=== PATIENT | female | born 1945 | race Caucasian/White ===

== ENCOUNTER 2017-09-28 03:12 | Outpatient (RCR) | payer MEDICARE, OTHER, SELFPAY ==
[2017-09-28 09:55] VITALS: BP 122/76; PULSE 80; RESP 19; TEMP 36.4; O2SAT 96
[2017-09-28] MEDS: IMMUNE GLOBULIN 40 GM/400 ML BTL IV (10:09)
[2017-09-28] MEDS: Normal Saline Flush 10 ML SYR IVP (10:10)
[2017-09-28 10:20] VITALS: BP 113/69; PULSE 71; RESP 18; TEMP 36.4; O2SAT 95
[2017-09-28 10:35] VITALS: BP 113/69; PULSE 66; RESP 19; TEMP 36.3; O2SAT 95
[2017-09-28 11:05] VITALS: BP 115/70; PULSE 65; RESP 18; TEMP 36.4; O2SAT 92
[2017-09-28 11:35] VITALS: BP 116/73; PULSE 66; RESP 18; TEMP 36.3; O2SAT 96
[2017-09-28 12:05] VITALS: BP 129/73; PULSE 67; RESP 19; TEMP 36.6; O2SAT 98
[2017-10-05 10:20] VITALS: BP 123/79; PULSE 70; RESP 18; TEMP 36.5
[2017-10-05 10:22] VITALS: BP 123/79; PULSE 70; RESP 18; TEMP 36.5
[2017-10-05] MEDS: Normal Saline Flush 10 ML SYR IVP (10:24)
[2017-10-05] MEDS: IMMUNE GLOBULIN 40 GM/400 ML BTL IV (10:24)
[2017-10-05 10:45] VITALS: BP 120/78; PULSE 77; RESP 18; TEMP 36.5
[2017-10-05 11:10] VITALS: BP 139/78; PULSE 72; RESP 18; TEMP 36
[2017-10-05 11:40] VITALS: BP 125/75; PULSE 75; RESP 18; TEMP 36
[2017-10-12 10:10] VITALS: BP 132/68; PULSE 73; RESP 18; TEMP 36
[2017-10-12] MEDS: IMMUNE GLOBULIN 40 GM/400 ML BTL IV (10:13)
[2017-10-12] MEDS: Normal Saline Flush 10 ML SYR IVP (10:14)
[2017-10-12 10:20] VITALS: BP 115/64; PULSE 72; RESP 18; TEMP 36.1
[2017-10-12 10:45] VITALS: BP 114/70; PULSE 69; RESP 18; TEMP 36.2
[2017-10-20] MEDS: Normal Saline Flush 10 ML SYR IVP (10:20)
[2017-10-20] MEDS: IMMUNE GLOBULIN 40 GM/400 ML BTL IV (10:20)
[2017-10-20 10:38] VITALS: BP 117/73; PULSE 70; TEMP 36.7
[2017-10-20 10:45] VITALS: BP 132/82; PULSE 69; TEMP 36.6
[2017-10-20 11:00] LABS: T4 10.4 ug/dL (4.5-12.5); TSH 2.02 uIU/mL (0.358-3.74)
[2017-10-20 11:22] VITALS: BP 129/78; PULSE 72; TEMP 36.3
[2017-10-20 11:31] LABS: ESR 24 MM/HR (0-30)
[2017-10-20 12:32] VITALS: BP 115/64; PULSE 73; RESP 18; TEMP 36.3
[2017-10-21 09:36] LABS: LH 31.8 mIU/ml; Prolactin 14.5 ng/ml
[2017-10-27] MEDS: IMMUNE GLOBULIN 40 GM/400 ML BTL IV (10:15)
[2017-10-27] MEDS: Normal Saline Flush 10 ML SYR IVP (10:20)
[2017-10-27 10:30] VITALS: BP 121/79; PULSE 65; RESP 18; TEMP 36.3
[2017-10-27 11:10] VITALS: BP 132/76; PULSE 87; TEMP 36.3
== END 2017-10-28 ==
LOC: INF 10-05 01:35
PROVIDERS: PCP Family Medicine; Visit Provider Family Medicine
DX: G70.00 Myasthenia gravis without (acute) exacerbation (principal); D35.2 Benign neoplasm of pituitary gland; R51 Headache; M60.9 Myositis, unspecified; M35.00 Sjogren syndrome, unspecified; Z79.899 Other long term (current) drug therapy
CPT/HCPCS: 96365 ×5; 96366 ×5; J1459 ×5; 36415; 82533; 83519; 85652; 83002; 84146; 84436; 84443

== ENCOUNTER 2017-11-23 01:27 | Outpatient (RCR) | payer MEDICARE, OTHER, SELFPAY ==
[2017-11-02 10:18] VITALS: BP 118/77; PULSE 75; TEMP 36.1
[2017-11-02] MEDS: IMMUNE GLOBULIN 40 GM/400 ML BTL IV (10:21)
[2017-11-02 10:30] VITALS: BP 115/72; PULSE 72; RESP 18; TEMP 36.5
[2017-11-02] MEDS: Normal Saline Flush 10 ML SYR IVP (10:35)
[2017-11-02 10:38] LABS: Abs Immature Grans 0.01 k/cumm (0.0-0.09); Absolute Basophil Count 0.05 k/cumm (0.0-0.2); Absolute Eosinophil Count 0.37 k/cumm (0.0-0.7); Absolute Lymphocyte Count 0.89 k/cumm (1.2-3.4); Absolute Monocyte Count 0.52 k/cumm (0.11-0.7); Absolute Neutrophil Count 2.75 k/cumm (1.2-6.7); Basophils % 1.1; Eosinophils % 8.1; HCT 41.6 % (36.0-46.0); HGB 13.4 g/dL (12.0-15.5); Immature Grans % 0.2; Lymphocytes % 19.4; Mean Corp. HGB Concentration 32.2 g/dL (32.0-36.0); Mean Corpuscular Hemoglobin 28.4 pg (27.0-33.0); Mean Corpuscular Volume 88.1 fL (80-95); Mean Platelet Volume 10.1 fL (8.0-11.0); Monocytes % 11.3; Neutrophils % 59.9; Platelet Count 411 x1000/uL (130-400); RBC 4.72 m/cumm (4.00-5.20); RBC Distribution Width 14.1 % (11.7-14.6); White Blood Cell Count 4.59 k/cumm (4.4-10.8)
[2017-11-02 10:53] LABS: ALT 20 U/L (12-78); AST 17 U/L (15-37); Albumin 3.6 g/dL (3.4-5.0); Alkaline Phosphatase 102 U/L (46-116); Anion Gap 5.8 mmol/L (3-11); BUN 15 mg/dL (7-18); Bilirubin, Total 0.3 mg/dL (0.2-1.0); CO2 26.2 mmol/L (21.0-32.0); CREATININE 0.89 mg/dL (0.55-1.02); Chloride 104 mmol/L (98-107); Glucose 99 mg/dL (70-100); Sodium 136 mmol/L (136-145); Total Protein 8.8 g/dL (6.4-8.2)
[2017-11-02 11:00] VITALS: BP 109/74; PULSE 73; RESP 18; TEMP 36.2
[2017-11-02 11:30] VITALS: BP 124/74; PULSE 67; TEMP 36.8
[2017-11-02 11:38] VITALS: BP 124/69; PULSE 68; RESP 18; TEMP 36.7
[2017-11-02 12:27] VITALS: BP 120/74; PULSE 73; TEMP 36.9
[2017-11-09 09:59] VITALS: BP 115/66; PULSE 77; RESP 18; TEMP 36
[2017-11-09] MEDS: IMMUNE GLOBULIN 40 GM/400 ML BTL IV (10:09)
[2017-11-09] MEDS: Normal Saline Flush 10 ML SYR IVP (10:10)
[2017-11-09 10:15] VITALS: BP 119/79; PULSE 71; RESP 18; TEMP 36.5
[2017-11-09 10:30] VITALS: BP 119/77; PULSE 73; RESP 18; TEMP 36.5
[2017-11-16] MEDS: IMMUNE GLOBULIN 40 GM/400 ML BTL IV (10:14)
[2017-11-16 10:15] VITALS: BP 120/72; PULSE 68; RESP 18; TEMP 36.4
[2017-11-16] MEDS: Normal Saline Flush 10 ML SYR IVP (10:15)
[2017-11-16 10:20] VITALS: BP 118/70; PULSE 69; RESP 18; TEMP 36.1; O2SAT 95
[2017-11-16 10:35] VITALS: BP 118/77; PULSE 66; RESP 95; TEMP 36.7
[2017-11-23] MEDS: IMMUNE GLOBULIN 40 GM/400 ML BTL IV (10:24)
[2017-11-23] MEDS: Normal Saline Flush 10 ML SYR IVP (10:25)
[2017-11-23 10:48] VITALS: BP 121/77; PULSE 79; RESP 18; TEMP 36.6
[2017-11-23 11:10] VITALS: BP 121/66; PULSE 76; RESP 17; TEMP 37.2
[2017-11-23 12:44] VITALS: BP 112/72; PULSE 83; RESP 18; TEMP 36.8
== END 2017-11-27 23:59 | disposition home or self-care (01) ==
LOC: INF 01:27
PROVIDERS: Internal Medicine; PCP Family Medicine; Visit Provider Family Medicine
DX: G70.00 Myasthenia gravis without (acute) exacerbation; M60.9 Myositis, unspecified; M35.00 Sjogren syndrome, unspecified; Z79.899 Other long term (current) drug therapy
CPT/HCPCS: 36415; 80053; 96365; 96366; 85025; J1459

== ENCOUNTER 2017-12-28 01:35 | Outpatient (RCR) | payer MEDICARE, OTHER, SELFPAY ==
[2017-11-30] MEDS: IMMUNE GLOBULIN 40 GM/400 ML BTL IV (09:57)
[2017-11-30] MEDS: Normal Saline Flush 10 ML SYR IVP (09:58)
[2017-11-30 10:05] VITALS: BP 166/88; PULSE 83; RESP 20; TEMP 36.3
[2017-11-30 10:24] VITALS: BP 117/69; PULSE 72; RESP 18; TEMP 36.7; O2SAT 93
[2017-11-30 10:46] VITALS: BP 139/76; PULSE 77; RESP 18; TEMP 36.2; O2SAT 93
[2017-11-30 11:21] VITALS: BP 96/61; PULSE 73; RESP 18; TEMP 36.1; O2SAT 92
[2017-11-30 12:13] VITALS: BP 121/66; PULSE 80; RESP 17; TEMP 36.6; O2SAT 97
[2017-12-07] MEDS: IMMUNE GLOBULIN 40 GM/400 ML BTL IV (10:05)
[2017-12-07] MEDS: Normal Saline Flush 10 ML SYR IVP (10:05)
[2017-12-07 10:14] VITALS: BP 121/71; PULSE 81; RESP 17; TEMP 37.2; O2SAT 94
[2017-12-07 10:30] VITALS: BP 118/73; PULSE 83; RESP 18; TEMP 37.1; O2SAT 92
[2017-12-07 11:00] VITALS: BP 117/67; PULSE 79; RESP 18; TEMP 37; O2SAT 91
[2017-12-14] MEDS: Normal Saline Flush 10 ML SYR IVP (10:30)
[2017-12-14] MEDS: IMMUNE GLOBULIN 40 GM/400 ML BTL IV (10:45)
[2017-12-14 10:46] VITALS: BP 128/66; PULSE 75; RESP 18; TEMP 36.4; O2SAT 94
[2017-12-14 11:15] VITALS: BP 121/69; PULSE 77; RESP 18; TEMP 36.3; O2SAT 94
[2017-12-14 11:40] VITALS: BP 116/67; PULSE 78; RESP 18; TEMP 36.6; O2SAT 93
[2017-12-21 07:58] VITALS: BP 114/64; PULSE 86; RESP 18; TEMP 37.1; O2SAT 95
[2017-12-21] MEDS: Normal Saline Flush 10 ML SYR IVP (07:58)
[2017-12-21] MEDS: IMMUNE GLOBULIN 40 GM/400 ML BTL IV (08:03)
[2017-12-21 08:25] VITALS: BP 107/65; PULSE 75; RESP 18; TEMP 36.7; O2SAT 95
[2017-12-21 08:40] VITALS: BP 121/70; PULSE 85; RESP 18; TEMP 36.8; O2SAT 93
[2017-12-21 08:57] VITALS: BP 119/61; PULSE 80; RESP 18
[2017-12-21 09:25] VITALS: BP 123/71; PULSE 81; RESP 18; TEMP 36.5; O2SAT 93
[2017-12-28] MEDS: Normal Saline Flush 10 ML SYR IVP (10:14)
[2017-12-28 10:15] VITALS: BP 128/79; PULSE 79; RESP 18; TEMP 37.1; O2SAT 93
[2017-12-28] MEDS: IMMUNE GLOBULIN 40 GM/400 ML BTL IV (10:21)
[2017-12-28 10:28] LABS: Abs Immature Grans 0.02 k/cumm (0.0-0.09); Absolute Basophil Count 0.04 k/cumm (0.0-0.2); Absolute Eosinophil Count 0.17 k/cumm (0.0-0.7); Absolute Lymphocyte Count 1.05 k/cumm (1.2-3.4); Absolute Monocyte Count 0.61 k/cumm (0.11-0.7); Absolute Neutrophil Count 4.18 k/cumm (1.2-6.7); Basophils % 0.7; Eosinophils % 2.8; HCT 41.8 % (36.0-46.0); HGB 13.3 g/dL (12.0-15.5); Immature Grans % 0.3; Lymphocytes % 17.3; Mean Corp. HGB Concentration 31.8 g/dL (32.0-36.0); Mean Corpuscular Hemoglobin 28.4 pg (27.0-33.0); Mean Corpuscular Volume 89.3 fL (80-95); Mean Platelet Volume 9.6 fL (8.0-11.0); Neutrophils % 68.9; Platelet Count 379 x1000/uL (130-400); RBC 4.68 m/cumm (4.00-5.20); RBC Distribution Width 14.2 % (11.7-14.6); White Blood Cell Count 6.07 k/cumm (4.4-10.8)
[2017-12-28 10:40] VITALS: BP 127/77; PULSE 81; RESP 18; TEMP 37.2; O2SAT 94
[2017-12-28 10:47] LABS: ALT 24 U/L (12-78); AST 19 U/L (15-37); Albumin 3.3 g/dL (3.4-5.0); Alkaline Phosphatase 85 U/L (46-116); Anion Gap 7.7 mmol/L (3-11); BUN 13 mg/dL (7-18); Bilirubin, Total 0.3 mg/dL (0.2-1.0); CO2 27.3 mmol/L (21.0-32.0); CREATININE 0.82 mg/dL (0.55-1.02); Chloride 101 mmol/L (98-107); Glucose 109 mg/dL (70-100); Potassium 3.5 mmol/L (3.5-5.1); Sodium 136 mmol/L (136-145)
[2017-12-28 10:55] VITALS: BP 124/74; PULSE 78; RESP 18; TEMP 36.8; O2SAT 95
[2017-12-28 11:24] VITALS: BP 122/65; PULSE 73; RESP 20; TEMP 37; O2SAT 98
[2017-12-28 12:02] VITALS: BP 148/77; PULSE 80; RESP 18; TEMP 36.2; O2SAT 96
== END 2017-12-28 23:59 | disposition home or self-care (01) ==
LOC: INF 01:35
PROVIDERS: Psychiatry & Neurology Neurology; PCP Family Medicine; Visit Provider Family Medicine
DX: G70.00 Myasthenia gravis without (acute) exacerbation (principal); M60.9 Myositis, unspecified; M35.00 Sjogren syndrome, unspecified; Z79.899 Other long term (current) drug therapy
CPT/HCPCS: 80053; 96365; 96366; 85025; J1459

== ENCOUNTER 2018-01-20 00:34 | Outpatient (CLI) | payer MEDICARE, OTHER, SELFPAY ==
--- NOTE | 2018-01-20 16:00 | DI.CT_ITS ---
SYMPTOMS/DIAGNOSIS: MYASTHENIA GRAVIS, G70.00, EVALUATE FOR THYMOMA IN SETTING FOR MYASTHENIA, SJOGREN'S CHEST CT: Comparison is made with May, from [facility]. Images were performed from the clavicles through the level of the adrenals after IV contrast. There is no evidence of a thymoma or other mediastinal mass. No adenopathy is seen. The heart size is normal. Coronary artery calcifications are present. No pleural or pericardial effusions are noted. No bronchial thickening or dilatation is seen. No infiltrates or pulmonary nodules are seen. Mild emphysematous changes versus numerous tiny cysts are seen in both upper and lower lobes. Scoliosis and degenerative disc changes are seen. The visualized portions of the upper abdomen are unremarkable. IMPRESSION: No evidence of thymoma or other acute abnormality.
[2018-01-20] MEDS: Omnipaque 350 MG/ML 100 ML BTL IJ (16:07)
== END 2018-01-20 00:54 ==
PROVIDERS: PCP Family Medicine; Visit Provider Psychiatry & Neurology Neurology
DX: G70.00 Myasthenia gravis without (acute) exacerbation (principal); M35.00 Sjogren syndrome, unspecified
CPT/HCPCS: 71260; J3490

== ENCOUNTER 2018-01-25 01:10 | Outpatient (RCR) | payer MEDICARE, OTHER, SELFPAY ==
[2018-01-04] VITALS (7 sets, daily range): BP systolic 106–137; BP diastolic 64–97; PULSE 70–80; RESP 18–20; TEMP 36.2–36.6; O2SAT 92–96
[2018-01-04] MEDS: Normal Saline Flush 10 ML SYR IVP (10:25)
[2018-01-04] MEDS: IMMUNE GLOBULIN 40 GM/400 ML BTL IV (10:30)
[2018-01-11] MEDS: Normal Saline Flush 10 ML SYR IVP (08:40)
[2018-01-11] MEDS: IMMUNE GLOBULIN 40 GM/400 ML BTL IV (08:44)
[2018-01-11 08:49] VITALS: BP 151/96; PULSE 86; RESP 18; TEMP 36.1; O2SAT 94
[2018-01-11 09:08] VITALS: BP 123/67; PULSE 79; RESP 18; TEMP 36; O2SAT 95
[2018-01-11 09:30] VITALS: BP 150/83; PULSE 77; RESP 18; TEMP 36; O2SAT 98
[2018-01-11 10:16] VITALS: BP 155/65; PULSE 55; RESP 18; TEMP 36.5; O2SAT 98
[2018-01-18 10:10] VITALS: BP 134/79; PULSE 73; RESP 18; TEMP 36.2; O2SAT 96
[2018-01-18] MEDS: Normal Saline Flush 10 ML SYR IVP (10:24)
[2018-01-18] MEDS: IMMUNE GLOBULIN 40 GM/400 ML BTL IV (10:24)
[2018-01-18 10:33] LABS: CREATININE 0.78 mg/dL (0.55-1.02)
[2018-01-18 10:35] VITALS: BP 130/79; PULSE 67; RESP 18; TEMP 36.2; O2SAT 90
[2018-01-18 10:52] VITALS: BP 119/66; PULSE 68; RESP 18; TEMP 36.3; O2SAT 95
[2018-01-18 11:15] VITALS: BP 122/71; PULSE 69; RESP 18; TEMP 36.3; O2SAT 93
[2018-01-25 09:45] VITALS: BP 126/71; PULSE 70; RESP 18; TEMP 36; O2SAT 94
[2018-01-25] MEDS: IMMUNE GLOBULIN 40 GM/400 ML BTL IV (10:08)
[2018-01-25 10:12] VITALS: BP 130/81; PULSE 75; RESP 18; TEMP 36.2; O2SAT 98
[2018-01-25] MEDS: Normal Saline Flush 10 ML SYR IVP (10:17)
== END 2018-01-27 23:59 | disposition home or self-care (01) ==
LOC: INF 01:10
PROVIDERS: Psychiatry & Neurology Neurology; PCP Family Medicine; Visit Provider Family Medicine
DX: G70.00 Myasthenia gravis without (acute) exacerbation (principal); M35.00 Sjogren syndrome, unspecified
CPT/HCPCS: 36415; 96365; 96366; 82565; J1459

== ENCOUNTER 2018-02-22 00:31 | Outpatient (RCR) | payer MEDICARE, OTHER, SELFPAY ==
[2018-02-01 09:41] VITALS: BP 162/87; PULSE 84; RESP 18; TEMP 36.1; O2SAT 98
[2018-02-01] MEDS: IMMUNE GLOBULIN 40 GM/400 ML BTL IV (10:19)
[2018-02-01] MEDS: Normal Saline Flush 10 ML SYR IVP (10:21)
[2018-02-01 10:29] VITALS: BP 138/85; PULSE 72; RESP 16; TEMP 36.2; O2SAT 95
[2018-02-01 10:45] VITALS: BP 122/68; PULSE 70; RESP 18; TEMP 36; O2SAT 94
[2018-02-01 11:15] VITALS: BP 136/74; PULSE 68; RESP 18; TEMP 36.3; O2SAT 92
[2018-02-01 11:55] VITALS: BP 135/70; PULSE 75; RESP 18; TEMP 36.6; O2SAT 98
[2018-02-07 09:46] VITALS: BP 109/69; PULSE 64; RESP 14; TEMP 36; O2SAT 96
[2018-02-07] MEDS: IMMUNE GLOBULIN 40 GM/400 ML BTL IV (10:08)
[2018-02-07 10:30] VITALS: BP 125/77; PULSE 64; TEMP 36.4; O2SAT 94
[2018-02-07 11:08] VITALS: BP 128/77; PULSE 68; RESP 16; TEMP 36.4; O2SAT 97
[2018-02-07] MEDS: Normal Saline Flush 10 ML SYR IVP (12:18)
[2018-02-07 12:19] VITALS: BP 125/75; PULSE 67; RESP 18; TEMP 36.4; O2SAT 97
[2018-02-15 10:12] VITALS: BP 110/93; PULSE 79; RESP 18; TEMP 36; O2SAT 94
[2018-02-15] MEDS: IMMUNE GLOBULIN 40 GM/400 ML BTL IV (10:17)
[2018-02-15] MEDS: Normal Saline Flush 10 ML SYR IVP (10:20)
[2018-02-15 10:32] VITALS: BP 116/72; PULSE 74; RESP 18; TEMP 36.2; O2SAT 92
[2018-02-15 10:50] VITALS: BP 124/70; PULSE 72; RESP 18; TEMP 36.5; O2SAT 94
[2018-02-15 11:13] VITALS: BP 122/69; PULSE 71; TEMP 36.3; O2SAT 94
[2018-02-15 11:42] VITALS: BP 123/72; PULSE 73; RESP 18; TEMP 36.3; O2SAT 95
[2018-02-22 09:52] VITALS: BP 127/84; PULSE 78; RESP 18; TEMP 36.4; O2SAT 95
[2018-02-22 10:04] VITALS: BP 130/84; PULSE 78; RESP 18; TEMP 36.4; O2SAT 94
[2018-02-22] MEDS: IMMUNE GLOBULIN 40 GM/400 ML BTL IV (10:04)
[2018-02-22] MEDS: Normal Saline Flush 10 ML SYR IVP (10:05)
[2018-02-22 10:20] VITALS: BP 138/86; PULSE 78; RESP 18; TEMP 36; O2SAT 96
[2018-02-22 10:54] VITALS: BP 124/81; PULSE 72; RESP 18; TEMP 36.4; O2SAT 92
== END 2018-02-27 23:59 | disposition home or self-care (01) ==
LOC: INF 00:31
PROVIDERS: PCP Family Medicine; Visit Provider Family Medicine
DX: G70.00 Myasthenia gravis without (acute) exacerbation (principal); M35.00 Sjogren syndrome, unspecified
CPT/HCPCS: 96365; 96366; J1459

== ENCOUNTER 2018-03-29 05:24 | Outpatient (RCR) | payer MEDICARE, OTHER, SELFPAY ==
[2018-03-01] MEDS: Normal Saline Flush 10 ML SYR IVP (10:04)
[2018-03-01] MEDS: IMMUNE GLOBULIN 40 GM/400 ML BTL IV (10:15)
[2018-03-01 10:16] VITALS: BP 109/71; PULSE 74; RESP 14; TEMP 36.3; O2SAT 96
[2018-03-01 10:38] VITALS: BP 113/72; PULSE 86; RESP 18; TEMP 36.6; O2SAT 93
[2018-03-01 11:20] VITALS: BP 120/64; PULSE 76; RESP 18; TEMP 36.3; O2SAT 92
[2018-03-07 16:29] LABS: AGNA-1 Negative titer (<1:240); ANNA-1 Negative titer (<1:240); ANNA-2 Negative titer (<1:240); ANNA-3 Negative titer (<1:240); PCA-1 Negative titer (<1:240); PCA-2 Negative titer (<1:240); PCA-Tr Negative titer (<1:240); Striational (Striated Muscle) Negative titer (<1:120)
[2018-03-08 09:29] VITALS: BP 120/64; PULSE 76; RESP 18; TEMP 36.3; O2SAT 92
[2018-03-08 09:42] VITALS: BP 129/71; PULSE 75; RESP 18; TEMP 36.4; O2SAT 94
[2018-03-08] MEDS: Normal Saline Flush 10 ML SYR IVP (09:50)
[2018-03-08] MEDS: IMMUNE GLOBULIN 40 GM/400 ML BTL IV (09:50)
[2018-03-08 09:53] VITALS: BP 134/72; PULSE 74; RESP 18; TEMP 36.4; O2SAT 91
[2018-03-08 10:36] VITALS: BP 128/66; PULSE 81; RESP 18; TEMP 36.3; O2SAT 92
[2018-03-16 10:25] VITALS: BP 117/74; PULSE 81; RESP 18; TEMP 36.5; O2SAT 98
[2018-03-16] MEDS: IMMUNE GLOBULIN 40 GM/400 ML BTL IV (10:25)
[2018-03-16] MEDS: Normal Saline Flush 10 ML SYR IVP (10:29)
[2018-03-16 10:40] VITALS: BP 117/73; PULSE 80; RESP 18; TEMP 36.8; O2SAT 97
[2018-03-16 10:54] VITALS: BP 132/80; PULSE 83; RESP 94; TEMP 36.4; O2SAT 95
[2018-03-22 10:02] VITALS: BP 130/87; PULSE 79; RESP 18; TEMP 36.6; O2SAT 94
[2018-03-22] MEDS: IMMUNE GLOBULIN 40 GM/400 ML BTL IV (10:16)
[2018-03-22] MEDS: Normal Saline Flush 10 ML SYR IVP (10:17)
[2018-03-22 10:40] VITALS: BP 119/75; PULSE 74; RESP 18; TEMP 36.8; O2SAT 89
[2018-03-22 11:12] VITALS: BP 119/71; PULSE 72; RESP 18; TEMP 36.8; O2SAT 94
[2018-03-22 11:52] VITALS: BP 116/74; PULSE 76; RESP 18; TEMP 36.4; O2SAT 91
[2018-03-29] MEDS: IMMUNE GLOBULIN 40 GM/400 ML BTL IV (09:58)
[2018-03-29] MEDS: Normal Saline Flush 10 ML SYR IVP (09:59)
[2018-03-29 10:09] VITALS: BP 144/88; PULSE 74; RESP 18; TEMP 36.5; O2SAT 92
[2018-03-29 10:25] VITALS: BP 122/73; PULSE 74; RESP 18; TEMP 36.2; O2SAT 94
[2018-03-29 10:48] VITALS: BP 119/72; PULSE 71; RESP 18; TEMP 36.1; O2SAT 94
[2018-03-29 11:15] VITALS: BP 116/69; PULSE 72; RESP 18; TEMP 36.5; O2SAT 95
== END 2018-03-30 23:59 | disposition home or self-care (01) ==
LOC: INF 05:24
PROVIDERS: Psychiatry & Neurology Neurology; PCP Family Medicine; Visit Provider Family Medicine
DX: G70.00 Myasthenia gravis without (acute) exacerbation (principal); M35.00 Sjogren syndrome, unspecified; R53.2 Functional quadriplegia; R53.1 Weakness
CPT/HCPCS: 36415; 96365; 96366; 83519; 83520; 86256; J1459

== ENCOUNTER 2018-04-06 00:52 | Outpatient (CLI) | payer MEDICARE, OTHER, SELFPAY ==
[2018-04-06] MEDS: Gadoterate meglumine 20 ML VIAL 17 ML IVP (10:59)
--- NOTE | 2018-04-06 11:24 | DI.MRI_ITS ---
SYMPTOMS/DIAGNOSIS: PITUITARY ADENOMA, F/U SELLAR TUMOR, EVAL FOR CHANGE BRAIN MRI PITUITARY: MRI examination of the brain was performed according to the usual protocol with additional high resolution multi-planar pre and post contrast imaging of the region of the pituitary. The previously described pituitary mass seen on examination of 04/25/17 is again noted. On today's examination there is partial opacification of the sphenoid sinus which makes it difficult to give an exact comparison of pituitary size in comparison with the previous study. However maximal measurements are grossly unchanged, at about 28 x 25 x 20 mm. No new intracranial mass is seen. Note is again made of white matter signal changes consistent with microvascular ischemic change and small bilateral lacunar infarcts. The orbital and temporal bone structures appear intact as visualized. There is normal flow void in the [place] vasculature. Little interval change or minimal increase in size of pituitary mass, this was measured at 25 x 23 x 20 mm in diameter on the previous examination although remeasurement of the prior examination today shows 28 x 23 x 20 mm measurements as compared to 28 x 25 x 20 mm on today's examination. No additional significant findings or change. CONCLUSION: Fairly stable pituitary macroadenoma. Question slight interval increase in size in comparison with the previous examination, by 1-2 mm.
== END 2018-04-06 01:12 ==
PROVIDERS: PCP Family Medicine; Visit Provider Neurological Surgery
DX: D35.2 Benign neoplasm of pituitary gland (principal)
CPT/HCPCS: 70553

== ENCOUNTER 2018-04-26 00:27 | Outpatient (RCR) | payer MEDICARE, OTHER, SELFPAY ==
[2018-04-05] MEDS: IMMUNE GLOBULIN 40 GM/400 ML BTL IV (10:11)
[2018-04-05] MEDS: Normal Saline Flush 10 ML SYR IVP (10:12)
[2018-04-05 10:16] VITALS: BP 150/75; PULSE 69; RESP 18; TEMP 36.6; O2SAT 94
[2018-04-05 10:56] VITALS: BP 126/75; PULSE 76; RESP 18; TEMP 36.1; O2SAT 94
[2018-04-05 11:45] VITALS: BP 126/72; PULSE 72; RESP 18; TEMP 36.5; O2SAT 95
[2018-04-12 10:10] VITALS: BP 113/74; PULSE 74; RESP 18; TEMP 36.5; O2SAT 91
[2018-04-12] MEDS: Normal Saline Flush 10 ML SYR IVP (10:13)
[2018-04-12] MEDS: IMMUNE GLOBULIN 40 GM/400 ML BTL IV (10:14)
[2018-04-12 10:25] VITALS: BP 136/79; PULSE 82; RESP 18; TEMP 36.5; O2SAT 92
[2018-04-12 10:40] VITALS: BP 130/60; PULSE 75; RESP 18; TEMP 36.6; O2SAT 98
[2018-04-12 11:08] VITALS: BP 130/69; PULSE 77; RESP 18; TEMP 36.6; O2SAT 92
[2018-04-20 09:44] VITALS: BP 114/69; PULSE 87; RESP 18; TEMP 36; O2SAT 94
[2018-04-20] MEDS: IMMUNE GLOBULIN 40 GM/400 ML BTL IV (10:03)
[2018-04-20 10:13] VITALS: BP 116/71; PULSE 80; RESP 18; TEMP 36.2; O2SAT 95
[2018-04-20 10:30] VITALS: BP 140/61; PULSE 85; RESP 18; TEMP 36.5; O2SAT 94
[2018-04-20 10:45] VITALS: BP 116/70; PULSE 78; RESP 18; TEMP 36.6; O2SAT 96
[2018-04-20 11:12] VITALS: BP 129/73; PULSE 78; RESP 17; TEMP 36.2; O2SAT 92
[2018-04-20] MEDS: Normal Saline Flush 10 ML SYR IVP (11:17)
[2018-04-26] VITALS (7 sets, daily range): BP systolic 99–119; BP diastolic 62–67; PULSE 72–80; RESP 18; TEMP 36–36.5; O2SAT 92–98
[2018-04-26] MEDS: IMMUNE GLOBULIN 40 GM/400 ML BTL IV (10:32)
[2018-04-26] MEDS: Normal Saline Flush 10 ML SYR IVP (10:37)
== END 2018-04-27 23:59 | disposition home or self-care (01) ==
LOC: INF 00:27
PROVIDERS: PCP Family Medicine; Visit Provider Family Medicine
DX: G70.00 Myasthenia gravis without (acute) exacerbation (principal); M35.00 Sjogren syndrome, unspecified; R53.2 Functional quadriplegia; R53.1 Weakness
CPT/HCPCS: 96365; 96366; J1459

== ENCOUNTER 2018-05-24 02:02 | Outpatient (RCR) | payer MEDICARE, OTHER, SELFPAY ==
[2018-05-03 10:01] VITALS: BP 138/78; PULSE 96; RESP 18; TEMP 36; O2SAT 95
[2018-05-03] MEDS: IMMUNE GLOBULIN 40 GM/400 ML BTL IV (10:31)
[2018-05-03] MEDS: Normal Saline Flush 10 ML SYR IVP (10:31)
[2018-05-03 10:39] VITALS: BP 115/69; PULSE 81; RESP 18; TEMP 36.5; O2SAT 94
[2018-05-03 11:21] VITALS: BP 127/74; PULSE 96; RESP 18; TEMP 36.3; O2SAT 93
[2018-05-10 10:17] VITALS: BP 126/77; PULSE 86; RESP 18; TEMP 36.5; O2SAT 92
[2018-05-10] MEDS: IMMUNE GLOBULIN 40 GM/400 ML BTL IV (10:17)
[2018-05-10] MEDS: Normal Saline Flush 10 ML SYR IVP (10:18)
[2018-05-10 10:32] VITALS: BP 139/82; PULSE 87; RESP 18; TEMP 36.1; O2SAT 90
[2018-05-10 10:33] LABS: Abs Immature Grans 0.06 k/cumm (0.0-0.09); Absolute Basophil Count 0.06 k/cumm (0.0-0.2); Absolute Eosinophil Count 0.19 k/cumm (0.0-0.7); Absolute Monocyte Count 0.62 k/cumm (0.11-0.7); Basophils % 0.4; Eosinophils % 1.3; HCT 39.7 % (36.0-46.0); HGB 12.6 g/dL (12.0-15.5); Immature Grans % 0.4; Lymphocytes % 6.1; Mean Corp. HGB Concentration 31.7 g/dL (32.0-36.0); Mean Corpuscular Hemoglobin 28.1 pg (27.0-33.0); Mean Corpuscular Volume 88.6 fL (80-95); Mean Platelet Volume 9.9 fL (8.0-11.0); Monocytes % 4.3; Neutrophils % 87.5; Platelet Count 448 x1000/uL (130-400); RBC 4.48 m/cumm (4.00-5.20); RBC Distribution Width 14.3 % (11.7-14.6); White Blood Cell Count 14.33 k/cumm (4.4-10.8)
[2018-05-10 10:34] LABS: Absolute Lymphocyte Count 0.87 k/cumm (1.2-3.4); Absolute Neutrophil Count 12.54 k/cumm (1.2-6.7)
[2018-05-10 12:33] VITALS: BP 142/74; PULSE 83; RESP 18; TEMP 37; O2SAT 91
[2018-05-10 13:15] LABS: ALT 16 U/L (12-78); AST 18 U/L (15-37); Alkaline Phosphatase 90 U/L (46-116); Anion Gap 8.1 mmol/L (3-11); BUN 11 mg/dL (7-18); Bilirubin, Total 0.3 mg/dL (0.2-1.0); CO2 25.9 mmol/L (21.0-32.0); CREATININE 0.92 mg/dL (0.55-1.02); Calcium 8.9 mg/dL (8.5-10.1); Chloride 100 mmol/L (98-107); Glucose 126 mg/dL (70-100); Potassium 3.7 mmol/L (3.5-5.1); Sodium 134 mmol/L (136-145)
[2018-05-17 10:07] VITALS: BP 125/77; PULSE 83; RESP 18; TEMP 36.3; O2SAT 95
[2018-05-17] MEDS: IMMUNE GLOBULIN 40 GM/400 ML BTL IV (10:11)
[2018-05-17] MEDS: Normal Saline Flush 10 ML SYR IVP (10:12)
[2018-05-17 10:31] VITALS: BP 123/72; PULSE 77; RESP 18; TEMP 36.4; O2SAT 94
[2018-05-17 10:45] VITALS: BP 126/67; PULSE 64; RESP 18; TEMP 36.2; O2SAT 98
[2018-05-17 11:29] VITALS: BP 119/75; PULSE 72; RESP 18; TEMP 36.4; O2SAT 98
[2018-05-17 12:28] VITALS: BP 134/70; PULSE 84; RESP 18; TEMP 36.4; O2SAT 93
[2018-05-24 10:07] VITALS: BP 119/80; PULSE 75; RESP 18; TEMP 36.3; O2SAT 94
[2018-05-24] MEDS: Normal Saline Flush 10 ML SYR IVP (10:15)
[2018-05-24] MEDS: IMMUNE GLOBULIN 40 GM/400 ML BTL IV (10:20)
[2018-05-24 10:33] VITALS: BP 137/75; PULSE 79; RESP 18; TEMP 36.4; O2SAT 94
[2018-05-24 10:55] VITALS: BP 114/67; PULSE 74; RESP 18; TEMP 36; O2SAT 93
[2018-05-24 11:19] VITALS: BP 124/83; PULSE 83; RESP 18; TEMP 36.7; O2SAT 95
[2018-05-24 12:30] VITALS: BP 137/75; PULSE 82; RESP 18; TEMP 36.4; O2SAT 95
== END 2018-05-28 23:59 | disposition home or self-care (01) ==
LOC: INF 02:02
PROVIDERS: PCP Family Medicine; Visit Provider Family Medicine
DX: G70.00 Myasthenia gravis without (acute) exacerbation (principal); M35.00 Sjogren syndrome, unspecified; R53.2 Functional quadriplegia; R53.1 Weakness
CPT/HCPCS: 36415; 80053; 96365; 96366; 85025; J1459

== ENCOUNTER 2018-06-21 01:29 | Outpatient (RCR) | payer MEDICARE, OTHER, SELFPAY ==
[2018-05-31] MEDS: Normal Saline Flush 10 ML SYR IVP (09:55)
[2018-05-31] MEDS: IMMUNE GLOBULIN 40 GM/400 ML BTL IV (09:55)
[2018-05-31 09:56] VITALS: BP 131/67; PULSE 77; RESP 18; TEMP 36.1; O2SAT 98
[2018-05-31 10:19] VITALS: BP 123/66; PULSE 81; RESP 18; TEMP 36.5; O2SAT 93
[2018-05-31 10:37] VITALS: BP 112/58; PULSE 78; RESP 18; TEMP 36.1; O2SAT 95
[2018-06-07 10:04] VITALS: BP 136/78; PULSE 86; RESP 18; TEMP 36.5; O2SAT 94
[2018-06-07] MEDS: IMMUNE GLOBULIN 40 GM/400 ML BTL IV (10:24)
[2018-06-07 10:35] VITALS: BP 136/67; PULSE 76; RESP 18; TEMP 36.3; O2SAT 95
[2018-06-07] MEDS: Normal Saline Flush 10 ML SYR IVP (10:41)
[2018-06-07 10:56] VITALS: BP 135/65; PULSE 74; RESP 18; TEMP 36.5; O2SAT 98
[2018-06-07 11:32] VITALS: BP 131/68; PULSE 78; RESP 18; TEMP 36; O2SAT 93
[2018-06-14 10:30] VITALS: BP 125/68; PULSE 71; RESP 18; TEMP 36.1; O2SAT 94
[2018-06-14] MEDS: Normal Saline Flush 10 ML SYR IVP (10:30)
[2018-06-14] MEDS: IMMUNE GLOBULIN 40 GM/400 ML BTL IV (10:30)
[2018-06-14 10:50] VITALS: BP 126/79; PULSE 72; RESP 18; TEMP 36; O2SAT 94
[2018-06-14 11:30] VITALS: BP 116/72; PULSE 73; RESP 18; TEMP 36.4; O2SAT 94
[2018-06-14 12:35] VITALS: BP 129/72; PULSE 85; RESP 18; TEMP 36.1; O2SAT 94
[2018-06-21 10:15] VITALS: BP 129/76; RESP 18; TEMP 36.2; O2SAT 92
[2018-06-21] MEDS: IMMUNE GLOBULIN 40 GM/400 ML BTL IV (10:34)
[2018-06-21] MEDS: Normal Saline Flush 10 ML SYR IVP (10:35)
[2018-06-21 10:57] VITALS: BP 99/62; PULSE 81; RESP 18; TEMP 36.2; O2SAT 91
[2018-06-21 11:11] VITALS: BP 117/65; PULSE 84; RESP 18; TEMP 36; O2SAT 95
[2018-06-21 11:30] VITALS: BP 151/78; PULSE 95; RESP 18; TEMP 36.5; O2SAT 91
[2018-06-21 12:00] VITALS: BP 117/60; PULSE 75; RESP 18; TEMP 36.5; O2SAT 94
== END 2018-06-27 23:59 | disposition home or self-care (01) ==
LOC: INF 01:29
PROVIDERS: PCP Family Medicine; Visit Provider Family Medicine
DX: G70.00 Myasthenia gravis without (acute) exacerbation (principal); M35.00 Sjogren syndrome, unspecified; R53.2 Functional quadriplegia; R53.1 Weakness
CPT/HCPCS: 96365; 96366; J1459

== ENCOUNTER 2018-07-27 01:57 | Outpatient (RCR) | payer MEDICARE, OTHER, SELFPAY ==
[2018-06-28 09:56] VITALS: BP 120/80; PULSE 89; RESP 18; TEMP 36.5; O2SAT 94
[2018-06-28] MEDS: IMMUNE GLOBULIN 40 GM/400 ML BTL IV (10:11)
[2018-06-28] MEDS: Normal Saline Flush 10 ML SYR IVP (10:11)
[2018-06-28 10:26] VITALS: BP 112/65; PULSE 78; RESP 14; TEMP 36.6; O2SAT 93
[2018-06-28 10:42] VITALS: BP 113/69; PULSE 82; RESP 16; TEMP 36.4; O2SAT 97
[2018-06-28 11:05] VITALS: BP 112/69; PULSE 76; RESP 13; TEMP 36.5; O2SAT 94
[2018-06-28 11:44] VITALS: BP 123/76; PULSE 78; RESP 16; TEMP 36.5; O2SAT 96
[2018-07-05 10:05] VITALS: BP 118/77; PULSE 77; RESP 18; TEMP 36.5; O2SAT 94
[2018-07-05] MEDS: Normal Saline Flush 10 ML SYR IVP (10:10)
[2018-07-05] MEDS: IMMUNE GLOBULIN 40 GM/400 ML BTL IV (10:10)
[2018-07-05 10:38] VITALS: BP 102/69; PULSE 72; RESP 14; O2SAT 91
[2018-07-05 10:54] VITALS: BP 128/82; PULSE 74; RESP 18; TEMP 36.5; O2SAT 94
[2018-07-05 11:08] VITALS: BP 112/68; PULSE 74; RESP 18; TEMP 36.3; O2SAT 92
[2018-07-12 09:55] VITALS: BP 118/78; PULSE 89; RESP 18; TEMP 36.1; O2SAT 94
[2018-07-12] MEDS: Normal Saline Flush 10 ML SYR IVP (10:03)
[2018-07-12] MEDS: IMMUNE GLOBULIN 40 GM/400 ML BTL IV (10:03)
[2018-07-12 10:15] VITALS: BP 123/80; PULSE 78; RESP 18; TEMP 36.5; O2SAT 93
[2018-07-12 10:55] VITALS: BP 125/79; PULSE 74; RESP 18; TEMP 36; O2SAT 95
[2018-07-12 11:26] VITALS: BP 125/74; PULSE 78; RESP 18; TEMP 36.3; O2SAT 93
[2018-07-12 12:34] VITALS: BP 139/76; PULSE 90; RESP 18; TEMP 36; O2SAT 96
[2018-07-19 09:58] VITALS: BP 132/78; PULSE 88; RESP 18; TEMP 36.1; O2SAT 94
[2018-07-19] MEDS: Normal Saline Flush 10 ML SYR IVP (10:47)
[2018-07-19] MEDS: IMMUNE GLOBULIN 40 GM/400 ML BTL IV (10:47)
[2018-07-19 10:52] VITALS: BP 133/76; PULSE 73; RESP 18; TEMP 36.4; O2SAT 92
[2018-07-19 11:26] VITALS: BP 126/79; PULSE 78; RESP 18; TEMP 36.3; O2SAT 92
[2018-07-19 12:00] VITALS: BP 125/62; PULSE 68; RESP 18; TEMP 36.5; O2SAT 94
[2018-07-27 08:08] VITALS: BP 109/73; PULSE 80; RESP 18; TEMP 36; O2SAT 92
[2018-07-27 08:15] VITALS: BP 116/76; PULSE 76; RESP 18; TEMP 36; O2SAT 98
[2018-07-27] MEDS: IMMUNE GLOBULIN 40 GM/400 ML BTL IV (08:20)
[2018-07-27] MEDS: Normal Saline Flush 10 ML SYR IVP (08:20)
[2018-07-27 08:47] VITALS: BP 119/70; PULSE 78; RESP 18; TEMP 36; O2SAT 98
[2018-07-27 09:30] VITALS: BP 116/75; PULSE 73; RESP 18; TEMP 36.5; O2SAT 94
[2018-07-27 10:43] VITALS: BP 123/85; PULSE 75; RESP 18; TEMP 36.2; O2SAT 95
== END 2018-07-28 23:59 | disposition home or self-care (01) ==
LOC: INF 01:57
PROVIDERS: PCP Family Medicine; Visit Provider Family Medicine
DX: G70.00 Myasthenia gravis without (acute) exacerbation (principal); M35.00 Sjogren syndrome, unspecified; R53.2 Functional quadriplegia; R53.1 Weakness
CPT/HCPCS: 96365; 96366; J1459

== ENCOUNTER 2018-08-09 14:16 | Outpatient (CLI) | payer MEDICARE, OTHER, SELFPAY ==
--- NOTE | 2018-08-09 06:00 | DI.RAD_ITS ---
SYMPTOMS/DIAGNOSIS: LUMBAR RADICULOPATHY PAIN CLINIC LUMBAR SPINE: Fluoroscopy Time: 96.8 sec Fluoroscopy was utilized by Dr. Xie during the performance of a lumbar transforaminal epidural steroid injection. Please refer to the procedure report for complete details.
[2018-08-09 14:24] VITALS: BP 112/85; PULSE 87; RESP 20; TEMP 36.8; O2SAT 95
[2018-08-09 15:05] VITALS: BP 142/96; PULSE 93; RESP 18; O2SAT 96
--- NOTE | 2018-08-09 15:05 | PDOC.PAIN_ITS ---
Pain Clinic Procedure Note Current Active Problems Problem Status Onset Right lumbar radiculitis Chronic LUMBAR / SACRAL TRANSFORAMINAL INJECTION VIKTORIA FLOREZ has been referred [facility] the [facility] for a transforaminal nerve root block and steroid injection. COMMENTS: Patient had previous 2 level transforaminal injection with good relief Patient was interviewed and the medical record reviewed. There were no medical, pharmacologic, radiographic or other structural contraindications to attempting fluoroscopically guided transforaminal nerve root block and epidural steroid injection. Risks and expected side effects as well as potential benefit of the procedure were reviewed and voiced concerns addressed. The printed consent form was signed and witnessed. Standard time-out procedure was performed. Patient was placed in the prone position on the fluoroscopy table and automated blood pressure cuff and pulse oximeter applied. Fluoroscopy was utilized to identify the {right } neural foramen between L3- 4 and L4-5 . A skin jan was made for the needle insertion site. A Chlorhexadine prep was carried out, and sterile drapes were applied. Local anesthesia was achieved in the skin and subcutaneous tissues. A 22 gauge curved tip spinal needle was then inserted, advanced with fluoroscopic guidance into the neural foramen, confirmed on the lateral view. After negative aspiration, 2 ml of Omnipaque 240 was injected confirming position in A/P and lateral views. This showed a good spread of dye transforaminally into the epidural space. There was no vascular update with contrast injection under continuous fluoroscopy and digital substraction. 40 mg of Depo-Medrol was injected, followed by 0.5 ml of 1% Xylocaine flush for the nerve root block, as well. There was no unusual discomfort expressed.The needle was withdrawn. The patient tolerated the procedure well. A Band-Aid was applied. Vital signs were stable throughout the procedure and were as recorded in nursing records. If given, dosages of intravenous drugs for anxiolysis and analgesia were documented in nursing records. Follow up plans and appointments were discussed. Post procedure instruction was given as documented in nursing records and patient was discharged in the care of an identified shuttle bus driver. COMMENTS: f/u prn CC: Saurabh Anderson MD
[2018-08-09] MEDS: Omnipaque 240 MG/ML 50 ML BTL IJ (15:11)
[2018-08-09] MEDS: Bupivacaine 0.5% Pres-Free 10 ML VIAL IJ (15:16)
[2018-08-09] MEDS: methylPREDNISolone ACETATE 40 MG/ML VIAL IJ (15:16)
== END 2018-08-09 14:36 ==
PROVIDERS: PCP Family Medicine; Visit Provider Anesthesiology Pain Medicine
DX: M54.16 Radiculopathy, lumbar region (principal)
CPT/HCPCS: 64484; 64483; 72100; J1030; Q9967

== ENCOUNTER 2018-08-11 01:58 | Outpatient (CLI) | payer MEDICARE, OTHER, SELFPAY ==
--- NOTE | 2018-08-11 08:39 | DI.RAD_ITS ---
SYMPTOM/DIAGNOSIS: CHRONIC COUGH ON IMMUNE SUPPRESSION FOR MYASTHENIA CHEST X-RAY: PA and lateral. Comparison CT scan chest 01/20/18 The heart is normal in size. The lungs are clear. The mediastinal structures and pleura appear intact. CONCLUSION: Normal chest.
== END 2018-08-11 02:18 ==
PROVIDERS: PCP Family Medicine; Visit Provider Psychiatry & Neurology Neurology
DX: R05 Cough (principal); Z79.899 Other long term (current) drug therapy; M35.00 Sjogren syndrome, unspecified
CPT/HCPCS: 71046

== ENCOUNTER 2018-08-23 01:12 | Outpatient (RCR) | payer MEDICARE, OTHER, SELFPAY ==
[2018-08-02 10:15] VITALS: BP 118/69; PULSE 78; RESP 18; TEMP 36.2; O2SAT 93
[2018-08-02 10:16] LABS: Abs Immature Grans 0.03 k/cumm (0.0-0.09); Absolute Basophil Count 0.04 k/cumm (0.0-0.2); Absolute Eosinophil Count 0.34 k/cumm (0.0-0.7); Absolute Monocyte Count 0.66 k/cumm (0.11-0.7); Absolute Neutrophil Count 7.12 k/cumm (1.2-6.7); Basophils % 0.4; Eosinophils % 3.7; HCT 40.9 % (36.0-46.0); HGB 13.1 g/dL (12.0-15.5); Immature Grans % 0.3; Lymphocytes % 9.9; Mean Corpuscular Hemoglobin 28.9 pg (27.0-33.0); Mean Corpuscular Volume 90.3 fL (80-95); Mean Platelet Volume 9.7 fL (8.0-11.0); Monocytes % 7.3; Neutrophils % 78.4; Platelet Count 360 x1000/uL (130-400); RBC 4.53 m/cumm (4.00-5.20); RBC Distribution Width 14.5 % (11.7-14.6); White Blood Cell Count 9.09 k/cumm (4.4-10.8)
[2018-08-02] MEDS: IMMUNE GLOBULIN 40 GM/400 ML BTL IV (10:35)
[2018-08-02 10:37] LABS: ALT 19 U/L (12-78); AST 23 U/L (15-37); Albumin 3.4 g/dL (3.4-5.0); Alkaline Phosphatase 81 U/L (46-116); Anion Gap 8.1 mmol/L (3-11); BUN 16 mg/dL (7-18); Bilirubin, Total 0.3 mg/dL (0.2-1.0); CO2 25.9 mmol/L (21.0-32.0); CREATININE 1.07 mg/dL (0.55-1.02); Calcium 9.2 mg/dL (8.5-10.1); Chloride 103 mmol/L (98-107); Estimated GFR 50.55 (mL/min/1.73m2); Glucose 139 mg/dL (70-100); Potassium 3.9 mmol/L (3.5-5.1); Sodium 137 mmol/L (136-145); Total Protein 7.9 g/dL (6.4-8.2)
[2018-08-02] MEDS: Normal Saline Flush 10 ML SYR IVP (10:42)
[2018-08-02 10:58] VITALS: BP 114/75; PULSE 80; RESP 18; TEMP 36; O2SAT 91
[2018-08-02 11:15] VITALS: BP 106/67; PULSE 74; RESP 18; TEMP 36.2; O2SAT 95
[2018-08-02 12:03] VITALS: BP 135/65; PULSE 76; RESP 18; TEMP 36.2; O2SAT 93
[2018-08-10 09:40] VITALS: BP 143/85; PULSE 89; RESP 18; TEMP 36.2; O2SAT 98
[2018-08-10] MEDS: IMMUNE GLOBULIN 40 GM/400 ML BTL IV (10:17)
[2018-08-10] MEDS: Normal Saline Flush 10 ML SYR IVP (10:18)
[2018-08-10 10:25] VITALS: BP 120/70; PULSE 71; RESP 18; TEMP 36.5; O2SAT 95
[2018-08-10 10:40] VITALS: BP 122/78; PULSE 70; RESP 18; TEMP 36.3; O2SAT 93
[2018-08-10 11:10] VITALS: BP 122/75; PULSE 73; RESP 18; TEMP 36; O2SAT 94
[2018-08-10 11:30] VITALS: BP 147/91; PULSE 82; RESP 18; TEMP 36; O2SAT 92
[2018-08-11 12:13] LABS: Lyme Ab w Rflx to Lyme Confirm Negative
[2018-08-11 15:43] LABS: Albumin 52.2 % (55.8-66.1); Total Protein 7.6 g/dl (6.3-8.2)
[2018-08-16 10:11] VITALS: BP 122/73; PULSE 72; RESP 18; TEMP 36; O2SAT 92
[2018-08-16] MEDS: IMMUNE GLOBULIN 40 GM/400 ML BTL IV (10:15)
[2018-08-16] MEDS: Normal Saline Flush 10 ML SYR IVP (10:15)
[2018-08-16 10:37] VITALS: BP 142/81; PULSE 74; RESP 18; TEMP 36; O2SAT 92
[2018-08-16 11:02] VITALS: BP 127/69; PULSE 78; RESP 18; TEMP 36.5; O2SAT 95
[2018-08-16 11:36] VITALS: BP 126/69; PULSE 77; RESP 18; TEMP 36.1; O2SAT 93
[2018-08-23 10:07] VITALS: BP 119/83; PULSE 71; RESP 18; TEMP 36.7; O2SAT 99
[2018-08-23] MEDS: Normal Saline Flush 10 ML SYR IVP (10:14)
[2018-08-23] MEDS: IMMUNE GLOBULIN 40 GM/400 ML BTL IV (10:14)
[2018-08-23 10:24] VITALS: BP 125/82; PULSE 79; RESP 18; TEMP 36; O2SAT 94
[2018-08-23 10:45] VITALS: BP 114/73; PULSE 75; RESP 18; TEMP 36.5; O2SAT 99
[2018-08-23 11:04] VITALS: BP 116/73; PULSE 75; RESP 18; TEMP 36.6; O2SAT 98
[2018-08-23 11:29] VITALS: BP 122/86; PULSE 71; RESP 18; TEMP 36.2; O2SAT 93
== END 2018-08-27 23:59 | disposition home or self-care (01) ==
LOC: INF 01:12
PROVIDERS: Internal Medicine; PCP Family Medicine; Visit Provider Psychiatry & Neurology Neurology
DX: G70.00 Myasthenia gravis without (acute) exacerbation (principal); M35.00 Sjogren syndrome, unspecified; R53.2 Functional quadriplegia; R53.1 Weakness
CPT/HCPCS: 36415; 80053; 96365; 96366; 84155; 84165; 84439; 84443; 85025; 86320; 86618; J1459

== ENCOUNTER 2018-09-27 01:44 | Outpatient (RCR) | payer MEDICARE, OTHER, SELFPAY ==
[2018-08-30 10:06] VITALS: BP 112/73; PULSE 82; RESP 18; TEMP 36; O2SAT 95
[2018-08-30 10:38] VITALS: BP 113/73; PULSE 78; RESP 18; TEMP 36.3; O2SAT 94
[2018-08-30] MEDS: Normal Saline Flush 10 ML SYR IVP (10:38)
[2018-08-30] MEDS: IMMUNE GLOBULIN 40 GM/400 ML BTL IV (10:38)
[2018-08-30 10:50] VITALS: BP 109/66; PULSE 78; RESP 18; TEMP 36; O2SAT 98
[2018-08-30 11:25] VITALS: BP 109/71; PULSE 77; RESP 18; TEMP 36.4; O2SAT 98
[2018-08-30 11:47] VITALS: BP 108/70; PULSE 75; RESP 18; TEMP 36.5; O2SAT 94
[2018-09-06 10:00] VITALS: BP 117/73; PULSE 87; RESP 18; TEMP 36.6; O2SAT 98
[2018-09-06] MEDS: IMMUNE GLOBULIN 40 GM/400 ML BTL IV (10:11)
[2018-09-06] MEDS: Normal Saline Flush 10 ML SYR IVP (10:12)
[2018-09-06 10:29] VITALS: BP 106/67; PULSE 79; RESP 18; TEMP 36.5; O2SAT 92
[2018-09-06 10:45] VITALS: BP 124/79; PULSE 71; RESP 18; TEMP 36.7; O2SAT 97
[2018-09-06 11:20] VITALS: BP 121/77; PULSE 70; RESP 18; TEMP 36.4; O2SAT 98
[2018-09-06 11:42] VITALS: BP 118/72; PULSE 69; RESP 18; TEMP 36.5; O2SAT 98
[2018-09-13] MEDS: Normal Saline Flush 10 ML SYR IVP (09:45)
[2018-09-13] MEDS: IMMUNE GLOBULIN 40 GM/400 ML BTL IV (09:55)
[2018-09-13 10:00] VITALS: BP 113/76; PULSE 78; RESP 16; TEMP 36; O2SAT 92
[2018-09-13 10:35] LABS: C-Reactive Protein 0.58 mg/dL (0.0-0.3)
[2018-09-13 10:55] VITALS: BP 119/69; PULSE 79; RESP 18; TEMP 36.6; O2SAT 98
[2018-09-13 11:06] LABS: ESR 31 MM/HR (0-30)
[2018-09-13 11:30] VITALS: BP 127/80; PULSE 77; TEMP 36.1; O2SAT 92
[2018-09-13 12:01] VITALS: BP 104/82; PULSE 88; RESP 18; TEMP 36.5; O2SAT 95
[2018-09-20 10:26] VITALS: BP 119/80; PULSE 79; RESP 18; TEMP 36.5; O2SAT 93
[2018-09-20] MEDS: Normal Saline Flush 10 ML SYR IVP (10:31)
[2018-09-20] MEDS: IMMUNE GLOBULIN 40 GM/400 ML BTL IV (10:31)
[2018-09-20 10:48] VITALS: BP 124/81; PULSE 74; RESP 18; TEMP 36.5; O2SAT 92
[2018-09-20 11:02] VITALS: BP 130/82; PULSE 77; RESP 18; TEMP 36.4; O2SAT 95
[2018-09-20 11:29] VITALS: BP 127/83; PULSE 77; RESP 18; TEMP 36.3; O2SAT 92
[2018-09-20 12:19] VITALS: BP 134/87; PULSE 82; RESP 18; TEMP 36.4; O2SAT 93
[2018-09-27 09:55] VITALS: BP 128/79; PULSE 78; RESP 18; TEMP 36.4; O2SAT 99
[2018-09-27] MEDS: IMMUNE GLOBULIN 40 GM/400 ML BTL IV (10:00)
[2018-09-27] MEDS: Normal Saline Flush 10 ML SYR IVP (10:00)
[2018-09-27 10:13] VITALS: BP 121/79; PULSE 74; RESP 18; TEMP 36.4; O2SAT 94
[2018-09-27 10:30] VITALS: BP 120/69; PULSE 75; RESP 18; TEMP 36.4; O2SAT 95
[2018-09-27 10:48] VITALS: BP 118/73; PULSE 75; RESP 18; TEMP 36.4; O2SAT 97
[2018-09-27 11:25] VITALS: BP 123/76; PULSE 71; RESP 18; TEMP 36.6; O2SAT 92
[2018-09-27 12:06] VITALS: BP 132/76; PULSE 79; RESP 18; TEMP 36; O2SAT 93
== END 2018-09-27 23:59 | disposition home or self-care (01) ==
LOC: INF 01:44
PROVIDERS: PCP Family Medicine; Visit Provider Internal Medicine
DX: G70.00 Myasthenia gravis without (acute) exacerbation (principal); M35.00 Sjogren syndrome, unspecified; R53.2 Functional quadriplegia; R53.1 Weakness; R53.83 Other fatigue
CPT/HCPCS: 36591; 85652; 96365; 96366; 86140; J1459

== ENCOUNTER 2018-09-28 00:31 | Outpatient (CLI) | payer MEDICARE, OTHER, SELFPAY ==
--- NOTE | 2018-09-28 09:15 | DI.CT_ITS ---
SYMPTOM/DIAGNOSIS: SEVERE FATIGUE AND JOINT PAIN. MYALGIA. R58.83, M79.10 CT CHEST, ABDOMEN AND PELVIS: The study was carried out with intravenous administration of 100 cc Omnipaque. There is no infiltrate or mass. There is no evidence of a pleural effusion. The heart is not enlarged. Coronary artery calcification is demonstrated. There is no pericardial effusion. There are minimal atherosclerotic changes involving the aorta without evidence of an aneurysm. There is no evidence of hilar or mediastinal lymphadenopathy. There are apparent degenerative changes involving both shoulders and mild degenerative changes are noted involving the dorsal spine. SUMMARY: Negative chest CT. CT ABDOMEN AND PELVIS: The liver and gallbladder are unremarkable. Small calcifications in the liver would be consistent with old healed granulomatous disease. The gallbladder is unremarkable. There are no stones or evidence of ductal dilatation. The pancreas is normal. A single calcification is noted in the spleen and is consistent with old healed granulomatous disease. There is evidence of bilateral renal scarring and bilateral nonobstructing nephrolithiasis. A left renal cyst is apparent. A left extra renal pelvis is noted. There is no evidence of hydronephrosis. The adrenals are normal. There is no evidence of bowel obstruction. There is nothing to suggest an acute appendix. There is a considerable quantity of fecal material scattered throughout the colon. No localized bowel wall abnormality is appreciated. The bladder is intact. The reproductive organs as visualized appear intact. There is no evidence of an aortic aneurysm. There are degenerative changes involving the lumbar spine including narrowed vacuum discs at L3-4 and L5-S1. There is a Grade 2 L5 on S1 spondylolisthesis. There are severe degenerative changes involving the facet joints in the lower lumbar spine. The sacrum is intact. There is mild DJD involving the S-I joints. There is no evidence of intra-abdominal or pelvic adenopathy or a mass. SUMMARY: Bilateral renal scarring and nonobstructing nephrolithiasis are demonstrated and a left renal cyst is noted. There are degenerative changes involving a dextrorotoscoliosis lumbar spine and S-I joints. There is no evidence of adenopathy or a mass.
[2018-09-28] MEDS: Breeza Beverage 473 ML BTL PO ×2 (09:50→09:51)
[2018-09-28] MEDS: Omnipaque 350 MG/ML 50 ML BTL PO (09:50)
[2018-09-28 09:59] LABS: CREATININE 0.82 mg/dL (0.55-1.02)
[2018-09-28] MEDS: Omnipaque 350 MG/ML 100 ML BTL IJ (11:31)
== END 2018-09-28 00:51 ==
PROVIDERS: PCP Family Medicine; Visit Provider Family Medicine
DX: R53.83 Other fatigue (principal); M79.10 Myalgia, unspecified site; K76.89 Other specified diseases of liver; N28.1 Cyst of kidney, acquired; M53.3 Sacrococcygeal disorders, not elsewhere classified; N20.0 Calculus of kidney
CPT/HCPCS: 74177; 71260; 82565; J3490; Q9967

== ENCOUNTER 2018-10-25 02:18 | Outpatient (RCR) | payer MEDICARE, OTHER, SELFPAY ==
[2018-10-04 09:55] VITALS: BP 118/78; PULSE 89; RESP 18; TEMP 36.4; O2SAT 94
[2018-10-04] MEDS: Normal Saline Flush 10 ML SYR IVP (10:10)
[2018-10-04] MEDS: IMMUNE GLOBULIN 40 GM/400 ML BTL IV (10:15)
[2018-10-04 10:33] VITALS: BP 128/76; PULSE 77; RESP 18; TEMP 36.4; O2SAT 98
[2018-10-04 10:47] VITALS: BP 122/73; PULSE 78; RESP 18; TEMP 36.2; O2SAT 95
[2018-10-04 11:04] VITALS: BP 127/79; PULSE 94; RESP 18; TEMP 36.5; O2SAT 91
[2018-10-04 11:21] VITALS: BP 127/75; PULSE 70; RESP 18; TEMP 36.3; O2SAT 94
[2018-10-11 10:04] VITALS: BP 129/86; PULSE 74; RESP 18; TEMP 36; O2SAT 98
[2018-10-11] MEDS: IMMUNE GLOBULIN 40 GM/400 ML BTL IV (10:08)
[2018-10-11] MEDS: Normal Saline Flush 10 ML SYR IVP (10:09)
[2018-10-11 10:14] VITALS: BP 137/84; PULSE 97; RESP 18; TEMP 36.2; O2SAT 92
[2018-10-11 10:30] VITALS: BP 127/80; PULSE 76; RESP 18; TEMP 36.1; O2SAT 91
[2018-10-11 10:45] VITALS: BP 126/78; PULSE 73; RESP 18; TEMP 36.2; O2SAT 93
[2018-10-11 11:24] VITALS: BP 127/78; PULSE 71; RESP 18; TEMP 36.1; O2SAT 94
[2018-10-11 12:35] VITALS: BP 137/83; PULSE 76; RESP 18; TEMP 36.2; O2SAT 92
[2018-10-18] MEDS: Normal Saline Flush 10 ML SYR IVP (10:12)
[2018-10-18] MEDS: IMMUNE GLOBULIN 40 GM/400 ML BTL IV (10:12)
[2018-10-18 10:23] VITALS: BP 119/76; PULSE 67; RESP 18; TEMP 36; O2SAT 98
[2018-10-18 10:40] VITALS: BP 116/70; BP 122/75; PULSE 77; PULSE 80; RESP 18; TEMP 36.3; TEMP 36.5; O2SAT 94; O2SAT 95
[2018-10-18 10:41] LABS: Abs Immature Grans 0.04 k/cumm (0.0-0.09); Absolute Basophil Count 0.05 k/cumm (0.0-0.2); Absolute Eosinophil Count 0.23 k/cumm (0.0-0.7); Absolute Lymphocyte Count 1.11 k/cumm (1.2-3.4); Absolute Monocyte Count 0.83 k/cumm (0.11-0.7); Absolute Neutrophil Count 6.22 k/cumm (1.2-6.7); Basophils % 0.6; Eosinophils % 2.7; HGB 12.7 g/dL (12.0-15.5); Immature Grans % 0.5; Lymphocytes % 13.1; Mean Corp. HGB Concentration 31.8 g/dL (32.0-36.0); Mean Corpuscular Hemoglobin 28.7 pg (27.0-33.0); Mean Corpuscular Volume 90.5 fL (80-95); Mean Platelet Volume 9.9 fL (8.0-11.0); Monocytes % 9.8; Neutrophils % 73.3; Platelet Count 419 x1000/uL (130-400); RBC 4.42 m/cumm (4.00-5.20); RBC Distribution Width 14.2 % (11.7-14.6); White Blood Cell Count 8.48 k/cumm (4.4-10.8)
[2018-10-18 10:47] LABS: ALT 20 U/L (12-78); AST 14 U/L (15-37); Albumin 3.4 g/dL (3.4-5.0); Alkaline Phosphatase 77 U/L (46-116); Anion Gap 11.1 mmol/L (3-11); BUN 16 mg/dL (7-18); Bilirubin, Total 0.2 mg/dL (0.2-1.0); CO2 24.9 mmol/L (21.0-32.0); CREATININE 0.98 mg/dL (0.55-1.02); Calcium 9.1 mg/dL (8.5-10.1); Chloride 104 mmol/L (98-107); Estimated GFR 55.79 (mL/min/1.73m2); Glucose 113 mg/dL (70-100); Potassium 4.3 mmol/L (3.5-5.1); Sodium 140 mmol/L (136-145); Total Protein 8.1 g/dL (6.4-8.2)
[2018-10-18 10:50] VITALS: BP 120/72; PULSE 65; RESP 18; TEMP 36.6; O2SAT 98
[2018-10-25 10:03] VITALS: BP 149/91; PULSE 89; RESP 18; TEMP 36.6; O2SAT 99
[2018-10-25] MEDS: Normal Saline Flush 10 ML SYR IVP (10:35)
[2018-10-25] MEDS: IMMUNE GLOBULIN 40 GM/400 ML BTL IV (10:35)
[2018-10-25 10:54] VITALS: BP 118/80; PULSE 77; RESP 18; TEMP 36.6; O2SAT 99
[2018-10-25 11:10] VITALS: BP 126/78; PULSE 79; RESP 18; TEMP 36.2; O2SAT 98
[2018-10-25 11:23] VITALS: BP 125/75; PULSE 80; RESP 17; TEMP 36.4; O2SAT 97
[2018-10-25 12:17] VITALS: BP 153/84; PULSE 87; RESP 18; TEMP 36.7; O2SAT 96
== END 2018-10-28 23:59 | disposition home or self-care (01) ==
LOC: INF 02:18
PROVIDERS: PCP Family Medicine; Visit Provider Internal Medicine
DX: M35.00 Sjogren syndrome, unspecified (principal); Z79.899 Other long term (current) drug therapy; G70.00 Myasthenia gravis without (acute) exacerbation
CPT/HCPCS: 36415; 80053; 96365; 96366; 85025; J1459

== ENCOUNTER 2018-11-22 01:14 | Outpatient (RCR) | payer MEDICARE, OTHER, SELFPAY ==
[2018-11-01 09:57] VITALS: BP 124/81; PULSE 90; RESP 18; TEMP 36; O2SAT 99
[2018-11-01] MEDS: IMMUNE GLOBULIN 40 GM/400 ML BTL IV (10:20)
[2018-11-01] MEDS: Normal Saline Flush 10 ML SYR IVP (10:21)
[2018-11-01 10:26] VITALS: BP 132/82; PULSE 81; RESP 18; TEMP 36.2; O2SAT 92
[2018-11-01 10:44] VITALS: BP 130/80; PULSE 79; RESP 18; TEMP 36.5; O2SAT 94
[2018-11-01 11:00] VITALS: BP 125/87; PULSE 84; RESP 18; TEMP 36.4; O2SAT 93
[2018-11-01 11:48] VITALS: BP 127/72; PULSE 75; RESP 18; TEMP 36.2; O2SAT 96
[2018-11-08 10:02] VITALS: BP 118/74; PULSE 73; RESP 18; TEMP 36.5; O2SAT 94
[2018-11-08] MEDS: IMMUNE GLOBULIN 40 GM/400 ML BTL IV (10:05)
[2018-11-08] MEDS: Normal Saline Flush 10 ML SYR IVP (10:05)
[2018-11-08 10:20] VITALS: BP 125/79; PULSE 77; RESP 18; TEMP 36.1; O2SAT 98
[2018-11-08 10:40] VITALS: BP 135/82; PULSE 73; RESP 18; TEMP 36.4; O2SAT 98
[2018-11-08 11:08] VITALS: BP 136/84; PULSE 75; RESP 18; TEMP 36.4; O2SAT 99
[2018-11-15] VITALS (7 sets, daily range): BP systolic 114–145; BP diastolic 72–85; PULSE 71–86; RESP 18–20; TEMP 36.1–36.6; O2SAT 94–97
[2018-11-15] MEDS: IMMUNE GLOBULIN 40 GM/400 ML BTL IV (11:07)
[2018-11-15] MEDS: Normal Saline Flush 10 ML SYR IVP (11:07)
[2018-11-22] VITALS (7 sets, daily range): BP systolic 107–132; BP diastolic 71–81; PULSE 76–85; RESP 18–19; TEMP 36.3–36.7; O2SAT 92–96
[2018-11-22] MEDS: Normal Saline Flush 10 ML SYR IVP (10:50)
[2018-11-22] MEDS: IMMUNE GLOBULIN 40 GM/400 ML BTL IV (10:50)
== END 2018-11-27 23:59 | disposition home or self-care (01) ==
LOC: INF 01:14
PROVIDERS: PCP Family Medicine; Visit Provider Internal Medicine
DX: G70.00 Myasthenia gravis without (acute) exacerbation (principal); M35.00 Sjogren syndrome, unspecified; R53.2 Functional quadriplegia; R53.1 Weakness
CPT/HCPCS: 96365; 96366; J1459

== ENCOUNTER 2018-11-27 02:41 | Outpatient (CLI) | payer MEDICARE, OTHER, SELFPAY ==
--- NOTE | 2018-11-27 | PFT_ITS ---
PULMONARY FUNCTION TEST REPORT Patient - Shelby Hampton DATE OF SERVICE November 27, 2018 REQUESTING PROVIDER Saurabh Anderson M.D. INTERPRETATION OF STUDY Spirometry shows no evidence of obstructive airways disease. No bronchodilator response. LUNG VOLUMES - Lung volumes show no evidence of restriction. DIFFUSION CAPACITY- Mildly reduced which is normal when corrected to alveolar volume. AIRWAY RESISTANCE - Normal. IMPRESSION Isolated mild diffusion defect. Clinical correlation recommended. Interstitial lung disease should be further evaluated with this constellation of finding and with referral diagnosis of Sjogren's syndrome. This finding can also be seen in respiratory neuromuscular weakness, therefore if that is suspected with underlying referring diagnosis of myasthenia gravis, proceeding with MIP, MEP and MVV maneuvers is recommended. When this study was compared to previous one from 03/06/2013, the patient has a 350 cc improvement in FVC, FEV1 has improved by 140 cc. Liana Montana M.D. Lashon T- 12/01/2018
[2018-11-27] MEDS: Inhaler, Assist Device 1 EACH MC (16:18)
[2018-11-27] MEDS: Albuterol HFA 18 GM 200 PUFF INH IH (16:18)
== END 2018-11-27 03:01 ==
PROVIDERS: PCP Family Medicine; Visit Provider Family Medicine
DX: R06.09 Other forms of dyspnea (principal); M35.00 Sjogren syndrome, unspecified; G70.00 Myasthenia gravis without (acute) exacerbation; Z87.891 Personal history of nicotine dependence
CPT/HCPCS: 94060; 94150; 94726; 94729

== ENCOUNTER 2018-12-07 01:03 | Outpatient (CLI) | payer MEDICARE, OTHER, SELFPAY ==
--- NOTE | 2018-12-07 10:10 | DI.MAMMO_ITS ---
EXAM: MAMMO SCREENING CLINICAL HISTORY: screening, Z12.39. TECHNIQUE: Mammograms were interpreted according to the usual protocol including computer analysi s with CAD system, tomosynthesis and C-view imaging. COMPARISON: April 2016 FINDINGS: The breasts are of moderate density with fairly symmetrical distribution of fibroglandular tissue. No dominant mass or clumped microcalcification is identified in either breast. Focal asymmetry in the c entral superior portion of the left breast is unchanged in appearance in comparison with the previous examination April 2016. IMPRESSION: No specific evidence of malignancy at this time. Routine screening examinations are suggested at year ly intervals in this age group according to the ACS ACR guidelines, category 1, breast density catego ry B. BI-RADS Cat 1 - Negative Breast Density - Category B - Scattered areas of fibroglandular density
== END 2018-12-07 01:23 ==
PROVIDERS: PCP Family Medicine; Visit Provider Family Medicine
DX: Z12.31 Encounter for screening mammogram for malignant neoplasm of breast (principal)
CPT/HCPCS: 77063; 77067

== ENCOUNTER 2018-12-27 01:44 | Outpatient (RCR) | payer MEDICARE, OTHER, SELFPAY ==
[2018-11-29] VITALS (7 sets, daily range): BP systolic 108–145; BP diastolic 64–84; PULSE 70–80; RESP 18–20; TEMP 36.1–36.8; O2SAT 93–100
[2018-11-29] MEDS: Normal Saline Flush 10 ML SYR IVP (10:11)
[2018-11-29] MEDS: IMMUNE GLOBULIN 40 GM/400 ML BTL IV (10:11)
[2018-12-06] VITALS (7 sets, daily range): BP systolic 117–153; BP diastolic 69–86; PULSE 74–83; RESP 18–19; TEMP 36.3–36.9; O2SAT 92–97
[2018-12-06] MEDS: IMMUNE GLOBULIN 40 GM/400 ML BTL IV (10:17)
[2018-12-06] MEDS: Normal Saline Flush 10 ML SYR IVP (10:17)
[2018-12-13 10:04] VITALS: BP 119/77; PULSE 79; RESP 19; TEMP 36.5; O2SAT 94
[2018-12-13] MEDS: IMMUNE GLOBULIN 40 GM/400 ML BTL IV (10:21)
[2018-12-13] MEDS: Normal Saline Flush 10 ML SYR IVP (10:21)
[2018-12-13 10:27] VITALS: BP 134/84; PULSE 78; RESP 19; TEMP 36.6; O2SAT 93
[2018-12-13 10:42] VITALS: BP 131/84; PULSE 82; RESP 18; TEMP 36.5; O2SAT 93
[2018-12-13 10:48] VITALS: BP 134/81; PULSE 81; RESP 19; TEMP 36.8; O2SAT 94
[2018-12-13 11:18] VITALS: BP 145/88; PULSE 75; RESP 19; TEMP 36.6; O2SAT 93
[2018-12-13 12:33] VITALS: BP 111/74; PULSE 82; RESP 19; TEMP 36.6; O2SAT 93
[2018-12-20] MEDS: IMMUNE GLOBULIN 40 GM/400 ML BTL IV (10:25)
[2018-12-20] MEDS: Normal Saline Flush 10 ML SYR IVP (10:26)
[2018-12-20 10:30] VITALS: BP 121/83; PULSE 84; RESP 19; TEMP 36.4; O2SAT 92
[2018-12-20 10:45] VITALS: BP 125/78; PULSE 82; RESP 18; TEMP 36.4; O2SAT 93
[2018-12-20 11:00] VITALS: BP 147/84; PULSE 79; RESP 19; TEMP 36.7; O2SAT 92
[2018-12-20 11:30] VITALS: BP 143/83; PULSE 79; RESP 18; TEMP 36.7; O2SAT 92
[2018-12-20 12:00] VITALS: BP 137/85; PULSE 84; RESP 19; TEMP 36.4; O2SAT 92
[2018-12-20 12:30] VITALS: BP 113/76; PULSE 80; RESP 18; TEMP 36.2; O2SAT 92
[2018-12-27] VITALS (7 sets, daily range): BP systolic 122–147; BP diastolic 71–90; PULSE 74–84; RESP 17–19; TEMP 36.4–36.7; O2SAT 92–99
[2018-12-27] MEDS: Normal Saline Flush 10 ML SYR IVP (10:24)
[2018-12-27] MEDS: IMMUNE GLOBULIN 40 GM/400 ML BTL IV (10:24)
== END 2018-12-28 23:59 | disposition home or self-care (01) ==
LOC: INF 01:44
PROVIDERS: PCP Family Medicine; Visit Provider Family Medicine
DX: G70.00 Myasthenia gravis without (acute) exacerbation (principal); M35.00 Sjogren syndrome, unspecified; R53.2 Functional quadriplegia; R53.1 Weakness
CPT/HCPCS: 96365; 96366; J1459

== ENCOUNTER 2019-01-03 02:24 | Outpatient (RCR) | payer MEDICARE, OTHER, SELFPAY ==
[2019-01-03] VITALS (7 sets, daily range): BP systolic 122–136; BP diastolic 79–89; PULSE 77–88; RESP 18–19; TEMP 36.3–36.6; O2SAT 92–96
[2019-01-03] MEDS: IMMUNE GLOBULIN 40 GM/400 ML BTL IV (10:12)
== END 2019-01-27 23:59 | disposition home or self-care (01) ==
LOC: INF 02:24
PROVIDERS: PCP Family Medicine; Visit Provider Family Medicine
DX: G70.00 Myasthenia gravis without (acute) exacerbation (principal); M35.00 Sjogren syndrome, unspecified
CPT/HCPCS: 96365; 96366; J1459

== ENCOUNTER 2019-01-24 00:59 | Outpatient (RCR) | payer MEDICARE, OTHER, SELFPAY ==
[2019-01-11] VITALS (7 sets, daily range): BP systolic 115–132; BP diastolic 72–83; PULSE 72–82; RESP 18–19; TEMP 36.5–36.8; O2SAT 92–96
[2019-01-11] MEDS: IMMUNE GLOBULIN 40 GM/400 ML BTL IV (10:21)
[2019-01-17] VITALS (7 sets, daily range): BP systolic 115–148; BP diastolic 67–98; PULSE 76–85; RESP 17–19; TEMP 36.2–36.6; O2SAT 92–96
[2019-01-17] MEDS: IMMUNE GLOBULIN 40 GM/400 ML BTL IV (10:13)
[2019-01-17] MEDS: Normal Saline Flush 10 ML SYR IVP (10:16)
[2019-01-24] VITALS (7 sets, daily range): BP systolic 98–157; BP diastolic 59–92; PULSE 70–89; RESP 18–19; TEMP 36.1–36.8; O2SAT 93–96
[2019-01-24] MEDS: IMMUNE GLOBULIN 40 GM/400 ML BTL IV (10:11)
[2019-01-24] MEDS: Normal Saline Flush 10 ML SYR IVP (10:11)
== END 2019-01-27 23:59 | disposition home or self-care (01) ==
LOC: INF 00:59
PROVIDERS: PCP Family Medicine; Visit Provider Family Medicine
DX: G70.00 Myasthenia gravis without (acute) exacerbation (principal); M35.00 Sjogren syndrome, unspecified; R53.2 Functional quadriplegia; R53.1 Weakness
CPT/HCPCS: 96365; 96366; J1459

== ENCOUNTER 2019-02-01 01:51 | Outpatient (CLI) | payer MEDICARE, OTHER, SELFPAY ==
--- NOTE | 2019-02-01 08:00 | PFT_ITS ---
DATE: FEBRUARY 01, 2019 REQUESTING PROVIDER: Dr. Saurabh Anderson INTERPRETATION: SPIROMETRY: Spirometry shows slightly low expiratory respiratory muscle function at 49% predicted while inspiratory muscle function and MVV are normal. IMPRESSION: Slightly low expiratory respiratory muscle function with an MEP of 49%, MIP an MVV are normal. Clinical correlation recommended.
== END 2019-02-01 02:11 ==
PROVIDERS: PCP Family Medicine; Visit Provider Family Medicine
DX: R06.09 Other forms of dyspnea (principal); G70.00 Myasthenia gravis without (acute) exacerbation; Z87.891 Personal history of nicotine dependence
CPT/HCPCS: 94200

== ENCOUNTER 2019-02-20 03:43 | Outpatient (RCR) | payer MEDICARE, OTHER, SELFPAY ==
[2019-01-31 09:52] VITALS: BP 136/85; PULSE 85; RESP 19; TEMP 36; O2SAT 94
[2019-01-31 10:04] VITALS: BP 123/74; PULSE 80; RESP 18; TEMP 36.4; O2SAT 94
[2019-01-31] MEDS: IMMUNE GLOBULIN 40 GM/400 ML BTL IV (10:04)
[2019-01-31] MEDS: Normal Saline Flush 10 ML SYR IVP (10:05)
[2019-01-31 10:24] VITALS: BP 134/83; PULSE 76; RESP 18; TEMP 36.6; O2SAT 94
[2019-01-31 10:54] VITALS: BP 161/86; PULSE 76; RESP 19; TEMP 36.7; O2SAT 98
[2019-01-31 11:24] VITALS: BP 128/66; PULSE 74; RESP 18; TEMP 35.9; O2SAT 94
[2019-01-31 11:44] VITALS: BP 141/86; PULSE 81; RESP 19; TEMP 36.3; O2SAT 94
[2019-02-07] MEDS: IMMUNE GLOBULIN 40 GM/400 ML BTL IV (10:05)
[2019-02-07 10:10] VITALS: BP 137/83; PULSE 84; RESP 18; TEMP 36.4; O2SAT 95
[2019-02-07] MEDS: Normal Saline Flush 10 ML SYR IVP (10:22)
[2019-02-07 10:25] VITALS: BP 128/85; PULSE 76; RESP 19; TEMP 36.6; O2SAT 94
[2019-02-07 10:40] VITALS: BP 151/89; PULSE 87; RESP 19; TEMP 36.7; O2SAT 92
[2019-02-07 11:55] VITALS: BP 125/77; PULSE 74; RESP 18; TEMP 36.4; O2SAT 93
[2019-02-14 10:00] VITALS: BP 130/75; PULSE 80; RESP 18; TEMP 36.9; O2SAT 94
[2019-02-14 10:08] VITALS: BP 145/83; PULSE 75; RESP 18; TEMP 36.9; O2SAT 94
[2019-02-14] MEDS: IMMUNE GLOBULIN 40 GM/400 ML BTL IV (10:08)
[2019-02-14] MEDS: Normal Saline Flush 10 ML SYR IVP (10:14)
[2019-02-14 10:23] VITALS: BP 143/83; PULSE 94; RESP 18; TEMP 36.7; O2SAT 97
[2019-02-14 10:38] VITALS: BP 129/83; PULSE 85; RESP 19; TEMP 36.6; O2SAT 93
[2019-02-14 11:08] VITALS: BP 130/74; PULSE 78; RESP 18; TEMP 36.7; O2SAT 93
[2019-02-14 11:38] VITALS: BP 119/72; PULSE 88; RESP 19; TEMP 36.6; O2SAT 93
[2019-02-20 08:45] VITALS: BP 136/79; PULSE 87; RESP 18; TEMP 36.6; O2SAT 96
[2019-02-20 08:55] VITALS: BP 131/87; PULSE 85; RESP 18; TEMP 36.6; O2SAT 96
[2019-02-20] MEDS: IMMUNE GLOBULIN 40 GM/400 ML BTL IV (08:56)
[2019-02-20] MEDS: Normal Saline Flush 10 ML SYR IVP (08:56)
[2019-02-20 09:10] VITALS: BP 135/84; PULSE 75; RESP 19; TEMP 36.4; O2SAT 96
[2019-02-20 09:40] VITALS: BP 129/79; PULSE 77; RESP 18; TEMP 36.6; O2SAT 94
[2019-02-20 10:10] VITALS: BP 125/86; PULSE 76; RESP 19; TEMP 36.4; O2SAT 94
== END 2019-02-27 23:59 | disposition home or self-care (01) ==
LOC: INF 03:43
PROVIDERS: PCP Family Medicine; Visit Provider Family Medicine
DX: G70.00 Myasthenia gravis without (acute) exacerbation (principal); M35.00 Sjogren syndrome, unspecified; R53.2 Functional quadriplegia; R53.1 Weakness
CPT/HCPCS: 96365; 96366; J1459

== ENCOUNTER 2019-03-01 09:22 | Outpatient (CLI) | payer MEDICARE, OTHER, SELFPAY ==
[2019-03-01 09:50] LABS: Bilirubin Negative (Negative); Blood Small (Negative); Clarity Clear (Clear); Glucose Negative (Negative); Ketones Negative (Negative); Leukocyte Esterase Negative (Negative); Nitrite Negative (Negative); Specific Gravity >= 1.030 (1.005-1.025); Urobilinogen 0.2 EU/dL (Up TO 0.2)
[2019-03-01 09:55] LABS: Bacteria Rare HPF (Negative); Crystals Negative HPF (Negative); Epithelial Cells Few HPF (Negative); Mucus Moderate (Negative); WBC 0-2 HPF (0-5)
[2019-03-01 09:56] LABS: C & S Indicated? No; Casts Negative LPF (Negative)
== END 2019-03-01 09:42 ==
PROVIDERS: PCP Family Medicine; Visit Provider Family Medicine
DX: R30.0 Dysuria (principal)
CPT/HCPCS: 81003; 81015

== ENCOUNTER 2019-03-28 02:04 | Outpatient (RCR) | payer MEDICARE, OTHER, SELFPAY ==
[2019-03-01 10:20] VITALS: BP 139/80; PULSE 58; RESP 19; TEMP 37; O2SAT 96
[2019-03-01 10:26] VITALS: BP 138/89; PULSE 60; RESP 19; TEMP 37; O2SAT 94
[2019-03-01] MEDS: Normal Saline Flush 10 ML SYR IVP (10:29)
[2019-03-01] MEDS: IMMUNE GLOBULIN 40 GM/400 ML BTL IV (10:29)
[2019-03-01 10:41] VITALS: BP 132/85; PULSE 83; RESP 18; TEMP 37; O2SAT 95
[2019-03-01 11:12] VITALS: BP 132/78; PULSE 81; RESP 18; TEMP 37; O2SAT 92
[2019-03-01 11:42] VITALS: BP 127/79; PULSE 83; RESP 19; TEMP 36.8; O2SAT 98
[2019-03-01 12:12] VITALS: BP 162/94; PULSE 82; RESP 18; TEMP 37; O2SAT 97
[2019-03-07 10:23] VITALS: BP 134/85; PULSE 93; RESP 16; TEMP 36.4; O2SAT 97
[2019-03-07] MEDS: IMMUNE GLOBULIN 40 GM/400 ML BTL IV (10:28)
[2019-03-07 10:29] VITALS: BP 154/90; PULSE 80; RESP 18; TEMP 36.4; O2SAT 18
[2019-03-07] MEDS: Normal Saline Flush 10 ML SYR IVP (10:29)
[2019-03-07 10:44] VITALS: BP 143/87; PULSE 76; RESP 16; TEMP 36.5; O2SAT 95
[2019-03-07 11:14] VITALS: BP 144/90; PULSE 79; RESP 16; TEMP 37.1; O2SAT 95
[2019-03-07 11:44] VITALS: BP 143/89; PULSE 80; RESP 17; TEMP 37; O2SAT 96
[2019-03-07 12:14] VITALS: BP 157/95; PULSE 89; RESP 18; TEMP 36.6; O2SAT 95
[2019-03-14 09:53] VITALS: BP 132/88; PULSE 96; RESP 18; TEMP 35.7; O2SAT 94
[2019-03-14] MEDS: IMMUNE GLOBULIN 40 GM/400 ML BTL IV (10:11)
[2019-03-14] MEDS: Normal Saline Flush 10 ML SYR IVP (10:12)
[2019-03-14 10:17] VITALS: BP 116/79; PULSE 87; RESP 18; TEMP 36; O2SAT 94
[2019-03-14 10:32] VITALS: BP 144/84; PULSE 81; RESP 19; TEMP 36; O2SAT 95
[2019-03-14 11:02] VITALS: BP 144/84; PULSE 81; RESP 19; TEMP 36; O2SAT 95
[2019-03-14 11:32] VITALS: BP 155/87; PULSE 83; RESP 19; TEMP 36.4; O2SAT 94
[2019-03-14 12:00] VITALS: BP 168/98; PULSE 90; RESP 18; TEMP 36.7; O2SAT 95
[2019-03-21 10:10] VITALS: BP 127/78; PULSE 88; RESP 19; TEMP 36.2; O2SAT 97
[2019-03-21 10:19] VITALS: BP 123/79; PULSE 86; RESP 18; TEMP 36; O2SAT 96
[2019-03-21] MEDS: Normal Saline Flush 10 ML SYR IVP (10:20)
[2019-03-21] MEDS: IMMUNE GLOBULIN 40 GM/400 ML BTL IV (10:20)
[2019-03-21 10:34] VITALS: BP 138/85; PULSE 78; RESP 19; TEMP 36.7; O2SAT 93
[2019-03-21 10:49] VITALS: BP 154/93; PULSE 81; RESP 18; TEMP 36.7; O2SAT 95
[2019-03-21 11:20] VITALS: BP 140/94; PULSE 89; RESP 19; TEMP 36.8; O2SAT 96
[2019-03-21 11:50] VITALS: BP 152/84; PULSE 87; RESP 18; TEMP 36.7; O2SAT 94
[2019-03-28] VITALS (7 sets, daily range): BP systolic 119–145; BP diastolic 67–84; PULSE 76–92; RESP 18–19; TEMP 36.4–37.1; O2SAT 93–100
[2019-03-28] MEDS: IMMUNE GLOBULIN 40 GM/400 ML BTL IV (10:12)
[2019-03-28] MEDS: Normal Saline Flush 10 ML SYR IVP (10:12)
[2019-03-28 12:52] LABS: Abs Immature Grans 0.02 k/cumm (0.0-0.09); Absolute Basophil Count 0.01 k/cumm (0.0-0.2); Absolute Eosinophil Count 0.02 k/cumm (0.0-0.7); Absolute Lymphocyte Count 0.88 k/cumm (1.2-3.4); Absolute Monocyte Count 0.47 k/cumm (0.11-0.7); Absolute Neutrophil Count 7.96 k/cumm (1.2-6.7); Basophils % 0.1; Eosinophils % 0.2; HCT 40.9 % (36.0-46.0); HGB 12.8 g/dL (12.0-15.5); Immature Grans % 0.2 %; Lymphocytes % 9.4; Mean Corp. HGB Concentration 31.3 g/dL (32.0-36.0); Mean Corpuscular Hemoglobin 27.9 pg (27.0-33.0); Mean Corpuscular Volume 89.3 fL (80-95); Mean Platelet Volume 9.6 fL (8.0-11.0); Neutrophils % 85.1; Platelet Count 413 x1000/uL (130-400); RBC 4.58 m/cumm (4.00-5.20); RBC Distribution Width 15.1 % (11.7-14.6); White Blood Cell Count 9.36 k/cumm (4.4-10.8)
== END 2019-03-30 23:59 | disposition home or self-care (01) ==
LOC: INF 02:04
PROVIDERS: PCP Family Medicine; Visit Provider Family Medicine
DX: G70.00 Myasthenia gravis without (acute) exacerbation (principal); M35.00 Sjogren syndrome, unspecified; R53.2 Functional quadriplegia; R53.1 Weakness
CPT/HCPCS: 36415; 80053; 96365; 96366; 81003; 81015; 85025; J1459

== ENCOUNTER 2019-04-03 02:00 | Outpatient (CLI) | payer MEDICARE, OTHER, SELFPAY ==
--- NOTE | 2019-04-03 08:05 | DI.US_ITS ---
EXAM: US RENAL CLINICAL HISTORY: NEPHROLITHIASIS, N20.0. TECHNIQUE: Astudillo scale, color and spectral Doppler were used. COMPARISON: FINDINGS: Renal size in cm: Right: 13.1 left: 12.3 Echogenicity: Normal Hydronephrosis: Prominence of the renal pelves bilaterally. This appears stable compared to the CT s can from 09/28/2018. Cyst or mass: 4.8 x 3.7 x 5.4 centimeter left renal cyst, which appears stable. Nephrolithiasis: No Other findings: Note is made of increased echogenicity of the liver consistent with hepatic steatosis . Bladder:Normal. The left ureteral jet was identified. No intraluminal masses are seen. Prevoid vol:169 cc Postvoid vol:0 cc IMPRESSION: No sonographically identified calculi.
--- NOTE | 2019-04-03 08:31 | DI.RAD_ITS ---
EXAM: XR ABDOMEN FLAT PLATE INDICATION: NEPHROLITHIASIS, N20.0. COMPARISON: ABDOMEN FLAT PLATE from 07/18/2013 TECHNIQUE: 2D digital imaging was performed. FINDINGS: Calcifications are seen overlying the lower and upper poles of the left kidney consistent with nephro lithiasis. The right kidney is largely obscured by overlying bowel. No other urinary tract calculi are appreciated. There is a rounded density projected over the lateral aspect of the left kidney con sistent with the patient's known renal cyst. There is again seen a right convex scoliosis of the lum bar spine. Degenerative changes are seen in the spine. There is no evidence of bowel obstruction. IMPRESSION: Left nephrolithiasis.
== END 2019-04-03 02:20 ==
PROVIDERS: PCP Family Medicine; Visit Provider Urology
DX: N20.0 Calculus of kidney (principal); N28.1 Cyst of kidney, acquired; K76.0 Fatty (change of) liver, not elsewhere classified
CPT/HCPCS: 76770; 74018

== ENCOUNTER 2019-04-25 01:45 | Outpatient (RCR) | payer MEDICARE, OTHER, SELFPAY ==
[2019-04-04 10:16] VITALS: BP 125/85; PULSE 76; RESP 19; TEMP 36.7; O2SAT 94
[2019-04-04] MEDS: IMMUNE GLOBULIN 40 GM/400 ML BTL IV (10:23)
[2019-04-04] MEDS: Normal Saline Flush 10 ML SYR IVP (10:25)
[2019-04-04 10:30] VITALS: BP 128/81; PULSE 78; RESP 18; TEMP 36.6; O2SAT 92
[2019-04-04 10:32] LABS: Abs Immature Grans 0.04 k/cumm (0.0-0.09); Absolute Basophil Count 0.04 k/cumm (0.0-0.2); Absolute Eosinophil Count 0.03 k/cumm (0.0-0.7); Absolute Lymphocyte Count 1.11 k/cumm (1.2-3.4); Absolute Monocyte Count 0.72 k/cumm (0.11-0.7); Absolute Neutrophil Count 5.86 k/cumm (1.2-6.7); Basophils % 0.5; Eosinophils % 0.4; HCT 39.9 % (36.0-46.0); HGB 12.8 g/dL (12.0-15.5); Immature Grans % 0.5 %; Lymphocytes % 14.2; Mean Corp. HGB Concentration 32.1 g/dL (32.0-36.0); Mean Corpuscular Hemoglobin 28.5 pg (27.0-33.0); Mean Corpuscular Volume 88.9 fL (80-95); Mean Platelet Volume 9.3 fL (8.0-11.0); Monocytes % 9.2; Neutrophils % 75.2; Platelet Count 435 x1000/uL (130-400); RBC 4.49 m/cumm (4.00-5.20); RBC Distribution Width 14.9 % (11.7-14.6)
[2019-04-04 10:45] VITALS: BP 133/80; PULSE 83; RESP 19; TEMP 36.6; O2SAT 92
[2019-04-04 10:50] LABS: ALT 21 U/L (14-59); AST 18 U/L (15-37); Albumin 3.4 g/dL (3.4-5.0); Alkaline Phosphatase 80 U/L (46-116); Anion Gap 7.5 mmol/L (3-11); BUN 10 mg/dL (7-18); Bilirubin, Total 0.2 mg/dL (0.2-1.0); CO2 27.5 mmol/L (21.0-32.0); CREATININE 0.95 mg/dL (0.55-1.02); Calcium 8.8 mg/dL (8.5-10.1); Chloride 104 mmol/L (98-107); Estimated GFR 57.82 (mL/min/1.73m2); Glucose 117 mg/dL (74-106); Potassium 3.6 mmol/L (3.5-5.1); Sodium 139 mmol/L (136-145)
[2019-04-04 11:15] VITALS: BP 121/76; PULSE 79; RESP 18; TEMP 36.5; O2SAT 94
[2019-04-04 11:45] VITALS: BP 122/76; PULSE 80; RESP 19; TEMP 36.6; O2SAT 94
[2019-04-04 12:15] VITALS: BP 119/89; PULSE 86; RESP 18; TEMP 36.2; O2SAT 93
[2019-04-11 09:55] VITALS: BP 119/80; PULSE 77; RESP 18; TEMP 36.5; O2SAT 93
[2019-04-11] MEDS: IMMUNE GLOBULIN 40 GM/400 ML BTL IV (09:59)
[2019-04-11 10:00] VITALS: BP 138/87; PULSE 81; RESP 18; TEMP 36.6; O2SAT 92
[2019-04-11] MEDS: Normal Saline Flush 10 ML SYR IVP (10:11)
[2019-04-11 10:18] VITALS: BP 130/84; PULSE 74; RESP 19; TEMP 36.5; O2SAT 93
[2019-04-11 10:48] VITALS: BP 135/84; PULSE 79; RESP 18; TEMP 36.3; O2SAT 92
[2019-04-11 11:18] VITALS: BP 130/77; PULSE 81; RESP 19; TEMP 36.4; O2SAT 93
[2019-04-11 11:48] VITALS: BP 135/52; PULSE 81; RESP 18; TEMP 36.5; O2SAT 92
[2019-04-18 10:00] VITALS: BP 157/89; PULSE 72; RESP 18; TEMP 36.3; O2SAT 99
[2019-04-18 10:33] VITALS: BP 159/88; PULSE 75; RESP 18; TEMP 36.3; O2SAT 94
[2019-04-18] MEDS: Normal Saline Flush 10 ML SYR IVP (10:33)
[2019-04-18] MEDS: IMMUNE GLOBULIN 40 GM/400 ML BTL IV (10:33)
[2019-04-18 10:48] VITALS: BP 137/86; PULSE 75; RESP 18; TEMP 36.3; O2SAT 98
[2019-04-18 11:03] VITALS: BP 157/97; PULSE 80; RESP 18; TEMP 36.3; O2SAT 92
[2019-04-18 11:33] VITALS: BP 157/82; PULSE 82; RESP 18; TEMP 36.2; O2SAT 94
[2019-04-18 12:03] VITALS: BP 155/91; PULSE 81; RESP 19; TEMP 36; O2SAT 96
[2019-04-25] VITALS (8 sets, daily range): BP systolic 128–155; BP diastolic 81–92; PULSE 74–85; RESP 18–19; TEMP 36–37; O2SAT 94–96
[2019-04-25] MEDS: IMMUNE GLOBULIN 40 GM/400 ML BTL IV (10:02)
[2019-04-25] MEDS: Normal Saline Flush 10 ML SYR IVP (10:02)
== END 2019-04-28 23:59 | disposition home or self-care (01) ==
LOC: INF 01:45
PROVIDERS: PCP Family Medicine; Visit Provider Family Medicine
DX: G70.00 Myasthenia gravis without (acute) exacerbation (principal); M35.00 Sjogren syndrome, unspecified; R53.2 Functional quadriplegia; R53.1 Weakness
CPT/HCPCS: 36415; 80053; 96365; 96366; 85025; J1459

== ENCOUNTER 2019-05-24 01:20 | Outpatient (RCR) | payer MEDICARE, OTHER, SELFPAY ==
[2019-05-03] VITALS (7 sets, daily range): BP systolic 112–127; BP diastolic 70–81; PULSE 74–83; RESP 18–19; TEMP 36–36.8; O2SAT 92–98
[2019-05-03] MEDS: IMMUNE GLOBULIN 40 GM/400 ML BTL IV (10:08)
[2019-05-03] MEDS: Normal Saline Flush 10 ML SYR IVP (10:28)
[2019-05-09 10:04] VITALS: BP 128/71; PULSE 81; RESP 19; TEMP 36.2; O2SAT 97
[2019-05-09] MEDS: IMMUNE GLOBULIN 40 GM/400 ML BTL IV (10:12)
[2019-05-09 10:17] VITALS: BP 127/82; PULSE 76; RESP 18; TEMP 36; O2SAT 95
[2019-05-09 10:32] VITALS: BP 144/87; PULSE 76; RESP 19; TEMP 36.3; O2SAT 94
[2019-05-09 10:47] VITALS: BP 130/84; PULSE 74; RESP 18; TEMP 36.6; O2SAT 94
[2019-05-09 11:18] VITALS: BP 132/74; PULSE 77; RESP 19; TEMP 36; O2SAT 95
[2019-05-09 11:48] VITALS: BP 128/76; PULSE 76; RESP 18; TEMP 36; O2SAT 93
[2019-05-09] MEDS: Normal Saline Flush 10 ML SYR IVP (12:31)
[2019-05-16 09:11] VITALS: BP 126/84; PULSE 92; RESP 19; TEMP 36.6; O2SAT 94
[2019-05-16] MEDS: Normal Saline Flush 10 ML SYR IVP (09:19)
[2019-05-16] MEDS: IMMUNE GLOBULIN 40 GM/400 ML BTL IV (09:19)
[2019-05-16 09:32] VITALS: BP 125/77; PULSE 79; RESP 18; TEMP 36.5; O2SAT 95
[2019-05-16 10:02] VITALS: BP 134/85; PULSE 79; RESP 19; TEMP 36.5; O2SAT 93
[2019-05-16 10:32] VITALS: BP 134/77; PULSE 74; RESP 18; TEMP 36.5; O2SAT 92
[2019-05-16 11:02] VITALS: BP 172/80; PULSE 75; RESP 18; TEMP 36.5; O2SAT 92
[2019-05-17] MEDS: Normal Saline Flush 10 ML SYR IVP (13:22)
[2019-05-24 10:00] VITALS: BP 133/88; PULSE 82; RESP 18; TEMP 36.5; O2SAT 95
[2019-05-24 10:12] VITALS: BP 118/80; PULSE 73; RESP 18; TEMP 36.5; O2SAT 95
[2019-05-24] MEDS: IMMUNE GLOBULIN 40 GM/400 ML BTL IV (10:13)
[2019-05-24] MEDS: Normal Saline Flush 10 ML SYR IVP (10:14)
[2019-05-24 10:27] VITALS: BP 116/76; PULSE 75; RESP 19; TEMP 36.6; O2SAT 95
[2019-05-24 10:57] VITALS: BP 135/87; PULSE 75; RESP 18; TEMP 36.6; O2SAT 93
[2019-05-24 11:28] VITALS: BP 134/83; PULSE 75; RESP 19; TEMP 36.2; O2SAT 94
[2019-05-24 11:58] VITALS: BP 134/82; PULSE 71; RESP 18; TEMP 36.6; O2SAT 95
== END 2019-05-29 23:59 | disposition home or self-care (01) ==
LOC: INF 01:20
PROVIDERS: PCP Family Medicine; Visit Provider Family Medicine
DX: G70.00 Myasthenia gravis without (acute) exacerbation (principal); M35.00 Sjogren syndrome, unspecified
CPT/HCPCS: 96365; 96366; J1300; J1459

== ENCOUNTER 2019-06-27 04:03 | Outpatient (RCR) | payer MEDICARE, OTHER, SELFPAY ==
[2019-05-30] MEDS: IMMUNE GLOBULIN 40 GM/400 ML BTL IV (09:57)
[2019-05-30] MEDS: Normal Saline Flush 10 ML SYR IVP (09:57)
[2019-05-30 10:09] VITALS: BP 148/91; PULSE 82; RESP 18; TEMP 37.1
[2019-05-30 10:24] VITALS: BP 122/73; PULSE 71; RESP 18; TEMP 36.5; O2SAT 95
[2019-05-30 10:39] VITALS: BP 129/78; PULSE 71; RESP 18; TEMP 36.5; O2SAT 95
[2019-05-30 11:04] VITALS: BP 128/72; PULSE 69; RESP 18; TEMP 36.5; O2SAT 95
[2019-05-30 11:34] VITALS: BP 117/74; PULSE 75; RESP 19; TEMP 36.4; O2SAT 93
[2019-05-30 12:04] VITALS: BP 168/78; PULSE 82; RESP 18; TEMP 36.5; O2SAT 95
[2019-06-06 10:10] VITALS: BP 144/87; PULSE 67; RESP 19; TEMP 36.6; O2SAT 96
[2019-06-06 10:15] VITALS: BP 142/80; PULSE 66; RESP 19; TEMP 36.5; O2SAT 95
[2019-06-06] MEDS: IMMUNE GLOBULIN 40 GM/400 ML BTL IV (10:18)
[2019-06-06 10:30] VITALS: BP 145/85; PULSE 70; RESP 18; TEMP 36.5; O2SAT 94
[2019-06-06 11:00] VITALS: BP 146/77; PULSE 75; RESP 19; TEMP 36.6; O2SAT 95
[2019-06-06 11:30] VITALS: BP 132/85; PULSE 82; RESP 18; TEMP 36.5; O2SAT 95
[2019-06-06 12:00] VITALS: BP 144/90; PULSE 82; RESP 19; TEMP 36.7; O2SAT 93
[2019-06-06] MEDS: Normal Saline Flush 10 ML SYR IVP (13:07)
[2019-06-13 09:00] VITALS: BP 120/83; PULSE 89; RESP 19; TEMP 36.3; O2SAT 97
[2019-06-13] MEDS: Normal Saline Flush 10 ML SYR IVP (09:06)
[2019-06-13] MEDS: IMMUNE GLOBULIN 40 GM/400 ML BTL IV (09:06)
[2019-06-13 09:09] VITALS: BP 143/89; PULSE 84; RESP 18; TEMP 36.3; O2SAT 95
[2019-06-13 09:24] VITALS: BP 134/86; PULSE 80; RESP 19; TEMP 36.2; O2SAT 93
[2019-06-13 09:49] VITALS: BP 149/88; PULSE 75; RESP 18; TEMP 36.2; O2SAT 94
[2019-06-13 10:19] VITALS: BP 144/86; PULSE 50; RESP 19; TEMP 36; O2SAT 93
[2019-06-13 10:39] VITALS: BP 148/91; PULSE 80; RESP 18; TEMP 36; O2SAT 94
[2019-06-20 10:05] VITALS: BP 134/80; PULSE 88; RESP 14; TEMP 37.1; O2SAT 96
[2019-06-20] MEDS: IMMUNE GLOBULIN 40 GM/400 ML BTL IV (10:09)
[2019-06-20] MEDS: Normal Saline Flush 10 ML SYR IVP (10:11)
[2019-06-20 10:20] VITALS: BP 131/84; PULSE 87; RESP 18; TEMP 36.3; O2SAT 92
[2019-06-20 10:50] VITALS: BP 155/93; PULSE 87; RESP 18; TEMP 36.3; O2SAT 92
[2019-06-20 11:20] VITALS: BP 143/76; PULSE 81; RESP 19; TEMP 36.2; O2SAT 93
[2019-06-20 11:50] VITALS: BP 151/111; PULSE 85; RESP 18; TEMP 36.4; O2SAT 94
[2019-06-27 09:05] VITALS: BP 140/85; BP 151/98; PULSE 88; PULSE 89; RESP 18; TEMP 36; TEMP 36.5; O2SAT 95; O2SAT 96
[2019-06-27] MEDS: IMMUNE GLOBULIN 40 GM/400 ML BTL IV (09:06)
[2019-06-27] MEDS: Normal Saline Flush 10 ML SYR IVP (09:06)
[2019-06-27 09:20] VITALS: BP 140/85; PULSE 88; RESP 18; TEMP 36.5; O2SAT 95
[2019-06-27 10:05] VITALS: BP 142/89; PULSE 72; RESP 18; TEMP 36.6; O2SAT 92
== END 2019-06-28 23:59 | disposition home or self-care (01) ==
LOC: INF 04:03
PROVIDERS: PCP Family Medicine; Visit Provider Family Medicine
DX: G70.00 Myasthenia gravis without (acute) exacerbation (principal); M35.00 Sjogren syndrome, unspecified
CPT/HCPCS: 90471; 96365; 96366; 96367; 96372; J1300; J1459

== ENCOUNTER 2019-07-10 09:51 | Outpatient (CLI) | payer MEDICARE, OTHER, SELFPAY ==
[2019-07-11 14:52] LABS: COVID-19 RT-PCR Result NEGATIVE (Negative)
== END 2019-07-10 10:11 ==
PROVIDERS: PCP Family Medicine; Visit Provider Family Medicine
DX: R53.82 Chronic fatigue, unspecified (principal); M79.10 Myalgia, unspecified site
CPT/HCPCS: U0003

== ENCOUNTER 2019-07-11 07:30 | Emergency (ER) | payer MEDICARE, OTHER, SELFPAY ==
[2019-07-11] VITALS (115 sets, daily range): BP systolic 102–152; BP diastolic 54–103; PULSE 77–112; RESP 15–29; TEMP 36.2–38.2; O2SAT 86–99
[2019-07-11 08:12] LABS: Lactate 1.4 mmol/L (0.6-1.4)
[2019-07-11] MEDS: Normal Saline 1,000 ML 1000 ML IV ×2 (08:13→08:40)
--- NOTE | 2019-07-11 08:21 | ED.GENADUL_ITS ---
Discharge Plan Disposition Patient Disposition: [facility] Condition: Stable Discharge Details Chief Complaint: Fever Clinical Impression: Sepsis, Acute UTI Primary Care Provider: Saurabh Anderson ED Provider: Analy Camacho Home Meds and New Rx's Prescriptions: No Action fluticasone furoate 27.5 mcg/actuation spray,suspension 2 spray DORON DAILY Qty: 9.1 RF: 3 benzonatate 100 mg capsule 100 mg PO TID PRN (Reason: cough) Qty: 30 RF: 2 promethazine-codeine 6.25-10 mg/5 mL syrup 5 ml PO HS PRN (Reason: cough) Qty: 118 RF: 0 prednisone 5 mg tablet 5 mg PO DAILY Qty: 90 RF: 4 meclizine 12.5 mg tablet 12.5 mg PO Q6H PRN Qty: 50 RF: 1 fluconazole [Diflucan] 150 mg tablet 150 mg PO ONCE Qty: 1 RF: 0 methylphenidate HCl 10 mg tablet 10 mg PO BID MDD 20 mg Qty: 60 RF: 0 quinine sulfate 324 MG capsule 324 mg PO HS Qty: 30 RF: 11 aarti/bacl/alyce/lido 1 applic Topical 3-4times prn RF: 0 menin C,Y,W-135 vac,2 of 2(PF) 5 mcg x 3/ 0.5 mL (final) recon soln 0.5 ml IM ONCE Qty: 0.5 RF: 0 N.meningitidis B,lipid fHBP rc 120 mcg/0.5 mL syringe 0.5 ml IM ONCE Qty: 0.5 RF: 0 triamcinolone acetonide 0.1 % cream 1 applic Topical BID Qty: 30 RF: 3 Ivig 2 bottle .Route . WEEKLY RF: 0 naproxen sodium [Aleve] 220 MG capsule 220 mg PO BID PRN PRNRF: 0 Medical Decision Making 73-year-old female with a history of myasthenia gravis presents with a chief complaint of fever, associated with myalgias, generalized weakness, headache, nausea vomiting and diarrhea. Patient describes this is moderate to severe. Patient states that she started feeling bad 2 days ago with fever. She was tested as an outpatient for COVID-19 yesterday results are pending at this time. Diarrhea started last night. Patient was recently on antibiotics in May for sinusitis infection. She denies any pain, no cough, no shortness of breath. Patient was given Zofran and normal saline prior to arrival via EMS. Patient is currently on chronic steroids for her myasthenia gravis and is autoimmune IVIG infusions weekly. EKG was reviewed by Dr. Miguelina BARRY ER attending, sinus tachycardia, unchanged repolarization changes in [address] elevation or depression. No ectopy. Septic work-up ordered including blood cultures x2, CBC, CMP, lactate, portable chest x-ray and UA. 0928: At this time patient is meeting sirs criteria, tachycardia fever WBC count is elevated at 16.80, left shift absolute neutrophils 13.76, absolute lymphocytes 0.96 absolute monocytes 2.0, sodium is low at 131, anion gap is 12.8, creatinine is elevated at 1.36 BUN is 14. Magnesium is low at 1.4 at this time urinalysis is pending. Patient has received 2 L normal saline bolus and an infusion of 150 cc an hour is ordered. INDINGS: LUNGS: Clear. No pleural abnormality seen. HEART: Normal. MEDIASTINUM: Normal. OTHER FINDINGS: None. IMPRESSION: No acute pulmonary findings. Considered ordering 1 g of magnesium IV piggyback however this is contraindicated in myasthenia gravis due to the potential to exacerbate symptoms and up-to-date states that inhibits the effect on the ACH release and its relatively contraindicated with myasthenia gravis. Will not order at this time. 0949: Informed by bell staff patient desatted to 85% on room air upon getting up to the bedside commode placed on 2 L oxygen nasal cannula is now satting 91 to 93%. Hospitalist paged for possible urosepsis UTI noted in urinalysis positive leukocytes positive nitrites. Ciprofloxacin 400 mg ordered IV piggyback. 1001: Spoke with Dr. Jackson who is on for hospitalist regarding admission of the patient she recommends hydrocortisone 100 mg IV piggyback she [facility] 1006: Dr. Parada called back and requests CT or ultrasound to rule out kidney stones prior to acccepting admission. CT abdomen pelvis without contrast ordered. CT shows multiple renal stones, largest noted in the left renal pelvis, 4 mm obstructing stone in the distal ureter. Urology paged. CT result: Adrenals appear normal bilaterally. There are multiple bilateral nonobstructing renal calculi. Additionally there is a left ureteral calculus measuring about 4 millimeters in diameter lying in the proximal left ureter and causing severe hydronephrosis. There is perinephric fat stranding. No gross free fluid collection seen. There is an incidental 5 cm in diameter is stable left renal cortical cyst unchanged from September 2018. Urinary bladder grossly unremarkable. IMPRESSION: There is an obstructing 4 millimeter in diameter proximal left ureteral stone with resultant marked left hydronephrosis. Additionally multiple nonobstructing renal calculi are seen bilaterally. 1049: Spoke with Ashley Wesley NP with urology who reports that patient will need an urgent stent placed she is going to page Dr. Chance and get back to me within the next 30 minutes to see if we can keep this patient in-house otherwise we will transfer her for urology specialty. 1112: Spoke with Ashley Wesley NP with urology again reports that Dr. Chance w ill be able to come in in place and at in the morning. 1119: Dr. Parada still requesting possible transfer to [facility] for emergent stent placement, due to septicemia, Karma feels that this patient may not be appropriate to wait until am. 1209: Spoke with urology at [facility] who agrees to accept patient for admission will transfer for stent placement and septicemia. 1416: Patient complaining of nausea, it has been 5 hours since last Zofran administration. Will order 4 mg Zofran IV push. 1533: EMS here for transport. HPI General Mode of arrival: EMS . Date/Time Provider Initiated Documentation: 07/11/19 07:49 . Limitations to Documentation: no limitations . Information obtained by: patient . HPI Narrative: 73-year-old female with a history of myasthenia gravis presents with a chief complaint of fever, associated with myalgias, generalized weakness, headache, nausea vomiting and diarrhea. Patient describes this is moderate to severe. Patient states that she started feeling bad 2 days ago with fever. She was tested as an outpatient for COVID-19 yesterday results are pending at this time. Diarrhea started last night. Patient was recently on antibiotics in May for sinusitis infection. She denies any pain, no cough, no shortness of breath. Patient was given Zofran and normal saline prior to arrival via EMS. Patient is currently on chronic steroids for her myasthenia gravis and is autoimmune IVIG infusions weekly. Related Data Home Medications Medication Instructions Recorded Confirmed Ivig 2 bottle .ROUTE . WEEKLY 07/01/15 07/11/19 naproxen sodium [Aleve] 220 mg PO BID PRN PRN 10/27/16 07/11/19 quinine sulfate 324 mg PO HS #30 cap 02/22/17 07/11/19 Aarti/Bacl/Alyce/Lido 1 applic TOPICAL 3-4times prn 04/26/17 07/11/19 fluticasone furoate 27.5 2 spray DORON DAILY #9.1 ml 01/27/18 07/11/19 mcg/actuation nasal spray,suspension prednisone 5 mg tablet 5 mg PO DAILY #90 tab 09/21/18 07/11/19 benzonatate 100 mg capsule 100 mg PO TID PRN #30 cap 04/24/19 04/24/19 promethazine 6.25 mg-codeine 10 5 ml PO HS PRN #118 ml 04/24/19 04/24/19 mg/5 mL syrup fluconazole 150 mg tablet 150 mg PO ONCE #1 tab 05/31/19 05/31/19 meclizine 12.5 mg tablet 12.5 mg PO Q6H PRN #50 tab 05/31/19 07/11/19 methylphenidate HCl 10 mg tablet 10 mg PO BID #60 tab MDD 20 mg 05/31/19 07/11/19 N.meningitidis B,lipid fHBP rc 120 0.5 ml IM ONCE #0.5 ml 06/12/19 mcg/0.5 mL intramuscular syringe Justyn Davila,W-135 vac,2 of 2(PF) 0.5 ml IM ONCE #0.5 ml 06/12/19 triamcinolone acetonide 0.1 % 1 applic TOPICAL BID #30 g 06/20/19 07/11/19 topical cream Previous Rx's Medication Instructions Recorded quinine sulfate 324 mg PO HS #30 cap 02/22/17 fluticasone furoate 27.5 2 spray DORON DAILY #9.1 ml 01/27/18 mcg/actuation nasal spray,suspension prednisone 5 mg tablet 5 mg PO DAILY #90 tab 09/21/18 benzonatate 100 mg capsule 100 mg PO TID PRN #30 cap 04/24/19 promethazine 6.25 mg-codeine 10 5 ml PO HS PRN #118 ml 04/24/19 mg/5 mL syrup fluconazole 150 mg tablet 150 mg PO ONCE #1 tab 05/31/19 meclizine 12.5 mg tablet 12.5 mg PO Q6H PRN #50 tab 05/31/19 methylphenidate HCl 10 mg tablet 10 mg PO BID #60 tab MDD 20 mg 05/31/19 N.meningitidis B,lipid fHBP rc 120 0.5 ml IM ONCE #0.5 ml 06/12/19 mcg/0.5 mL intramuscular syringe olman C,Y,W-135 vac,2 of 2(PF) 0.5 ml IM ONCE #0.5 ml 06/12/19 triamcinolone acetonide 0.1 % 1 applic TOPICAL BID #30 g 06/20/19 topical cream Allergies Allergy/AdvReac Type Severity Reaction Status Date / Time Penicillins Allergy ? Verified 07/11/19 07:44 breathing problems pneumococcal vaccine Allergy I had Verified 07/11/19 07:44 every reaction that you could get pregabalin Allergy Verified 07/11/19 07:44 Sulfa (Sulfonamide Allergy Verified 07/11/19 07:44 Antibiotics) topiramate AdvReac Severe dizziness, Verified 07/11/19 07:44 dysphoria amitriptyline AdvReac Intermediate sleepy Verified 07/11/19 07:44 celecoxib AdvReac Intermediate Other (See Verified 07/11/19 07:44 Comment) fluconazole [From Diflucan] AdvReac Intermediate mouth sores Verified 07/11/19 07:44 gabapentin AdvReac Intermediate eye pain Verified 07/11/19 07:44 hydroxychloroquine AdvReac Intermediate eye pain Verified 07/11/19 07:44 imipramine AdvReac Intermediate URINARY Verified 07/11/19 07:44 RETENTION celeco AdvReac Uncoded 07/11/19 07:44 General Stated Complaint: Fever BETH: 3 Review of Systems Narrative: Constitutional: Negative for weight loss, alert and oriented, well groomed, normal body habitus, appears uncomfortable. Positive fever, generalized weakness. HEENT: Denies trauma, , blurry vision, nasal discharge, sore throat, trouble swallowing. Positive headache Chest: Denies chest pain, palpitations, irregular rhythm, hypertension. Respiratory: Denies Shortness of breath, cough, hemoptysis. GI: Denies abdominal pain constipation. Positive nausea vomiting diarrhea. : Denies dysuria, hematuria, flank pain, rectal bleeding. Reports increased frequency in urination. Neuro: Denies dizziness, blurry vision, positive generalized weakness syncope, headache or facial numbness. Hematologic: Denies easy bruising, intolerance to heat or cold, hair loss. [facility] Medical History Atherosclerosis (Chronic) a. seen on chest CT in the thoracic aorta and in calcified coronary arteries b. 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 secondary to Sjogren's syndrome b. mild parenchymal fibrosis c. mild restrictive disease on PFTs Concussion (Inactive 05/02/12) DJD (degenerative joint disease), lumbar (Chronic) a. disc extrusion L2, L3 b. Spondylolysis in L4 and spondylolisthesis in L4, L5 GERD (gastroesophageal reflux disease) (Chronic) h/o urosepsis secondary to stones (Resolved 12/21/13) a. 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 secondary to Sjogren's syndrome Pain Pituitary macroadenoma (Chronic) a. stable with last MRI done 06/2013 Premature menopause (Resolved 12/07/10) Recurrent kidney stones (Chronic 12/21/13) Restless leg syndrome (Chronic) a. nightly cramping, treated with quinine Sjoegren syndrome Sjogren's syndrome (Chronic 05/29/13) Sjogrens syndrome (Chronic) a. pulmonary and neurologic findings Spondylolisthesis (Chronic 05/02/12) Surgical History Arthroplasty of knee H/O surgical procedure (Chronic) a. right knee arthroscopy with meniscectomy Recurrent major depression in partial remission Social History Smoking/Tobacco Use Status: Former Tobacco Use Alcohol Intake: never Drug use: Never Substance use type: does not use Current gender identity: female Do you feel safe at home: Yes Do you feel safe in your relationship?: Yes Exam Narrative Exam Narrative: Constitutional: Alert and oriented x3. Appears stated age. Normal body habitus. Warm to the touch Head: Normocephalic, no trauma. Eyes: Pupils PERRLA, Red reflex noted, EOM's intact. Eyelids symmetrical without lesions, discharge, or swelling. ENT: Bilateral TM's WNL, External ear normal to inspection, no mastoid TTP, swelling, or erythema, Nasal turbinates WNL, no nasal discharge. Normal dentition, Posterior pharynx WNL, no exudate. Chest: Tachycardia normal S1, S2, distal pulses intact. Resp: Lungs clear to auscultation bilaterally, diminished at the bases no wheezes, rales, or rhonchi. Musculoskeletal: Normal gait, 5/5 strength to all four extremities. Skin: No suspicious rashes or lesions. Capillary refill less than 2 sec. Neurologic: Cranial nerves II-XII intact. Alert and oriented x 3. DTR's intact. Hematologic/Lymphatic: No ecchymosis, no lymphadenopathy. Course Vital Signs Vital signs: Vital Signs Temperature 38.2 C H 07/11/19 07:32 Pulse 112 H 07/11/19 07:32 Blood Pressure 133/77 07/11/19 07:32 Pulse Oximetry 95 07/11/19 07:32 Temperature 38.2 C H 07/11/19 07:32 Temperature Source Oral 07/11/19 07:32 Pulse 112 H 07/11/19 07:32 Respiratory Effort Non-Labored 07/11/19 07:39 Blood Pressure 133/77 07/11/19 07:32 Pulse Oximetry 95 07/11/19 07:32 Oxygen Delivery Method Nasal Cannula 07/11/19 07:32 Oxygen Flow Rate 2 07/11/19 07:32 Pain Level 0 07/11/19 07:32 Lab/Test Results Lab/Test Results: 07/11/19 08:00 Blood Blood Culture - Pending 07/11/19 07:50 Blood Blood Culture - Pending Laboratory Tests Range/Units 07/11/19 08:00 Lactate (0.6-1.4) mmol/L 1.4
[2019-07-11 08:22] LABS: Abs Immature Grans 0.06 k/cumm (0.0-0.09); Absolute Basophil Count 0.02 k/cumm (0.0-0.2); Absolute Lymphocyte Count 0.96 k/cumm (1.2-3.4); Absolute Neutrophil Count 13.76 k/cumm (1.2-6.7); Basophils % 0.1; HCT 40.8 % (36.0-46.0); HGB 12.7 g/dL (12.0-15.5); Immature Grans % 0.4 %; Lymphocytes % 5.7; Mean Corp. HGB Concentration 31.1 g/dL (32.0-36.0); Mean Corpuscular Hemoglobin 28.3 pg (27.0-33.0); Mean Corpuscular Volume 91.1 fL (80-95); Mean Platelet Volume 10.1 fL (8.0-11.0); Monocytes % 11.9; Neutrophils % 81.9; RBC 4.48 m/cumm (4.00-5.20); RBC Distribution Width 14.7 % (11.7-14.6)
[2019-07-11 08:36] LABS: ALT 27 U/L (14-59); AST 23 U/L (15-37); Albumin 3.3 g/dL (3.4-5.0); Alkaline Phosphatase 92 U/L (46-116); Anion Gap 12.8 mmol/L (3-11); BUN 14 mg/dL (7-18); Bilirubin, Total 0.5 mg/dL (0.2-1.0); CO2 21.2 mmol/L (21.0-32.0); CREATININE 1.36 mg/dL (0.55-1.02); Calcium 9.2 mg/dL (8.5-10.1); Chloride 97 mmol/L (98-107); Estimated GFR 38.22 (mL/min/1.73m2); Glucose 194 mg/dL (74-106); Magnesium 1.4 mg/dL (1.8-2.4); Potassium 3.6 mmol/L (3.5-5.1); Sodium 131 mmol/L (136-145); Total Protein 8.8 g/dL (6.4-8.2)
[2019-07-11 08:38] LABS: Troponin I < 0.05 ng/Ml (<0.06)
[2019-07-11 08:40] LABS: Diff Comment Agrees w/ Instrument; Platelet Count 440 x1000/uL (130-400); Polychromasia Present
[2019-07-11] MEDS: Ondansetron 4 MG/2 ML VIAL IVP ×2 (08:41→13:54)
--- NOTE | 2019-07-11 09:00 | DI.RAD_ITS ---
EXAM: XR PORTABLE CHEST AP CLINICAL HISTORY: fever. TECHNIQUE: 2D digital imaging was performed. COMPARISON: CR XR CHEST 2V PA LATERAL from 08/11/2018 FINDINGS: LUNGS: Clear. No pleural abnormality seen. HEART: Normal. MEDIASTINUM: Normal. OTHER FINDINGS: None. IMPRESSION: No acute pulmonary findings. DATA REPOSITORY: RADIATION DOSE DELIVERED:
[2019-07-11] MEDS: Normal Saline 1,000 ML 150 ML IV (09:37)
[2019-07-11 09:40] LABS: Bilirubin Negative (Negative); Blood Moderate (Negative); Clarity Cloudy (Clear); Glucose Negative (Negative); Ketones Negative (Negative); Leukocyte Esterase Moderate (Negative); Nitrite Positive (Negative); Specific Gravity >= 1.030 (1.005-1.025); Urobilinogen 0.2 EU/dL (Up TO 0.2)
[2019-07-11 09:48] LABS: Bacteria Many HPF (Negative); C & S Indicated? Yes; Casts Negative LPF (Negative); Crystals Negative HPF (Negative); Epithelial Cells Few HPF (Negative); Mucus Negative (Negative)
[2019-07-11] MEDS: Acetaminophen 325 MG TAB 650 MG PO (09:49)
[2019-07-11] MEDS: CIPROFLOXACIN 400 MG/200 ML BAG 200 MG IVPB (09:49)
[2019-07-11] MEDS: Hydrocortisone SOD SUC. 100 MG VIAL IVP (10:24)
[2019-07-11] MEDS: Normal Saline Flush 10 ML SYR IVP (10:25)
--- NOTE | 2019-07-11 10:31 | DI.CT_ITS ---
EXAM: CT ABDOMEN PELVIS WO CLINICAL HISTORY: hx of kidney stone TECHNIQUE: FINDINGS: CT examination of the abdomen and pelvis was performed without contrast administration. Images obtai mynor through the lung bases are unremarkable. There are multiple small hepatic and splenic calcificat ions. No other focal hepatic or splenic lesion noted. Pancreas appears intact. Gallbladder and di e ducts are CT normal. Abdominal aorta is of normal diameter. No evidence of abdominal or pelvic adenopathy. Appendix is normal. No evidence of diverticulitis or bowel obstruction. No significant abdominal wall hernia seen. Prize Fighter structures unremarkable for age. Adrenals appear normal bilaterally. There are multiple bilateral nonobstructing renal calculi. Armando tionally there is a left ureteral calculus measuring about 4 millimeters in diameter lying in the pro ximal left ureter and causing severe hydronephrosis. There is perinephric fat stranding. No gross f ree fluid collection seen. There is an incidental 5 cm in diameter is stable left renal cortical cys t unchanged from September 2018. Urinary bladder grossly unremarkable. IMPRESSION: There is an obstructing 4 millimeter in diameter proximal left ureteral stone with resultant marked l eft hydronephrosis. Additionally multiple nonobstructing renal calculi are seen bilaterally.
[2019-07-11] MEDS: Tamsulosin 0.4 MG CAPCR PO (13:12)
--- NOTE | 2019-07-12 06:09 | NUR.NOTE ---
Nursing Note: Received positive blood culture results <24 hours. [place] [facility] [place] Kina LEONE who will inform care team of results.
== END 2019-07-11 15:37 | disposition short-term general hospital (02) ==
PROVIDERS: Emergency Medicine; Emergency Provider Registered Nurse Emergency; PCP Family Medicine
DX: A41.51 Sepsis due to Escherichia coli [E. coli] (principal); N39.0 Urinary tract infection, site not specified; B96.20 Unspecified Escherichia coli [E. coli] as the cause of diseases classified elsewhere; N13.2 Hydronephrosis with renal and ureteral calculous obstruction; E87.1 Hypo-osmolality and hyponatremia; Z79.52 Long term (current) use of systemic steroids; G70.00 Myasthenia gravis without (acute) exacerbation; Z87.442 Personal history of urinary calculi
CPT/HCPCS: 36415; 80053; 87040; 87077; 93005; 96361; 96365; 96375; 96376; 99285; 71045; 74176; 81003; 81015; 83605; 83735; 84484; 85025; 87086; 87186; 93010; J0744; J1720; J2405

== ENCOUNTER 2019-07-25 01:40 | Outpatient (RCR) | payer MEDICARE, OTHER, SELFPAY ==
[2019-07-04 10:05] VITALS: BP 145/87; PULSE 87; RESP 18; TEMP 36.5; O2SAT 95
[2019-07-04 10:09] VITALS: BP 138/83; PULSE 81; RESP 19; TEMP 36.5; O2SAT 94
[2019-07-04] MEDS: Normal Saline Flush 10 ML SYR IVP (10:11)
[2019-07-04] MEDS: IMMUNE GLOBULIN 40 GM/400 ML BTL IV (10:11)
[2019-07-04 10:24] VITALS: BP 136/85; PULSE 88; RESP 19; TEMP 36.5; O2SAT 92
[2019-07-04 10:39] VITALS: BP 135/81; PULSE 85; RESP 19; TEMP 36.4; O2SAT 96
[2019-07-04 11:09] VITALS: BP 153/94; PULSE 91; RESP 19; TEMP 36; O2SAT 96
[2019-07-04 11:58] VITALS: BP 144/83; PULSE 80; TEMP 35.7; O2SAT 94
[2019-07-18 10:05] VITALS: BP 115/78; PULSE 99; RESP 18; TEMP 36.7; O2SAT 95
[2019-07-18] MEDS: IMMUNE GLOBULIN 40 GM/400 ML BTL IV (10:07)
[2019-07-18] MEDS: Normal Saline Flush 10 ML SYR IVP (10:07)
[2019-07-18 10:11] VITALS: BP 113/75; PULSE 89; RESP 19; TEMP 36.1; O2SAT 96
[2019-07-18 10:26] VITALS: BP 115/77; PULSE 89; RESP 18; TEMP 36.3; O2SAT 96
[2019-07-18 10:56] VITALS: BP 118/72; PULSE 89; RESP 18; TEMP 36.4; O2SAT 95
[2019-07-18 11:36] VITALS: BP 121/81; PULSE 78; RESP 19; TEMP 36.6; O2SAT 97
[2019-07-18 12:06] VITALS: BP 130/70; PULSE 81; RESP 18; TEMP 36.6; O2SAT 94
[2019-07-25 09:50] VITALS: BP 121/85; PULSE 90; RESP 18; TEMP 36; O2SAT 96
[2019-07-25 10:00] VITALS: BP 106/76; PULSE 89; RESP 18; TEMP 36.3; O2SAT 96
[2019-07-25] MEDS: IMMUNE GLOBULIN 40 GM/400 ML BTL IV (10:02)
[2019-07-25] MEDS: Normal Saline Flush 10 ML SYR IVP (10:03)
[2019-07-25 10:15] VITALS: BP 118/80; PULSE 88; RESP 18; TEMP 36.2; O2SAT 95
[2019-07-25 10:30] VITALS: BP 127/86; PULSE 83; RESP 19; TEMP 36.4; O2SAT 96
[2019-07-25 11:00] VITALS: BP 116/74; PULSE 70; RESP 18; TEMP 36.4; O2SAT 94
[2019-07-25 11:30] VITALS: BP 123/82; PULSE 86; RESP 18; TEMP 36.2; O2SAT 97
== END 2019-07-29 23:59 | disposition home or self-care (01) ==
LOC: INF 01:40
PROVIDERS: PCP Family Medicine; Visit Provider Family Medicine
DX: G70.00 Myasthenia gravis without (acute) exacerbation (principal); M35.00 Sjogren syndrome, unspecified
CPT/HCPCS: 96365; 96366; J1459

== ENCOUNTER 2019-08-22 01:54 | Outpatient (RCR) | payer MEDICARE, OTHER, SELFPAY ==
[2019-08-01 09:55] VITALS: BP 133/75; PULSE 64; RESP 18; TEMP 36.2; O2SAT 94
[2019-08-01] MEDS: Normal Saline Flush 10 ML SYR IVP (09:56)
[2019-08-01] MEDS: IMMUNE GLOBULIN 40 GM/400 ML BTL IV (09:56)
[2019-08-01 10:16] VITALS: BP 125/78; PULSE 70; RESP 19; TEMP 36.3; O2SAT 95
[2019-08-01 10:31] VITALS: BP 124/72; PULSE 70; RESP 18; TEMP 36.3; O2SAT 92
[2019-08-01 11:01] VITALS: BP 119/63; PULSE 68; RESP 18; TEMP 36.2; O2SAT 93
[2019-08-01 11:31] VITALS: BP 118/73; PULSE 67; RESP 18; TEMP 36.3; O2SAT 94
[2019-08-01 12:01] VITALS: BP 136/75; PULSE 66; RESP 19; TEMP 36.1; O2SAT 95
[2019-08-08 10:03] VITALS: BP 149/88; PULSE 88; RESP 18; TEMP 36; O2SAT 96
[2019-08-08 10:52] VITALS: BP 122/80; PULSE 74; RESP 18; TEMP 36; O2SAT 95
[2019-08-08] MEDS: IMMUNE GLOBULIN 40 GM/400 ML BTL IV (10:52)
[2019-08-08] MEDS: Normal Saline Flush 10 ML SYR IVP (10:52)
[2019-08-08 11:07] VITALS: BP 123/77; PULSE 73; RESP 19; TEMP 36.6; O2SAT 94
[2019-08-08 11:20] VITALS: BP 123/77; PULSE 76; RESP 18; TEMP 36.3; O2SAT 93
[2019-08-08 12:28] VITALS: BP 123/70; PULSE 77; TEMP 35.8; O2SAT 94
[2019-08-15 10:13] VITALS: BP 117/75; PULSE 73; RESP 19; TEMP 36.4; O2SAT 95
[2019-08-15] MEDS: Normal Saline Flush 10 ML SYR IVP (10:13)
[2019-08-15] MEDS: IMMUNE GLOBULIN 40 GM/400 ML BTL IV (10:13)
[2019-08-15 10:17] VITALS: BP 109/69; PULSE 71; RESP 18; TEMP 36.4; O2SAT 95
[2019-08-15 10:32] VITALS: BP 119/82; PULSE 67; RESP 18; TEMP 36.5; O2SAT 95
[2019-08-15 11:02] VITALS: BP 112/69; PULSE 73; RESP 19; TEMP 36.5; O2SAT 92
[2019-08-15 11:32] VITALS: BP 117/74; PULSE 79; RESP 18; TEMP 36.6; O2SAT 92
[2019-08-15 12:02] VITALS: BP 121/71; PULSE 83; RESP 19; TEMP 36.6; O2SAT 92
[2019-08-22 09:59] VITALS: BP 112/78; PULSE 80; RESP 18; TEMP 35.9; O2SAT 95
[2019-08-22 10:12] VITALS: BP 132/83; PULSE 88; RESP 18; TEMP 36.1; O2SAT 96
[2019-08-22] MEDS: Normal Saline Flush 10 ML SYR IVP (10:14)
[2019-08-22] MEDS: IMMUNE GLOBULIN 40 GM/400 ML BTL IV (10:14)
[2019-08-22 10:27] VITALS: BP 136/79; PULSE 75; RESP 19; TEMP 36.1; O2SAT 95
[2019-08-22 10:42] VITALS: BP 143/76; PULSE 75; RESP 18; TEMP 36; O2SAT 94
[2019-08-22 11:12] VITALS: BP 123/74; PULSE 73; RESP 18; TEMP 36; O2SAT 96
[2019-08-22 11:42] VITALS: BP 128/77; PULSE 72; RESP 18; TEMP 36; O2SAT 92
== END 2019-08-28 23:59 | disposition home or self-care (01) ==
LOC: INF 01:54
PROVIDERS: PCP Family Medicine; Visit Provider Family Medicine
DX: G70.00 Myasthenia gravis without (acute) exacerbation (principal)
CPT/HCPCS: 96365; 96366; J1459

== ENCOUNTER 2019-09-26 02:15 | Outpatient (RCR) | payer MEDICARE, OTHER, SELFPAY ==
[2019-08-29] MEDS: Normal Saline Flush 10 ML SYR IVP (10:10)
[2019-08-29] MEDS: IMMUNE GLOBULIN 40 GM/400 ML BTL IV (10:20)
[2019-08-29 10:30] VITALS: BP 120/85; PULSE 91; RESP 18; TEMP 36.5; O2SAT 98
[2019-08-29 10:44] VITALS: BP 110/57; PULSE 82; RESP 18; TEMP 36; O2SAT 96
[2019-08-29 11:09] VITALS: BP 120/84; PULSE 74; RESP 20; TEMP 36; O2SAT 96
[2019-08-29 11:49] VITALS: BP 143/87; PULSE 80; RESP 18; TEMP 36; O2SAT 95
[2019-08-29 12:13] VITALS: BP 145/86; PULSE 80; RESP 20; TEMP 36; O2SAT 96
[2019-08-29 12:33] VITALS: BP 158/92; PULSE 76; RESP 20; TEMP 36.1; O2SAT 98
[2019-09-05 10:00] VITALS: BP 120/70; PULSE 83; RESP 18; TEMP 36.3; O2SAT 95
[2019-09-05 10:20] VITALS: BP 136/68; PULSE 84; RESP 18; TEMP 36.1; O2SAT 95
[2019-09-05] MEDS: Normal Saline Flush 10 ML SYR IVP (10:21)
[2019-09-05] MEDS: IMMUNE GLOBULIN 40 GM/400 ML BTL IV (10:21)
[2019-09-05 10:35] VITALS: BP 115/74; PULSE 86; RESP 18; TEMP 36; O2SAT 93
[2019-09-05 10:50] VITALS: BP 133/67; PULSE 70; RESP 18; TEMP 36; O2SAT 99
[2019-09-05 11:20] VITALS: BP 119/77; PULSE 82; RESP 19; TEMP 35.9; O2SAT 96
[2019-09-05 11:50] VITALS: BP 126/78; PULSE 77; RESP 18; TEMP 36; O2SAT 95
[2019-09-12 10:04] VITALS: BP 128/86; PULSE 91; RESP 19; TEMP 35.8; O2SAT 95
[2019-09-12 10:26] VITALS: BP 128/84; PULSE 90; RESP 19; TEMP 35.8; O2SAT 95
[2019-09-12] MEDS: IMMUNE GLOBULIN 40 GM/400 ML BTL IV (10:27)
[2019-09-12] MEDS: Normal Saline Flush 10 ML SYR IVP (10:27)
[2019-09-12 10:41] VITALS: BP 114/72; PULSE 80; RESP 18; TEMP 36.3; O2SAT 94
[2019-09-12 10:56] VITALS: BP 114/72; PULSE 82; RESP 19; TEMP 36.1; O2SAT 94
[2019-09-12 11:26] VITALS: BP 129/77; PULSE 80; RESP 19; TEMP 36.1; O2SAT 94
[2019-09-12 11:56] VITALS: BP 130/84; PULSE 81; RESP 18; TEMP 36.1; O2SAT 95
[2019-09-19 09:12] VITALS: BP 137/88; PULSE 76; RESP 19; TEMP 36.3; O2SAT 96
[2019-09-19 09:36] VITALS: BP 123/80; PULSE 72; RESP 18; TEMP 36.2; O2SAT 97
[2019-09-19] MEDS: IMMUNE GLOBULIN 40 GM/400 ML BTL IV (09:37)
[2019-09-19] MEDS: Normal Saline Flush 10 ML SYR IVP (09:38)
[2019-09-19 09:51] VITALS: BP 131/82; PULSE 72; RESP 19; TEMP 36.1; O2SAT 93
[2019-09-19 10:21] VITALS: BP 125/77; PULSE 78; RESP 18; TEMP 36.2; O2SAT 95
[2019-09-19 10:51] VITALS: BP 131/85; PULSE 72; RESP 19; TEMP 36.2; O2SAT 94
[2019-09-19 11:21] VITALS: BP 142/83; PULSE 71; RESP 18; TEMP 36.2; O2SAT 94
[2019-09-26 10:00] VITALS: BP 129/85; PULSE 80; RESP 18; TEMP 36.3; O2SAT 96
[2019-09-26] MEDS: IMMUNE GLOBULIN 40 GM/400 ML BTL IV (10:02)
[2019-09-26 10:07] VITALS: BP 117/77; PULSE 79; RESP 18; TEMP 36.3; O2SAT 96
[2019-09-26 10:22] VITALS: BP 114/52; PULSE 83; RESP 19; TEMP 36.3; O2SAT 98
[2019-09-26 10:52] VITALS: BP 111/75; PULSE 79; RESP 18; TEMP 36; O2SAT 92
[2019-09-26] MEDS: Normal Saline Flush 10 ML SYR IVP (11:00)
[2019-09-26 11:22] VITALS: BP 132/82; PULSE 77; RESP 19; TEMP 35.8; O2SAT 96
[2019-09-26 11:52] VITALS: BP 125/76; PULSE 76; RESP 18; TEMP 35.8; O2SAT 96
== END 2019-09-28 23:59 | disposition home or self-care (01) ==
LOC: INF 02:15
PROVIDERS: PCP Family Medicine; Visit Provider Family Medicine
DX: G70.00 Myasthenia gravis without (acute) exacerbation (principal)
CPT/HCPCS: 96365; 96366; J1459

== ENCOUNTER 2019-10-24 01:27 | Outpatient (RCR) | payer MEDICARE, OTHER, SELFPAY ==
[2019-10-03 09:56] VITALS: BP 166/82; PULSE 97; RESP 18; TEMP 36.2; O2SAT 96
[2019-10-03] MEDS: IMMUNE GLOBULIN 40 GM/400 ML BTL IV (09:56)
[2019-10-03] MEDS: Normal Saline Flush 10 ML SYR IVP (09:56)
[2019-10-03 10:00] VITALS: BP 136/85; PULSE 90; RESP 19; TEMP 36; O2SAT 95
[2019-10-03 10:15] VITALS: BP 146/84; PULSE 75; RESP 18; TEMP 36; O2SAT 96
[2019-10-03 10:45] VITALS: BP 147/83; PULSE 74; RESP 19; TEMP 36; O2SAT 97
[2019-10-03 11:15] VITALS: BP 128/78; PULSE 72; RESP 18; TEMP 36.3; O2SAT 94
[2019-10-03 11:45] VITALS: BP 143/86; PULSE 68; RESP 18; TEMP 36.4; O2SAT 97
[2019-10-10 09:51] VITALS: BP 131/84; PULSE 101; RESP 19; TEMP 35.9; O2SAT 97
[2019-10-10] MEDS: IMMUNE GLOBULIN 40 GM/400 ML BTL IV (10:01)
[2019-10-10 10:07] VITALS: BP 131/84; PULSE 86; RESP 18; TEMP 36.2; O2SAT 93
[2019-10-10] MEDS: Normal Saline Flush 10 ML SYR IVP (10:11)
[2019-10-10 10:22] VITALS: BP 145/89; PULSE 88; RESP 19; TEMP 36.4; O2SAT 96
[2019-10-10 10:52] VITALS: BP 141/103; PULSE 77; RESP 18; TEMP 36.4; O2SAT 96
[2019-10-10 11:22] VITALS: BP 149/81; PULSE 77; RESP 19; TEMP 36.6; O2SAT 97
[2019-10-10 11:52] VITALS: BP 150/89; PULSE 80; RESP 18; TEMP 36; O2SAT 93
[2019-10-17 09:45] VITALS: BP 151/84; PULSE 76; RESP 18; TEMP 36.1; O2SAT 96
[2019-10-17] MEDS: IMMUNE GLOBULIN 40 GM/400 ML BTL IV (09:52)
[2019-10-17] MEDS: Normal Saline Flush 10 ML SYR IVP (09:53)
[2019-10-17 09:57] VITALS: BP 156/102; PULSE 84; RESP 19; TEMP 36.1; O2SAT 94
[2019-10-17 10:12] VITALS: BP 156/102; PULSE 71; RESP 19; TEMP 36.2; O2SAT 94
[2019-10-17 10:42] VITALS: BP 138/80; PULSE 69; RESP 18; TEMP 36.2; O2SAT 98
[2019-10-17 11:12] VITALS: BP 149/86; PULSE 71; RESP 19; TEMP 36.2; O2SAT 98
[2019-10-17 11:32] VITALS: BP 151/94; PULSE 76; RESP 18; TEMP 36.6; O2SAT 95
[2019-10-24 09:58] VITALS: BP 142/86; PULSE 97; RESP 19; TEMP 36.6; O2SAT 97
[2019-10-24 10:00] VITALS: BP 142/94; PULSE 94; RESP 18; TEMP 36.6; O2SAT 97
[2019-10-24] MEDS: IMMUNE GLOBULIN 40 GM/400 ML BTL IV (10:03)
[2019-10-24] MEDS: Normal Saline Flush 10 ML SYR IVP (10:04)
[2019-10-24 10:15] VITALS: BP 141/79; PULSE 82; RESP 19; TEMP 36.5; O2SAT 97
[2019-10-24 10:45] VITALS: BP 139/84; PULSE 85; RESP 18; TEMP 36.5; O2SAT 96
[2019-10-24 11:15] VITALS: BP 143/84; PULSE 80; RESP 18; TEMP 36.6; O2SAT 93
[2019-10-24 11:45] VITALS: BP 138/80; PULSE 76; RESP 19; TEMP 35.8; O2SAT 95
== END 2019-10-29 23:59 | disposition home or self-care (01) ==
LOC: INF 01:27
PROVIDERS: PCP Family Medicine; Visit Provider Family Medicine
DX: G70.00 Myasthenia gravis without (acute) exacerbation (principal)
CPT/HCPCS: 96365; 96366; J1459

== ENCOUNTER 2019-11-12 01:20 | Outpatient (CLI) | payer MEDICARE, OTHER, SELFPAY ==
--- NOTE | 2019-11-12 | DI.US_ITS ---
EXAM: US RENAL CLINICAL HISTORY: NEPHROLITHIASIS N20.0 TECHNIQUE: Ultrasound performed using standard protocol. COMPARISON: US US RENAL from 04/03/[address] ABDOMEN PELVIS WO from 07/11/2019 FINDINGS: Renal ultrasound was performed according to the usual protocol. Right kidney is of normal size and shape, no mass, hydronephrosis, or nephrolithiasis of the right ki dney. There is mid pole renal calculus of the left kidney measuring about 8 millimeters in diameter. There is no evident hydronephrosis by ultrasound criteria. There is 6.2 cm in greatest diameter simple cyst of the left kidney. No other mass identified. Urinary bladder is unremarkable in appearance with pre and postvoid urinary bladder volume measuremen ts 100 cc and 70 cc respectively. IMPRESSION: Nonobstructing 8 millimeter stone left kidney. 6 cm left renal simple cyst. DATA REPOSITORY:
== END 2019-11-12 01:40 ==
PROVIDERS: PCP Family Medicine; Visit Provider Urology
DX: N20.0 Calculus of kidney (principal); N28.1 Cyst of kidney, acquired
CPT/HCPCS: 76770

== ENCOUNTER 2019-11-19 01:13 | Outpatient (CLI) | payer MEDICARE, OTHER, SELFPAY ==
--- NOTE | 2019-11-19 14:53 | DI.CT_ITS ---
EXAM: CT RENAL COLIC WO CLINICAL HISTORY: F/U ABNL US, NEPHROLITHIASIS,N20.0,? LT RENAL STONE ON US. TECHNIQUE: Imaging Protocol: Axial computed tomography images with coronal and sagittal reformatted images were created and reviewed. COMPARISON: CT CT ABDOMEN PELVIS WO from 07/11/2019 FINDINGS: ABDOMEN: Lung Bases: Normal where visualized. Liver: Normal density. No measurable mass. Calcified granuloma are seen in the liver. Gallbladder and biliary tract: No radiodense calculus or biliary ductal dilation. Pancreas: Normal density, no abnormal calcifications or inflammatory process. Spleen: Normal. Splenic calcified granuloma. Kidneys: Normal size, contour and axis.Bilateral nonobstructing stones. The largest measures 0.2 mm. No hydronephrosis. 5.2 cm simple cyst on the left kidney. Adrenal glands: No mass is seen. Lymph nodes: Within normal limits. Abdominal Aorta: Abdominal portion non-dilated. Atherosclerosis. PELVIS: Bladder:Incompletely distended but grossly unremarkable. Bowel: No obstruction or bowel wall thickening. No evidence of appendicitis. Colonic diverticulosis but no evidence of acute diverticulitis. Peritoneal cavity: No ascites, collection or mesenteric inflammatory response Reproductive organs: Within normal limits. Bones: There is L5 spondylolysis and grade 2 spondylolisthesis of L5 on S1. Multilevel degenerative changes are seen in the spine. There is a right convex scoliosis of the lumbar spine. Soft Tissues: Small fat containing umbilical hernia. IMPRESSION: 1. Bilateral nephrolithiasis. No hydronephrosis. 2. 5.2 cm simple left renal cyst. RADIATION DOSE DELIVERED: 874.75mGy.cm Total DLP DATA REPOSITORY: All CT scans at this facility are submitted to the National Radiology Data Registry (NRDR) Dose Index Registry (DIR) with the [employer] (ACR). RADIATION OPTIMIZATION: All CT scans at this facility use at least one of these dose optimization te chniques: automated exposure control; mA and/or kV adjustment per patient size (includes targeted exa ms where dose is matched to clinical indication); or iterative reconstruction.
== END 2019-11-19 01:33 ==
PROVIDERS: PCP Family Medicine; Visit Provider Urology
DX: N20.0 Calculus of kidney (principal); N28.1 Cyst of kidney, acquired
CPT/HCPCS: 74176

== ENCOUNTER 2019-11-28 03:42 | Outpatient (RCR) | payer MEDICARE, OTHER, SELFPAY ==
[2019-10-31 09:11] VITALS: BP 125/86; PULSE 81; RESP 18; TEMP 36.1; O2SAT 98
[2019-10-31 09:16] VITALS: BP 124/60; PULSE 80; RESP 18; TEMP 36.1; O2SAT 96
[2019-10-31] MEDS: Normal Saline Flush 10 ML SYR IVP (09:18)
[2019-10-31] MEDS: IMMUNE GLOBULIN 40 GM/400 ML BTL IV (09:18)
[2019-10-31 09:31] VITALS: BP 125/79; PULSE 74; RESP 19; TEMP 36.4; O2SAT 95
[2019-10-31 10:07] VITALS: BP 128/82; PULSE 73; RESP 18; TEMP 36.4; O2SAT 97
[2019-10-31 10:31] VITALS: BP 136/77; PULSE 72; RESP 19; TEMP 36.4; O2SAT 96
[2019-10-31 11:01] VITALS: BP 146/82; PULSE 70; RESP 18; TEMP 36.4; O2SAT 95
[2019-11-07 08:54] VITALS: BP 139/79; PULSE 75; RESP 19; TEMP 36.1; O2SAT 95
[2019-11-07] MEDS: IMMUNE GLOBULIN 40 GM/400 ML BTL IV (09:13)
[2019-11-07] MEDS: Normal Saline Flush 10 ML SYR IVP (09:13)
[2019-11-07 09:19] VITALS: BP 144/82; PULSE 74; RESP 18; TEMP 36.1; O2SAT 97
[2019-11-07 09:33] VITALS: BP 131/79; PULSE 75; RESP 18; TEMP 36; O2SAT 96
[2019-11-07 10:00] VITALS: BP 133/81; PULSE 73; RESP 20; TEMP 36.4; O2SAT 96
[2019-11-07 10:33] VITALS: BP 146/85; PULSE 74; RESP 19; TEMP 36.4; O2SAT 96
[2019-11-07 11:03] VITALS: BP 125/79; PULSE 71; RESP 18; TEMP 36.1; O2SAT 95
[2019-11-14 09:05] VITALS: BP 136/95; PULSE 76; RESP 18; TEMP 36.3; O2SAT 97
[2019-11-14] MEDS: Normal Saline Flush 10 ML SYR IVP (09:07)
[2019-11-14] MEDS: IMMUNE GLOBULIN 40 GM/400 ML BTL IV (09:07)
[2019-11-14 09:12] VITALS: BP 136/87; PULSE 79; RESP 19; TEMP 36.3; O2SAT 95
[2019-11-14 09:27] VITALS: BP 120/84; PULSE 70; RESP 18; TEMP 36; O2SAT 100
[2019-11-14 09:57] VITALS: BP 133/80; PULSE 69; RESP 18; TEMP 36; O2SAT 93
[2019-11-14 10:27] VITALS: BP 121/80; PULSE 71; RESP 19; TEMP 36; O2SAT 93
[2019-11-14 10:57] VITALS: BP 132/84; PULSE 68; RESP 18; TEMP 35.9; O2SAT 97
[2019-11-21 09:20] VITALS: BP 121/80; PULSE 86; RESP 20; TEMP 36.3; O2SAT 97
[2019-11-21] MEDS: IMMUNE GLOBULIN 40 GM/400 ML BTL IV (09:22)
[2019-11-21 09:35] VITALS: BP 113/77; PULSE 83; RESP 20; TEMP 36.1; O2SAT 94
[2019-11-21 10:05] VITALS: BP 125/82; PULSE 74; RESP 18; TEMP 36; O2SAT 93
[2019-11-21 10:35] VITALS: BP 116/78; PULSE 78; RESP 19; TEMP 36; O2SAT 95
[2019-11-21] MEDS: Normal Saline Flush 10 ML SYR IVP (11:32)
[2019-11-28 09:16] VITALS: BP 150/93; PULSE 89; RESP 19; TEMP 36.8; O2SAT 96
[2019-11-28] MEDS: IMMUNE GLOBULIN 40 GM/400 ML BTL IV (09:26)
[2019-11-28] MEDS: Normal Saline Flush 10 ML SYR IVP (09:26)
[2019-11-28 09:30] VITALS: BP 138/87; PULSE 73; RESP 18; TEMP 36.6; O2SAT 96
[2019-11-28 09:45] VITALS: BP 152/95; PULSE 81; RESP 19; TEMP 36.6; O2SAT 95
[2019-11-28 10:15] VITALS: BP 152/91; PULSE 89; RESP 18; TEMP 36.6; O2SAT 97
[2019-11-28 10:45] VITALS: BP 136/84; PULSE 86; RESP 16; TEMP 37.1; O2SAT 96
[2019-11-28 11:15] VITALS: BP 126/87; PULSE 81; RESP 18; TEMP 36; O2SAT 97
== END 2019-11-28 23:59 | disposition home or self-care (01) ==
LOC: INF 03:42
PROVIDERS: PCP Family Medicine; Visit Provider Family Medicine
DX: G70.00 Myasthenia gravis without (acute) exacerbation (principal)
CPT/HCPCS: 96365; 96366; J1300; J1459

== ENCOUNTER 2019-12-25 01:22 | Outpatient (RCR) | payer MEDICARE, OTHER, SELFPAY ==
[2019-12-04 09:00] VITALS: BP 120/82; PULSE 87; RESP 18; TEMP 35.9; O2SAT 96
[2019-12-04] MEDS: Normal Saline Flush 10 ML SYR IVP (09:22)
[2019-12-04] MEDS: IMMUNE GLOBULIN 40 GM/400 ML BTL IV (09:22)
[2019-12-04 09:24] VITALS: BP 117/77; PULSE 87; RESP 18; TEMP 36.7; O2SAT 96
[2019-12-04 09:38] VITALS: BP 119/65; PULSE 67; RESP 19; TEMP 36.7; O2SAT 95
[2019-12-04 10:12] VITALS: BP 108/71; PULSE 72; RESP 18; TEMP 36.7; O2SAT 92
[2019-12-04 10:42] VITALS: BP 178/77; PULSE 68; RESP 18; TEMP 36.6; O2SAT 92
[2019-12-04 11:12] VITALS: BP 128/79; PULSE 71; RESP 19; TEMP 36.6; O2SAT 94
[2019-12-11 09:43] VITALS: BP 143/87; PULSE 88; RESP 18; TEMP 36.3; O2SAT 96
[2019-12-11 09:52] VITALS: BP 99/80; PULSE 88; RESP 18; TEMP 36.3; O2SAT 95
[2019-12-11] MEDS: IMMUNE GLOBULIN 40 GM/400 ML BTL IV (09:55)
[2019-12-11] MEDS: Normal Saline Flush 10 ML SYR IVP (09:56)
[2019-12-11 10:07] VITALS: BP 123/76; PULSE 85; RESP 19; TEMP 36.2; O2SAT 93
[2019-12-11 10:37] VITALS: BP 121/81; PULSE 78; RESP 18; TEMP 36; O2SAT 96
[2019-12-11 11:07] VITALS: BP 133/87; PULSE 81; RESP 19; TEMP 36; O2SAT 95
[2019-12-11 11:37] VITALS: BP 125/78; PULSE 74; RESP 18; TEMP 36; O2SAT 96
[2019-12-18 09:00] VITALS: BP 149/67; PULSE 80; RESP 17; TEMP 36.6; O2SAT 99
[2019-12-18 09:15] VITALS: BP 128/86; PULSE 79; RESP 18; TEMP 36.2; O2SAT 97
[2019-12-18] MEDS: IMMUNE GLOBULIN 40 GM/400 ML BTL IV (09:15)
[2019-12-18] MEDS: Normal Saline Flush 10 ML SYR IVP (09:15)
[2019-12-18 09:32] VITALS: BP 122/82; PULSE 80; RESP 16; TEMP 36.6; O2SAT 95
[2019-12-18 09:44] LABS: HCT 41.2 % (36.0-46.0); HGB 13.2 g/dL (11.2-15.7); MCH 29.1 pg (27.0-33.0); MCV 90.7 fL (80-95); MPV 9.8 fL (8.0-11.0); Platelet Count 439 10^3/uL (130-400); RBC 4.54 10^6/uL (3.93-5.22); RDW-SD 46.5 fL; WBC 4.78 10^3/uL (4.4-10.8)
[2019-12-18 10:00] VITALS: BP 126/78; PULSE 81; RESP 18; TEMP 36.6; O2SAT 95
[2019-12-18 10:00] LABS: ALT 16 U/L (14-59); AST 16 U/L (15-37); Albumin 3.6 g/dL (3.4-5.0); Alkaline Phosphatase 82 U/L (46-116); Anion Gap 7.5 mmol/L (3-11); BUN 11 mg/dL (7-18); Bilirubin, Total 0.2 mg/dL (0.2-1.0); CO2 28.5 mmol/L (21.0-32.0); CREATININE 1.06 mg/dL (0.55-1.02); Calcium 9.4 mg/dL (8.5-10.1); Chloride 103 mmol/L (98-107); Estimated GFR 50.81 (mL/min/1.73m2); Glucose 173 mg/dL (74-106); Potassium 3.1 mmol/L (3.5-5.1); Sodium 139 mmol/L (136-145); Total Protein 8.5 g/dL (6.4-8.2)
[2019-12-18 10:30] VITALS: BP 121/78; PULSE 77; RESP 17; TEMP 36.6; O2SAT 96
[2019-12-18 11:00] VITALS: BP 115/76; PULSE 72; RESP 18; TEMP 36.2; O2SAT 98
[2019-12-25 09:59] VITALS: BP 144/89; PULSE 84; RESP 19; TEMP 36.3; O2SAT 98
[2019-12-25] MEDS: Normal Saline Flush 10 ML SYR IVP (10:04)
[2019-12-25] MEDS: IMMUNE GLOBULIN 40 GM/400 ML BTL IV (10:04)
[2019-12-25 10:14] VITALS: BP 145/85; PULSE 83; RESP 18; TEMP 36.2; O2SAT 94
[2019-12-25 10:29] VITALS: BP 137/89; PULSE 80; RESP 18; TEMP 36.6; O2SAT 96
[2019-12-25 11:02] VITALS: BP 119/74; PULSE 78; RESP 18; TEMP 36.2; O2SAT 96
[2019-12-25 11:29] VITALS: BP 145/89; PULSE 74; RESP 18; TEMP 36.6; O2SAT 96
[2019-12-25 11:55] VITALS: BP 145/87; PULSE 77; RESP 19; TEMP 36.6; O2SAT 98
== END 2019-12-29 23:59 | disposition home or self-care (01) ==
LOC: INF 01:22
PROVIDERS: PCP Family Medicine; Visit Provider Internal Medicine
DX: M35.00 Sjogren syndrome, unspecified (principal); Z79.899 Other long term (current) drug therapy; G70.00 Myasthenia gravis without (acute) exacerbation
CPT/HCPCS: 36415; 80053; 85027; 96365; 96366; J1300; J1459

== ENCOUNTER 2020-01-17 01:19 | Outpatient (CLI) | payer MEDICARE, OTHER, SELFPAY ==
--- NOTE | 2020-01-17 14:30 | DI.CT_ITS ---
EXAM: CT CHEST W CLINICAL HISTORY: MYASTHENIA GRAVIS,EALUATE FOR THYOMA,SOB,EVALUATE FOR INTERSTITIAL LUNG DIS TECHNIQUE: Imaging Protocol: Axial computed tomography images with coronal and sagittal reformatted images were created and reviewed CONTRAST MATERIAL: Intravenous: Omnipaque 350 Contrast volume:70 mL. FINDINGS: Tracheobronchial tree: Patent where visualized. Mediastinum and Rivka: No dominant adenopathy or fluid collection. There is no mediastinal mass. Pulmonary parenchyma: There is dependent atelectasis in the lung bases. Mild emphysematous changes a re again noted. No consolidating infiltrates are seen. No suspicious pulmonary nodules are present. Pleura: No effusion or pneumothorax. Heart: The heart is not dilated. Moderate coronary artery calcification. No significant pericardial effusion. Aorta: Thoracic aorta non-dilated. Mild atherosclerosis. Upper abdomen: Diffuse fatty infiltration of the liver. Simple left renal cyst. Lymph nodes: Within normal limits. Bones: Degenerative changes are seen in the spine. Marked degenerative changes are seen in the shoul ders. Soft tissues: Unremarkable. IMPRESSION: No evidence of a mediastinal mass. Emphysematous changes in the lungs. RADIATION DOSE DELIVERED: 685.36mGy.cm Total DLP DATA REPOSITORY: All CT scans at this facility are submitted to the National Radiology Data Registry (NRDR) Dose Index Registry (DIR) with the [employer] (ACR). RADIATION OPTIMIZATION: All CT scans at this facility use at least one of these dose optimization te chniques: automated exposure control; mA and/or kV adjustment per patient size (includes targeted exa ms where dose is matched to clinical indication); or iterative reconstruction.
[2020-01-17] MEDS: Omnipaque 350 MG/ML 100 ML BTL IJ (15:04)
[2020-01-17] MEDS: Normal Saline - Diluent 50 ML VIAL IV (15:05)
== END 2020-01-17 01:39 ==
PROVIDERS: PCP Family Medicine; Visit Provider Psychiatry & Neurology Neurology
DX: R06.02 Shortness of breath (principal); G70.00 Myasthenia gravis without (acute) exacerbation
CPT/HCPCS: 71260; J3490

== ENCOUNTER 2020-01-22 02:00 | Outpatient (RCR) | payer MEDICARE, OTHER, SELFPAY ==
[2020-01-01 09:02] VITALS: BP 149/88; PULSE 101; RESP 19; TEMP 36; O2SAT 95
[2020-01-01 09:09] VITALS: BP 135/88; PULSE 97; RESP 18; TEMP 36.6; O2SAT 97
[2020-01-01] MEDS: IMMUNE GLOBULIN 40 GM/400 ML BTL IV (09:10)
[2020-01-01] MEDS: Normal Saline Flush 10 ML SYR IVP (09:11)
[2020-01-01 09:24] VITALS: BP 131/87; PULSE 87; RESP 18; TEMP 36.6; O2SAT 95
[2020-01-01 09:55] VITALS: BP 129/75; PULSE 75; RESP 16; TEMP 36.8; O2SAT 94
[2020-01-01 10:24] VITALS: BP 137/80; PULSE 79; RESP 18; TEMP 36.6; O2SAT 96
[2020-01-08 10:05] VITALS: BP 127/84; PULSE 71; RESP 19; TEMP 36.5; O2SAT 98
[2020-01-08 10:15] VITALS: BP 138/85; PULSE 70; RESP 18; TEMP 36.5; O2SAT 98
[2020-01-08] MEDS: IMMUNE GLOBULIN 40 GM/400 ML BTL IV (10:18)
[2020-01-08] MEDS: Normal Saline Flush 10 ML SYR IVP (10:19)
[2020-01-08 10:30] VITALS: BP 126/69; PULSE 67; RESP 19; TEMP 37; O2SAT 98
[2020-01-08 10:50] LABS: ALT 18 U/L (14-59); AST 37 U/L (15-37); Albumin 3.7 g/dL (3.4-5.0); Alkaline Phosphatase 93 U/L (46-116); Anion Gap 6.2 mmol/L (3-11); BUN 13 mg/dL (7-18); Bilirubin, Total 0.4 mg/dL (0.2-1.0); CO2 29.8 mmol/L (21.0-32.0); CREATININE 0.92 mg/dL (0.55-1.02); Calcium 9.8 mg/dL (8.5-10.1); Chloride 103 mmol/L (98-107); Creatine Kinase 106 U/L (26-192); Estimated GFR 59.84 (mL/min/1.73m2); FREE T4 1.11 ng/dL (0.76-1.46); Glucose 130 mg/dL (74-106); Potassium 3.9 mmol/L (3.5-5.1); Sodium 139 mmol/L (136-145); TSH 1.41 uIU/mL (0.36-3.74)
[2020-01-08 11:00] VITALS: BP 152/86; PULSE 76; RESP 17; TEMP 37; O2SAT 96
[2020-01-08 11:30] VITALS: BP 144/91; PULSE 72; RESP 18; TEMP 37.2; O2SAT 98
[2020-01-08 12:00] VITALS: BP 156/93; PULSE 75; RESP 18; TEMP 37; O2SAT 98
[2020-01-08 13:23] LABS: Bilirubin Negative (Negative); Blood Negative (Negative); Clarity Clear (Clear); Glucose Negative (Negative); Ketones Negative (Negative); Leukocyte Esterase Negative (Negative); Nitrite Negative (Negative); Specific Gravity 1.025 (1.005-1.025); Urobilinogen 0.2 EU/dL (Up TO 0.2)
[2020-01-08 13:29] LABS: Creatinine,Urine 153.55 mg/dL; Sodium, Urine 45 mmol/L
[2020-01-15 09:23] VITALS: BP 145/93; PULSE 91; RESP 19; TEMP 36.6; O2SAT 97
[2020-01-15 09:30] VITALS: BP 142/87; PULSE 75; RESP 18; TEMP 36.6; O2SAT 97
[2020-01-15] MEDS: IMMUNE GLOBULIN 40 GM/400 ML BTL IV (09:34)
[2020-01-15] MEDS: Normal Saline Flush 10 ML SYR IVP (09:35)
[2020-01-15 09:49] VITALS: BP 143/90; PULSE 78; RESP 18; TEMP 36.6; O2SAT 95
[2020-01-15 10:19] VITALS: BP 135/81; PULSE 70; RESP 18; TEMP 36.6; O2SAT 97
[2020-01-15 10:49] VITALS: BP 141/77; PULSE 73; RESP 19; TEMP 36.6; O2SAT 97
[2020-01-15 11:19] VITALS: BP 138/78; PULSE 75; RESP 18; TEMP 36.6; O2SAT 98
[2020-01-22 10:14] VITALS: BP 135/70; PULSE 71; RESP 18; TEMP 36.2; O2SAT 97
[2020-01-22] MEDS: IMMUNE GLOBULIN 40 GM/400 ML BTL IV (10:18)
[2020-01-22] MEDS: Normal Saline Flush 10 ML SYR IVP (10:19)
[2020-01-22 10:24] VITALS: BP 134/84; PULSE 71; RESP 18; TEMP 36.2; O2SAT 98
[2020-01-22 10:44] VITALS: BP 135/84; PULSE 70; RESP 18; TEMP 36; O2SAT 100
[2020-01-22 11:09] VITALS: BP 119/75; PULSE 68; RESP 18; TEMP 36; O2SAT 97
[2020-01-22 11:39] VITALS: BP 135/86; PULSE 72; RESP 18; TEMP 36; O2SAT 97
[2020-01-22 12:07] VITALS: BP 157/95; PULSE 81; RESP 18; TEMP 36; O2SAT 96
== END 2020-01-28 23:59 | disposition home or self-care (01) ==
LOC: INF 02:00
PROVIDERS: Psychiatry & Neurology Neurology; PCP Family Medicine; Visit Provider Internal Medicine
DX: G70.00 Myasthenia gravis without (acute) exacerbation (principal); M35.00 Sjogren syndrome, unspecified; M35.3 Polymyalgia rheumatica
CPT/HCPCS: 36415; 80053; 82550; 96365; 96366; 81003; 82565; 84300; 84439; 84443; J1300; J1459

== ENCOUNTER 2020-02-26 02:44 | Outpatient (RCR) | payer MEDICARE, OTHER, SELFPAY ==
[2020-01-29 09:10] VITALS: BP 140/92; PULSE 89; RESP 20; TEMP 36.3; O2SAT 96
[2020-01-29 09:17] VITALS: BP 129/85; PULSE 92; RESP 18; TEMP 36.4; O2SAT 97
[2020-01-29] MEDS: IMMUNE GLOBULIN 40 GM/400 ML BTL IV (09:18)
[2020-01-29] MEDS: Normal Saline Flush 10 ML SYR IVP ×2 (09:18→12:57)
[2020-01-29 09:34] VITALS: BP 123/82; PULSE 85; RESP 18; TEMP 36.5; O2SAT 96
[2020-01-29 09:53] VITALS: BP 123/82; PULSE 85; RESP 16; TEMP 36.5; O2SAT 96
[2020-01-29 10:27] VITALS: BP 143/84; PULSE 80; RESP 16; TEMP 37; O2SAT 95
[2020-01-29 10:56] VITALS: BP 130/80; PULSE 75; RESP 16; TEMP 36.9; O2SAT 95
[2020-02-05 10:08] VITALS: BP 138/79; PULSE 77; RESP 18; TEMP 36.4; O2SAT 97
[2020-02-05] MEDS: IMMUNE GLOBULIN 40 GM/400 ML BTL IV (10:13)
[2020-02-05 10:19] VITALS: BP 143/87; PULSE 78; RESP 18; TEMP 36.4; O2SAT 98
[2020-02-05 10:24] LABS: HCT 39.1 % (36.0-46.0); HGB 12.6 g/dL (11.2-15.7); MCHC 32.2 % (32.0-36.0); MCV 90.1 fL (80-95); MPV 9.4 fL (8.0-11.0); Platelet Count 391 10^3/uL (130-400); RBC 4.34 10^6/uL (3.93-5.22); RDW 13.2 % (11.7-14.6); RDW-SD 43.6 fL; WBC 5.45 10^3/uL (4.4-10.8)
[2020-02-05 10:34] VITALS: BP 136/89; PULSE 77; RESP 18; TEMP 36.4; O2SAT 96
[2020-02-05 10:37] LABS: ALT 19 U/L (14-59); AST 20 U/L (15-37); Albumin 3.5 g/dL (3.4-5.0); Alkaline Phosphatase 85 U/L (46-116); Anion Gap 5.3 mmol/L (3-11); BUN 14 mg/dL (7-18); Bilirubin, Total 0.3 mg/dL (0.2-1.0); CO2 27.7 mmol/L (21.0-32.0); CREATININE 0.89 mg/dL (0.55-1.02); Chloride 105 mmol/L (98-107); Glucose 103 mg/dL (74-106); Potassium 3.4 mmol/L (3.5-5.1); Sodium 138 mmol/L (136-145); Total Protein 8.3 g/dL (6.4-8.2)
[2020-02-05 11:04] VITALS: BP 148/84; PULSE 86; RESP 18; TEMP 36.4; O2SAT 94
[2020-02-05 11:34] VITALS: BP 136/65; PULSE 86; RESP 19; TEMP 36.4; O2SAT 94
[2020-02-05 12:04] VITALS: BP 123/81; PULSE 87; RESP 18; TEMP 36.1; O2SAT 96
[2020-02-12 10:06] VITALS: BP 156/95; PULSE 79; RESP 20; TEMP 36.6; O2SAT 97
[2020-02-12] MEDS: IMMUNE GLOBULIN 40 GM/400 ML BTL IV (10:09)
[2020-02-12] MEDS: Normal Saline Flush 10 ML SYR IVP (10:10)
[2020-02-12 10:17] VITALS: BP 132/85; PULSE 82; RESP 18; TEMP 36.9; O2SAT 96
[2020-02-12 10:33] VITALS: BP 145/85; PULSE 75; RESP 18; TEMP 36.6; O2SAT 97
[2020-02-12 11:04] VITALS: BP 146/85; PULSE 91; RESP 18; TEMP 37; O2SAT 96
[2020-02-19 10:00] VITALS: BP 137/78; PULSE 77; RESP 18; TEMP 36.4; O2SAT 99
[2020-02-19 10:12] VITALS: BP 143/91; PULSE 77; RESP 18; TEMP 36.4; O2SAT 99
[2020-02-19] MEDS: Normal Saline Flush 10 ML SYR IVP (10:13)
[2020-02-19] MEDS: IMMUNE GLOBULIN 40 GM/400 ML BTL IV (10:13)
[2020-02-19 10:27] VITALS: BP 147/86; PULSE 80; RESP 19; TEMP 36.2; O2SAT 97
[2020-02-19 11:00] VITALS: BP 146/90; PULSE 70; RESP 16; TEMP 37; O2SAT 95
[2020-02-19 11:28] VITALS: BP 158/88; PULSE 81; RESP 17; TEMP 37; O2SAT 95
[2020-02-19 11:58] VITALS: BP 130/82; PULSE 81; RESP 18; TEMP 37; O2SAT 95
[2020-02-26 09:00] VITALS: BP 135/84; PULSE 98; RESP 20; TEMP 36; O2SAT 98
[2020-02-26 09:28] VITALS: BP 144/92; PULSE 80; RESP 18; TEMP 36.4; O2SAT 100
[2020-02-26] MEDS: IMMUNE GLOBULIN 40 GM/400 ML BTL IV (09:30)
[2020-02-26 09:43] VITALS: BP 154/76; PULSE 73; RESP 18; TEMP 36.4; O2SAT 95
[2020-02-26 10:13] VITALS: BP 152/68; PULSE 74; RESP 18; TEMP 37; O2SAT 97
[2020-02-26 10:43] VITALS: BP 158/86; PULSE 79; RESP 18; TEMP 37; O2SAT 97
[2020-02-26 11:13] VITALS: BP 147/89; PULSE 79; RESP 18; TEMP 37; O2SAT 97
[2020-02-26] MEDS: Normal Saline Flush 10 ML SYR IVP (12:40)
== END 2020-02-28 23:59 | disposition home or self-care (01) ==
LOC: INF 02:44
PROVIDERS: Internal Medicine; PCP Family Medicine; Visit Provider Internal Medicine
DX: M35.00 Sjogren syndrome, unspecified (principal); Z79.899 Other long term (current) drug therapy; G70.00 Myasthenia gravis without (acute) exacerbation
CPT/HCPCS: 36415; 80053; 85027; 96365; 96366; J1300; J1459

== ENCOUNTER 2020-03-24 02:59 | Outpatient (RCR) | payer MEDICARE, OTHER, SELFPAY ==
[2020-02-29 00:02] VITALS: BP 147/89; PULSE 79; RESP 18; TEMP 37
[2020-03-04 10:07] VITALS: BP 144/87; PULSE 100; RESP 18; TEMP 36.2; O2SAT 96
[2020-03-04 10:50] VITALS: BP 119/88; PULSE 100; RESP 19; TEMP 36; O2SAT 98
[2020-03-04] MEDS: IMMUNE GLOBULIN 40 GM/400 ML BTL IV (10:50)
[2020-03-04] MEDS: Normal Saline Flush 10 ML SYR IVP (10:53)
[2020-03-04 11:05] VITALS: BP 123/87; PULSE 89; RESP 18; TEMP 36; O2SAT 96
[2020-03-04 11:35] VITALS: BP 124/76; PULSE 84; RESP 18; TEMP 36.2; O2SAT 95
[2020-03-04 12:05] VITALS: BP 137/88; PULSE 81; RESP 18; TEMP 36; O2SAT 93
[2020-03-04 12:35] VITALS: BP 125/75; PULSE 85; RESP 19; TEMP 36; O2SAT 96
[2020-03-10] MEDS: IMMUNE GLOBULIN 40 GM/400 ML BTL IVPB (09:12)
[2020-03-10] MEDS: Normal Saline Flush 10 ML SYR IVP (09:12)
[2020-03-10 09:19] VITALS: BP 147/80; PULSE 75; RESP 18; TEMP 37.1; O2SAT 98
[2020-03-10 09:35] VITALS: BP 144/78; PULSE 71; RESP 18; TEMP 36.9; O2SAT 98
[2020-03-10 09:48] VITALS: BP 143/84; PULSE 70; RESP 18; TEMP 36.7; O2SAT 98
[2020-03-10 09:50] VITALS: BP 144/79; PULSE 69; RESP 18; TEMP 36.8; O2SAT 97
[2020-03-10 10:20] VITALS: BP 143/78; PULSE 72; RESP 18; TEMP 36.9; O2SAT 97
[2020-03-10 10:50] VITALS: BP 147/88; PULSE 73; RESP 20; TEMP 36.8; O2SAT 97
[2020-03-17 10:13] VITALS: BP 130/85; PULSE 70; RESP 18; TEMP 36.8; O2SAT 96
[2020-03-17 10:15] VITALS: BP 130/85; PULSE 70; RESP 18; TEMP 36.8; O2SAT 96
[2020-03-17] MEDS: IMMUNE GLOBULIN 40 GM/400 ML BTL IV (10:15)
[2020-03-17] MEDS: Normal Saline Flush 10 ML SYR IVP (10:17)
[2020-03-17 10:30] VITALS: BP 130/78; PULSE 66; RESP 18; TEMP 36.6; O2SAT 96
[2020-03-17 11:09] VITALS: BP 143/83; PULSE 70; RESP 18; TEMP 36.6; O2SAT 97
[2020-03-17 11:30] VITALS: BP 150/76; PULSE 71; RESP 18; TEMP 36.7; O2SAT 97
[2020-03-24 09:40] VITALS: BP 128/81; PULSE 66; RESP 18; TEMP 36.7; O2SAT 97
[2020-03-24 10:15] VITALS: BP 143/86; PULSE 66; RESP 18; TEMP 36.6; O2SAT 96
[2020-03-24] MEDS: IMMUNE GLOBULIN 40 GM/400 ML BTL IV (10:16)
[2020-03-24] MEDS: Normal Saline Flush 10 ML SYR IVP (10:16)
[2020-03-24 10:30] VITALS: BP 150/83; PULSE 65; RESP 18; TEMP 36.6; O2SAT 96
[2020-03-24 11:00] VITALS: BP 157/85; PULSE 68; RESP 18; TEMP 36.6; O2SAT 98
[2020-03-24 11:30] VITALS: BP 130/75; PULSE 72; RESP 18; TEMP 36.6; O2SAT 99
[2020-03-24 12:00] VITALS: BP 162/84; PULSE 80; RESP 18; TEMP 36.6; O2SAT 98
== END 2020-03-30 23:59 | disposition home or self-care (01) ==
LOC: INF 02:59
PROVIDERS: PCP Family Medicine; Visit Provider Internal Medicine
DX: M35.00 Sjogren syndrome, unspecified (principal); Z79.899 Other long term (current) drug therapy; G70.00 Myasthenia gravis without (acute) exacerbation
CPT/HCPCS: 96365; 96366; 96367; J1300; J1459

== ENCOUNTER 2020-04-21 02:34 | Outpatient (RCR) | payer MEDICARE, OTHER, SELFPAY ==
[2020-03-31 00:10] VITALS: BP 162/84; PULSE 80; RESP 18; TEMP 36.6
[2020-03-31] MEDS: Normal Saline Flush 10 ML SYR IVP (10:25)
[2020-03-31] MEDS: IMMUNE GLOBULIN 40 GM/400 ML BTL IV (10:25)
[2020-03-31 10:39] VITALS: BP 139/85; PULSE 74; RESP 12; TEMP 37.2; O2SAT 97
[2020-03-31 11:00] VITALS: BP 154/92; PULSE 72; RESP 18; TEMP 36.8; O2SAT 98
[2020-03-31 11:30] VITALS: BP 148/85; PULSE 75; RESP 18; TEMP 36.6; O2SAT 97
[2020-03-31 12:00] VITALS: BP 144/84; PULSE 75; RESP 18; TEMP 36.8; O2SAT 97
[2020-04-07 09:09] VITALS: BP 128/85; PULSE 81; RESP 19; TEMP 36.4; O2SAT 95
[2020-04-07] MEDS: IMMUNE GLOBULIN 40 GM/400 ML BTL IV (09:12)
[2020-04-07 09:24] VITALS: BP 142/89; PULSE 85; RESP 18; TEMP 36.4; O2SAT 96
[2020-04-07 09:54] VITALS: BP 150/91; PULSE 74; RESP 18; TEMP 36.4; O2SAT 96
[2020-04-07] MEDS: Normal Saline Flush 10 ML SYR IVP (09:57)
[2020-04-07 10:24] VITALS: BP 126/82; PULSE 77; RESP 18; TEMP 36.4; O2SAT 94
[2020-04-07 10:54] VITALS: BP 139/83; PULSE 80; RESP 18; TEMP 36.4; O2SAT 95
[2020-04-14 09:54] VITALS: BP 166/89; PULSE 85; RESP 18; TEMP 36.3; O2SAT 95
[2020-04-14 10:24] VITALS: BP 147/83; PULSE 71; RESP 18; TEMP 36.6; O2SAT 96
[2020-04-14] MEDS: Normal Saline Flush 10 ML SYR IVP (10:26)
[2020-04-14] MEDS: IMMUNE GLOBULIN 40 GM/400 ML BTL IV (10:26)
[2020-04-14 10:39] VITALS: BP 132/80; PULSE 71; RESP 18; TEMP 36.6; O2SAT 95
[2020-04-14 11:09] VITALS: BP 129/84; PULSE 71; RESP 12; TEMP 36.8; O2SAT 96
[2020-04-14 11:39] VITALS: BP 130/80; PULSE 69; RESP 15; TEMP 36.8; O2SAT 95
[2020-04-14 12:09] VITALS: BP 153/83; PULSE 81; RESP 16; TEMP 36.5; O2SAT 96
[2020-04-21] MEDS: IMMUNE GLOBULIN 40 GM/400 ML BTL IV (09:11)
[2020-04-21] MEDS: Normal Saline Flush 10 ML SYR IVP (09:11)
[2020-04-21 09:14] VITALS: BP 129/87; PULSE 85; RESP 16; TEMP 36.5; O2SAT 98
[2020-04-21 09:30] VITALS: BP 127/81; RESP 17; TEMP 36.6; O2SAT 96
[2020-04-21 09:51] VITALS: BP 127/80; PULSE 75; RESP 16; TEMP 36.6; O2SAT 96
[2020-04-21 10:18] VITALS: BP 124/77; PULSE 74; RESP 17; TEMP 36.6; O2SAT 98
[2020-04-21 10:46] VITALS: BP 118/75; PULSE 71; RESP 16; TEMP 36.3; O2SAT 96
== END 2020-04-27 23:59 | disposition home or self-care (01) ==
LOC: INF 02:34
PROVIDERS: PCP Family Medicine; Visit Provider Internal Medicine
DX: G70.00 Myasthenia gravis without (acute) exacerbation (principal)
CPT/HCPCS: 96365; 96366; 96367; J1300; J1459

== ENCOUNTER 2020-05-02 11:26 | Outpatient (CLI) | payer MEDICARE, OTHER, SELFPAY ==
--- NOTE | 2020-05-02 11:15 | RT.EKG_ITS ---
APPROVED REPORT Exam: Resting ECG Patient Location: O HR:85 bpm ECG Measurements Heart Rate 85 AXIS [place] 148 P 15 QRSd 119 QRS -48 QT 393 T 103 QTc 467 Conclusion Sinus rhythm...normal P axis, V-rate 60- 99 Probable left atrial enlargement...P >50mS, <-0.10mV V1 LVH with IVCD, LAD and secondary repol abnrm...multi-criteria, wQRSd, abnr ST-T ST elevation secondary to LVH...Multiple VCG criteria
== END 2020-05-02 11:27 | disposition home or self-care (01) ==
LOC: DI.CM 11:26
PROVIDERS: PCP Family Medicine; Visit Provider Nurse Practitioner Family
DX: R00.2 Palpitations (principal); R01.1 Cardiac murmur, unspecified
CPT/HCPCS: 93010

== ENCOUNTER 2020-05-09 06:59 | Day surgery (SDC) | payer MEDICARE, OTHER, SELFPAY ==
[2020-05-09 07:16] VITALS: BP 152/91; PULSE 88; RESP 18; TEMP 36.3; O2SAT 95
[2020-05-09] MEDS: Tropicam./Phenyleph. (1/2.5%) 5 ML BTL OS ×3 (07:16→07:33)
[2020-05-09] MEDS: Balanced Salt Soln.-PLUS 500 ML BAG (08:20)
[2020-05-09] MEDS: Tetracaine 0.5% 4 ML BTL OS (08:20)
[2020-05-09] MEDS: Duovisc Viscoelastic System EACH 1 EACH (08:21)
[2020-05-09] MEDS: Lidocaine 1% Pres-Free 5 ML VIAL (08:21)
[2020-05-09] MEDS: Lidocaine 2% Jelly 6 ML SYR (08:22)
[2020-05-09] MEDS: Povidone-Iodine Ophth 30 ML BTL (08:24)
[2020-05-09 08:40] VITALS: BP 139/88; PULSE 84; RESP 16; TEMP 36.2; O2SAT 95
--- NOTE | 2020-05-09 08:44 | W.PM.DSUDISC ---
Discharge Plan Disposition Patient Disposition: HOME Condition: Good Discharge Details Attending Provider: Edmond Smart Primary Care Provider: Ulysses Bowser Home Meds and New Rx's Prescriptions: No Action fluticasone furoate 27.5 mcg/actuation spray,suspension 2 spray DORON DAILY Qty: 9.1 RF: 3 meclizine 12.5 mg tablet 12.5 mg PO Q6H PRN Qty: 50 RF: 1 benzonatate 100 mg capsule 100 mg PO TID PRN (Reason: cough) Qty: 30 RF: 2 Soliris 300 mg/30 mL solution 600 mg IV Q7D RF: 0 quinine sulfate 324 MG capsule 324 mg PO HS Qty: 30 RF: 11 aarti/bacl/alyce/lido 1 applic Topical 3-4times prn RF: 0 triamcinolone acetonide 0.1 % cream 1 applic Topical BID PRN (Reason: atopy) Qty: 80 RF: 3 Ivig 2 bottle .Route . WEEKLY RF: 0 acetaminophen [Tylenol Extra Strength] 500 mg Tablet 500 mg PO Q6H PRNRF: 0 Discharge Instructions Stand Alone Forms: Post-op Topical Cataract, Leta Comer (DSU) Discharge Orders Discharge Orders: Discharge Order (Routine); Ordered 05/09/20 Ordered By: Edmond Smart DS: Diagnosis Discharge Diagnosis (1) Cortical cataract of left eye: Status: Resolved (2) Nuclear sclerotic cataract of left eye: Status: Resolved
--- NOTE | 2020-05-09 08:45 | ROE_ITS ---
Date of service: 05/09/20 Time of Service: 08:45 Operative Note Operative Note DATE OF PROCEDURE: 05/09/20 PRE-OP DIAGNOSIS: Nuclear/cortical cataract, left eye POST-OP DIAGNOSIS: same PROCEDURE: Cataract extraction using phacoemulsification with intraocular lens implant, left eye SURGEON: Edmond Smart Refer to Anesthesia Record PATHOLOGY: none sent COMPLICATIONS: None Patient was transported to: same day Patient's condition: stable Implants: Edgar and Edgar Vision / [employer] Tecnis ZCB00 Indications: Progressive decreased vision due to cataract, left eye Procedure Description: CATARACT SURGERY OPERATIVE REPORT PREOPERATIVE DIAGNOSIS: Nuclear/cortical cataract, left eye POSTOPERATIVE DIAGNOSIS: Same OPERATION: Cataract extraction using phacoemulsification with posterior chamber intraocular lens implant, left eye. IOL: IOL Remote Sensing Technician/Model: J&J Vision / BLANCA Tecnis ZCB00 IOL Power: + 22.0 diopters IOL Serial Number: [id number] Optic Diameter: 6.0mm Haptic/Overall Diameter: 13.0mm PHACO INFO: [employer] Vision System with OZil and Active Fluidics Cumulative Dispersed Energy (CDE): 6.76 seconds SURGEON: Edmond Smart MD, LUIS ANESTHESIA: Monitored Anesthesia Care (MAC), with local sub-tenon's anesthetic infiltration COMPLICATIONS: None SPECIMENS: None INDICATIONS FOR PROCEDURE: The patient is a 74-year-old lady with history of diminished visual acuity in her left eye secondary to the development of nuclear and cortical cataract. The option of cataract surgery was offered to the patient and she wished to proceed. PROCEDURE: The correct surgical eye was identified and marked as the left eye and the pupil was dilated in the preoperative area using mydriatics and cycloplegics. The dilated pupil size was 6.0 mm. She elected to proceed without sedation. The patient was brought to the operating room where cardiopulmonary monitoring was instituted and surgical time-out was performed, confirming the correct operative eye and IOL power. Topical anesthesia was administered and ophthalmic povidone-iodine 5% was instilled into the conjunctival fornices. Lidocaine gel was applied to the cornea and the jesse-ocular area was prepped with Betadine 10% solution and draped in the usual sterile fashion for intraocular surgery, including an aperture drape. A Tegaderm transparent film dressing was cut in half and used to cover the lashes and lid margins. Care was taken to sequester the lashes and lid margins under the Tegaderm dressing. A lid speculum was placed between the lids of the operative eye and the Lenora-Stephania operating microscope was maneuvered into position. Mary scissors were then used to make a conjunctival buttonhole approximately 6mm posterior to the limbus in the inferonasal quadrant. Blunt dissection was carried out to expose bare sclera, and a blunt-tipped sub-tenon?s anesthesia cannula was introduced and passed posteriorly along the globe where non- preserved plain lidocaine was injected into posterior sub-Tenon?s space. A sideport knife was used to make a paracentesis port superior/superiortemporally. Intraocular phenylephrine/lidocaine was injected into the anterior chamber. The anterior chamber was then filled with viscoelastic. A 2.4mm keratome knife was used to create a half-thickness groove at the limbus and then to construct a three-plane near-clear corneal tunnel extending 2.0mm into clear cornea in the temporal position. . A flap was raised on the anterior capsule and capsulorhexis forceps were used to complete a continuous curvilinear capsulorhexis of 5.5 mm. Balanced salt solution was then used to perform cortical cleaving hydrodissection and nuclear hydrodelineation until the lens could be freely rotated within the capsular bag. The lens nucleus was then disassembled and removed within the capsular bag and iris plane using phacoemulsification. Residual cortical material was removed using the 45-degree angled silicone I/A tip with 0.3mm port. The posterior capsule was carefully polished to remove as much residual lens epithelial cells as safely possible. The capsular bag was then inflated and the anterior chamber deepened with viscoelastic. The lens implant described above was inserted into the capsular bag using the BLANCA [place] Injector. A Kuglen hook was used to dial the IOL into position. Residual viscoelastic was then removed first from posterior to the IOL, then from the anterior chamber using the I/A handpiece. The lens implant was noted to center nicely within the capsular bag. The incisions were stromally hydrated, and the anterior chamber was reformed using BSS. Then 0.5cc of moxifloxacin 1.0mg/ml were injected into the capsular bag and anterior chamber. The incisions were checked with a Weck spear and found to be secure. Several drops of ophthalmic povidone-iodine 5% were then applied to the eye followed by two drops of Imprimis combination prednisolone/moxifloxacin/nepafenac solution. The drapes were removed and a clear plastic protective eye shield was placed over the eye. The patient was then returned to Same Day Surgery in stable condition.
== END 2020-05-09 09:08 | disposition home or self-care (01) ==
PROVIDERS: PCP Family Medicine; Visit Provider Ophthalmology
PROC: (CPT 66984; principal; 2020-05-09 08:30)
DX: H25.12 Age-related nuclear cataract, left eye (principal); M35.00 Sjogren syndrome, unspecified; G70.00 Myasthenia gravis without (acute) exacerbation
CPT/HCPCS: 66984; V2632

== ENCOUNTER 2020-05-23 06:29 | Day surgery (SDC) | payer MEDICARE, OTHER, SELFPAY ==
[2020-05-23 06:49] VITALS: BP 133/81; PULSE 83; RESP 20; TEMP 36.3; O2SAT 98
[2020-05-23] MEDS: Tropicam./Phenyleph. (1/2.5%) 5 ML BTL OD ×3 (06:52→07:05)
[2020-05-23] MEDS: Povidone-Iodine Ophth 30 ML BTL (07:39)
[2020-05-23] MEDS: Lidocaine 2% Jelly 6 ML SYR (07:40)
[2020-05-23] MEDS: Balanced Salt Soln.-PLUS 500 ML BAG (07:41)
[2020-05-23] MEDS: Duovisc Viscoelastic System EACH 1 EACH (07:41)
[2020-05-23] MEDS: Lidocaine 1% Pres-Free 5 ML VIAL (07:42)
[2020-05-23] MEDS: Tetracaine 0.5% 4 ML BTL OD (07:42)
--- NOTE | 2020-05-23 08:02 | W.PM.DSUDISC ---
Discharge Plan Disposition Patient Disposition: HOME Condition: Good Discharge Details Attending Provider: Edmond Smart Primary Care Provider: Ulysses Bowser Home Meds and New Rx's Prescriptions: No Action fluticasone furoate 27.5 mcg/actuation spray,suspension 2 spray DORON DAILY Qty: 9.1 RF: 3 meclizine 12.5 mg tablet 12.5 mg PO Q6H PRN Qty: 50 RF: 1 benzonatate 100 mg capsule 100 mg PO TID PRN (Reason: cough) Qty: 30 RF: 2 Soliris 300 mg/30 mL solution 600 mg IV Q7D RF: 0 quinine sulfate 324 MG capsule 324 mg PO HS Qty: 30 RF: 11 aarti/bacl/alyce/lido 1 applic Topical 3-4times prn RF: 0 triamcinolone acetonide 0.1 % cream 1 applic Topical BID PRN (Reason: atopy) Qty: 80 RF: 3 Ivig 2 bottle .Route . WEEKLY RF: 0 acetaminophen [Tylenol Extra Strength] 500 mg Tablet 500 mg PO Q6H PRNRF: 0 Discharge Instructions Stand Alone Forms: Post-op Topical Cataract, Leta Comer (DSU) Discharge Orders Discharge Orders: Discharge Order (Routine); Ordered 05/23/20 Ordered By: Edmond Smart DS: Diagnosis Discharge Diagnosis (1) Nuclear sclerotic cataract of right eye: Status: Resolved (2) Cortical cataract of right eye: Status: Resolved
--- NOTE | 2020-05-23 08:03 | ROE_ITS ---
Date of service: 05/23/20 Time of Service: 08:03 Operative Note Operative Note DATE OF PROCEDURE: 05/23/20 PRE-OP DIAGNOSIS: Nuclear/cortical cataract, right eye POST-OP DIAGNOSIS: same PROCEDURE: Cataract extraction using phacoemulsification with intraocular lens implant, right eye SURGEON: Edmond Smart ANESTHESIA TYPE: Local By Surgeon and MAC Refer to Anesthesia Record ESTIMATED BLOOD LOSS: 0 PATHOLOGY: none sent COMPLICATIONS: None Patient was transported to: same day Patient's condition: stable Implants: Edgar and Edgar Vision / [employer] Tecnis ZCB00 intraocular lens Indications: Progressive decreased vision due to cataract, right eye Procedure Description: CATARACT SURGERY OPERATIVE REPORT PREOPERATIVE DIAGNOSIS: Nuclear/cortical cataract, right eye POSTOPERATIVE DIAGNOSIS: Same OPERATION: Cataract extraction using phacoemulsification with posterior chamber intraocular lens implant, right eye. IOL: IOL Modeling Teacher/Model: J&J Vision / BLANCA Tecnis ZCB00 IOL Power: + 22.0 diopters IOL Serial Number: [id number] Optic Diameter: 6.0mm Haptic/Overall Diameter: 13.0mm PHACO INFO: Terry [employer] Vision System with OZil and Active Fluidics Cumulative Dispersed Energy (CDE): 4.82 seconds SURGEON: Edmond Smart MD, LUIS ANESTHESIA: Monitored Anesthesia Care (MAC), with local sub-tenon's anesthetic infiltration COMPLICATIONS: None SPECIMENS: None INDICATIONS FOR PROCEDURE: Patient is a 74-year-old lady with history of diminished visual acuity in both eyes secondary to the development of bilateral nuclear and cortical cataract. She is significantly symptomatic that she desires cataract surgery and attempt to improve and maximize her vision. PROCEDURE: The correct surgical eye was identified and marked as the right eye and the pupil was dilated in the preoperative area using mydriatics and cycloplegics. The dilated pupil size was 6.0 mm. She elected to proceed without oral sedation. The patient was brought to the operating room where cardiopulmonary monitoring was instituted and surgical time-out was performed, confirming the correct operative eye and IOL power. Topical anesthesia was administered and ophthalmic povidone-iodine 5% was i nstilled into the conjunctival fornices. Lidocaine gel was applied to the cornea and the jesse-ocular area was prepped with Betadine 10% solution and draped in the usual sterile fashion for intraocular surgery, including an aperture drape. A Tegaderm transparent film dressing was cut in half and used to cover the lashes and lid margins. Care was taken to sequester the lashes and lid margins under the Tegaderm dressing. A lid speculum was placed between the lids of the operative eye and the Lenora-Stephania operating microscope was maneuvered into position. Mary scissors were then used to make a conjunctival buttonhole approximately 6mm posterior to the limbus in the inferonasal quadrant. Blunt dissection was carried out to expose bare sclera, and a blunt-tipped sub-tenon?s anesthesia c annula was introduced and passed posteriorly along the globe where non-preserved plain lidocaine was injected into posterior sub-Tenon?s space. A sideport knife was used to make a paracentesis port inferiortemporally. Intraocular phenylephrine/lidocaine was injected into the anterior chamber. The anterior chamber was then filled with viscoelastic. A 2.4mm keratome knife was used to create a half-thickness groove at the limbus and then to construct a three-plane near-clear corneal tunnel extending 2.0mm into clear cornea in the superiortemporal position. . A flap was raised on the anterior capsule and capsulorhexis forceps were used to complete a continuous curvilinear capsulorhexis of 5.0 mm. Balanced salt solution was then used to perform cortical cleaving hydrodissection and nuclear hydrodelineation until the lens could be freely rotated within the capsular bag. The lens nucleus was then disassembled and removed within the capsular bag and iris plane using phacoemulsification. Residual cortical material was removed using the I/A handpiece. The posterior capsule was carefully polished to remove as much residual lens epithelial cells as safely possible. The capsular bag was then inflated and the anterior chamber deepened with viscoelastic. The lens implant described above was inserted into the capsular bag using the BLANCA [place] Injector. A Kuglen hook was used to dial the IOL into position. Residual viscoelastic was then removed first from posterior to the IOL, then from the anterior chamber using the I/A handpiece. The lens implant was noted to center nicely within the capsular bag. The incisions were stromally hydrated, and the anterior chamber was reformed using BSS. Then 0.5cc of moxifloxacin 1.0mg/ml were injected into the capsular bag and anterior chamber. The incisions were checked with a Weck spear and found to be secure. Several drops of ophthalmic povidone-iodine 5% were then applied to the eye followed by two drops of Imprimis combination prednisolone/moxifloxacin/nepafenac solution. The drapes were removed and a clear plastic protective eye shield was placed over the eye. The patient was then returned to Same Day Surgery in stable condition.
== END 2020-05-23 08:35 | disposition home or self-care (01) ==
PROVIDERS: PCP Family Medicine; Visit Provider Ophthalmology
PROC: (CPT 66984; principal; 2020-05-23 07:30)
DX: H25.11 Age-related nuclear cataract, right eye (principal); H25.011 Cortical age-related cataract, right eye; Z96.1 Presence of intraocular lens; Z98.42 Cataract extraction status, left eye
CPT/HCPCS: 66984; V2632

== ENCOUNTER 2020-05-26 02:54 | Outpatient (RCR) | payer MEDICARE, OTHER, SELFPAY ==
[2020-04-28] VITALS (7 sets, daily range): BP systolic 118–140; BP diastolic 75–86; PULSE 71–83; RESP 16–19; TEMP 36.3–37.1; O2SAT 95–97
[2020-04-28] MEDS: Normal Saline Flush 10 ML SYR IVP (10:02)
[2020-04-28] MEDS: IMMUNE GLOBULIN 40 GM/400 ML BTL IV (10:02)
[2020-05-05 09:16] VITALS: BP 129/79; PULSE 72; RESP 19; TEMP 36.1; O2SAT 97
[2020-05-05 09:24] VITALS: BP 136/80; PULSE 74; RESP 18; TEMP 36.7; O2SAT 96
[2020-05-05] MEDS: IMMUNE GLOBULIN 40 GM/400 ML BTL IVPB (09:27)
[2020-05-05] MEDS: Normal Saline Flush 10 ML SYR IVP (09:29)
[2020-05-05 09:31] LABS: Abs Immature Grans 0.01 10^3/uL (0.0-0.06); Absolute Basophil Count 0.06 10^3/uL (0.0-0.2); Absolute Eosinophil Count 0.26 10^3/uL (0.0-0.7); Absolute Lymphocyte Count 1.19 10^3/uL (1.2-3.4); Absolute Monocyte Count 0.56 10^3/uL (0.1-0.8); Absolute Neutrophil Count 3.62 10^3/uL (1.2-6.7); Basophils % 1.1; Eosinophils % 4.6; HCT 37.8 % (36.0-46.0); HGB 12.5 g/dL (11.2-15.7); Immature Grans % 0.2; Lymphocytes % 20.9; MCHC 33.1 % (32.0-36.0); MCV 90.6 fL (80-95); MPV 9.6 fL (8.0-11.0); Monocytes % 9.8; Neutrophils % 63.4; Nucleated RBC 0 %; Platelet Count 384 10^3/uL (130-400); RBC 4.17 10^6/uL (3.93-5.22); RDW 13.6 % (11.7-14.6); RDW-SD 45.4 fL
[2020-05-05 09:39] VITALS: BP 142/80; PULSE 75; RESP 19; TEMP 36.7; O2SAT 100
[2020-05-05 09:45] LABS: ALT 19 U/L (14-59); AST 19 U/L (15-37); Albumin 3.5 g/dL (3.4-5.0); Alkaline Phosphatase 88 U/L (46-116); BUN 10 mg/dL (7-18); Bilirubin, Total 0.4 mg/dL (0.2-1.0); CREATININE 0.9 mg/dL (0.55-1.02); Calcium 9.4 mg/dL (8.5-10.1); Chloride 106 mmol/L (98-107); Glucose 149 mg/dL (74-106); Potassium 3.3 mmol/L (3.5-5.1); Sodium 142 mmol/L (136-145); Total Protein 8.4 g/dL (6.4-8.2)
[2020-05-05 10:09] VITALS: BP 145/81; PULSE 72; RESP 18; TEMP 36.6; O2SAT 94
[2020-05-05 10:39] VITALS: BP 153/84; PULSE 67; RESP 18; TEMP 36.6; O2SAT 95
[2020-05-12 10:05] VITALS: BP 126/82; PULSE 62; RESP 16; TEMP 35.7; O2SAT 97
[2020-05-12] MEDS: IMMUNE GLOBULIN 40 GM/400 ML BTL IVPB (10:06)
[2020-05-12] MEDS: Normal Saline Flush 10 ML SYR IVP (10:06)
[2020-05-12 10:20] VITALS: BP 130/84; PULSE 76; RESP 16; TEMP 36; O2SAT 95
[2020-05-12 10:35] VITALS: BP 152/89; PULSE 67; RESP 16; TEMP 36.2; O2SAT 96
[2020-05-12 11:28] VITALS: BP 130/79; PULSE 73; RESP 16; TEMP 36.8; O2SAT 98
[2020-05-20] MEDS: IMMUNE GLOBULIN 40 GM/400 ML BTL IVPB (10:16)
[2020-05-20] MEDS: Normal Saline Flush 10 ML SYR IVP (10:16)
[2020-05-20 10:20] VITALS: BP 117/76; PULSE 75; RESP 16; TEMP 36.6; O2SAT 94
[2020-05-20 10:35] VITALS: BP 113/73; PULSE 73; RESP 18; TEMP 36.7; O2SAT 96
[2020-05-20 11:05] VITALS: BP 111/75; PULSE 76; RESP 16; TEMP 36.3; O2SAT 96
[2020-05-20 11:36] VITALS: BP 146/98; PULSE 76; RESP 17; TEMP 36.2; O2SAT 96
[2020-05-26] MEDS: IMMUNE GLOBULIN 40 GM/400 ML BTL IVPB (10:07)
[2020-05-26] MEDS: Normal Saline Flush 10 ML SYR IVP (10:08)
[2020-05-26 10:11] VITALS: BP 128/83; PULSE 69; RESP 18; TEMP 37.2; O2SAT 92
[2020-05-26 10:25] VITALS: BP 141/90; PULSE 69; RESP 18; TEMP 36.1; O2SAT 96
[2020-05-26 10:40] VITALS: BP 125/78; PULSE 71; RESP 18; TEMP 36.8; O2SAT 95
[2020-05-26 11:12] VITALS: BP 146/84; PULSE 79; RESP 18; TEMP 36.9
== END 2020-05-28 23:59 | disposition home or self-care (01) ==
LOC: INF 02:54
PROVIDERS: Internal Medicine; PCP Family Medicine; Visit Provider Internal Medicine
DX: G70.00 Myasthenia gravis without (acute) exacerbation (principal); Z79.899 Other long term (current) drug therapy
CPT/HCPCS: 36415; 80053; 96365; 96366; 96367; 85025; J1300; J1459

== ENCOUNTER 2020-06-23 02:53 | Outpatient (RCR) | payer MEDICARE, OTHER, SELFPAY ==
[2020-05-29 00:05] VITALS: BP 146/84; PULSE 79; RESP 18; TEMP 36.9
[2020-06-02 09:10] VITALS: BP 125/86; PULSE 84; RESP 20; TEMP 35.1; O2SAT 97
[2020-06-02] MEDS: Normal Saline Flush 10 ML SYR IVP (09:10)
[2020-06-02] MEDS: IMMUNE GLOBULIN 40 GM/400 ML BTL IVPB (09:10)
[2020-06-02 09:23] LABS: Magnesium 1.7 mg/dL (1.8-2.4); Potassium 3.6 mmol/L (3.5-5.1)
[2020-06-02 09:25] VITALS: BP 133/74; PULSE 74; RESP 18; TEMP 35.1; O2SAT 96
[2020-06-02 09:40] VITALS: BP 125/74; PULSE 76; RESP 18; TEMP 35.8; O2SAT 96
[2020-06-02 10:00] VITALS: BP 133/80; PULSE 73; RESP 16; TEMP 35.8; O2SAT 95
[2020-06-02 10:40] VITALS: BP 118/72; PULSE 66; RESP 20; TEMP 35.7; O2SAT 95
[2020-06-02 11:19] VITALS: BP 138/84; PULSE 72; RESP 16; TEMP 36; O2SAT 96
[2020-06-09] MEDS: IMMUNE GLOBULIN 40 GM/400 ML BTL IVPB (10:04)
[2020-06-09 10:05] VITALS: BP 143/82; PULSE 72; RESP 16; TEMP 36.3; O2SAT 96
[2020-06-09] MEDS: Normal Saline Flush 10 ML SYR IVP (10:05)
[2020-06-09 10:20] VITALS: BP 153/82; PULSE 73; RESP 16; TEMP 36; O2SAT 95
[2020-06-09 10:35] VITALS: BP 129/80; PULSE 68; RESP 16; TEMP 36.5; O2SAT 95
[2020-06-09 11:05] VITALS: BP 146/78; PULSE 78; RESP 16; TEMP 36; O2SAT 98
[2020-06-09 11:35] VITALS: BP 123/77; PULSE 70; RESP 16; TEMP 35.6; O2SAT 96
[2020-06-09 12:05] VITALS: BP 135/79; PULSE 71; RESP 16; TEMP 36.5; O2SAT 95
[2020-06-16 09:53] VITALS: BP 144/90; PULSE 84; RESP 16; TEMP 37.1; O2SAT 97
[2020-06-16] MEDS: Normal Saline Flush 10 ML SYR IVP (09:55)
[2020-06-16] MEDS: IMMUNE GLOBULIN 40 GM/400 ML BTL IVPB (09:55)
[2020-06-16 10:05] VITALS: BP 142/87; PULSE 76; RESP 16; TEMP 37; O2SAT 94
[2020-06-16 10:35] VITALS: BP 131/80; PULSE 71; RESP 16; TEMP 36.9; O2SAT 95
[2020-06-16 11:05] VITALS: BP 126/80; PULSE 71; RESP 16; TEMP 36.7; O2SAT 95
[2020-06-23] MEDS: Normal Saline Flush 10 ML SYR IVP (10:02)
[2020-06-23] MEDS: IMMUNE GLOBULIN 40 GM/400 ML BTL IVPB (10:09)
[2020-06-23 10:14] VITALS: BP 130/83; PULSE 70; RESP 20; TEMP 36.3; O2SAT 94
[2020-06-23 10:30] VITALS: BP 142/85; PULSE 67; RESP 16; TEMP 36.1; O2SAT 95
[2020-06-23 11:00] VITALS: BP 122/77; PULSE 66; RESP 16; TEMP 35.8; O2SAT 94
[2020-06-23 11:28] VITALS: BP 163/85; PULSE 72; RESP 16; TEMP 36; O2SAT 96
== END 2020-06-27 23:59 | disposition home or self-care (01) ==
LOC: INF 02:53
PROVIDERS: PCP Family Medicine; Visit Provider Internal Medicine
DX: G70.00 Myasthenia gravis without (acute) exacerbation (principal); Z79.899 Other long term (current) drug therapy
CPT/HCPCS: 36415; 96365; 96366; 83735; 84132; J1300; J1459

== ENCOUNTER 2020-07-01 01:23 | Outpatient (CLI) | payer MEDICARE, OTHER, SELFPAY ==
--- NOTE | 2020-07-01 14:50 | DI.US_ITS ---
APPROVED REPORT EXAM: Comprehensive 2D, Doppler, and color-flow Echocardiogram Patient Location: Out-Patient Sewer Hand: Nevin Sinclair RDCS (AE) Indications: Sjogrens syndrome, Myasthenia Gravis, Murmur Other Information Study Quality: Adequate Conclusion Normal left ventricular chamber size. Wall thickness is normal. EF is 60%. Wall motion is normal Normal right ventricular size and systolic function The atria are normal in size The aortic valve is trileaflet, sclerotic, without stenosis or regurgitation Moderate mitral annular calcification. Trace mitral regurgitation Normal tricuspid valve with mild regurgitation. Estimated right ventricular systolic pressure is nor mal, 23 mmHg Normal pulmonic valve Mildly dilated aortic root and ascending aorta Wall motion Left Ventricle The left ventricle is normal size. The left ventricular systolic function is normal. The left ventric ular ejection fraction is within the normal range. Sigmoid septum is present. There is normal LV segm ental wall motion. There is no ventricular septal defect visualized. LVEF is 57%. Right Ventricle The right ventricle is normal size. The right ventricular systolic function is normal. The RVSP is 23 .0 mmHg. Atria The left atrium size is normal. The right atrium size is normal. The interatrial septum is intact wit h no evidence for an atrial septal defect. Aortic Valve The Aortic valve is sclerotic. Aortic valve is trileaflet. There is no aortic valvular stenosis. No a ortic regurgitation is present. Mitral Valve Moderate mitral annular calcification. No evidence of mitral valve stenosis. Trace mitral regurgitati on. Tricuspid Valve The tricuspid valve is normal in structure. There is no tricuspid valve stenosis. Mild tricuspid regu rgitation. Pulmonic Valve The pulmonary valve is normal in structure. There is no pulmonic valvular stenosis. There is no pulmo chago valvular regurgitation. Great Vessels Aortic root is mildly dilated.3.42 The ascending aorta is moderately dilated.3.89 Aortic arch is norm al in caliber. IVC is normal in size and collapses >50% with inspiration. Pericardium There is no pericardial effusion. 2D Dimensions IVSD d PLAX 1.51 cm F: 0.6-1.0 LV Vol A2C d MOD 87.2 mL LVPW d PLAX 1.02 cm F: 0.6 - 1.0 LV Vol A4C d MOD 84.7 mL LVID d PLAX 4.23 cm F: 3.8 - 5.2 LA vol/ BSA A2C s A-L 29.4 mL/m2 LVDs 2.95 cm F: 2.2 - 3.5 LA vol/ BSA A4C s A-L 15.0 mL/m2 Ao Root d 3.42 cm F: 2.7 - 3.3 LA Vol/ BSA Biplane s A-L 21.6 mL/m2 RA Area A4C 16.23 cm2 LA Area A4C s MOD 13.29 cm2 RA Vol/ BSA A4C s A-L 22.3 mL/m2 LA Area A2C s MOD 19.12 cm2 Ao Asc Diam d 3.89 cm F: 2.3 - 3.1 LV EF A4C MOD 56.9 % LV EF Teichholz 58.0 % LV EF A2C MOD 56.1 % LVEF (Bravo's) 57.18 % F: 54 - 74 LV EF Biplane MOD 57.2 % LV Volume 64.79 mL F: 46 - 106 SV 49.51 mL LV Volume Index 32.23 mL/m2 F: 29 - 61 SV Index 24.58 mL/m2 LV Vol Biplane MOD 86.6 mL FS 30.30 % M-Mode TAPSE 1.97 cm (M/F) >1.7 LV Diastology MV E' medial 0.053 (>0.07 m/s) E/A Ratio 0.6 LV E/e MED 11.40 (<14) MV E Vmax 0.60 (0.4-1.3 m/s) MV E' lateral 0.091 (>0.1 m/s) MV A Vmax 1.00 (0.4-1.3 m/s) LV E/e LAT 6.55 (<14) MV E/A Ratio 0.58 MV E/E' medial 11.43 MV E/E' lateral 6.58 Aortic Valve LVOT Area 3.55 cm2 AoV Area Vmax 3.26 cm2 LVOT Vmax 1.26 m/s AoV Area/ BSA (Vmax) 1.62 cm2/m2 LVOT Mean Maciel. 0.84 m/s CHULA Mean Maciel. 2.84 cm2 LVOT Peak Grad 6.3 mmHg CHULA Mean Maciel. Index 1.41 cm2/m2 LVOT Mean Grad 3.4 mmHg LVOT VTI 0.231 m LVOT Diam s 2.10 cm AoV Vmax 1.37 m/s Velocity Ratio 0.91 AoV Mean Maciel. 1.05 m/s AoV Peak Grad 7.5 mmHg LVOT SV 81.93 mL AoV Mean Grad 4.8 mmHg AoV VTI 0.262 m AoV Area VTI 3.13 cm2 AoV Area/ BSA (VTI) 1.55 cm/m2 Mitral Valve MV DT 297 (160-240 msec) MR Vmax 4.35 m/s MV PHT 86 msec MR VTI 1.218 m MV Area PHT 2.55 cm2 MR Peak Grad 75.7 mmHg MV VTI 0.288 m MR Mean Grad 57.0 mmHg MV VTI Annulus 0.298 m MV Area VTI 2.95 (4.0-6.0 cm2) Pulmonary Valve PV Vmax 0.92 (0.5-1.5 m/s) RVOT Peak Gr. 1.72 mmHg PV Peak Grad 3.4 mmHg RVOT Mean Gr. 0.85 mmHg PV Mean Grad 1.9 mmHg RVOT VTI 0.132 m PV VTI 0.149 m RVOT Vmax 0.66 m/s Tricuspid Valve TR Peak Grad 19.9 mmHg TR Vmax 2.23 m/s RA Pressure 3.00 mmHg RVSP (TR) 23.0 mmHg
== END 2020-07-01 01:43 ==
PROVIDERS: PCP Family Medicine; Visit Provider Internal Medicine
DX: R01.1 Cardiac murmur, unspecified (principal); M35.00 Sjogren syndrome, unspecified; G70.01 Myasthenia gravis with (acute) exacerbation; I77.810 Thoracic aortic ectasia; I36.1 Nonrheumatic tricuspid (valve) insufficiency
CPT/HCPCS: 93306

== ENCOUNTER 2020-07-22 02:45 | Outpatient (RCR) | payer MEDICARE, OTHER, SELFPAY ==
[2020-06-28 00:18] VITALS: BP 163/85; PULSE 72; RESP 16; TEMP 36
[2020-07-02] MEDS: IMMUNE GLOBULIN 40 GM/400 ML BTL IVPB (10:58)
[2020-07-02] MEDS: Normal Saline Flush 10 ML SYR IVP (11:00)
[2020-07-02 11:10] VITALS: BP 136/69; PULSE 74; RESP 17; TEMP 36.5; O2SAT 96
[2020-07-02 11:25] VITALS: BP 128/79; PULSE 69; RESP 17; TEMP 36.2; O2SAT 96
[2020-07-02 11:45] VITALS: BP 123/77; PULSE 66; RESP 16; TEMP 36.3; O2SAT 96
[2020-07-02 12:15] VITALS: BP 156/92; PULSE 67; RESP 16; TEMP 36.5; O2SAT 96
[2020-07-02 12:45] VITALS: BP 130/73; PULSE 70; RESP 16; TEMP 36.4; O2SAT 98
[2020-07-02 13:16] VITALS: BP 126/77; PULSE 64; RESP 16; TEMP 36.3; O2SAT 96
[2020-07-08 10:10] VITALS: BP 130/67; PULSE 64; RESP 16; TEMP 36.2; O2SAT 96
[2020-07-08] MEDS: IMMUNE GLOBULIN 40 GM/400 ML BTL IVPB (10:12)
[2020-07-08] MEDS: Normal Saline Flush 10 ML SYR IVP (10:12)
[2020-07-08 10:30] VITALS: BP 144/84; PULSE 64; RESP 16; TEMP 36.3; O2SAT 95
[2020-07-08 10:47] VITALS: BP 148/83; PULSE 66; RESP 17; TEMP 36.3; O2SAT 95
[2020-07-08 11:17] VITALS: BP 140/82; PULSE 66; RESP 17; TEMP 36.5; O2SAT 98
[2020-07-08 11:51] VITALS: BP 151/86; PULSE 74; RESP 16; TEMP 36.5; O2SAT 95
[2020-07-15] MEDS: IMMUNE GLOBULIN 40 GM/400 ML BTL IVPB (10:25)
[2020-07-15] MEDS: Normal Saline Flush 10 ML SYR IVP (10:26)
[2020-07-15 10:31] VITALS: BP 118/74; PULSE 83; RESP 18; TEMP 36.7; O2SAT 95
[2020-07-15 10:45] VITALS: BP 122/79; PULSE 79; RESP 95; TEMP 36.7
[2020-07-15 11:04] VITALS: BP 125/72; PULSE 79; RESP 95; TEMP 36.7
[2020-07-15 11:31] VITALS: BP 117/73; PULSE 78; RESP 18; TEMP 36.6; O2SAT 97
[2020-07-15 12:00] VITALS: BP 148/89; PULSE 85; RESP 94; TEMP 36.5; O2SAT 94
[2020-07-22] MEDS: IMMUNE GLOBULIN 40 GM/400 ML BTL IVPB (10:39)
[2020-07-22 10:40] VITALS: BP 127/78; PULSE 81; RESP 16; TEMP 36.4; O2SAT 95
[2020-07-22] MEDS: Normal Saline Flush 10 ML SYR IVP (10:40)
[2020-07-22 10:59] VITALS: BP 121/77; PULSE 76; RESP 16; TEMP 36.4; O2SAT 95
[2020-07-22 11:15] VITALS: BP 127/76; PULSE 80; RESP 16; TEMP 36.3; O2SAT 97
[2020-07-22 11:45] VITALS: BP 120/73; PULSE 73; RESP 16; TEMP 36.3; O2SAT 93
[2020-07-22 12:20] VITALS: BP 139/78; PULSE 80; RESP 16; TEMP 36.2; O2SAT 95
[2020-07-22 12:52] VITALS: BP 132/79; PULSE 83; RESP 16; TEMP 36.3; O2SAT 95
== END 2020-07-28 23:59 | disposition home or self-care (01) ==
LOC: INF 02:45
PROVIDERS: PCP Family Medicine; Visit Provider Internal Medicine
DX: G70.00 Myasthenia gravis without (acute) exacerbation (principal)
CPT/HCPCS: 96365; 96366; J1459

== ENCOUNTER 2020-08-26 02:36 | Outpatient (RCR) | payer MEDICARE, OTHER, SELFPAY ==
[2020-07-29 00:18] VITALS: BP 132/79; PULSE 83; RESP 16; TEMP 36.3
[2020-07-29 10:08] VITALS: BP 129/84; PULSE 78; RESP 16; TEMP 36.5; O2SAT 97
[2020-07-29] MEDS: Normal Saline Flush 10 ML SYR IVP (10:08)
[2020-07-29] MEDS: IMMUNE GLOBULIN 40 GM/400 ML BTL IVPB (10:08)
[2020-07-29 10:25] VITALS: BP 131/80; PULSE 74; RESP 16; TEMP 36.6; O2SAT 95
[2020-07-29 10:50] VITALS: BP 121/74; PULSE 70; RESP 16; TEMP 36.4; O2SAT 95
[2020-07-29 11:30] VITALS: BP 130/78; PULSE 73; RESP 16; TEMP 36.3; O2SAT 96
[2020-07-29 12:05] VITALS: BP 133/83; PULSE 83; RESP 16; TEMP 36.3; O2SAT 95
[2020-08-05 10:00] VITALS: BP 138/94; PULSE 80; RESP 16; TEMP 36.3; O2SAT 96
[2020-08-05] MEDS: IMMUNE GLOBULIN 40 GM/400 ML BTL IVPB (10:00)
[2020-08-05] MEDS: Normal Saline Flush 10 ML SYR IVP (10:02)
[2020-08-05 10:15] VITALS: BP 130/83; PULSE 80; RESP 17; TEMP 36.3; O2SAT 96
[2020-08-05 10:30] VITALS: BP 126/71; PULSE 66; RESP 17; TEMP 36.4; O2SAT 98
[2020-08-05 11:00] VITALS: BP 119/78; PULSE 68; RESP 16; TEMP 36.9; O2SAT 96
[2020-08-05 11:41] VITALS: BP 130/83; PULSE 70; RESP 16; TEMP 36.9; O2SAT 97
[2020-08-12] MEDS: Normal Saline Flush 10 ML SYR IVP (10:22)
[2020-08-12] MEDS: IMMUNE GLOBULIN 40 GM/400 ML BTL IVPB (10:22)
[2020-08-12 10:25] VITALS: BP 122/77; PULSE 83; RESP 16; TEMP 37; O2SAT 96
[2020-08-12 10:40] VITALS: BP 114/77; PULSE 74; RESP 16; TEMP 36.6; O2SAT 93
[2020-08-12 11:11] VITALS: BP 110/70; PULSE 72; RESP 16; TEMP 36.3; O2SAT 94
[2020-08-12 11:40] VITALS: BP 117/77; PULSE 82; RESP 16; TEMP 36.9; O2SAT 93
[2020-08-12 12:10] VITALS: BP 159/83; PULSE 77; RESP 16; TEMP 36.6; O2SAT 94
[2020-08-19] MEDS: IMMUNE GLOBULIN 40 GM/400 ML BTL IVPB (10:09)
[2020-08-19] MEDS: Normal Saline Flush 10 ML SYR IVP (10:09)
[2020-08-19 10:15] VITALS: BP 119/76; PULSE 88; RESP 16; TEMP 36.7; O2SAT 99
[2020-08-19 10:34] VITALS: BP 123/79; PULSE 71; RESP 18; TEMP 36.6; O2SAT 95
[2020-08-19 10:49] VITALS: BP 120/76; PULSE 71; RESP 16; TEMP 35.9; O2SAT 94
[2020-08-19 11:23] VITALS: BP 122/77; PULSE 70; RESP 17; TEMP 36.1; O2SAT 94
[2020-08-19 11:50] VITALS: BP 126/82; PULSE 67; RESP 16; TEMP 36.5; O2SAT 96
[2020-08-26] MEDS: Normal Saline Flush 10 ML SYR IVP (09:57)
[2020-08-26] MEDS: IMMUNE GLOBULIN 40 GM/400 ML BTL IVPB (09:57)
[2020-08-26 10:00] VITALS: BP 127/84; PULSE 85; RESP 16; TEMP 36.4; O2SAT 96
[2020-08-26 10:15] VITALS: BP 142/88; PULSE 80; RESP 16; TEMP 36.5; O2SAT 96
[2020-08-26 10:45] VITALS: BP 128/79; PULSE 76; RESP 16; TEMP 36.5; O2SAT 97
[2020-08-26 11:14] VITALS: BP 126/85; PULSE 79; RESP 16; TEMP 36.7; O2SAT 96
== END 2020-08-27 23:59 | disposition home or self-care (01) ==
LOC: INF 02:36
PROVIDERS: Visit Provider Internal Medicine
DX: G70.00 Myasthenia gravis without (acute) exacerbation (principal)
CPT/HCPCS: 96365; 96366; J1459

== ENCOUNTER 2020-08-28 11:00 | Outpatient (CLI) | payer MEDICARE, OTHER, SELFPAY ==
--- NOTE | 2020-08-28 10:00 | DI.RAD_ITS ---
Exam(s) XR SHOULDER RT COMPLETE 2+V EXAM: XR SHOULDER RT COMPLETE 2+V CLINICAL HISTORY: right shoulder pain, restricted abduction of RUE [id number]. TECHNIQUE: 2D digital imaging was performed. COMPARISON: No exams were available for comparison FINDINGS: Four views of the right shoulder reveal no evidence of fracture or dislocation no abnormal soft tissu e calcifications. 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 Subarticular lucencies are noted in the adjacent osseous glenoid. There are no calcificati ons in the subacromial space. Mild degenerative changes are noted ipsilateral AC joint. No ominous osseous lesions. IMPRESSION: DATA REPOSITORY: RADIATION DOSE DELIVERED:
== END 2020-08-28 11:20 ==
PROVIDERS: Visit Provider Nurse Practitioner Family
DX: M25.511 Pain in right shoulder (principal)
CPT/HCPCS: 73030

== ENCOUNTER 2020-09-18 01:36 | Outpatient (CLI) | payer MEDICARE, OTHER, SELFPAY ==
--- NOTE | 2020-09-18 14:40 | DI.MRI_ITS ---
Exam(s) MR LUMBAR SPINE WO EXAM: MR LUMBAR SPINE WO CLINICAL HISTORY: RT LUMBAR RADICULOPATHY. TECHNIQUE: Multiplanar multisequence MRI of the Lumbar spine was performed. COMPARISON: MR MRI - LUMBAR SPINE WO CONTRAST from 10/29/[address] RENAL COLIC WO from 11/19/[address] RENAL COLIC WO from 11/19/2019 FINDINGS: No plain films available time this MRI interpretation. There appears to be transitional anatomy in t his patient also has scoliosis convex right. There is a transitional lumbosacral vertebra which is s acralized bilaterally. The vertebral above this will be called L5, this to coincide with abdominal C T scan report of June 2019.. Conus medullaris is at normal level. There is no evidence of conus mass nor subjacent clumping of in trathecal nerve roots to suggest arachnoiditis. The distal thecal sac appears unremarkable.There is no evidence of Tarlov intrasacral cysts nor other significant findings within the sacral canal Bones:There are no fractures nor ominous osseous lesions in the lumbar vertebral bodies and visualize d sacrum. With respect to the individual levels... T12-L1: Unremarkable L1-2: Moderate decreased disc height. Anterior osseous lipping. Posteriorly there is mild annular b ulging without a dominant disc herniation. Central canal dimensions are lower normal. Mild facet de generative changes. No significant foraminal stenosis L2-3: Moderate disc space narrowing is also evident at this level, slightly more so on the left side, given the scoliosis. There is mild annular bulging but no dominant disc herniation at this level. Right-sided neural foramen exhibits some bulging of the annulus in its floor but without significant stenosis. On the left side there is moderate foraminal stenosis related to the more advanced disc he ight loss on the left side in this patient with scoliosis. Mild facet arthropathy. L3-4: This level exhibits advanced disc space narrowing on the left side and relatively preserved dis c height on the right side. This results in significant left-sided foraminal stenosis. There is no right-sided foraminal stenosis evident at this level. There is mild annular bulging but no dominant disc herniation. Central canal dimensions are within normal limits. Scratch L4-5: This level exhibits normal disc height and signal throughout the disc space. There is no disc herniation. No central canal stenosis. No foraminal stenosis on the left side. Mild foraminal sten osis on the right side L5-S1: At this level there is again noted advanced disc space narrowing and significant anterolisthes is of L5 upon S1, as previously documented. There is 1.1 cm anterior slippage of L5 upon S1. This i s related to bilateral pars defects at the L5 level. This results in increased AP diameter of the ce ntral canal. However, the lateral recesses are carried forward. There is significant impingement of the exiting nerve roots bilaterally at this level which are compressed by between the overlying L5 p edicles and subjacent remaining annulus. This is moderate-severe on the left side and very severe on the right side. Some degenerative facet joint changes are noted. S1-S2: The disc space between the transitional lumbosacral vertebra and sacral body exhibits normal h eight and signal due to the stabilization from the osseous sacralization. There is no disc herniatio n at this level nor central canal stenosis nor foraminal stenosis. Soft tissues: There is an exophytic cyst off the lateral aspect of the left kidney noted which measu res approximately 4.7 cm diameter. IMPRESSION: 1. Multilevel findings as described individually above, these findings compounded by the scoliosis co nvex right. 2. There is multilevel asymmetric foraminal stenosis as described above which is related to the scoli osis. 3. Significant 11 millimeter anterior listhesis L5 upon S1 transitional vertebra due to bilateral L5 pars defects. This results in very severe impingement of the exiting nerve root on right side and mo derate-severe impingement of the exiting nerve root on the opposite-left side. DATA REPOSITORY:
== END 2020-09-18 01:56 ==
PROVIDERS: Visit Provider Nurse Practitioner Family
DX: M54.16 Radiculopathy, lumbar region (principal); M48.07 Spinal stenosis, lumbosacral region; M41.9 Scoliosis, unspecified; M43.17 Spondylolisthesis, lumbosacral region
CPT/HCPCS: 72148

== ENCOUNTER 2020-09-22 01:36 | Outpatient (RCR) | payer MEDICARE, OTHER, SELFPAY ==
[2020-08-28 00:09] VITALS: BP 126/85; PULSE 79; RESP 16; TEMP 36.7
[2020-09-02] MEDS: IMMUNE GLOBULIN 40 GM/400 ML BTL IVPB (10:15)
[2020-09-02] MEDS: Normal Saline Flush 10 ML SYR IVP (10:15)
[2020-09-02 10:20] VITALS: BP 113/72; PULSE 75; RESP 20; TEMP 36.5; O2SAT 94
[2020-09-02 10:35] VITALS: BP 130/80; PULSE 77; RESP 20; TEMP 36.5; O2SAT 97
[2020-09-02 11:08] VITALS: BP 117/76; PULSE 70; RESP 19; TEMP 36.6; O2SAT 95
[2020-09-02 11:38] VITALS: BP 130/80; PULSE 77; RESP 19; TEMP 36.6; O2SAT 95
[2020-09-02 12:10] VITALS: BP 147/86; PULSE 80; RESP 16; TEMP 36.4; O2SAT 94
[2020-09-09] MEDS: IMMUNE GLOBULIN 40 GM/400 ML BTL IVPB (11:13)
[2020-09-09] MEDS: Normal Saline Flush 10 ML SYR IVP (11:13)
[2020-09-09 11:15] VITALS: BP 123/82; PULSE 78; RESP 18; TEMP 36.9; O2SAT 95
[2020-09-09 11:35] VITALS: BP 131/80; PULSE 78; RESP 18; TEMP 36.2; O2SAT 95
[2020-09-09 12:05] VITALS: BP 138/85; PULSE 82; RESP 18; TEMP 36.9; O2SAT 95
[2020-09-09 12:35] VITALS: BP 137/74; PULSE 78; RESP 18; TEMP 36.9; O2SAT 95
[2020-09-09 13:20] VITALS: BP 137/78; PULSE 82; RESP 18; TEMP 36.5; O2SAT 95
[2020-09-16] MEDS: IMMUNE GLOBULIN 40 GM/400 ML BTL IVPB (10:03)
[2020-09-16] MEDS: Normal Saline Flush 10 ML SYR IVP (10:03)
[2020-09-16 10:11] VITALS: BP 112/71; PULSE 81; RESP 16; TEMP 36; O2SAT 96
[2020-09-16 10:25] VITALS: BP 123/75; PULSE 77; RESP 16; TEMP 36.5; O2SAT 96
[2020-09-16 10:43] VITALS: BP 110/69; PULSE 67; RESP 16; TEMP 36.3; O2SAT 96
[2020-09-16 11:20] VITALS: BP 144/80; PULSE 79; RESP 16; TEMP 36.2; O2SAT 96
[2020-09-16 11:57] VITALS: BP 130/75; PULSE 77; RESP 18; TEMP 36.2; O2SAT 100
[2020-09-22] VITALS (8 sets, daily range): BP systolic 109–147; BP diastolic 72–84; PULSE 67–79; RESP 16–18; TEMP 36.1–36.8; O2SAT 94–99
[2020-09-22] MEDS: Normal Saline Flush 10 ML SYR IVP (09:36)
[2020-09-22] MEDS: IMMUNE GLOBULIN 40 GM/400 ML BTL IVPB (09:36)
== END 2020-09-27 23:59 | disposition home or self-care (01) ==
LOC: INF 01:36
PROVIDERS: Visit Provider Internal Medicine
DX: G70.00 Myasthenia gravis without (acute) exacerbation (principal)
CPT/HCPCS: 96365; 96366; J1459

== ENCOUNTER → 2020-09-30 08:48 | Outpatient (BNVA) | payer MEDICARE, OTHER, SELFPAY | PROVIDERS: Visit Provider Student in an Organized Health Care Education/Training Program | DX: M19.011 Primary osteoarthritis, right shoulder (principal); M75.101 Unspecified rotator cuff tear or rupture of right shoulder, not specified as traumatic | CPT/HCPCS: 99213 ==

== ENCOUNTER 2020-10-02 09:40 | Outpatient (CLI) | payer MEDICARE, OTHER, SELFPAY ==
--- NOTE | 2020-10-02 06:00 | DI.RAD_ITS ---
Exam(s) XR PAIN CLINIC LUMBAR SP 2V EXAM: XR PAIN CLINIC LUMBAR SP 2V CLINICAL HISTORY: Dx: Lumbar Radiculopathy TECHNIQUE: 2D and realtime digital imaging was performed. Radiologist not present. CONTRAST MATERIAL: None. COMPARISON: No exams were available for comparison FINDINGS: Fluoroscopy was provided for lumbar region pain management therapy. Please refer to procedure report or details. Radiologist was not present for this procedure. Total fluoroscopy time 57.1 seconds Cumulative dose: negrita Hameed=26.81 mGy IMPRESSION: RADIATION DOSE DELIVERED:
[2020-10-02 09:56] VITALS: BP 113/66; PULSE 80; RESP 18; TEMP 36.7; O2SAT 97
--- NOTE | 2020-10-02 10:46 | PDOC.PAIN_ITS ---
Pain Clinic Procedure Note Procedure Note Procedure Note: LUMBAR / SACRAL TRANSFORAMINAL INJECTION Shelby Hampton has been [facility] for a transforaminal nerve root block and steroid injection. COMMENTS: She was seen in our office on 08/28/20 Pre-procedure diagnosis: Lumbosacral radiculopathy Post-procedure diagnosis: Same Pre-procedure pain VAS: 6/10. Patient was interviewed and the medical record reviewed. There were no medical, pharmacologic, radiographic or other structural contraindications to attempting fluoroscopically guided transforaminal nerve root block and epidural steroid injection. Risks and expected side effects as well as potential benefit of the procedure were reviewed and voiced concerns addressed. The printed consent form was signed and witnessed. Standard time-out procedure was performed. Patient was placed in the prone position on the fluoroscopy table and automated blood pressure cuff and pulse oximeter applied. Fluoroscopy was utilized to identify the right L3 neural foramen between L3 and L4. I initially attempted to go into the right L4-L5 neuroforamin, but there was no room to advance the needle, so I went to the infraneural transforaminal location of the right L3-L4 site. A skin jan was made for the needle insertion site. A Chlorhexadine prep was carried out, and sterile drapes were applied. Local anesthesia was achieved in the skin and subcutaneous tissues. A 22 gauge 5 curved tip spinal needle was then inserted, advanced with fluoroscopic guidance into the neural foramen, confirmed on the lateral view. After negative aspiration, 2 ml of Omnipaque 240 was injected confirming position in A/P and lateral views. This showed a good spread of dye transforaminally into the epidural space. There was no vascular update with contrast injection under continuous fluoroscopy and digital substraction. 15 mg of Dexamethasone was injected, followed by 0.5 ml of 1% Xylocaine flush for the nerve root block, as well. There was no unusual discomfort expressed.The needle was withdrawn. The patient tolerated the procedure well. A Band-Aid was applied. Vital signs were stable throughout the procedure and were as recorded in nursing records. If given, dosages of intravenous drugs for anxiolysis and analgesia were documented in nursing records. Follow up plans and appointments were discussed. Post procedure instruction was given as documented in nursing records and patient was discharged in the care of an identified skidder driver. COMMENTS:Post-procedure pain VAS: 0/10. Yeison Custer, DO, MPH Pain Management CC: Mary Jo Archer, GLOBAL MARKETING COORDINATOR
[2020-10-02 10:53] VITALS: BP 134/73; PULSE 68; RESP 20; O2SAT 96
[2020-10-02] MEDS: Dexamethasone Sod. Phos./Pres-Free 10 MG/ML VIAL IJ (10:54)
[2020-10-02] MEDS: Omnipaque 240 MG/ML 50 ML BTL IJ (10:54)
== END 2020-10-02 09:41 | disposition home or self-care (01) ==
LOC: PC 09:41
PROVIDERS: Visit Provider Preventive Medicine Occupational Medicine
DX: M54.17 Radiculopathy, lumbosacral region (principal)
CPT/HCPCS: 64483; 72100; Q9967

== ENCOUNTER 2020-10-16 01:40 | Outpatient (CLI) | payer MEDICARE, OTHER, SELFPAY ==
--- NOTE | 2020-10-16 08:00 | DI.RAD_ITS ---
Exam(s) RF JOINT INJECTION FLUORO GUID EXAM: RF JOINT INJECTION FLUORO GUID CLINICAL HISTORY: RIGHT SHOULDER PAIN,PRIMARY OA RT SHOULDER, M19.011,FLUORO GUIDED INJECTION TECHNIQUE: Fluoroscopy provided. Radiologist not present. CONTRAST MATERIAL: None COMPARISON: No exams were available for comparison FINDINGS: Fluoroscopy was provided for Dr. Feldman during right shoulder injection. Submitted image(s) reveal needle placement at the superomedial aspect the humeral head injection of i ntra-articular contrast Please refer to the procedure report for complete details. Cumulative Dose: negrita Hameed=14.7 mGy IMPRESSION: RADIATION DOSE DELIVERED:
--- NOTE | 2020-10-16 13:17 | W.PROCNOTE ---
Date of service: 10/16/20 Time of Service: 13:17 Procedure Note Date of procedure: 10/16/20 Procedure: Right Shoulder Injection Surgeon/Proceduralist/Physician: Manuel Feldman Procedure Diagnosis: Right Glenohumeral Arthritis Procedure Indications: Shelby has had persistent pain of the RIGHT shoulder. Noninvasive measures have been tried. To serve as both diagnostic and therapeutic, an injection under fluoroscopy was recommended. I had discussed the risks of the procedure and the patient elected to proceed. Procedure Description: Shebly was greeted in the flouroscopy room. The correct side was identified and the consent was reviewed with the patient and signed. The patient was then placed in the supine position on the fluoroscopy table. The RIGHT shoulder was then prepped with Chloraprep. The anterior injection starting point was identiifed by bony landmarks and fluoroscopy. The skin and soft tissue in the tract of the injection was anesthetized with 1% Lidocaine. A spinal needle was then inserted deep into the shoulder joint at the level of the recess between the glenoid and superior humeral head. A small amount of Omnipaque solution was injected to confirm intraarticular placement. Once confirmed, the shoulder was injected with 4cc of 0.5% Bupivicaine and 80mg of Depo-Medrol. A bandaid was placed on the injection site. The patient tolerated the procedure well and noted improvement in pre-injection pain.
[2020-10-16] MEDS: Bupivacaine 0.5% Pres-Free 10 ML VIAL 5 ML IJ (13:20)
[2020-10-16] MEDS: methylPREDNISolone ACETATE 40 MG/ML VIAL IM (13:21)
[2020-10-16] MEDS: Omnipaque 300 MG/ML 10 ML BTL IJ (13:22)
== END 2020-10-16 02:00 ==
PROVIDERS: Visit Provider Student in an Organized Health Care Education/Training Program
DX: M19.011 Primary osteoarthritis, right shoulder (principal)
CPT/HCPCS: 20610; 77002; J1030

== ENCOUNTER 2020-10-28 02:05 | Outpatient (RCR) | payer MEDICARE, OTHER, SELFPAY ==
[2020-09-28 00:06] VITALS: BP 147/84; PULSE 72; RESP 16; TEMP 36.2
[2020-09-30 10:15] VITALS: BP 129/77; PULSE 74; RESP 18; TEMP 36.1; O2SAT 95
[2020-09-30] MEDS: IMMUNE GLOBULIN 40 GM/400 ML BTL IVPB (10:20)
[2020-09-30 10:25] VITALS: BP 128/76; PULSE 75; RESP 18; TEMP 36.1; O2SAT 95
[2020-09-30 10:40] VITALS: BP 130/76; PULSE 78; RESP 18; TEMP 36.1; O2SAT 94
[2020-09-30 10:58] VITALS: BP 124/79; PULSE 72; RESP 16; TEMP 36.7; O2SAT 96
[2020-09-30 11:24] VITALS: BP 139/82; PULSE 78; RESP 16; TEMP 36.6; O2SAT 96
[2020-10-07 10:25] VITALS: BP 120/79; PULSE 79; RESP 18; TEMP 36.8; O2SAT 96
[2020-10-07] MEDS: IMMUNE GLOBULIN 40 GM/400 ML BTL IVPB (10:28)
[2020-10-07] MEDS: Normal Saline Flush 10 ML SYR IVP (10:35)
[2020-10-07 10:40] VITALS: BP 120/75; PULSE 80; RESP 17; TEMP 36.4; O2SAT 96
[2020-10-07 11:00] VITALS: BP 117/77; PULSE 75; RESP 16; TEMP 36.1; O2SAT 95
[2020-10-07 11:30] VITALS: BP 120/70; PULSE 65; RESP 19; TEMP 36.4; O2SAT 96
[2020-10-07 12:10] VITALS: BP 133/75; PULSE 78; RESP 16; TEMP 35.8; O2SAT 97
[2020-10-14] MEDS: Normal Saline Flush 10 ML SYR IVP (10:11)
[2020-10-14] MEDS: IMMUNE GLOBULIN 40 GM/400 ML BTL IVPB (10:11)
[2020-10-14 10:12] VITALS: BP 118/76; PULSE 74; RESP 18; TEMP 37; O2SAT 96
[2020-10-14 10:25] VITALS: BP 125/74; PULSE 75; RESP 19; TEMP 36.2; O2SAT 96
[2020-10-14 10:40] VITALS: BP 141/88; PULSE 79; RESP 19; TEMP 36.2; O2SAT 96
[2020-10-14 10:58] VITALS: BP 117/72; PULSE 80; RESP 16; TEMP 35.8; O2SAT 95
[2020-10-14 11:30] VITALS: BP 150/87; PULSE 74; RESP 17; TEMP 36.1; O2SAT 95
[2020-10-14 12:00] VITALS: BP 119/76; PULSE 69; RESP 17; TEMP 36.2; O2SAT 96
[2020-10-21 10:00] VITALS: BP 118/73; PULSE 71; RESP 19; TEMP 37.2; O2SAT 96
[2020-10-21] MEDS: IMMUNE GLOBULIN 40 GM/400 ML BTL IVPB (10:00)
[2020-10-21] MEDS: Normal Saline Flush 10 ML SYR IVP (10:00)
[2020-10-21 10:15] VITALS: BP 118/83; PULSE 77; RESP 18; TEMP 36.4; O2SAT 97
[2020-10-21 10:35] VITALS: BP 136/83; PULSE 75; RESP 19; TEMP 36.2; O2SAT 96
[2020-10-21 11:09] VITALS: BP 155/83; PULSE 71; RESP 18; TEMP 36.6; O2SAT 98
[2020-10-21 11:38] VITALS: BP 120/74; PULSE 69; RESP 17; TEMP 36.1; O2SAT 95
[2020-10-21 12:09] VITALS: BP 150/90; PULSE 85; RESP 16; TEMP 36.3; O2SAT 95
[2020-10-28 10:30] VITALS: BP 116/64; PULSE 78; RESP 16; TEMP 36.2; O2SAT 97
[2020-10-28] MEDS: IMMUNE GLOBULIN 40 GM/400 ML BTL IVPB (10:34)
[2020-10-28 10:50] VITALS: BP 129/75; PULSE 71; RESP 16; TEMP 36.4; O2SAT 95
[2020-10-28 11:08] VITALS: BP 112/69; PULSE 71; RESP 17; TEMP 36; O2SAT 95
[2020-10-28 11:38] VITALS: BP 134/79; PULSE 71; RESP 17; TEMP 34.9; O2SAT 93
== END 2020-10-28 23:59 | disposition home or self-care (01) ==
LOC: INF 02:05
PROVIDERS: Visit Provider Internal Medicine
DX: G70.00 Myasthenia gravis without (acute) exacerbation (principal)
CPT/HCPCS: 36415; 96365; 96366; 99203; 99213; J1459

== ENCOUNTER 2020-11-18 08:43 | Outpatient (CLI) | payer MEDICARE, OTHER, SELFPAY ==
--- NOTE | 2020-11-18 08:30 | DI.RAD_ITS ---
Exam(s) XR KNEE RT 3V AP,LAT,LUKE EXAM: XR KNEE RT 3V AP,LAT,LUKE CLINICAL HISTORY: right knee pain. TECHNIQUE: 2D digital imaging was performed of the right knee. Four views obtained. AP, lateral and Merchant views were obtained. COMPARISON: CR XR ABDOMEN FLAT PLATE from 04/03/2019 FINDINGS: BONES: No acute fracture is present. No bony destructive lesion is seen. JOINTS: There is marked narrowing and periarticular spurring in the lateral femoral tibial joint. Th ere is joint space narrowing and periarticular spurring at the patellofemoral joint. Small joint eff usion. SOFT TISSUE: Normal. IMPRESSION: Marked osteoarthritis of the right knee. DATA REPOSITORY: RADIATION DOSE DELIVERED:
== END 2020-11-18 08:44 | disposition home or self-care (01) ==
LOC: DIORS 08:44
PROVIDERS: Visit Provider Student in an Organized Health Care Education/Training Program
DX: M25.561 Pain in right knee (principal); M19.011 Primary osteoarthritis, right shoulder; M75.101 Unspecified rotator cuff tear or rupture of right shoulder, not specified as traumatic; M17.11 Unilateral primary osteoarthritis, right knee
CPT/HCPCS: 20610; 73562; 99214; J1040

== ENCOUNTER 2020-11-26 02:49 | Outpatient (RCR) | payer MEDICARE, OTHER, SELFPAY ==
[2020-10-29 00:04] VITALS: BP 134/79; PULSE 71; RESP 17; TEMP 34.9
[2020-11-05 10:20] VITALS: BP 125/77; PULSE 74; RESP 18; TEMP 36.5; O2SAT 94
[2020-11-05] MEDS: IMMUNE GLOBULIN 40 GM/400 ML BTL IVPB (10:26)
[2020-11-05] MEDS: Normal Saline Flush 10 ML SYR IVP (10:26)
[2020-11-05 10:30] VITALS: BP 117/79; PULSE 75; RESP 18; TEMP 36.9; O2SAT 97
[2020-11-05 10:48] VITALS: BP 123/80; PULSE 71; RESP 16; TEMP 36.1; O2SAT 95
[2020-11-05 11:05] VITALS: BP 123/77; PULSE 71; RESP 16; TEMP 36.2; O2SAT 95
[2020-11-05 11:35] VITALS: BP 119/73; PULSE 70; RESP 16; TEMP 35.6; O2SAT 96
[2020-11-12] MEDS: IMMUNE GLOBULIN 40 GM/400 ML BTL IVPB (09:34)
[2020-11-12 09:35] VITALS: BP 138/84; PULSE 69; RESP 16; TEMP 36.6; O2SAT 94
[2020-11-12] MEDS: Normal Saline Flush 10 ML SYR IVP (09:38)
[2020-11-12 09:54] VITALS: BP 137/83; PULSE 77; RESP 18; TEMP 36.3; O2SAT 94
[2020-11-12 10:10] VITALS: BP 124/72; PULSE 75; RESP 18; TEMP 36.1; O2SAT 96
[2020-11-12 10:40] VITALS: BP 126/77; PULSE 73; RESP 16; TEMP 36.5; O2SAT 94
[2020-11-19 09:40] VITALS: BP 131/81; PULSE 71; RESP 17; TEMP 36.6; O2SAT 96
[2020-11-19] MEDS: IMMUNE GLOBULIN 40 GM/400 ML BTL IVPB (09:43)
[2020-11-19] MEDS: Normal Saline Flush 10 ML SYR IVP (09:43)
[2020-11-19 10:00] VITALS: BP 131/79; PULSE 70; RESP 17; O2SAT 94
[2020-11-19 10:15] VITALS: BP 122/79; PULSE 71; RESP 17; O2SAT 95
[2020-11-19 10:45] VITALS: BP 134/79; PULSE 71; RESP 17; TEMP 36.5; O2SAT 95
[2020-11-19 11:35] VITALS: BP 155/80; PULSE 76; RESP 18; TEMP 36.6; O2SAT 96
[2020-11-26] MEDS: IMMUNE GLOBULIN 40 GM/400 ML BTL IVPB (10:17)
[2020-11-26] MEDS: Normal Saline Flush 10 ML SYR IVP (10:17)
[2020-11-26 10:20] VITALS: BP 135/81; PULSE 72; RESP 17; TEMP 35.7; O2SAT 97
[2020-11-26 10:40] VITALS: BP 121/80; PULSE 68; RESP 18; TEMP 36.2; O2SAT 97
[2020-11-26 10:55] VITALS: BP 120/75; PULSE 61; RESP 17; TEMP 36.4; O2SAT 97
[2020-11-26 11:25] VITALS: BP 127/77; PULSE 69; RESP 18; TEMP 36; O2SAT 95
[2020-11-26 11:59] VITALS: BP 131/81; PULSE 76; RESP 18; TEMP 36.4; O2SAT 96
[2020-11-26 12:29] VITALS: BP 134/83; PULSE 77; RESP 18; TEMP 36.1; O2SAT 96
== END 2020-11-27 23:59 | disposition home or self-care (01) ==
LOC: INF 02:49
PROVIDERS: Visit Provider Internal Medicine
DX: G70.00 Myasthenia gravis without (acute) exacerbation (principal)
CPT/HCPCS: 96365; 96366; J1459

== ENCOUNTER 2020-12-01 12:56 | Emergency (ER) | payer MEDICARE, OTHER, SELFPAY ==
[2020-12-01] VITALS (35 sets, daily range): BP systolic 111–163; BP diastolic 66–104; PULSE 66–108; RESP 15–29; TEMP 36.6–36.7; O2SAT 83–100
--- NOTE | 2020-12-01 13:15 | RT.EKG_ITS ---
APPROVED REPORT Exam: Resting ECG Reason for Exam: episodic low blood pressure Patient Location: E HR:78 bpm ECG Measurements Heart Rate 78 AXIS MA 157 P 42 QRSd 134 QRS -54 QT 418 T 108 QTc 476 Conclusion Sinus rhythm...normal P axis, V-rate 60- 99 LVH with IVCD, LAD and secondary repol abnrm...multi-criteria, wQRSd, abnr ST-T ST elevation secondary to LVH...Multiple VCG criteria no STEMI, non-diagnostic EKG
--- NOTE | 2020-12-01 13:15 | DI.RAD_ITS ---
Exam(s) XR CHEST 2V PA LATERAL EXAM: XR CHEST 2V PA LATERAL CLINICAL HISTORY: low blood pressure TECHNIQUE: 2D digital imaging was performed. COMPARISON: CT CT CHEST W from 01/17/2020 FINDINGS: MEDIASTINUM: Normal. HEART: Normal. PULMONARY VASCULATURE: Normal. LUNGS: Emphysematous and mild fibrotic changes. No infiltrate visible. PLEURAL SPACE: No pleural effusion or pneumothorax. BONE:Unremarkable for age. IMPRESSION: No acute abnormality. DATA REPOSITORY: RADIATION DOSE DELIVERED:
[2020-12-01] MEDS: Ondansetron 4 MG/2 ML VIAL IVP (13:27)
--- NOTE | 2020-12-01 13:32 | ED.GENADUL_ITS ---
Discharge Plan Disposition Patient Disposition: HOME Condition: Stable Discharge Details Clinical Impression: Low blood pressure Primary Care Provider: Mary Jo Archer ED Provider: Manuelito Carreon Home Meds and New Rx's Prescriptions: Continued fluticasone furoate 27.5 mcg/actuation spray,suspension 2 spray DORON DAILY Qty: 9.1 RF: 3 benzonatate 100 mg capsule 100 mg PO TID PRN (Reason: cough) Qty: 30 RF: 2 quinine sulfate 324 mg capsule 324 mg PO HS Qty: 30 RF: 11 meclizine 12.5 mg tablet 12.5 mg PO Q6H PRN Qty: 50 RF: 3 aarti/bacl/alyce/lido 1 applic Topical 3-4times prn RF: 0 triamcinolone acetonide 0.1 % cream 1 applic Topical BID PRN (Reason: atopy) Qty: 80 RF: 3 Ivig 2 bottle .Route . WEEKLY RF: 0 acetaminophen [Tylenol Extra Strength] 500 mg Tablet 500 mg PO Q6H PRNRF: 0 Discharge Instructions Instructions: Hypotension (ED), Near Syncope (ED) Additional Instructions: Please return immediately to the emergency department if you develop any new or worsening symptoms, if your condition does not improve as expected, or if you become otherwise concerned. It is extremely important that you call soon as possible to make an appointment to be seen in follow-up for this visit by your primary care doctor. Referrals: Mary Jo Archer, [employer]LE[employer]ATER [Primary Care Provider] - Discharge Data Discharge Date/Time-TO BE ENTERED AT DEPARTURE: 12/01/20 16:58 Medical Decision Making <Christa Camarillo MD - Last Filed: 12/03/20 13:50> Shelby Hampton is a 75 y/o woman with a history of hyperlipidemia, myasthenia gravis, Sjogren's syndrome, GERD, chronic lung disease who presented to emergency department with for low blood pressure during first time rituxan infusion. Pt arrives to ED with SBP 111, normal vitals. On exam Pt appears fatigued and has mild pallor, otherwise benign exam. Unclear etiology of symptoms, vagal response, arrhythmia, other. Possible anaphylactic/anaphylactoid rxn, however Pt has improved spontaneously. Doubt sepsis, infection, acute coronary syndrome. Exam/hx at this time not c/w acute aortic process, meningitis, pulmonary embolism, acute hemorrhage. EKG obtained and non- diagnostic. IV is in place. Plan for screening labs, CXR, telemetry, IVF hy dration. Will repeat trop if initial w/u neg. Labs reviewed, WBC 11.15, Hgb 11.9, lactate 1.4, trop negative. On reassessment Pt reports that she feels significantly improved. CXR okay. Awaiting repeat trop. Pt reports that she feels very well and back to baseline and would like to be discharged. Agrees to wait for repeat trop. Will have resp therapy place holter. Discussed with Pt plan for hold further rituxan infusions pending discussions with Pt's neurologist, possible allergy eval. Pt signed out to Dr. Carreon at time of shift change with repeat trop, reassessment pending. Medical Records Medical records reviewed: Yes I reviewed the patient's medical records. Imaging Data Radiologic Study: Attestation: I personally reviewed and interpreted this imaging study as follows: Radiologist's impression: EXAM: XR CHEST 2V PA LATERAL CLINICAL HISTORY: low blood pressure TECHNIQUE: 2D digital imaging was performed. COMPARISON: CT CT CHEST W from 01/17/2020 FINDINGS: MEDIASTINUM: Normal. HEART: Normal. PULMONARY VASCULATURE: Normal. LUNGS: Emphysematous and mild fibrotic changes. No infiltrate visible. PLEURAL SPACE: No pleural effusion or pneumothorax. BONE:Unremarkable for age. IMPRESSION: No acute abnormality. Lab Data Lab results reviewed: Yes I reviewed the patient's lab results. Labs: Laboratory Tests Range/Units 12/01/20 12/01/20 12/01/20 13:53 13:53 13:53 WBC (4.4-10.8) 10^3/uL 11.15 H RBC (3.93-5.22) 10^6/uL 4.09 Hgb (11.2-15.7) g/dL 11.9 Hct (36.0-46.0) % 38.7 MCV (80-95) fL 94.6 MCH (27.0-33.0) pg 29.1 MCHC (32.0-36.0) % 30.7 L RDW (11.7-14.6) % 14.1 Plt Count (130-400) 10^3/uL 347 MPV (8.0-11.0) fL 9.4 Immature Gran % 0.3 Neutrophils % 92.1 Lymphocytes % 3.2 Monocytes % 3.9 Eosinophils % 0.1 Basophils % 0.4 Nucleated RBC % % 0 Absolute Neutrophils (1.2-6.7) 10^3/uL 10.27 H Absolute Lymphocytes (1.2-3.4) 10^3/uL 0.36 L Absolute Monocytes (0.1-0.8) 10^3/uL 0.43 Absolute Eosinophils (0.0-0.7) 10^3/uL 0.01 Absolute Basophils (0.0-0.2) 10^3/uL 0.04 VBG Lactate (0.6-1.4) mmol/L 1.4 Sodium (136-145) mmol/L 140 Potassium (3.5-5.1) mmol/L 3.5 Chloride (98-107) mmol/L 105 Carbon Dioxide (21.0-32.0) mmol/L 26.4 Anion Gap (3-11) mmol/L 8.6 BUN (7-18) mg/dL 12 Creatinine (0.55-1.02) mg/dL 0.9 Estimated GFR/1.73 m2 (mL/min/1.73m2) >= 60.00 Glucose (74-106) mg/dL 113 H Calcium (8.5-10.1) mg/dL 8.9 Total Bilirubin (0.2-1.0) mg/dL 0.4 AST (15-37) U/L 22 ALT (14-59) U/L 23 Alkaline Phosphatase (46-116) U/L 76 Troponin I (<0.06) ng/mL < 0.05 Total Protein (6.4-8.2) g/dL 8.4 H Albumin (3.4-5.0) g/dL 3.6 Urine Color (Yellow) Urine Clarity (Clear) Urine pH (5-8) Ur Specific [place] (1.005-1.025) Urine Protein (Negative) mg/dL Urine Ketones (Negative) mg/dL Urine Blood (Negative) Urine Nitrite (Negative) Urine Bilirubin (Negative) Urine Urobilinogen (Up TO 0.2) EU/dL Ur Leukocyte Esterase (Negative) Urine Glucose (Negative) mg/dL Range/Units 12/01/20 12/01/20 15:20 16:19 WBC (4.4-10.8) 10^3/uL RBC (3.93-5.22) 10^6/uL Hgb (11.2-15.7) g/dL Hct (36.0-46.0) % MCV (80-95) fL MCH (27.0-33.0) pg MCHC (32.0-36.0) % RDW (11.7-14.6) % Plt Count (130-400) 10^3/uL MPV (8.0-11.0) fL Immature Gran % Neutrophils % Lymphocytes % Monocytes % Eosinophils % Basophils % Nucleated RBC % % Absolute Neutrophils (1.2-6.7) 10^3/uL Absolute Lymphocytes (1.2-3.4) 10^3/uL Absolute Monocytes (0.1-0.8) 10^3/uL Absolute Eosinophils (0.0-0.7) 10^3/uL Absolute Basophils (0.0-0.2) 10^3/uL VBG Lactate (0.6-1.4) mmol/L Sodium (136-145) mmol/L Potassium (3.5-5.1) mmol/L Chloride (98-107) mmol/L Carbon Dioxide (21.0-32.0) mmol/L Anion Gap (3-11) mmol/L BUN (7-18) mg/dL Creatinine (0.55-1.02) mg/dL Estimated GFR/1.73 m2 (mL/min/1.73m2) Glucose (74-106) mg/dL Calcium (8.5-10.1) mg/dL Total Bilirubin (0.2-1.0) mg/dL AST (15-37) U/L ALT (14-59) U/L Alkaline Phosphatase (46-116) U/L Troponin I (<0.06) ng/mL < 0.05 Total Protein (6.4-8.2) g/dL Albumin (3.4-5.0) g/dL Urine Color (Yellow) Yellow Urine Clarity (Clear) Clear Urine pH (5-8) 5.0 Ur Specific [place] (1.005-1.025) >= 1.030 H Urine Protein (Negative) mg/dL Negative Urine Ketones (Negative) mg/dL Negative Urine Blood (Negative) Negative Urine Nitrite (Negative) Negative Urine Bilirubin (Negative) Negative Urine Urobilinogen (Up TO 0.2) EU/dL 0.2 Ur Leukocyte Esterase (Negative) Negative Urine Glucose (Negative) mg/dL Negative ECG Data Attestation: I personally reviewed and interpreted this ECG (s) as follows: Interpretation: EKG shows sinus rhythm at 78, left axis, left ventricular hypertrophy, ST elevation secondary to left ventricular hypertrophy that does not meet criteria for STEMI, no major change from prior, non-diagnostic EKG <Manuelito Carreon MD - Last Filed: 12/01/20 16:52> patients second troponin negative, vitals stable and she is asymptomatic requesting d/c which I feel is reasonable given reassuring workup and asymptomatic at present. She will follow up with pcp return precautions given Lab Data Lab results reviewed: Yes I reviewed the patient's lab results. HPI <Christa Camarillo MD - Last Filed: 12/03/20 13:50> General Mode of arrival: wheelchair . Date/Time Provider Initiated Documentation: 12/01/20 13:19 . Limitations to Documentation: no limitations . Information obtained by: patient, RN notes reviewed and old records reviewed . HPI Narrative: Shelby Hampton is a 75-year-old woman with a history of hyperlipidemia, myasthenia gravis, Sjogren's syndrome, GERD, chronic lung disease presenting to emergency department with chief complaint low blood pressure. Patient is well-known to the infusion center at this hospital where she regularly receives IVIG infusions for myasthenia gravis. Patient was ordered to have Rituxan infusion for the first time by her neurologist at [facility]. Patient was here in the infusion center receiving Rituxan. Approximately 1 hour into the infusion patient developed gen eralized aching in her joints and muscles and also felt somewhat nauseous. The infusion was slowed at that time. Approximately 2 hours since infusion patient was noted to have blood pressure 70/30, infusion was stopped, and 250 cc bolus IV fluid was initiated. Patient was brought to the emergency department. Patient reports that during episode she felt shaky, somewhat lightheaded, and had continued generalized pain in her joints and muscles. Patient reports that she now feels nauseous with continued joint/muscle pain. She denies any chest pain or abdominal pain. She does report that she feels bloated and somewhat gassy, last bowel movement was yesterday and was normal. Patient denies cough, shortness of breath, vomiting, new numbness (history of chronic numbness bilateral lower extremities below the knees that is unchanged), weakness, rash, itching. Patient reports that she has adverse reactions to many medications that her doctors states are not allergic reactions, including nausea, joint pain, feeling generally unwell. Has never had this medication before. Was feeling in her usual state of health prior to infusion today. Related Data Home Medications Medication Instructions Recorded Confirmed Ivig 2 bottle .ROUTE . WEEKLY 07/01/15 12/01/20 Aarti/Bacl/Alyce/Lido 1 applic TOPICAL 3-4times prn 04/26/17 12/01/20 fluticasone furoate 27.5 2 spray DORON DAILY #9.1 ml 01/27/18 12/01/20 mcg/actuation nasal spray,suspension triamcinolone acetonide 0.1 % 1 applic TOPICAL BID PRN #80 gm 05/02/20 11/18/20 topical cream acetaminophen [Tylenol Extra 500 mg PO Q6H PRN 05/09/20 12/01/20 Strength] benzonatate 100 mg capsule 100 mg PO TID PRN #30 cap 05/29/20 12/01/20 meclizine 12.5 mg tablet 12.5 mg PO Q6H PRN #50 tab 10/09/20 12/01/20 quinine sulfate 324 mg capsule 324 mg PO HS #30 cap 10/09/20 12/01/20 Previous Rx's Medication Instructions Recorded fluticasone furoate 27.5 2 spray DORON DAILY #9.1 ml 01/27/18 mcg/actuation nasal spray,suspension triamcinolone acetonide 0.1 % 1 applic TOPICAL BID PRN #80 gm 05/02/20 topical cream benzonatate 100 mg capsule 100 mg PO TID PRN #30 cap 05/29/20 meclizine 12.5 mg tablet 12.5 mg PO Q6H PRN #50 tab 10/09/20 quinine sulfate 324 mg capsule 324 mg PO HS #30 cap 10/09/20 Allergies Allergy/AdvReac Type Severity Reaction Status Date / Time Penicillins Allergy ? Verified 12/01/20 13:15 breathing problems pregabalin Allergy unknown Verified 12/01/20 13:15 Sulfa (Sulfonamide Allergy unknown Verified 12/01/20 13:15 Antibiotics) topiramate AdvReac Severe dizziness, Verified 12/01/20 13:15 dysphoria amitriptyline AdvReac Intermediate sleepy Verified 12/01/20 13:15 celecoxib AdvReac Intermediate unknown Verified 12/01/20 13:15 fluconazole [From Diflucan] AdvReac Intermediate mouth sores Verified 12/01/20 13:15 gabapentin AdvReac Intermediate eye pain Verified 12/01/20 13:15 hydroxychloroquine AdvReac Intermediate eye pain Verified 12/01/20 13:15 imipramine AdvReac Intermediate URINARY Verified 12/01/20 13:15 RETENTION methylphenidate AdvReac Causes Verified 12/01/20 13:15 tardive dyskinesia celeco AdvReac Uncoded 12/01/20 13:15 General Stated Complaint: Allergic BETH: 3 Review of Systems <Christa Camarillo MD - Last Filed: 12/03/20 13:50> Narrative: Constitutional: denies fevers Eyes: denies eye pain ENT: denies ear pain, dental pain, sore throat Cardiovascular: denies chest pain, edema Respiratory: denies SOB, cough GI: denies abdominal pain, vomiting, diarrhea, reports nausea : denies flank pain MSK: denies back pain, neck pain, reports generalized arthralgias, myalgias Skin: denies rash Neuro: denies headaches, weakness, reports chronic unchanged numbness as per HPI PFSH <Christa Camarillo MD - Last Filed: 12/03/20 13:50> Medical History Atherosclerosis a. seen on chest CT in the thoracic aorta and in calcified coronary arteries b. seen on brain MRI with small vessel disease of the white matter Benign neoplasm of pituitary gland (05/02/12) Chronic lung disease a. secondary to Sjogren's syndrome b. mild parenchymal fibrosis c. mild restrictive disease on PFTs Concussion (05/02/12) DJD (degenerative joint disease), lumbar a. disc extrusion L2, L3 b. Spondylolysis in L4 and spondylolisthesis in L4, L5 Elevated BP without diagnosis of hypertension GERD (gastroesophageal reflux disease) h/o urosepsis secondary to stones (12/21/13) a. Not yet septic, but with SIRS Idiopathic peripheral neuropathy (05/13/11) Due to Sjogren's disease Injury of head (05/02/12) Intention tremor (05/02/12) Myasthenia Myasthenia gravis (08/01/14) Neuropathy a. secondary to Sjogren's syndrome Pain Pituitary macroadenoma a. stable with last MRI done 06/2013 Premature menopause (12/07/10) Recurrent kidney stones (12/21/13) Restless leg syndrome a. nightly cramping, treated with quinine Sjoegren syndrome Sjogren's syndrome (05/29/13) Sjogrens syndrome a. pulmonary and neurologic findings Spondylolisthesis (05/02/12) Surgical History Arthroplasty of knee H/O surgical procedure a. right knee arthroscopy with meniscectomy Hx of cataract surgery Hx of colonoscopy Recurrent major depression in partial remission Social History Smoking/Tobacco Use Status: Former Tobacco Use Quit Date: 02/28/79 Smoking risk assessment performed?: Yes Alcohol Intake: never Drug use: Never Substance use type: does not use Household members: spouse Housing: house current occupation: Retired Current gender identity: female What type of physical activity do you participate in: independent ambulation Do you feel safe at home: Yes Do you feel safe in your relationship?: Yes Exam <Christa Camarillo MD - Last Filed: 12/03/20 13:50> Narrative Exam Narrative: Constitutional: [id number], appears fatigued, pleasant, conversing normally HENT: head atraumatic/normocephalic/normal inspection, mucous membranes moist Eyes: conjunctiva normal, sclera normal, pupils 3mm b/l Neck: no stridor, normal ROM, trachea midline Resp: normal work of breathing, LCTAB Cardio: normal rate, normal rhythm, no murmur appreciated GI: abdomen soft, non-tender, non-distended Skin: warm, dry, mild pallor, no rash Neuro: alert, not altered, grossly non-focal, normal tone Ext: no edema Psych: normal mood, normal affect, normal behavior Course <Christa Camarillo MD - Last Filed: 12/03/20 13:50> Vital Signs Vital signs: Vital Signs Temperature 36.6 C 12/01/20 13:07 Pulse 75 12/01/20 13:07 Respiratory Rate 15 12/01/20 13:07 Blood Pressure 123/76 12/01/20 13:07 Pulse Oximetry 95 12/01/20 13:07 Temperature 36.6 C 12/01/20 13:07 Temperature Source Oral 12/01/20 13:07 Pulse 75 12/01/20 13:07 Respiratory Rate 15 12/01/20 13:07 Respiratory Effort Non-Labored 12/01/20 13:12 Respiratory Pattern Normal 12/01/20 13:12 Blood Pressure 123/76 12/01/20 13:07 Blood Pressure Position Sitting 12/01/20 13:07 Pulse Oximetry 95 12/01/20 13:07 Oxygen Delivery Method Room Air 12/01/20 13:07 Oxygen Flow Rate 0 12/01/20 13:07 Pain Level 5 12/01/20 13:27 Sign Out <Christa Camarillo MD - Last Filed: 12/03/20 13:50> Sign Out Data: Sign Out Comment: Patient signed out to Dr. Carreon at time of shift change with repeat troponin, Holter monitor placement pending. Anticipate discharge home if troponin negative and reassessment unchanged. Last updated by Christa Camarillo MD at 12/01/20 16:11
[2020-12-01 14:01] LABS: Lactate 1.4 mmol/L (0.6-1.4)
[2020-12-01 14:02] LABS: Abs Immature Grans 0.03 10^3/uL (0.0-0.06); Absolute Eosinophil Count 0.01 10^3/uL (0.0-0.7); Absolute Lymphocyte Count 0.36 10^3/uL (1.2-3.4); Absolute Monocyte Count 0.43 10^3/uL (0.1-0.8); Absolute Neutrophil Count 10.27 10^3/uL (1.2-6.7); Basophils % 0.4; Eosinophils % 0.1; HCT 38.7 % (36.0-46.0); HGB 11.9 g/dL (11.2-15.7); Immature Grans % 0.3; Lymphocytes % 3.2; MCH 29.1 pg (27.0-33.0); MCHC 30.7 % (32.0-36.0); MCV 94.6 fL (80-95); MPV 9.4 fL (8.0-11.0); Monocytes % 3.9; Neutrophils % 92.1; Nucleated RBC 0 %; Platelet Count 347 10^3/uL (130-400); RBC 4.09 10^6/uL (3.93-5.22); RDW 14.1 % (11.7-14.6); RDW-SD 49.1 fL; WBC 11.15 10^3/uL (4.4-10.8)
[2020-12-01 14:04] LABS: Absolute Basophil Count 0.04 10^3/uL (0.0-0.2)
[2020-12-01 14:20] LABS: ALT 23 U/L (14-59); AST 22 U/L (15-37); Albumin 3.6 g/dL (3.4-5.0); Alkaline Phosphatase 76 U/L (46-116); Anion Gap 8.6 mmol/L (3-11); BUN 12 mg/dL (7-18); Bilirubin, Total 0.4 mg/dL (0.2-1.0); CO2 26.4 mmol/L (21.0-32.0); CREATININE 0.9 mg/dL (0.55-1.02); Calcium 8.9 mg/dL (8.5-10.1); Chloride 105 mmol/L (98-107); Glucose 113 mg/dL (74-106); Potassium 3.5 mmol/L (3.5-5.1); Sodium 140 mmol/L (136-145); Total Protein 8.4 g/dL (6.4-8.2)
[2020-12-01 14:21] LABS: Troponin I < 0.05 ng/mL (<0.06)
[2020-12-01 15:27] LABS: Bilirubin Negative (Negative); Blood Negative (Negative); Clarity Clear (Clear); Glucose Negative (Negative); Ketones Negative (Negative); Leukocyte Esterase Negative (Negative); Nitrite Negative (Negative); Specific Gravity >= 1.030 (1.005-1.025); Urobilinogen 0.2 EU/dL (Up TO 0.2)
[2020-12-01 16:44] LABS: Troponin I < 0.05 ng/mL (<0.06)
== END 2020-12-01 16:58 | disposition home or self-care (01) ==
PROVIDERS: Student in an Organized Health Care Education/Training Program; Emergency Provider Emergency Medicine
DX: I95.2 Hypotension due to drugs (principal); M79.10 Myalgia, unspecified site; R11.0 Nausea; T50.905A Adverse effect of unspecified drugs, medicaments and biological substances, initial encounter; G70.9 Myoneural disorder, unspecified
CPT/HCPCS: 36415; 80053; 93005; 96365; 96366; 96374; 99284; 71046; 81003; 83605; 84484; 85025; 93010; 93225; 99281; J2405; Q5119

== ENCOUNTER 2020-12-01 16:06 | Outpatient (RCR) | payer MEDICARE, OTHER, SELFPAY ==
--- NOTE | 2020-12-01 16:00 | HOLTER_ITS ---
APPROVED REPORT Conclusion This is a 48-hour Holter monitor ordered for hypotension Rhythm throughout was sinus with an average heart rate of 73. Minimum was 54, maximum 119 There were rare atrial premature beats There were 7 brief self-limited atrial runs, the longest of which was 11 beats in duration There was no atrial fibrillation, no high-grade AV block, no pauses greater than 3 seconds A total of 9 isolated PVCs were seen. There was one 12 beat run of nonsustained ventricular tachycar elza No patient symptoms were reported
== END 2020-12-28 23:59 | disposition home or self-care (01) ==
LOC: RT 16:06
DX: I95.9 Hypotension, unspecified (principal); I49.1 Atrial premature depolarization; I49.3 Ventricular premature depolarization; I47.2 Ventricular tachycardia
CPT/HCPCS: 93227; 93228; 93225; 93226

== ENCOUNTER 2020-12-22 17:15 | Outpatient (REF) | payer MEDICARE, OTHER, SELFPAY ==
--- NOTE | 2020-12-22 13:50 | SKI_PTH ---
PATIENT: Shelby Hampton LOC: [facility] U#:[id number] AGE/SX: 75/F ROOM: RE12/22/[address]: Mary Jo Archer APRN : 1945 BED: DIS: 12/22/2020 SPEC #: [id number] RECD: 12/23/20 12:30 STATUS: SHERRON METZGER #: [id number] CARLOS ALBERTO: 12/22/20 13:[address]: Mary Jo Archer DEPT: Surgical Specimen RECD BY: Norma Blanton Tissues: 1 - SKIN BIOPSY(SHAVE/PUNCH) Procedures: SKIN LEVEL 4 Comments: [id number]
== END 2020-12-22 17:16 | disposition home or self-care (01) ==
LOC: LBN 17:15
DX: R23.4 Changes in skin texture (principal)
CPT/HCPCS: 88305

== ENCOUNTER 2020-12-23 01:06 | Outpatient (RCR) | payer MEDICARE, OTHER, SELFPAY ==
[2020-11-28 00:18] VITALS: BP 134/83; PULSE 77; RESP 18; TEMP 36.1
[2020-12-01] VITALS (12 sets, daily range): BP systolic 70–145; BP diastolic 50–83; PULSE 62–87; RESP 16–20; TEMP 34.6–37.4; O2SAT 94–99
[2020-12-01] MEDS: Acetaminophen 325 MG TAB 650 MG PO (08:57)
[2020-12-01] MEDS: diphenhydrAMINE 25 MG CAP 50 MG PO (08:58)
[2020-12-01] MEDS: Normal Saline Flush 10 ML SYR IVP (09:30)
[2020-12-09 10:05] VITALS: BP 121/78; PULSE 81; RESP 18; TEMP 36.5; O2SAT 96
[2020-12-09] MEDS: IMMUNE GLOBULIN 40 GM/400 ML BTL IVPB (10:14)
[2020-12-09] MEDS: Normal Saline Flush 10 ML SYR IVP (10:15)
[2020-12-09 10:50] VITALS: BP 129/79; PULSE 78; RESP 17; TEMP 36.7; O2SAT 96
[2020-12-09 11:23] VITALS: BP 152/48; PULSE 74; RESP 18; TEMP 36.4; O2SAT 96
[2020-12-18 10:40] VITALS: BP 115/67; PULSE 66; RESP 16; TEMP 36.1; O2SAT 96
[2020-12-18] MEDS: IMMUNE GLOBULIN 40 GM/400 ML BTL IVPB (10:41)
[2020-12-18] MEDS: Normal Saline Flush 10 ML SYR IVP (10:42)
[2020-12-18 11:15] VITALS: BP 126/77; PULSE 81; RESP 19; TEMP 35.7; O2SAT 96
[2020-12-18 11:45] VITALS: BP 126/80; PULSE 72; RESP 17; TEMP 36; O2SAT 95
[2020-12-18 12:15] VITALS: BP 128/79; PULSE 69; RESP 17; TEMP 36.4; O2SAT 96
[2020-12-18 12:45] VITALS: BP 147/87; PULSE 77; RESP 16; TEMP 36.3; O2SAT 96
[2020-12-23 10:40] VITALS: BP 140/71; PULSE 72; RESP 17; TEMP 36.3; O2SAT 94
[2020-12-23] MEDS: IMMUNE GLOBULIN 40 GM/400 ML BTL IVPB (10:40)
[2020-12-23 11:00] VITALS: BP 132/79; PULSE 74; RESP 20; TEMP 36.5; O2SAT 95
[2020-12-23 11:15] VITALS: BP 131/80; PULSE 72; RESP 19; TEMP 36.4; O2SAT 95
[2020-12-23] MEDS: Normal Saline Flush 10 ML SYR IVP (11:18)
[2020-12-23 11:50] VITALS: BP 146/87; PULSE 78; RESP 19; TEMP 36.4; O2SAT 93
[2020-12-23 12:35] VITALS: BP 135/82; PULSE 81; RESP 19; TEMP 36.5; O2SAT 95
== END 2020-12-28 23:59 | disposition home or self-care (01) ==
LOC: INF 01:06
PROVIDERS: Visit Provider Internal Medicine
DX: G70.00 Myasthenia gravis without (acute) exacerbation (principal)
CPT/HCPCS: 96365; 96366; J1459; Q5119

== ENCOUNTER 2020-12-30 15:02 | Outpatient (REF) | payer MEDICARE, OTHER, SELFPAY ==
--- NOTE | 2020-12-30 14:30 | SKI_PTH ---
PATIENT: Shelby Hampton LOC: [facility] U#:[id number] AGE/SX: 75/F ROOM: RE12/30/[address]: Mary Jo Archer APRN : 1945 BED: DIS: 12/30/2020 SPEC #: [id number] RECD: 12/30/20 17:56 STATUS: SHERRON METZGER #: [id number] CARLOS ALBERTO: 12/30/20 14:[address]: Mary Jo Archer DEPT: Surgical Specimen RECD BY: Norma Blanton Tissues: 1 - SKIN BIOPSY(SHAVE/PUNCH) Procedures: SKIN LEVEL 4 Comments: [id number]
== END 2020-12-30 15:03 | disposition home or self-care (01) ==
LOC: LBN 15:02
DX: C44.629 Squamous cell carcinoma of skin of left upper limb, including shoulder (principal)
CPT/HCPCS: 88305

== ENCOUNTER → 2021-01-19 12:54 | Outpatient (BNVA) | payer MEDICARE, OTHER, SELFPAY | PROVIDERS: Visit Provider Surgery | DX: C44.629 Squamous cell carcinoma of skin of left upper limb, including shoulder (principal); M35.00 Sjogren syndrome, unspecified; G70.00 Myasthenia gravis without (acute) exacerbation; Z92.25 Personal history of immunosuppression therapy | CPT/HCPCS: 99214; 99243 ==

== ENCOUNTER 2021-01-27 02:09 | Outpatient (RCR) | payer MEDICARE, OTHER, SELFPAY ==
[2020-12-29 00:22] VITALS: BP 135/82; PULSE 81; RESP 19; TEMP 36.5
[2020-12-30] MEDS: IMMUNE GLOBULIN 40 GM/400 ML BTL IVPB (09:48)
[2020-12-30] MEDS: Normal Saline Flush 10 ML SYR IVP (09:48)
[2020-12-30 10:01] VITALS: BP 137/82; PULSE 84; RESP 18; TEMP 36.2; O2SAT 95
[2020-12-30 10:15] VITALS: BP 135/78; PULSE 78; RESP 18; TEMP 36.2; O2SAT 95
[2020-12-30 10:30] VITALS: BP 138/75; PULSE 76; RESP 18; TEMP 36.5; O2SAT 95
[2020-12-30 11:00] VITALS: BP 138/75; PULSE 76; RESP 18; TEMP 36.8; O2SAT 95
[2021-01-06 10:00] VITALS: BP 113/74; PULSE 83; RESP 18; TEMP 36.2; O2SAT 95
[2021-01-06] MEDS: IMMUNE GLOBULIN 40 GM/400 ML BTL IVPB (10:05)
[2021-01-06] MEDS: Normal Saline Flush 10 ML SYR IVP (10:12)
[2021-01-06 10:25] VITALS: BP 126/80; PULSE 18; RESP 18; TEMP 35.8; O2SAT 94
[2021-01-06 10:45] VITALS: BP 133/77; PULSE 69; RESP 18; TEMP 36.1; O2SAT 96
[2021-01-06 11:15] VITALS: BP 135/82; PULSE 68; RESP 17; TEMP 36.1; O2SAT 94
[2021-01-06 11:44] VITALS: BP 133/86; PULSE 72; RESP 17; TEMP 36.3; O2SAT 94
[2021-01-06 12:15] VITALS: BP 149/85; PULSE 75; RESP 17; TEMP 36; O2SAT 95
[2021-01-13] MEDS: Normal Saline Flush 10 ML SYR IVP (10:21)
[2021-01-13] MEDS: IMMUNE GLOBULIN 40 GM/400 ML BTL IVPB (10:21)
[2021-01-13 10:25] VITALS: BP 107/75; PULSE 77; RESP 16; TEMP 36.7; O2SAT 95
[2021-01-13 10:40] VITALS: BP 112/72; PULSE 66; RESP 18; TEMP 36.3; O2SAT 95
[2021-01-13 10:55] VITALS: BP 119/75; PULSE 71; RESP 16; TEMP 36.5; O2SAT 95
[2021-01-13 11:25] VITALS: BP 127/76; PULSE 68; RESP 16; TEMP 36.3; O2SAT 95
[2021-01-13 12:00] VITALS: BP 154/89; PULSE 79; RESP 16; TEMP 36.5; O2SAT 96
[2021-01-13 12:35] VITALS: BP 151/89; PULSE 78; RESP 18; TEMP 36.8; O2SAT 93
[2021-01-20] MEDS: IMMUNE GLOBULIN 40 GM/400 ML BTL IVPB (10:14)
[2021-01-20] MEDS: Normal Saline Flush 10 ML SYR IVP (10:14)
[2021-01-20 10:15] VITALS: BP 123/74; PULSE 74; RESP 18; TEMP 36.1; O2SAT 95
[2021-01-20 10:35] VITALS: BP 123/77; PULSE 71; RESP 18; TEMP 36.3; O2SAT 97
[2021-01-20 10:50] VITALS: BP 129/79; PULSE 62; RESP 17; TEMP 36.4; O2SAT 94
[2021-01-20 11:21] VITALS: BP 132/80; PULSE 67; RESP 17; TEMP 36.2; O2SAT 94
[2021-01-20 11:50] VITALS: BP 153/93; PULSE 69; RESP 18; TEMP 36.4; O2SAT 95
[2021-01-20 12:20] VITALS: BP 152/87; PULSE 67; RESP 18; TEMP 36.4; O2SAT 93
[2021-01-27 10:12] VITALS: BP 143/67; PULSE 106; RESP 16; TEMP 36.1; O2SAT 95
[2021-01-27] MEDS: IMMUNE GLOBULIN 40 GM/400 ML BTL IVPB (10:12)
[2021-01-27] MEDS: Normal Saline Flush 10 ML SYR IVP (10:12)
[2021-01-27 10:27] VITALS: BP 128/79; PULSE 94; RESP 16; TEMP 36.5; O2SAT 94
[2021-01-27 10:57] VITALS: BP 118/74; PULSE 84; RESP 17; TEMP 36.1; O2SAT 92
[2021-01-27 11:28] VITALS: BP 146/86; PULSE 72; RESP 16; TEMP 36.3; O2SAT 93
[2021-01-27 12:00] VITALS: BP 150/89; PULSE 69; RESP 16; TEMP 35.8; O2SAT 95
[2021-01-27 12:32] VITALS: BP 168/84; PULSE 78; RESP 17; TEMP 36.2; O2SAT 95
== END 2021-01-27 23:59 | disposition home or self-care (01) ==
LOC: INF 02:09
PROVIDERS: Visit Provider Internal Medicine
DX: G70.00 Myasthenia gravis without (acute) exacerbation (principal)
CPT/HCPCS: 96365; 96366; J1459

== ENCOUNTER → 2021-01-29 12:49 | Outpatient (BNVA) | payer MEDICARE, OTHER, SELFPAY | PROVIDERS: Visit Provider Surgery | DX: C44.629 Squamous cell carcinoma of skin of left upper limb, including shoulder | CPT/HCPCS: 11603 ==

== ENCOUNTER 2021-01-29 14:46 | Outpatient (REF) | payer MEDICARE, OTHER, SELFPAY ==
--- NOTE | 2021-01-29 13:25 | SKI_PTH ---
PATIENT: Shelby Hampton LOC: [facility] U#:[id number] AGE/SX: 75/F ROOM: RE01/29/[address]: Leigh Meraz : 1945 BED: DIS: 01/29/2021 SPEC #: [id number] RECD: 01/29/21 16:53 STATUS: SHERRON REBozena #: [id number] CARLOS ALBERTO: 01/29/21 13:[address]: Leigh Meraz DEPT: Surgical Specimen RECD BY: Norma Blanton ENTERED: 01/29/21 16:55 SP TYPE: TANISHA SORIA DR: Mary Jo Archer APRN Tissues: 1 - SKIN BIOPSY(SHAVE/PUNCH) Procedures: SKIN LEVEL 4 Comments: [id number]
== END 2021-01-29 14:47 | disposition home or self-care (01) ==
LOC: LBN 14:46
PROVIDERS: Visit Provider Surgery
DX: L90.5 Scar conditions and fibrosis of skin (principal); Z85.820 Personal history of malignant melanoma of skin
CPT/HCPCS: 88305

== ENCOUNTER → 2021-02-05 12:47 | Outpatient (BNVA) | payer MEDICARE, OTHER, SELFPAY | PROVIDERS: Visit Provider Surgery | DX: Z48.817 Encounter for surgical aftercare following surgery on the skin and subcutaneous tissue (principal) ==

== ENCOUNTER → 2021-02-12 12:50 | Outpatient (BNVA) | payer MEDICARE, OTHER, SELFPAY | PROVIDERS: Visit Provider Surgery | DX: Z48.817 Encounter for surgical aftercare following surgery on the skin and subcutaneous tissue (principal); C44.621 Squamous cell carcinoma of skin of unspecified upper limb, including shoulder; Z92.25 Personal history of immunosuppression therapy | CPT/HCPCS: 99212 ==

== ENCOUNTER 2021-02-23 03:24 | Outpatient (RCR) | payer MEDICARE, OTHER, SELFPAY ==
[2021-01-28 00:07] VITALS: BP 168/84; PULSE 78; RESP 17; TEMP 36.2
[2021-02-03] MEDS: IMMUNE GLOBULIN 40 GM/400 ML BTL IVPB (10:09)
[2021-02-03 10:10] VITALS: BP 145/79; PULSE 72; RESP 18; TEMP 36.5; O2SAT 97
[2021-02-03] MEDS: Normal Saline Flush 10 ML SYR IVP (10:16)
[2021-02-03 10:30] VITALS: BP 139/78; PULSE 72; RESP 17; TEMP 36.5; O2SAT 96
[2021-02-03 10:50] VITALS: BP 133/77; PULSE 71; RESP 18; TEMP 36.5; O2SAT 96
[2021-02-03 11:20] VITALS: BP 144/80; PULSE 71; RESP 17; TEMP 36.9; O2SAT 96
[2021-02-03 11:50] VITALS: BP 146/85; PULSE 62; RESP 17; TEMP 36.6; O2SAT 95
[2021-02-10 10:05] VITALS: BP 120/85; PULSE 83; RESP 17; TEMP 36.1; O2SAT 95
[2021-02-10] MEDS: Normal Saline Flush 10 ML SYR IVP (10:06)
[2021-02-10] MEDS: IMMUNE GLOBULIN 40 GM/400 ML BTL IVPB (10:07)
[2021-02-10 10:30] VITALS: BP 122/74; PULSE 73; RESP 18; TEMP 36.5; O2SAT 96
[2021-02-10 10:45] VITALS: BP 124/78; PULSE 72; RESP 18; TEMP 35.9; O2SAT 97
[2021-02-10 11:15] VITALS: BP 109/73; PULSE 65; RESP 18; TEMP 36.4; O2SAT 96
[2021-02-10 11:45] VITALS: BP 115/77; PULSE 73; RESP 18; TEMP 36; O2SAT 95
[2021-02-17] MEDS: IMMUNE GLOBULIN 40 GM/400 ML BTL IVPB (10:30)
[2021-02-17 10:35] VITALS: BP 125/70; PULSE 76; RESP 18; TEMP 36.3; O2SAT 94
[2021-02-17] MEDS: Normal Saline Flush 10 ML SYR IVP (10:39)
[2021-02-17 10:51] VITALS: BP 110/70; PULSE 74; RESP 16; TEMP 36.6; O2SAT 96
[2021-02-17 11:05] VITALS: BP 113/69; PULSE 68; RESP 18; TEMP 36.5; O2SAT 96
[2021-02-17 11:35] VITALS: BP 115/75; PULSE 77; RESP 17; TEMP 36.6; O2SAT 97
[2021-02-23 10:07] VITALS: BP 144/87; PULSE 72; RESP 20; TEMP 36.2; O2SAT 98
[2021-02-23] MEDS: Normal Saline Flush 10 ML SYR IVP (10:07)
[2021-02-23] MEDS: IMMUNE GLOBULIN 40 GM/400 ML BTL IVPB (10:07)
[2021-02-23 10:25] VITALS: BP 141/87; PULSE 76; RESP 19; TEMP 36.5; O2SAT 96
[2021-02-23 10:55] VITALS: BP 138/85; PULSE 69; RESP 17; TEMP 36.6; O2SAT 96
[2021-02-23 11:30] VITALS: BP 137/83; PULSE 73; RESP 19; TEMP 36; O2SAT 97
== END 2021-02-27 23:59 | disposition home or self-care (01) ==
LOC: INF 03:24
PROVIDERS: Visit Provider Internal Medicine
DX: G70.00 Myasthenia gravis without (acute) exacerbation (principal)
CPT/HCPCS: 96365; 96366; J1459

== ENCOUNTER 2021-03-24 03:36 | Outpatient (RCR) | payer MEDICARE, OTHER, SELFPAY ==
[2021-02-28 00:04] VITALS: BP 137/83; PULSE 73; RESP 19; TEMP 36
[2021-03-03] MEDS: Normal Saline Flush 10 ML SYR IVP (09:55)
[2021-03-03] MEDS: IMMUNE GLOBULIN 40 GM/400 ML BTL IVPB (09:55)
[2021-03-03 10:00] VITALS: BP 117/75; PULSE 88; RESP 18; TEMP 35.5; O2SAT 98
[2021-03-03 10:15] VITALS: BP 115/70; PULSE 81; RESP 18; TEMP 36.6; O2SAT 95
[2021-03-03 10:42] VITALS: BP 122/76; PULSE 74; RESP 18; TEMP 36.1; O2SAT 96
[2021-03-03 11:15] VITALS: BP 150/77; PULSE 74; RESP 18; TEMP 36.6; O2SAT 95
[2021-03-10] MEDS: IMMUNE GLOBULIN 40 GM/400 ML BTL IVPB (10:20)
[2021-03-10] MEDS: Normal Saline Flush 10 ML SYR IVP (10:20)
[2021-03-10 10:25] VITALS: BP 118/75; PULSE 81; RESP 19; TEMP 36.4; O2SAT 96
[2021-03-10 10:44] VITALS: BP 115/72; PULSE 76; RESP 16; TEMP 36.5; O2SAT 95
[2021-03-10 11:01] VITALS: BP 104/70; PULSE 75; RESP 16; TEMP 36.3; O2SAT 95
[2021-03-10 11:32] VITALS: BP 123/78; PULSE 73; RESP 16; TEMP 36.5; O2SAT 94
[2021-03-10 12:04] VITALS: BP 147/80; PULSE 75; RESP 16; TEMP 36.5; O2SAT 97
[2021-03-17 10:05] VITALS: BP 113/76; PULSE 76; RESP 17; TEMP 36.4; O2SAT 99
[2021-03-17] MEDS: Normal Saline Flush 10 ML SYR IVP (10:16)
[2021-03-17] MEDS: IMMUNE GLOBULIN 40 GM/400 ML BTL IVPB (10:16)
[2021-03-17 10:28] VITALS: BP 144/80; PULSE 76; RESP 17; TEMP 36.7; O2SAT 97
[2021-03-17 10:45] VITALS: BP 129/81; PULSE 75; RESP 17; TEMP 36.3; O2SAT 94
[2021-03-17 11:15] VITALS: BP 155/88; PULSE 68; RESP 16; TEMP 36.1; O2SAT 95
[2021-03-17 12:00] VITALS: BP 140/93; PULSE 66; RESP 16; TEMP 36.4; O2SAT 95
[2021-03-24 08:10] VITALS: BP 144/84; PULSE 71; RESP 18; TEMP 36.4; O2SAT 98
[2021-03-24] MEDS: Normal Saline Flush 10 ML SYR IVP (08:14)
[2021-03-24] MEDS: IMMUNE GLOBULIN 40 GM/400 ML BTL IVPB (08:14)
[2021-03-24 08:40] VITALS: BP 130/81; PULSE 96; RESP 18; TEMP 36.4; O2SAT 96
[2021-03-24 08:52] VITALS: BP 148/88; PULSE 78; RESP 16; TEMP 36.1; O2SAT 99
[2021-03-24 09:24] VITALS: BP 152/89; PULSE 61; RESP 17; TEMP 36.4; O2SAT 97
[2021-03-24 10:20] VITALS: BP 163/93; PULSE 72; RESP 18; TEMP 36.5; O2SAT 96
== END 2021-03-30 23:59 | disposition home or self-care (01) ==
LOC: INF 03:36
PROVIDERS: Visit Provider Internal Medicine
DX: G70.00 Myasthenia gravis without (acute) exacerbation (principal)
CPT/HCPCS: 96365; 96366; J1459

== ENCOUNTER 2021-04-20 01:57 | Outpatient (RCR) | payer MEDICARE, OTHER, SELFPAY ==
[2021-03-31 00:04] VITALS: BP 163/93; PULSE 72; RESP 18; TEMP 36.5
[2021-03-31] MEDS: IMMUNE GLOBULIN 40 GM/400 ML BTL IVPB (10:07)
[2021-03-31] MEDS: Normal Saline Flush 10 ML SYR IVP (10:08)
[2021-03-31 10:16] VITALS: BP 138/85; PULSE 67; RESP 18; TEMP 35.7; O2SAT 95
[2021-03-31 10:32] VITALS: BP 129/85; PULSE 77; RESP 18; TEMP 36.2; O2SAT 97
[2021-03-31 10:46] VITALS: BP 125/80; PULSE 75; RESP 19; TEMP 36.1; O2SAT 97
[2021-03-31 11:16] VITALS: BP 125/80; PULSE 74; RESP 18; TEMP 36.2; O2SAT 97
[2021-03-31 11:46] VITALS: BP 138/83; PULSE 72; RESP 17; TEMP 36.3; O2SAT 96
[2021-04-06] MEDS: IMMUNE GLOBULIN 40 GM/400 ML BTL IVPB (10:28)
[2021-04-06 10:29] VITALS: BP 137/92; PULSE 72; RESP 16; TEMP 36.3; O2SAT 99
[2021-04-06] MEDS: Normal Saline Flush 10 ML SYR IVP (10:29)
[2021-04-06 10:42] VITALS: BP 142/87; PULSE 79; RESP 16; TEMP 36.1; O2SAT 96
[2021-04-06 10:58] VITALS: BP 136/84; PULSE 68; RESP 16; TEMP 36.3; O2SAT 99
[2021-04-06 11:29] VITALS: BP 131/84; PULSE 68; RESP 17; TEMP 36.2; O2SAT 95
[2021-04-06 12:00] VITALS: BP 132/85; PULSE 71; RESP 16; TEMP 35.5; O2SAT 97
[2021-04-13 10:27] VITALS: BP 125/80; PULSE 68; RESP 17; TEMP 36.4; O2SAT 96
[2021-04-13] MEDS: Normal Saline Flush 10 ML SYR IVP (10:35)
[2021-04-13] MEDS: IMMUNE GLOBULIN 40 GM/400 ML BTL IVPB (10:35)
[2021-04-13 10:51] VITALS: BP 117/76; PULSE 66; RESP 17; TEMP 36.5; O2SAT 95
[2021-04-13 11:05] VITALS: BP 132/80; PULSE 66; RESP 17; TEMP 36.1; O2SAT 95
[2021-04-13 11:38] VITALS: BP 135/81; PULSE 65; RESP 17; TEMP 36.5; O2SAT 96
[2021-04-13 12:11] VITALS: BP 124/78; PULSE 75; RESP 17; TEMP 36.7; O2SAT 97
[2021-04-20] MEDS: IMMUNE GLOBULIN 40 GM/400 ML BTL IVPB (10:13)
[2021-04-20] MEDS: Normal Saline Flush 10 ML SYR IVP (10:14)
[2021-04-20 10:15] VITALS: BP 100/59; PULSE 69; RESP 18; TEMP 36.2; O2SAT 98
[2021-04-20 10:35] VITALS: BP 123/77; PULSE 68; RESP 18; TEMP 36.2; O2SAT 96
[2021-04-20 10:50] VITALS: BP 145/80; PULSE 71; RESP 18; TEMP 35.8; O2SAT 95
[2021-04-20 11:20] VITALS: BP 144/83; PULSE 72; RESP 18; TEMP 36.3; O2SAT 97
[2021-04-20 11:50] VITALS: BP 135/79; PULSE 81; RESP 18; TEMP 36.2; O2SAT 96
== END 2021-04-27 23:59 | disposition home or self-care (01) ==
LOC: INF 01:57
PROVIDERS: Visit Provider Internal Medicine
DX: G70.00 Myasthenia gravis without (acute) exacerbation (principal)
CPT/HCPCS: 96365; 96366; J1459

== ENCOUNTER 2021-04-30 03:33 | Outpatient (CLI) | payer MEDICARE, OTHER, SELFPAY ==
--- NOTE | 2021-04-30 13:37 | DI.RAD_ITS ---
Exam(s) RF JOINT INJECTION FLUORO GUID EXAM: RF JOINT INJECTION FLUORO GUID CLINICAL HISTORY: R SHOULDER INJ UNDER FLUORO,rt rotator cuff tear,primary oa,m19.011,m75.101 TECHNIQUE: 2D and realtime digital imaging was performed. Fluoroscopy was provided for Dr. Feldman for guidance with performing a right shoulder injection. COMPARISON: CR XR SHOULDER RT COMPLETE 2+V from 08/28/2020 FINDINGS: Hard copy image shows a needle placed at the medial superior margin of the right humeral head and inj ection of contrast material. Severe degenerative changes of the glenohumeral joint are noted. Heavenly harris see procedure note for details. Fluoro time: 6 seconds RADIATION DOSE DELIVERED: Ka,r=1.04 mGy
--- NOTE | 2021-04-30 13:40 | W.PROCNOTE ---
Procedure Note Date of procedure: 04/30/21 Procedure: Right Shoulder Injection Surgeon/Proceduralist/Physician: Manuel Feldman Procedure Diagnosis: Right Glenohumeral Arthritis Procedure Indications: Shelby has had persistent pain of the RIGHT shoulder. Noninvasive measures have been tried. She had success with previous intra-articular injection. Therefore, an injection under fluoroscopy was recommended. I had discussed the risks of the procedure and the patient elected to proceed. Procedure Description: Shelby was greeted in the flouroscopy room. The correct side was identified and the consent was reviewed with the patient and signed. The patient was then placed in the supine position on the fluoroscopy table. The RIGHT shoulder was then prepped with Chloraprep. The anterior injection starting point was identiifed by bony landmarks and fluoroscopy. The skin and soft tissue in the tract of the injection was anesthetized with 1% Lidocaine. A spinal needle was then inserted deep into the shoulder joint at the level of the recess between the glenoid and superior humeral head. A small amount of Omnipaque solution was injected to confirm intraarticular placement. Once confirmed, the shoulder was injected with 5cc of 0.5% Bupivicaine and 40mg of Depo-Medrol. A bandaid was placed on the injection site. The patient tolerated the procedure well and noted improvement in pre-injection pain.
[2021-04-30] MEDS: Omnipaque 300 MG/ML 10 ML BTL 2 ML IJ (13:48)
[2021-04-30] MEDS: Bupivacaine 0.5% Pres-Free 10 ML VIAL 5 ML IJ (14:36)
[2021-04-30] MEDS: methylPREDNISolone ACETATE 40 MG/ML VIAL IM (14:38)
== END 2021-04-30 03:53 ==
PROVIDERS: Visit Provider Student in an Organized Health Care Education/Training Program
DX: M19.011 Primary osteoarthritis, right shoulder (principal); M75.101 Unspecified rotator cuff tear or rupture of right shoulder, not specified as traumatic; M25.511 Pain in right shoulder
CPT/HCPCS: 20610; 77002; J1030

== ENCOUNTER → 2021-05-07 10:25 | Outpatient (BNVA) | payer MEDICARE, OTHER, SELFPAY | DX: M17.11 Unilateral primary osteoarthritis, right knee (principal); M19.011 Primary osteoarthritis, right shoulder; M21.061 Valgus deformity, not elsewhere classified, right knee | CPT/HCPCS: 20610; J1040 ==

== ENCOUNTER 2021-05-26 02:15 | Outpatient (RCR) | payer MEDICARE, OTHER, SELFPAY ==
[2021-04-28 00:10] VITALS: BP 135/79; PULSE 81; RESP 18; TEMP 36.2
[2021-04-28 10:00] VITALS: BP 122/75; PULSE 78; RESP 16; TEMP 36; O2SAT 97
[2021-04-28] MEDS: IMMUNE GLOBULIN 40 GM/400 ML BTL IVPB (10:02)
[2021-04-28] MEDS: Normal Saline Flush 10 ML SYR IVP (10:02)
[2021-04-28 10:15] VITALS: BP 114/75; PULSE 69; RESP 16; TEMP 36.2; O2SAT 96
[2021-04-28 10:30] VITALS: BP 143/78; PULSE 76; RESP 17; TEMP 36.1; O2SAT 97
[2021-04-28 11:05] VITALS: BP 116/76; PULSE 67; RESP 18; TEMP 36.3; O2SAT 96
[2021-04-28 11:33] VITALS: BP 143/87; PULSE 77; RESP 18; TEMP 36.1; O2SAT 97
[2021-05-05] MEDS: Normal Saline Flush 10 ML SYR IVP (10:29)
[2021-05-05] MEDS: IMMUNE GLOBULIN 40 GM/400 ML BTL IVPB (10:29)
[2021-05-05 10:30] VITALS: BP 131/79; PULSE 80; RESP 18; TEMP 36.7; O2SAT 95
[2021-05-05 10:40] VITALS: BP 120/75; PULSE 72; RESP 17; TEMP 36.6; O2SAT 96
[2021-05-05 11:15] VITALS: BP 116/73; PULSE 75; RESP 17; TEMP 36.6; O2SAT 96
[2021-05-05 11:45] VITALS: BP 128/78; PULSE 74; RESP 16; TEMP 36.3; O2SAT 96
[2021-05-05 12:15] VITALS: BP 135/81; PULSE 75; RESP 17; TEMP 36.5; O2SAT 96
[2021-05-12 10:00] VITALS: BP 144/87; PULSE 81; RESP 17; TEMP 36.6; O2SAT 95
[2021-05-12] MEDS: IMMUNE GLOBULIN 40 GM/400 ML BTL IVPB (10:05)
[2021-05-12] MEDS: Normal Saline Flush 10 ML SYR IVP (10:05)
[2021-05-12 10:15] VITALS: BP 125/83; PULSE 69; RESP 16; TEMP 36.4; O2SAT 94
[2021-05-12 10:45] VITALS: BP 136/78; PULSE 72; RESP 17; TEMP 36.4; O2SAT 96
[2021-05-12 11:21] VITALS: BP 145/87; PULSE 70; RESP 16; TEMP 36.2; O2SAT 96
[2021-05-19 10:00] VITALS: BP 120/78; PULSE 76; RESP 16; TEMP 36.5; O2SAT 95
[2021-05-19] MEDS: Normal Saline Flush 10 ML SYR IVP (10:06)
[2021-05-19] MEDS: IMMUNE GLOBULIN 40 GM/400 ML BTL IVPB (10:06)
[2021-05-19 10:25] VITALS: BP 121/78; PULSE 80; RESP 16; TEMP 36.3; O2SAT 96
[2021-05-19 10:40] VITALS: BP 122/76; PULSE 78; RESP 16; TEMP 36.5; O2SAT 97
[2021-05-19 11:06] VITALS: BP 126/77; PULSE 74; RESP 16; TEMP 36.3; O2SAT 95
[2021-05-19 11:35] VITALS: BP 131/78; PULSE 75; RESP 16; TEMP 36.3; O2SAT 95
[2021-05-26] MEDS: Normal Saline Flush 10 ML SYR IVP (09:45)
[2021-05-26 09:50] VITALS: BP 124/79; PULSE 80; RESP 20; TEMP 36.2; O2SAT 92
[2021-05-26] MEDS: IMMUNE GLOBULIN 40 GM/400 ML BTL IVPB (09:51)
[2021-05-26 10:21] VITALS: BP 135/70; PULSE 79; RESP 19; TEMP 36.2; O2SAT 94
[2021-05-26 10:51] VITALS: BP 140/69; PULSE 76; RESP 20; TEMP 36.7; O2SAT 95
[2021-05-26 11:20] VITALS: BP 139/82; PULSE 76; RESP 20; TEMP 36.8; O2SAT 95
[2021-05-26 17:20] LABS: Rheumatoid Factor <8.6 IU/mL (<12.0)
[2021-05-27 09:56] LABS: C3 Complement 183 mg/dL (81-157); C4 Complement 33 mg/dL (13-39)
[2021-05-27 11:51] LABS: Total Protein 8.2 g/dL (6.3-8.2)
[2021-05-28 12:29] LABS: Cryoglobulin, S Negative %ppt (Negative)
== END 2021-05-28 23:59 | disposition home or self-care (01) ==
LOC: INF 02:15
PROVIDERS: Internal Medicine; Visit Provider Internal Medicine
DX: G70.00 Myasthenia gravis without (acute) exacerbation (principal)
CPT/HCPCS: 36415; 96365; 96366; 82595; 84165; 86160; 86431; J1459

== ENCOUNTER 2021-06-23 04:41 | Outpatient (RCR) | payer MEDICARE, OTHER, SELFPAY ==
[2021-05-29 00:03] VITALS: BP 139/82; PULSE 76; RESP 20; TEMP 36.8
[2021-06-02 10:05] VITALS: BP 112/75; PULSE 75; RESP 16; TEMP 36.4; O2SAT 96
[2021-06-02] MEDS: NORMAL SALINE IVPB (10:10)
[2021-06-02] MEDS: EFGARTIGIMOD ALFA FCAB IVPB (10:10)
[2021-06-02] MEDS: Normal Saline Flush 10 ML SYR IVP (10:10)
[2021-06-02 10:42] VITALS: BP 119/74; PULSE 71; RESP 16; TEMP 36.8; O2SAT 97
[2021-06-02 11:25] VITALS: BP 117/78; PULSE 68; RESP 17; TEMP 36.6; O2SAT 95
[2021-06-09 13:45] VITALS: BP 118/73; PULSE 100; RESP 18; TEMP 36.3; O2SAT 97
[2021-06-09] MEDS: EFGARTIGIMOD ALFA FCAB IVPB (13:49)
[2021-06-09] MEDS: NORMAL SALINE IVPB (13:49)
[2021-06-16] MEDS: Normal Saline Flush 10 ML SYR IVP (10:22)
[2021-06-16] MEDS: EFGARTIGIMOD ALFA FCAB IVPB (10:22)
[2021-06-16] MEDS: NORMAL SALINE IVPB (10:22)
[2021-06-16 10:28] VITALS: BP 120/87; PULSE 99; RESP 18; TEMP 36; O2SAT 96
[2021-06-16 11:35] VITALS: BP 119/77; PULSE 67; RESP 18; TEMP 36.4; O2SAT 93
[2021-06-23] MEDS: NORMAL SALINE IVPB (10:35)
[2021-06-23] MEDS: EFGARTIGIMOD ALFA FCAB IVPB (10:35)
[2021-06-23] MEDS: Normal Saline Flush 10 ML SYR IVP (10:35)
[2021-06-23 11:40] VITALS: BP 135/79; PULSE 71; RESP 18; TEMP 36.5; O2SAT 96
== END 2021-06-27 23:59 | disposition home or self-care (01) ==
LOC: INF 04:41
PROVIDERS: Visit Provider Internal Medicine
DX: G70.00 Myasthenia gravis without (acute) exacerbation (principal)
CPT/HCPCS: 96365; J3590

== ENCOUNTER 2021-07-10 03:34 | Outpatient (CLI) | payer MEDICARE, OTHER, SELFPAY ==
[2021-07-10 10:02] LABS: HCT 39.2 % (36.0-46.0); HGB 12.8 g/dL (11.2-15.7); MCH 29.9 pg (27.0-33.0); MCHC 32.7 % (32.0-36.0); MCV 92 fL (80-95); MPV 9.4 fL (8.0-11.0); Platelet Count 365 10^3/uL (130-400); RBC 4.28 10^6/uL (3.93-5.22); RDW 13.7 % (11.7-14.6); RDW-SD 46.5 fL; WBC 7.04 10^3/uL (4.4-10.8)
[2021-07-10 10:48] LABS: ALT 30 U/L (14-59); AST 24 U/L (15-37); Albumin 4.9 g/dL (3.4-5.0); Alkaline Phosphatase 106 U/L (46-116); Anion Gap 12.4 mmol/L (3-11); BUN 11 mg/dL (7-18); Bilirubin, Total 0.5 mg/dL (0.2-1.0); CO2 28.6 mmol/L (21.0-32.0); CREATININE 0.8 mg/dL (0.55-1.02); Calcium 9.4 mg/dL (8.5-10.1); Calculated LDL 153 mg/dL (<100); Chloride 102 mmol/L (98-107); Cholesterol 239 mg/dL (<200); Glucose 83 mg/dL (74-106); HDL Cholesterol 54 mg/dL (40-60); Potassium 3.3 mmol/L (3.5-5.1); Sodium 143 mmol/L (136-145); Total Protein 7.4 g/dL (6.4-8.2); Triglyceride 161 mg/dL (<150)
== END 2021-07-10 03:35 | disposition home or self-care (01) ==
LOC: LBO 03:34
DX: G89.4 Chronic pain syndrome (principal); R03.0 Elevated blood-pressure reading, without diagnosis of hypertension; I70.90 Unspecified atherosclerosis; R00.2 Palpitations; R53.82 Chronic fatigue, unspecified; Z92.25 Personal history of immunosuppression therapy
CPT/HCPCS: 36415; 80053; 80061; 85027

== ENCOUNTER 2021-07-28 02:06 | Outpatient (RCR) | payer MEDICARE, OTHER, SELFPAY ==
[2021-06-28 00:02] VITALS: BP 135/79; PULSE 71; RESP 18; TEMP 36.5
[2021-07-21] MEDS: NORMAL SALINE IVPB (10:26)
[2021-07-21] MEDS: EFGARTIGIMOD ALFA FCAB IVPB (10:26)
[2021-07-21] MEDS: Normal Saline Flush 10 ML SYR IVP (10:26)
[2021-07-21 10:35] VITALS: BP 103/65; PULSE 68; RESP 17; TEMP 36.3; O2SAT 96
[2021-07-21 11:35] VITALS: BP 123/79; PULSE 82; RESP 20; TEMP 36.5; O2SAT 96
[2021-07-22 09:20] LABS: IgG 518 mg/dL (610-1,616)
[2021-07-28 10:10] VITALS: BP 127/79; PULSE 69; RESP 18; TEMP 36.6; O2SAT 96
[2021-07-28] MEDS: NORMAL SALINE IVPB (10:15)
[2021-07-28] MEDS: Normal Saline Flush 10 ML SYR IVP (10:15)
[2021-07-28] MEDS: EFGARTIGIMOD ALFA FCAB IVPB (10:15)
[2021-07-28 11:20] VITALS: BP 131/81; PULSE 89; RESP 18; TEMP 36.5; O2SAT 97
== END 2021-07-28 23:59 | disposition home or self-care (01) ==
LOC: INF 02:06
PROVIDERS: Psychiatry & Neurology Neurology; Visit Provider Internal Medicine
DX: G70.00 Myasthenia gravis without (acute) exacerbation (principal)
CPT/HCPCS: 36415; 82784; 96365; J3590

== ENCOUNTER 2021-08-11 02:03 | Outpatient (RCR) | payer MEDICARE, OTHER, SELFPAY ==
[2021-07-29 00:03] VITALS: BP 131/81; PULSE 89; RESP 18; TEMP 36.5
[2021-08-04 12:05] VITALS: BP 155/81; PULSE 61; RESP 18; TEMP 36.5; O2SAT 95
[2021-08-04] MEDS: EFGARTIGIMOD ALFA FCAB IVPB (12:07)
[2021-08-04] MEDS: NORMAL SALINE IVPB (12:07)
[2021-08-04] MEDS: Normal Saline Flush 10 ML SYR IVP (12:07)
[2021-08-04 13:17] VITALS: BP 135/77; PULSE 70; RESP 18; TEMP 35.2; O2SAT 96
[2021-08-11 10:10] VITALS: PULSE 60; RESP 18; TEMP 36.3; O2SAT 96
[2021-08-11] MEDS: EFGARTIGIMOD ALFA FCAB IVPB (10:33)
[2021-08-11] MEDS: NORMAL SALINE IVPB (10:33)
[2021-08-11 12:00] VITALS: BP 160/92; PULSE 77; RESP 17; TEMP 36.3; O2SAT 94
== END 2021-08-27 23:59 | disposition home or self-care (01) ==
LOC: INF 02:03
PROVIDERS: Visit Provider Internal Medicine
DX: G70.00 Myasthenia gravis without (acute) exacerbation (principal)
CPT/HCPCS: 96365; J3590

== ENCOUNTER 2021-08-20 03:16 | Outpatient (CLI) | payer MEDICARE, OTHER, SELFPAY ==
[2021-08-21 09:24] LABS: IgG 246 mg/dL (610-1,616)
== END 2021-08-20 03:17 | disposition home or self-care (01) ==
LOC: LBO 03:16
PROVIDERS: Psychiatry & Neurology Neurology
DX: G70.00 Myasthenia gravis without (acute) exacerbation (principal)
CPT/HCPCS: 36415; 82784

== ENCOUNTER 2021-09-22 03:12 | Outpatient (RCR) | payer MEDICARE, OTHER, SELFPAY ==
[2021-08-28 00:13] VITALS: BP 160/92; PULSE 77; RESP 17; TEMP 36.3
[2021-09-08] MEDS: Normal Saline Flush 10 ML SYR IVP (13:35)
[2021-09-08] MEDS: EFGARTIGIMOD ALFA FCAB IVPB (13:43)
[2021-09-08] MEDS: NORMAL SALINE IVPB (13:43)
[2021-09-08 14:50] VITALS: BP 110/75; PULSE 86; RESP 18; TEMP 36.2; O2SAT 95
[2021-09-15 10:30] VITALS: BP 117/71; PULSE 85; RESP 16; TEMP 36.8; O2SAT 95
[2021-09-15] MEDS: EFGARTIGIMOD ALFA FCAB IVPB (10:31)
[2021-09-15] MEDS: Normal Saline Flush 10 ML SYR IVP (10:31)
[2021-09-15] MEDS: NORMAL SALINE IVPB (10:31)
[2021-09-15 11:36] VITALS: BP 126/80; PULSE 85; RESP 16; TEMP 36.5; O2SAT 94
[2021-09-22] MEDS: NORMAL SALINE IVPB (10:26)
[2021-09-22] MEDS: Normal Saline Flush 10 ML SYR IVP (10:26)
[2021-09-22] MEDS: EFGARTIGIMOD ALFA FCAB IVPB (10:26)
[2021-09-22 10:29] VITALS: BP 114/79; PULSE 79; RESP 19; TEMP 36.2; O2SAT 93
[2021-09-22 11:40] VITALS: BP 138/79; PULSE 81; RESP 19; TEMP 36.1; O2SAT 95
== END 2021-09-27 23:59 | disposition home or self-care (01) ==
LOC: INF 03:12
PROVIDERS: Visit Provider Internal Medicine
DX: G70.00 Myasthenia gravis without (acute) exacerbation (principal)
CPT/HCPCS: 96365; J3590

== ENCOUNTER 2021-10-02 11:04 | Outpatient (CLI) | payer MEDICARE, OTHER, SELFPAY | END 2021-10-02 11:05 | disposition home or self-care (01) | LOC: LOS 11:04 | PROVIDERS: Referring Provider Physician Assistant Medical; Visit Provider Physician Assistant Medical | DX: N39.0 Urinary tract infection, site not specified (principal) | CPT/HCPCS: 87077; 87086; 87186 ==

== ENCOUNTER 2021-10-02 14:58 | Outpatient (REF) | payer MEDICARE, OTHER, SELFPAY ==
[2021-10-02 15:29] LABS: Abs Immature Grans 0.07 10^3/uL (0.0-0.06); Absolute Basophil Count 0.06 10^3/uL (0.0-0.2); Absolute Lymphocyte Count 0.92 10^3/uL (1.2-3.4); Absolute Monocyte Count 1.06 10^3/uL (0.1-0.8); Basophils % 0.5; Eosinophils % 4.8; HGB 12.8 g/dL (11.2-15.7); Immature Grans % 0.6; Lymphocytes % 7.3; MCH 30.5 pg (27.0-33.0); MCHC 32.8 % (32.0-36.0); MCV 93 fL (80-95); MPV 9.7 fL (8.0-11.0); Monocytes % 8.4; Neutrophils % 78.4; Platelet Count 429 10^3/uL (130-400); RDW 13.3 % (11.7-14.6); RDW-SD 45.1 fL; WBC 12.63 10^3/uL (4.4-10.8)
[2021-10-02 15:31] LABS: Absolute Eosinophil Count 0.61 10^3/uL (0.0-0.7)
[2021-10-02 15:40] LABS: ALT 22 U/L (14-59); AST 13 U/L (15-37); Albumin 4.3 g/dL (3.4-5.0); Alkaline Phosphatase 85 U/L (46-116); Anion Gap 10.3 mmol/L (3-11); BUN 16 mg/dL (7-18); Bilirubin, Total 0.4 mg/dL (0.2-1.0); CO2 26.7 mmol/L (21.0-32.0); CREATININE 0.8 mg/dL (0.55-1.02); Calcium 9.4 mg/dL (8.5-10.1); Chloride 101 mmol/L (98-107); Glucose 97 mg/dL (74-106); Potassium 3.9 mmol/L (3.5-5.1); Sodium 138 mmol/L (136-145); Total Protein 6.6 g/dL (6.4-8.2)
== END 2021-10-02 14:59 | disposition home or self-care (01) ==
LOC: LBN 14:58
PROVIDERS: Visit Provider Physician Assistant Medical
DX: G70.00 Myasthenia gravis without (acute) exacerbation; Z79.52 Long term (current) use of systemic steroids; N39.0 Urinary tract infection, site not specified; B95.2 Enterococcus as the cause of diseases classified elsewhere; R06.02 Shortness of breath
CPT/HCPCS: 80053; 86141; 85025

== ENCOUNTER 2021-10-27 02:46 | Outpatient (RCR) | payer MEDICARE, OTHER, SELFPAY ==
[2021-09-28 00:07] VITALS: BP 138/79; PULSE 81; RESP 19; TEMP 36.1
[2021-09-29] MEDS: Normal Saline Flush 10 ML SYR IVP ×2 (09:48→10:21)
[2021-09-29] MEDS: EFGARTIGIMOD ALFA FCAB IVPB (10:20)
[2021-09-29] MEDS: NORMAL SALINE IVPB (10:20)
[2021-09-30 10:06] LABS: IgG 246 mg/dL (610-1,616)
[2021-10-13 10:00] VITALS: BP 117/75; PULSE 81; RESP 17; TEMP 36.7; O2SAT 95
[2021-10-13] MEDS: IMMUNE GLOBULIN 40 GM/400 ML BTL IV (10:00)
[2021-10-13] MEDS: Normal Saline Flush 10 ML SYR IVP (10:00)
[2021-10-13 10:15] VITALS: BP 124/82; PULSE 84; RESP 17; TEMP 36.7; O2SAT 93
[2021-10-13 10:35] VITALS: BP 147/87; PULSE 97; RESP 18; TEMP 36.5; O2SAT 95
[2021-10-13 11:05] VITALS: BP 148/94; PULSE 96; RESP 16; TEMP 36.2; O2SAT 95
[2021-10-13 11:35] VITALS: BP 131/81; PULSE 73; RESP 18; TEMP 36.3; O2SAT 93
[2021-10-13 12:05] VITALS: BP 140/79; PULSE 79; RESP 16; TEMP 36.7; O2SAT 95
[2021-10-14 09:00] VITALS: BP 142/89; PULSE 71; RESP 18; TEMP 36.4; O2SAT 96
[2021-10-14] MEDS: IMMUNE GLOBULIN 40 GM/400 ML BTL IV (09:06)
[2021-10-14] MEDS: Normal Saline Flush 10 ML SYR IVP (09:06)
[2021-10-14 09:20] VITALS: BP 130/82; PULSE 72; RESP 16; TEMP 36.4; O2SAT 94
[2021-10-14 09:35] VITALS: BP 132/76; PULSE 73; RESP 16; TEMP 36.4; O2SAT 94
[2021-10-14 10:07] VITALS: BP 130/80; PULSE 81; RESP 16; TEMP 36; O2SAT 94
[2021-10-14 10:40] VITALS: BP 161/87; PULSE 77; RESP 16; TEMP 36.2; O2SAT 96
[2021-10-14 11:05] VITALS: BP 159/93; PULSE 79; RESP 16; TEMP 36.3; O2SAT 97
[2021-10-15 10:50] VITALS: BP 128/78; PULSE 76; RESP 17; TEMP 36.4; O2SAT 94
[2021-10-15] MEDS: Normal Saline Flush 10 ML SYR IVP (10:53)
[2021-10-15] MEDS: IMMUNE GLOBULIN 40 GM/400 ML BTL IV (10:53)
[2021-10-15 11:05] VITALS: BP 132/81; PULSE 74; RESP 16; TEMP 36.7; O2SAT 93
[2021-10-15 11:20] VITALS: BP 136/81; PULSE 79; RESP 16; TEMP 36.1; O2SAT 94
[2021-10-15 11:50] VITALS: BP 132/86; PULSE 79; RESP 17; TEMP 36; O2SAT 93
[2021-10-15 12:25] VITALS: BP 132/79; PULSE 79; RESP 16; TEMP 36.2; O2SAT 94
[2021-10-16 08:10] VITALS: BP 136/81; PULSE 82; RESP 17; TEMP 36.3; O2SAT 93
[2021-10-16] MEDS: Normal Saline Flush 10 ML SYR IVP (08:13)
[2021-10-16] MEDS: IMMUNE GLOBULIN 40 GM/400 ML BTL IV (08:13)
[2021-10-16 08:30] VITALS: BP 133/86; PULSE 81; RESP 17; TEMP 36.3; O2SAT 94
[2021-10-16 08:45] VITALS: BP 157/80; PULSE 77; RESP 17; TEMP 36.4; O2SAT 94
[2021-10-16 09:15] VITALS: BP 144/80; PULSE 72; RESP 17; TEMP 36.2; O2SAT 95
[2021-10-16 09:45] VITALS: BP 156/95; PULSE 80; RESP 17; TEMP 36.3; O2SAT 93
[2021-10-16 10:15] VITALS: BP 161/89; PULSE 81; RESP 17; TEMP 36.2; O2SAT 95
[2021-10-20 10:05] VITALS: BP 124/82; PULSE 73; RESP 16; TEMP 36.1; O2SAT 94
[2021-10-20] MEDS: IMMUNE GLOBULIN 40 GM/400 ML BTL IVPB (10:05)
[2021-10-20] MEDS: Normal Saline Flush 10 ML SYR IVP (10:07)
[2021-10-20 10:20] VITALS: BP 116/74; PULSE 71; RESP 16; TEMP 36.7; O2SAT 93
[2021-10-20 10:35] VITALS: BP 115/73; PULSE 66; RESP 16; TEMP 36.7; O2SAT 93
[2021-10-20 11:05] VITALS: BP 153/78; PULSE 73; RESP 16; TEMP 36.8; O2SAT 94
[2021-10-20 11:35] VITALS: BP 135/92; PULSE 72; RESP 16; TEMP 36.4; O2SAT 94
[2021-10-20 12:05] VITALS: BP 150/88; PULSE 86; RESP 18; TEMP 36.2; O2SAT 93
[2021-10-27 08:52] VITALS: BP 135/75; PULSE 79; RESP 17; TEMP 36.5; O2SAT 94
[2021-10-27] MEDS: Normal Saline Flush 10 ML SYR IVP (08:52)
[2021-10-27] MEDS: IMMUNE GLOBULIN 40 GM/400 ML BTL IVPB (08:52)
[2021-10-27 09:10] VITALS: BP 133/75; PULSE 82; RESP 17; TEMP 36.2; O2SAT 93
[2021-10-27 09:25] VITALS: BP 127/77; PULSE 81; RESP 17; TEMP 36.3; O2SAT 94
[2021-10-27 09:55] VITALS: BP 142/80; PULSE 84; RESP 18; TEMP 36.5; O2SAT 93
[2021-10-27 10:25] VITALS: BP 139/76; PULSE 83; RESP 16; TEMP 36.6; O2SAT 93
== END 2021-10-28 23:59 | disposition home or self-care (01) ==
LOC: INF 02:46
PROVIDERS: Psychiatry & Neurology Neurology; Visit Provider Internal Medicine
DX: G70.00 Myasthenia gravis without (acute) exacerbation (principal)
CPT/HCPCS: 82784; 96365; 96366; J1459; J3590

== ENCOUNTER 2021-11-24 02:41 | Outpatient (RCR) | payer MEDICARE, OTHER, SELFPAY ==
[2021-10-29 00:03] VITALS: BP 139/76; PULSE 83; RESP 16; TEMP 36.6
[2021-11-03] MEDS: IMMUNE GLOBULIN 40 GM/400 ML BTL IV (10:17)
[2021-11-03] MEDS: Normal Saline Flush 10 ML SYR IVP (10:17)
[2021-11-03 10:18] VITALS: BP 109/74; PULSE 70; RESP 18; TEMP 36; O2SAT 97
[2021-11-03 10:35] VITALS: BP 123/76; PULSE 72; RESP 18; TEMP 36.1; O2SAT 94
[2021-11-03 10:50] VITALS: BP 115/75; PULSE 72; RESP 18; TEMP 35.6; O2SAT 96
[2021-11-03 11:18] VITALS: BP 118/78; PULSE 71; RESP 17; TEMP 36.3; O2SAT 93
[2021-11-03 11:47] VITALS: BP 146/83; PULSE 83; RESP 17; TEMP 35.5; O2SAT 93
[2021-11-03 12:18] VITALS: BP 159/87; PULSE 84; RESP 17; TEMP 35.6; O2SAT 95
[2021-11-10] MEDS: Normal Saline Flush 10 ML SYR IVP (09:49)
[2021-11-10] MEDS: IMMUNE GLOBULIN 40 GM/400 ML BTL IV (09:49)
[2021-11-10 09:50] VITALS: BP 132/82; PULSE 79; RESP 18; TEMP 36.8; O2SAT 95
[2021-11-10 10:10] VITALS: BP 124/80; PULSE 72; RESP 18; TEMP 36.3; O2SAT 96
[2021-11-10 10:25] VITALS: BP 115/80; PULSE 74; RESP 18; TEMP 36.4; O2SAT 95
[2021-11-10 10:55] VITALS: BP 130/82; PULSE 80; RESP 18; TEMP 36.2; O2SAT 94
[2021-11-10 11:25] VITALS: BP 128/73; PULSE 77; RESP 18; TEMP 36.4; O2SAT 95
[2021-11-10 11:55] VITALS: BP 140/78; PULSE 90; RESP 18; TEMP 36.3; O2SAT 93
[2021-11-17 10:10] VITALS: BP 115/75; PULSE 82; RESP 18; TEMP 36.2; O2SAT 93
[2021-11-17] MEDS: Normal Saline Flush 10 ML SYR IVP (10:12)
[2021-11-17] MEDS: IMMUNE GLOBULIN 40 GM/400 ML BTL IV (10:12)
[2021-11-17 10:30] VITALS: BP 105/71; PULSE 74; RESP 18; TEMP 36; O2SAT 95
[2021-11-17 10:45] VITALS: BP 109/73; PULSE 76; RESP 18; TEMP 36.4; O2SAT 96
[2021-11-17 11:15] VITALS: BP 121/79; PULSE 74; RESP 18; TEMP 36.3; O2SAT 98
[2021-11-17 11:49] VITALS: BP 123/76; PULSE 75; RESP 18; TEMP 36.2; O2SAT 94
[2021-11-17 12:15] VITALS: BP 128/76; PULSE 75; RESP 18; TEMP 35.8; O2SAT 94
[2021-11-24 10:10] VITALS: BP 110/74; PULSE 82; RESP 18; TEMP 35.5; O2SAT 93
[2021-11-24] MEDS: IMMUNE GLOBULIN 40 GM/400 ML BTL IV (10:10)
[2021-11-24] MEDS: Normal Saline Flush 10 ML SYR IVP (10:10)
[2021-11-24 10:30] VITALS: BP 125/87; PULSE 84; RESP 18; TEMP 36.2; O2SAT 94
[2021-11-24 10:45] VITALS: BP 134/83; PULSE 86; RESP 18; TEMP 36.2; O2SAT 95
[2021-11-24 11:15] VITALS: BP 119/79; PULSE 84; RESP 18; TEMP 36.3; O2SAT 93
[2021-11-24 11:45] VITALS: BP 134/77; PULSE 87; RESP 16; TEMP 36; O2SAT 94
[2021-11-24 12:14] VITALS: BP 134/87; PULSE 85; RESP 17; TEMP 36.3; O2SAT 92
== END 2021-11-27 23:59 | disposition home or self-care (01) ==
LOC: INF 02:41
PROVIDERS: Visit Provider Internal Medicine
DX: G70.00 Myasthenia gravis without (acute) exacerbation (principal)
CPT/HCPCS: 96365; 96366; J1459

== ENCOUNTER 2021-11-26 07:52 | Outpatient (CLI) | payer MEDICARE, OTHER, SELFPAY ==
[2021-11-26 08:02] VITALS: BP 108/79; PULSE 68; RESP 20; TEMP 36.4; O2SAT 96
[2021-11-26] MEDS: Dexamethasone Sod. Phos./Pres-Free 10 MG/ML VIAL IJ (08:51)
--- NOTE | 2021-11-26 09:03 | DI.RAD_ITS ---
Exam(s) XR PAIN CLINIC FLUORO JOINT IN EXAM: XR PAIN CLINIC FLUORO JOINT IN CLINICAL HISTORY: Dx: Osteoarthritis of the knee TECHNIQUE: 2D and realtime digital imaging was performed. CONTRAST MATERIAL: Refer to procedure report. COMPARISON: No exams were available for comparison FINDINGS: Fluoroscopy was provided for Dr. Marin during the performance of a genicular nerve block. Please ref er to the procedure report for complete details. Ka,r=1.9 mGy IMPRESSION:
[2021-11-26] MEDS: Bupivacaine 0.5% Pres-Free 10 ML VIAL IJ (09:04)
[2021-11-26] MEDS: Omnipaque 240 MG/ML 50 ML BTL IJ (09:04)
--- NOTE | 2021-11-26 09:04 | DI.RAD_ITS ---
Exam(s) XR PAIN CLINIC LUMBAR SP 2V EXAM: XR PAIN CLINIC LUMBAR SP 2V CLINICAL HISTORY: Dx: Lumbar Radiculopathy TECHNIQUE: 2D and realtime digital imaging was performed. CONTRAST MATERIAL: Refer to procedure report. COMPARISON: No exams were available for comparison FINDINGS: Fluoroscopy was provided for Dr. Marin during the performance of a epidural steroid injection. Plecarl e refer to the procedure report for complete details. Ka,r=17.2 mGy IMPRESSION:
[2021-11-26 09:08] VITALS: BP 136/82; PULSE 94; RESP 22
--- NOTE | 2021-11-26 10:52 | PDOC.PAIN ---
Pain Clinic Procedure Note Procedure Note Procedure Note: RIGHT GENICULAR NERVE BLOCK Date of Service: November 26, 2021 Patient: Shelby Hampton Provider: Yeison Marin DO, MPH Pre-operative diagnosis: Right knee pain/osteoarthritis Post-operative diagnosis: Same Pre-procedure pain: VAS= 7/10 COMMENTS: She was previously evaluated in our clinic Shelby Hampton has been referred to the [facility] for RIGHT genicular nerve block. Shelby was interviewed and the medical record reviewed. There were no medical, pharmacologic, radiographic or other structural contraindications to attempting fluoroscopically guided RIGHT genicular nerve block. Risks and potential side effects as well as potential benefit of the procedure were reviewed with Shelby , and HER voiced concerns were addressed. After I believed that the patient was completely informed, the printed consent form was signed. Standard time-out procedure was performed. Shelby was placed in the supine position on the fluoroscopy table and automated blood pressure cuff and pulse oximeter applied. The skin entry points for approaching RIGHT superolateral genicular nerve, the superomedial genicular nerve, the terminal branch of the nerve vastus intermedius and the inferomedial genicular was identified under the most advantageous fluoroscopic view and marked. Following thorough Chlorhexadine preparation of the skin and draping, 1% lidocaine infiltration of the skin entry point and subcutaneous tissues was accomplished using a 1.5 25G needle. Next, the 3.5 25G spinal needle was advanced to os at the location of the specific nerve root using fluoroscopic guidance. Next, 1 ml of 1% Lidocaine was injected at each site. The needles were removed without difficulty. Shelby's vital signs were stable throughout the procedure and were as recorded in the docflowsheet by the nursing staff. If given, dosages of intravenous drugs for anxiolysis and analgesia were documented in MAR. Follow up plans and appointments were discussed with the Shelby . Post procedure instruction was given as documented in nursing documentation and having met discharge criteria, Shelby was discharged from the [facility]. COMMENTS: No apparent complications. Post-procedure pain: VAS = 0/10. The patient will keep track of her RIGHT knee pain over the next four hours. If Shelby has sufficient pain relief, Shelby will be a candidate for radiofrequency ablation at the same nerves. Brooke WJ1, Heather SJ, Stephon JG, Preethi GillespieG, Prashant ROQUE, Park PH, Calderon JW. Radiofrequency treatment relieves chronic knee osteoarthritis pain: a double-blind randomized controlled trial. Pain. 2010;152(3):481-7. doi: 10.1016/j.pain.2010.09.029. Susannah S1, Shakir ON2, Bayron Y3, ?zl?surya P2, Denys U1, Ace ?m?rl? I. Which one is more effective for the clinical treatment of chronic pain in knee osteoarthritis: radiofrequency neurotomy of the genicular nerves or intra-articular injection? Int J Rheum Dis. 2016 Oct 09. F/U with our office by phone Yeison Marin DO, MPH [facility]
--- NOTE | 2021-11-26 12:22 | PDOC.PAIN ---
Pain Clinic Procedure Note Procedure Note Procedure Note: LUMBAR / SACRAL TRANSFORAMINAL INJECTION Shelby Hampton has been referred to the [facility] for a transforaminal nerve root block and steroid injection. COMMENTS: She was previously evaluated in our clinic. Pre-procedure pain VAS was 8/10. Dx: Lumbosacral radiculopathy Patient was interviewed and the medical record reviewed. There were no medical, pharmacologic, radiographic or other structural contraindications to attempting fluoroscopically guided transforaminal nerve root block and epidural steroid injection. Risks and expected side effects as well as potential benefit of the procedure were reviewed and voiced concerns addressed. The printed consent form was signed and witnessed. Standard time-out procedure was performed. Patient was placed in the prone position on the fluoroscopy table and automated blood pressure cuff and pulse oximeter applied. Fluoroscopy was utilized to identify the right L3 neural foramen between L3 and L4 . A skin jan was made for the needle insertion site. A Chlorhexadine prep was carried out, and sterile drapes were applied. Local anesthesia was achieved in the skin and subcutaneous tissues. A 22 gauge curved tip spinal needle was then inserted, advanced with fluoroscopic guidance into the neural foramen, confirmed on the lateral view. After negative aspiration, 2 ml of Omnipaque 240 was injected confirming position in A/P and lateral views. This showed a good spread of dye transforaminally into the epidural space. There was no vascular update with contrast injection under continuous fluoroscopy and digital substraction. 15 mg of Dexamethasone was injected, followed by 0.5 ml of 1% Xylocaine flush for the nerve root block, as well. There was no unusual discomfort expressed.The needle was withdrawn. The patient tolerated the procedure well. A Band-Aid was applied. Vital signs were stable throughout the procedure and were as recorded in nursing records. If given, dosages of intravenous drugs for anxiolysis and analgesia were documented in nursing records. Follow up plans and appointments were discussed. Post procedure instruction was given as documented in nursing records and patient was discharged in the care of an identified driver supervisor. COMMENTS:Post-procedure pain VAS was 0/10. Yeison Marin DO, MPH [facility] CC: Mary Jo Archer APRN
== END 2021-11-26 07:53 | disposition home or self-care (01) ==
LOC: PC 07:52
PROVIDERS: Visit Provider Preventive Medicine Occupational Medicine
DX: M25.561 Pain in right knee (principal); M17.11 Unilateral primary osteoarthritis, right knee; M54.17 Radiculopathy, lumbosacral region
CPT/HCPCS: 64483; 64454; 72100; 77002; Q9967

== ENCOUNTER 2021-12-23 02:49 | Outpatient (RCR) | payer MEDICARE, SELFPAY ==
[2021-11-28 00:16] VITALS: BP 134/87; PULSE 85; RESP 17; TEMP 36.3
[2021-12-01 10:17] VITALS: BP 128/75; PULSE 72; RESP 17; TEMP 36.6; O2SAT 93
[2021-12-01] MEDS: IMMUNE GLOBULIN 40 GM/400 ML BTL IVPB (10:17)
[2021-12-01] MEDS: Normal Saline Flush 10 ML SYR IVP (10:18)
[2021-12-01 10:35] VITALS: BP 123/73; PULSE 78; RESP 17; TEMP 36.3; O2SAT 93
[2021-12-01 10:50] VITALS: BP 122/72; PULSE 68; RESP 16; TEMP 36.3; O2SAT 94
[2021-12-01 11:20] VITALS: BP 131/83; PULSE 75; RESP 17; TEMP 36.6; O2SAT 95
[2021-12-01 11:50] VITALS: BP 138/85; PULSE 76; RESP 17; TEMP 36.5; O2SAT 95
[2021-12-09 10:05] VITALS: BP 126/80; PULSE 91; RESP 17; TEMP 36.2; O2SAT 96
[2021-12-09] MEDS: IMMUNE GLOBULIN 40 GM/400 ML BTL IVPB (10:07)
[2021-12-09] MEDS: Normal Saline Flush 10 ML SYR IVP (10:08)
[2021-12-09 10:22] VITALS: BP 115/76; PULSE 89; RESP 17; TEMP 36.3; O2SAT 95
[2021-12-09 10:37] VITALS: BP 128/80; PULSE 94; RESP 17; TEMP 36.3; O2SAT 94
[2021-12-09 11:07] VITALS: BP 111/73; PULSE 87; RESP 18; TEMP 36.5; O2SAT 95
[2021-12-09 11:37] VITALS: BP 129/82; PULSE 90; RESP 17; TEMP 36.6; O2SAT 97
[2021-12-09 12:07] VITALS: BP 133/86; PULSE 84; RESP 17; TEMP 36.3; O2SAT 95
[2021-12-16] MEDS: IMMUNE GLOBULIN 40 GM/400 ML BTL IVPB (10:21)
[2021-12-16] MEDS: Normal Saline Flush 10 ML SYR IVP (10:22)
[2021-12-16 10:27] VITALS: BP 114/72; PULSE 91; RESP 18; TEMP 36.4; O2SAT 95
[2021-12-16 10:36] VITALS: BP 118/75; PULSE 83; RESP 18; TEMP 36.3; O2SAT 94
[2021-12-16 10:50] VITALS: BP 107/72; PULSE 84; RESP 18; TEMP 36.5; O2SAT 95
[2021-12-16 11:20] VITALS: BP 119/76; PULSE 81; RESP 17; TEMP 36.3; O2SAT 94
[2021-12-16 11:47] VITALS: BP 123/78; PULSE 85; RESP 17; TEMP 36.4; O2SAT 95
[2021-12-23 10:05] VITALS: BP 139/74; PULSE 78; RESP 19; TEMP 36.3; O2SAT 93
[2021-12-23] MEDS: IMMUNE GLOBULIN 40 GM/400 ML BTL IVPB (10:10)
[2021-12-23] MEDS: Normal Saline Flush 10 ML SYR IVP (10:12)
[2021-12-23 10:40] VITALS: BP 136/78; PULSE 82; RESP 19; TEMP 36.6; O2SAT 93
[2021-12-23 11:10] VITALS: BP 136/85; PULSE 78; RESP 19; TEMP 36.3; O2SAT 95
[2021-12-23 11:40] VITALS: BP 154/82; PULSE 80; RESP 19; TEMP 36.3; O2SAT 94
[2021-12-23 12:10] VITALS: BP 144/74; PULSE 77; RESP 19; TEMP 36.3; O2SAT 95
== END 2021-12-28 23:59 | disposition home or self-care (01) ==
LOC: INF 02:49
PROVIDERS: Visit Provider Internal Medicine
DX: G70.00 Myasthenia gravis without (acute) exacerbation (principal)
CPT/HCPCS: 96365; 96366; J1459

== ENCOUNTER 2022-01-11 04:38 | Outpatient (CLI) | payer MEDICARE, OTHER, SELFPAY ==
[2022-01-11 10:18] LABS: BE 1 mmol/L (-2-3); HCO3 26 mmol/L (22-26); pCO2 40 mmHg (35-45); pH 7.41 (7.35-7.45); pO2 72 mmHg (80-105); sO2 95 % (95-98); tCO2 24 mmol/L (23-27)
[2022-01-11 10:24] LABS: FIO2L ROOM AIR L; Site Right Radial
[2022-01-11] MEDS: Inhaler, Assist Device 1 EACH MC (11:40)
[2022-01-11] MEDS: Albuterol HFA 18 GM 200 PUFF INH IH (11:40)
--- NOTE | 2022-01-18 16:33 | W.PFT ---
Date of service: 01/11/22 Time of Service: 10:21 Pulmonary Function Test Result Requesting Provider Amaris Indications: Myasthenia gravis Interpretation Spirometry: There is no airflow limitation. There is restrictive appearing spirometry. There is a significant bronchodilator response. Borderline low MIP, low MEP. Lung Volumes: There is evidence of air trapping Diffusion Capacity: Borderline low diffusion. Airway Pressure: Normal airways resistance. Impression Borderline low diffusion with a borderline low MIP with restrictive spirometry but a normal TLC. There may be muscle weakness present, and the low diffusion could represent early pulmonary fibrosis or pulmonary vascular disease. Note: When compared to 2019, her MIP has significantly reduced and her diffusion remains decreased. Clinical Correlation therefore is recommended.
== END 2022-01-11 04:39 | disposition home or self-care (01) ==
LOC: RT 04:38
PROVIDERS: PCP Family Medicine; Visit Provider Student in an Organized Health Care Education/Training Program
DX: J84.89 Other specified interstitial pulmonary diseases (principal); G70.00 Myasthenia gravis without (acute) exacerbation; R94.2 Abnormal results of pulmonary function studies; J98.4 Other disorders of lung; M35.02 Sjogren syndrome with lung involvement
CPT/HCPCS: 82805; 94060; 94726; 94729

== ENCOUNTER 2022-01-26 03:26 | Outpatient (RCR) | payer MEDICARE, SELFPAY ==
[2021-12-29 00:07] VITALS: BP 144/74; PULSE 77; RESP 19; TEMP 36.3
[2021-12-29 10:05] VITALS: BP 116/76; PULSE 82; RESP 17; TEMP 36.3; O2SAT 96
[2021-12-29] MEDS: IMMUNE GLOBULIN 40 GM/400 ML BTL IVPB (10:08)
[2021-12-29] MEDS: Normal Saline Flush 10 ML SYR IVP (10:09)
[2021-12-29 10:25] VITALS: BP 134/84; PULSE 82; RESP 17; TEMP 35.5; O2SAT 95
[2021-12-29 10:27] LABS: Absolute Basophil Count 0.04 10^3/uL (0.0-0.2); Absolute Eosinophil Count 0.03 10^3/uL (0.0-0.7); Absolute Lymphocyte Count 0.99 10^3/uL (1.2-3.4); Absolute Monocyte Count 0.55 10^3/uL (0.1-0.8); Absolute Neutrophil Count 9.19 10^3/uL (1.2-6.7); Basophils % 0.4; Eosinophils % 0.3; HGB 12.9 g/dL (11.2-15.7); Immature Grans % 0.9; Lymphocytes % 9.1; MCH 29.9 pg (27.0-33.0); MCHC 32.3 % (32.0-36.0); MCV 93 fL (80-95); MPV 9.4 fL (8.0-11.0); Neutrophils % 84.3; Platelet Count 375 10^3/uL (130-400); RBC 4.31 10^6/uL (3.93-5.22); RDW 14.4 % (11.7-14.6); RDW-SD 49.1 fL
[2021-12-29 10:31] LABS: ESR 49 mm/hr (0-30)
[2021-12-29 10:39] LABS: ALT 24 U/L (14-59); AST 17 U/L (15-37); Albumin 3.4 g/dL (3.4-5.0); Alkaline Phosphatase 69 U/L (46-116); Anion Gap 7.6 mmol/L (3-11); BUN 20 mg/dL (7-18); Bilirubin, Total 0.4 mg/dL (0.2-1.0); C-Reactive Protein 0.42 mg/dL (0.0-0.3); CO2 26.4 mmol/L (21.0-32.0); Calcium 9.5 mg/dL (8.5-10.1); Chloride 101 mmol/L (98-107); Estimated GFR 58.75 (mL/min/1.73m2); Glucose 127 mg/dL (74-106); Sodium 135 mmol/L (136-145); Total Protein 8.3 g/dL (6.4-8.2)
[2021-12-29 10:40] VITALS: BP 138/83; PULSE 87; RESP 18; TEMP 35.7; O2SAT 95
[2021-12-29 11:10] VITALS: BP 128/70; PULSE 82; RESP 16; TEMP 36; O2SAT 94
[2021-12-29 11:40] VITALS: BP 121/77; PULSE 84; RESP 17; TEMP 36.1; O2SAT 94
[2021-12-29 12:28] LABS: Bilirubin Negative (Negative); Blood Negative (Negative); Clarity Clear (Clear); Glucose Negative (Negative); Ketones Negative (Negative); Leukocyte Esterase Negative (Negative); Nitrite Positive (Negative); Urobilinogen 0.2 EU/dL (Up TO 0.2)
[2021-12-29 12:47] LABS: Bacteria Many HPF (Negative); C & S Indicated? Yes; Casts Negative LPF (Negative); Crystals Negative HPF (Negative); Epithelial Cells Few HPF (Negative); Mucus Negative (Negative); Other Cells Rare Renal (Negative); RBC Negative HPF (0-2)
[2021-12-30 09:34] LABS: C3 Complement 161 mg/dL (81-157); C4 Complement 29 mg/dL (13-39); IgA 75 mg/dL (85-499); IgG 2188 mg/dL (610-1,616); IgM 27 mg/dL (35-242)
[2021-12-30 14:08] LABS: Albumin 49.2 % (55.8-66.1); Albumin g/dL 3.6 g/dL (3.6-5.2); Total Protein 7.4 g/dL (6.3-8.2)
[2022-01-05 10:30] VITALS: BP 116/78; PULSE 84; RESP 16; TEMP 36.4; O2SAT 96
[2022-01-05] MEDS: IMMUNE GLOBULIN 40 GM/400 ML BTL IVPB (10:30)
[2022-01-05] MEDS: Normal Saline Flush 10 ML SYR IVP (10:37)
[2022-01-05 10:45] VITALS: BP 119/79; PULSE 85; RESP 18; TEMP 36.1; O2SAT 94
[2022-01-05 11:00] VITALS: BP 133/83; PULSE 87; RESP 16; TEMP 36.2; O2SAT 94
[2022-01-05 11:35] VITALS: BP 128/86; PULSE 81; RESP 17; TEMP 35.7; O2SAT 96
[2022-01-05 12:05] VITALS: BP 151/87; PULSE 89; RESP 17; TEMP 36.4; O2SAT 96
[2022-01-05 12:30] VITALS: BP 138/79; PULSE 86; RESP 20; TEMP 36.4; O2SAT 95
[2022-01-12 09:55] VITALS: BP 139/86; PULSE 80; RESP 18; TEMP 35.9; O2SAT 95
[2022-01-12] MEDS: IMMUNE GLOBULIN 40 GM/400 ML BTL IVPB (09:58)
[2022-01-12] MEDS: Normal Saline Flush 10 ML SYR IVP (09:59)
[2022-01-12 10:15] VITALS: BP 138/80; PULSE 82; RESP 17; TEMP 36.2; O2SAT 95
[2022-01-12 10:30] VITALS: BP 135/75; PULSE 77; RESP 17; TEMP 36.2; O2SAT 95
[2022-01-12 11:00] VITALS: BP 125/78; PULSE 80; RESP 17; TEMP 36.4; O2SAT 93
[2022-01-12 11:29] VITALS: BP 161/88; PULSE 85; RESP 18; TEMP 36.3; O2SAT 96
[2022-01-12 11:54] VITALS: BP 151/86; PULSE 82; RESP 17; TEMP 36.3; O2SAT 96
[2022-01-19] MEDS: IMMUNE GLOBULIN 40 GM/400 ML BTL IVPB (10:05)
[2022-01-19] MEDS: Normal Saline Flush 10 ML SYR IVP (10:05)
[2022-01-19 10:15] VITALS: BP 133/81; PULSE 81; RESP 18; TEMP 36.4; O2SAT 96
[2022-01-19 10:31] VITALS: BP 130/79; PULSE 81; RESP 17; TEMP 36.5; O2SAT 95
[2022-01-19 11:00] VITALS: BP 121/79; PULSE 85; RESP 17; TEMP 36.5; O2SAT 95
[2022-01-19 11:31] VITALS: BP 149/82; PULSE 87; RESP 18; TEMP 36; O2SAT 96
[2022-01-19 12:00] VITALS: BP 137/84; PULSE 85; RESP 18; TEMP 36.3; O2SAT 95
[2022-01-26] VITALS (10 sets, daily range): BP systolic 119–147; BP diastolic 73–86; PULSE 74–96; RESP 16–18; TEMP 35.9–36.6; O2SAT 93–96
[2022-01-26] MEDS: Normal Saline Flush 10 ML SYR IVP (10:16)
[2022-01-26] MEDS: IMMUNE GLOBULIN 40 GM/400 ML BTL IVPB (11:55)
== END 2022-01-27 23:59 | disposition home or self-care (01) ==
LOC: INF 03:26
PROVIDERS: Internal Medicine; PCP Family Medicine; Visit Provider Internal Medicine
DX: M35.00 Sjogren syndrome, unspecified (principal); G70.00 Myasthenia gravis without (acute) exacerbation
CPT/HCPCS: 36415; 80053; 82784; 85652; 87077; 96365; 96366; 81003; 81015; 84165; 85025; 86140; 86160; 87086; 87186; J1459

== ENCOUNTER → 2022-01-29 01:25 | Outpatient (CLI) | payer MEDICARE, OTHER, SELFPAY ==
--- NOTE | 2022-01-29 07:45 | DI.CT_ITS ---
Exam(s) CT CHEST HIGH RESOLUTION EXAM: CT CHEST HIGH RESOLUTION CLINICAL HISTORY: Assess progression, worsening dyspnea,interstitial lung disease,j84.9. TECHNIQUE: Imaging protocol: Axial computed tomography images were obtained and coronal and sagittal reformatted images were created and reviewed. Additional 1 millimeter high-resolution axial images were performed at 10 millimeter intervals during inspiration and expiration. COMPARISON: CT CT CHEST W from 01/17/2020 CR XR CHEST 2V PA LATERAL from 12/01/2020 FINDINGS: Tracheobronchial tree: No bronchiectasis or mucous plugging. Mediastinum and Rivka: No dominant adenopathy or mediastinal mass. Pulmonary parenchyma: No consolidation or dominant measurable mass. Minimal emphysematous changes. M ild peripheral interstitial changes at both upper and lower lobes, greater at the posterior lung base s. Scattered tiny peripheral nodules. Findings may be slightly worse when compared with the previou s exam. No significant air trapping. Pleura: No effusion or pneumothorax. Heart: The heart is not dilated. Moderate coronary artery calcifications are seen. Aorta: Thoracic aorta non-dilated. Upper abdomen: Unremarkable. Lymph nodes: Within normal limits. Bones:Degenerative changes in the spine and shoulders. IMPRESSION: Mild changes of peripheral pulmonary fibrosis. Minimal emphysematous changes. RADIATION DOSE DELIVERED: 718.81mGy.cm Total DLP DATA REPOSITORY: All CT scans at this facility are submitted to the National Radiology Data Registry (NRDR) Dose Index Registry (DIR) with the [employer] (ACR). RADIATION OPTIMIZATION: All CT scans at this facility use at least one of these dose optimization te chniques: automated exposure control; mA and/or kV adjustment per patient size (includes targeted exa ms where dose is matched to clinical indication); or iterative reconstruction.
== END ==
PROVIDERS: PCP Family Medicine; Visit Provider Student in an Organized Health Care Education/Training Program
DX: J84.9 Interstitial pulmonary disease, unspecified (principal)
CPT/HCPCS: 71250

== ENCOUNTER 2022-02-23 03:20 | Outpatient (RCR) | payer MEDICARE, OTHER, SELFPAY ==
[2022-01-28 00:05] VITALS: BP 147/79; PULSE 86; RESP 18; TEMP 36.1
[2022-02-04 08:15] VITALS: BP 115/78; PULSE 85; RESP 18; TEMP 35.8; O2SAT 95
[2022-02-04] MEDS: IMMUNE GLOBULIN 40 GM/400 ML BTL IVPB (08:15)
[2022-02-04] MEDS: Normal Saline Flush 10 ML SYR IVP (08:16)
[2022-02-04 08:30] VITALS: BP 120/71; PULSE 83; RESP 16; TEMP 36.3; O2SAT 94
[2022-02-04 08:45] VITALS: BP 117/75; PULSE 77; RESP 17; TEMP 36.2; O2SAT 93
[2022-02-04 09:15] VITALS: BP 130/78; PULSE 79; RESP 18; TEMP 36.2; O2SAT 94
[2022-02-04 09:45] VITALS: BP 150/84; PULSE 78; RESP 16; TEMP 36.3; O2SAT 95
[2022-02-09] MEDS: IMMUNE GLOBULIN 40 GM/400 ML BTL IVPB (10:09)
[2022-02-09] MEDS: Normal Saline Flush 10 ML SYR IVP (10:09)
[2022-02-09 10:10] VITALS: BP 135/86; PULSE 71; RESP 18; TEMP 36.5; O2SAT 95
[2022-02-09 10:24] VITALS: BP 128/81; PULSE 71; RESP 18; TEMP 36.2; O2SAT 94
[2022-02-09 10:40] VITALS: BP 129/83; PULSE 72; RESP 18; TEMP 36.3; O2SAT 93
[2022-02-09 11:10] VITALS: BP 115/75; PULSE 79; RESP 18; TEMP 36.2; O2SAT 94
[2022-02-09 11:48] VITALS: BP 162/88; PULSE 84; RESP 18; TEMP 36.2; O2SAT 96
[2022-02-16 10:00] VITALS: BP 128/77; PULSE 80; RESP 18; TEMP 36.3; O2SAT 95
[2022-02-16] MEDS: IMMUNE GLOBULIN 40 GM/400 ML BTL IVPB (10:00)
[2022-02-16] MEDS: Normal Saline Flush 10 ML SYR IVP (10:03)
[2022-02-16 10:15] VITALS: BP 121/76; PULSE 78; RESP 19; TEMP 36.2; O2SAT 93
[2022-02-16 10:30] VITALS: BP 122/88; PULSE 83; RESP 18; TEMP 36.2; O2SAT 93
[2022-02-16 11:00] VITALS: BP 119/77; PULSE 81; RESP 18; TEMP 36; O2SAT 95
[2022-02-16 11:30] VITALS: BP 111/69; PULSE 78; RESP 18; TEMP 36.1; O2SAT 95
[2022-02-16 12:00] VITALS: BP 163/100; PULSE 75; RESP 19; TEMP 36; O2SAT 95
[2022-02-23 10:00] VITALS: BP 130/80; PULSE 81; RESP 18; TEMP 36.4; O2SAT 97
[2022-02-23] MEDS: IMMUNE GLOBULIN 40 GM/400 ML BTL IVPB (10:14)
[2022-02-23] MEDS: Normal Saline Flush 10 ML SYR IVP (10:14)
[2022-02-23 10:30] VITALS: BP 116/75; PULSE 77; RESP 18; TEMP 36.4; O2SAT 97
[2022-02-23 10:45] VITALS: BP 110/73; PULSE 80; RESP 17; TEMP 36.3; O2SAT 95
[2022-02-23 11:15] VITALS: BP 121/73; PULSE 73; RESP 17; TEMP 35.7; O2SAT 95
[2022-02-23 11:45] VITALS: BP 143/76; PULSE 82; RESP 17; TEMP 36; O2SAT 94
[2022-02-23 12:20] VITALS: BP 149/89; PULSE 82; RESP 17; TEMP 36; O2SAT 97
== END 2022-02-27 23:59 | disposition home or self-care (01) ==
LOC: INF 03:20
PROVIDERS: PCP Family Medicine; Visit Provider Internal Medicine
DX: G70.00 Myasthenia gravis without (acute) exacerbation (principal)
CPT/HCPCS: 96365; 96366; J1459

== ENCOUNTER 2022-03-04 13:35 | Outpatient (REF) | payer MEDICARE, OTHER, SELFPAY ==
[2022-03-04 10:33] LABS: Bilirubin Negative (Negative); Blood Trace-intact (Negative); Clarity Clear (Clear); Glucose Negative (Negative); Ketones Negative (Negative); Leukocyte Esterase Large (Negative); Nitrite Negative (Negative); Specific Gravity 1.025 (1.005-1.025); Urobilinogen 0.2 EU/dL (Up TO 0.2)
[2022-03-04 10:42] LABS: Bacteria Many HPF (Negative); C & S Indicated? Yes; Casts Negative LPF (Negative); Crystals Negative HPF (Negative); Epithelial Cells Few HPF (Negative); Mucus Trace (Negative); WBC >50 HPF (0-5)
== END 2022-03-04 13:36 | disposition home or self-care (01) ==
LOC: LBN 13:35
PROVIDERS: PCP Family Medicine; Visit Provider Family Medicine
DX: N39.0 Urinary tract infection, site not specified (principal)
CPT/HCPCS: 87077; 81003; 81015; 87086; 87186

== ENCOUNTER 2022-03-30 02:33 | Outpatient (RCR) | payer MEDICARE, SELFPAY ==
[2022-02-28 00:04] VITALS: BP 149/89; PULSE 82; RESP 17; TEMP 36
[2022-03-02 10:15] VITALS: BP 135/79; PULSE 79; RESP 18; TEMP 35.9; O2SAT 95
[2022-03-02] MEDS: IMMUNE GLOBULIN 40 GM/400 ML BTL IVPB (10:44)
[2022-03-02] MEDS: Normal Saline Flush 10 ML SYR IVP (10:45)
[2022-03-02 10:46] VITALS: BP 125/81; PULSE 79; RESP 18; TEMP 35.9; O2SAT 94
[2022-03-02 10:55] VITALS: BP 129/86; PULSE 80; RESP 18; TEMP 35.9; O2SAT 94
[2022-03-02 11:25] VITALS: BP 125/80; PULSE 76; RESP 16; TEMP 36.9; O2SAT 96
[2022-03-02 11:55] VITALS: BP 137/86; PULSE 61; RESP 16; TEMP 36.1; O2SAT 95
[2022-03-02 12:25] VITALS: BP 142/84; PULSE 74; RESP 17; TEMP 36.4; O2SAT 94
[2022-03-09] MEDS: Normal Saline Flush 10 ML SYR IVP (10:02)
[2022-03-09] MEDS: IMMUNE GLOBULIN 40 GM/400 ML BTL IVPB (10:04)
[2022-03-09 10:07] VITALS: BP 143/80; PULSE 78; RESP 18; TEMP 36.6; O2SAT 95
[2022-03-09 10:25] VITALS: BP 129/90; PULSE 79; RESP 18; TEMP 36.5; O2SAT 94
[2022-03-09 10:59] VITALS: BP 120/87; PULSE 77; RESP 18; TEMP 36.8; O2SAT 97
[2022-03-09 11:25] VITALS: BP 130/84; PULSE 75; RESP 17; TEMP 36.7; O2SAT 93
[2022-03-09 11:55] VITALS: BP 137/83; PULSE 76; RESP 17; TEMP 36.8; O2SAT 93
[2022-03-16] MEDS: IMMUNE GLOBULIN 40 GM/400 ML BTL IVPB (10:03)
[2022-03-16] MEDS: Normal Saline Flush 10 ML SYR IVP (10:03)
[2022-03-16 10:10] VITALS: BP 113/76; PULSE 78; RESP 20; TEMP 36.3; O2SAT 95
[2022-03-16 10:26] VITALS: BP 113/76; PULSE 78; RESP 18; TEMP 36.1; O2SAT 95
[2022-03-16 10:40] VITALS: BP 119/80; PULSE 74; RESP 17; TEMP 36.1; O2SAT 95
[2022-03-16 11:14] VITALS: BP 125/78; PULSE 70; RESP 17; TEMP 35.9; O2SAT 96
[2022-03-16 11:45] VITALS: BP 122/79; PULSE 70; RESP 16; TEMP 36.2; O2SAT 95
[2022-03-23 10:05] VITALS: BP 130/81; PULSE 78; RESP 18; TEMP 36.5; O2SAT 96
[2022-03-23] MEDS: IMMUNE GLOBULIN 40 GM/400 ML BTL IVPB (10:07)
[2022-03-23] MEDS: Normal Saline Flush 10 ML SYR IVP (10:08)
[2022-03-23 10:25] VITALS: BP 138/82; PULSE 74; RESP 20; TEMP 36.2; O2SAT 93
[2022-03-23 10:40] VITALS: BP 138/82; PULSE 71; RESP 20; TEMP 36.5; O2SAT 93
[2022-03-23 11:10] VITALS: BP 138/83; PULSE 77; RESP 20; TEMP 36.4; O2SAT 96
[2022-03-23 11:40] VITALS: BP 147/85; PULSE 73; RESP 20; TEMP 36.5; O2SAT 95
[2022-03-23 12:10] VITALS: BP 143/84; PULSE 81; RESP 20; TEMP 36.4; O2SAT 100
[2022-03-30 10:00] VITALS: BP 146/83; PULSE 68; RESP 17; TEMP 36.5; O2SAT 96
[2022-03-30] MEDS: Normal Saline Flush 10 ML SYR IVP (10:05)
[2022-03-30] MEDS: IMMUNE GLOBULIN 40 GM/400 ML BTL IVPB (10:05)
[2022-03-30 10:24] VITALS: BP 134/83; PULSE 71; RESP 18; TEMP 36.2; O2SAT 96
[2022-03-30 10:39] VITALS: BP 146/87; PULSE 75; RESP 20; TEMP 36.1; O2SAT 94
[2022-03-30 11:09] VITALS: BP 138/84; PULSE 77; RESP 19; TEMP 36.4; O2SAT 93
[2022-03-30 11:40] VITALS: BP 152/81; PULSE 79; RESP 20; TEMP 36.1; O2SAT 94
== END 2022-03-30 23:59 | disposition home or self-care (01) ==
LOC: INF 02:33
PROVIDERS: PCP Family Medicine; Visit Provider Internal Medicine
DX: G70.00 Myasthenia gravis without (acute) exacerbation (principal)
CPT/HCPCS: 96365; 96366; J1459

== ENCOUNTER 2022-04-07 12:44 | Outpatient (CLI) | payer MEDICARE, SELFPAY ==
[2022-04-07 13:09] VITALS: BP 136/83; PULSE 86; RESP 20; TEMP 36.3; O2SAT 93
[2022-04-07] MEDS: Midazolam 2 MG/2 ML VIAL IVP (14:01)
[2022-04-07] MEDS: fentaNYL 100 MCG/2 ML VIAL IVP (14:01)
[2022-04-07] MEDS: Lactated Ringers 500 ML 80 ML IV (14:04)
--- NOTE | 2022-04-07 14:24 | DI.RAD_ITS ---
Exam(s) XR PAIN CLINIC FLUORO JOINT IN EXAM: XR PAIN CLINIC FLUORO JOINT IN CLINICAL HISTORY: Dx: Osteoarthritis of the knee TECHNIQUE: 2D and realtime digital imaging was performed. CONTRAST MATERIAL: Refer to procedure report. COMPARISON: No exams were available for comparison FINDINGS: Fluoroscopy was provided for Dr. Marin during the performance of a genicular nerve radiofrequency abl ation. Please refer to the procedure report for complete details. Ka,r=2.93 mGy IMPRESSION:
[2022-04-07 14:26] VITALS: BP 147/86; PULSE 84; RESP 19; O2SAT 96
--- NOTE | 2022-04-07 14:39 | PDOC.PAIN_ITS ---
Date of service: 04/07/22 Time of Service: 14:48 Pain Clinic Procedure Note Procedure Note Procedure Note: RIGHT GENICULAR NERVE RADIOFREQUENCY ABLATION WITH THE COOLIEF MACHINE Date of Service: April 07, 2022 Patient: Shelby Hampton Provider: Yeison Marin DO, MPH Pre-operative diagnosis: Right knee pain Post-operative diagnosis: Same Pre-procedure pain VAS was 6/10. COMMENTS: Previous Genicular nerve block to the RIGHT knee. Shelby Hampton has been referred to the [facility] for RIGHT genicular nerve radiofrequency ablation. Shelby was interviewed and the medical record reviewed. There were no medical, pharmacologic, radiographic or other structural contraindications to attempting fluoroscopically guided RIGHT genicular nerve radiofrequency ablation. Risks and potential side effects as well as potential benefit of the procedure were reviewed with Shelby Hampton , and HER voiced concerns were addressed. After I believed that the patient was completely informed, the printed consent form was signed. Standard time-out procedure was performed. Shelby was placed in the supine position on the fluoroscopy table and automated blood pressure cuff and pulse oximeter applied. The skin entry points for appr oaching RIGHT superolateral genicular nerve, the superomedial genicular nerve and the inferomedial genicular was identified under the most advantageous fluoroscopic view and marked. Following thorough Chlorhexadine preparation of the skin and draping, 1% lidocaine infiltration of the skin entry point and subcutaneous tissues was accomplished using a 1.5 25G needle. Next, the 10 cm 18G RF Cannula with a 10 mm active tip was advanced to os at the location of the specific nerve roots (3) using fluoroscopic guidance. Next, sensory and motor testing was performed and no abnormal findings were found. Next, 1 cc of 2% Lidocaine was injected at each site. The lesion was then created with 80 degrees C for 90 seconds. Each needle was advance 1 cm and the lesion was completed again. Each cannula was advanced until the tip reached the posterior aspect of the bone shaft. 1/3 cc of Depomedrol (40 mg/cc) was then injected at each site followed by 2 cc of 0.5% Bupivacaine as the needle was withdrawn. The needles were removed without difficulty. Shelby's vital signs were stable throughout the procedure and were as recorded in the docflowsheet by the nursing staff. If given, dosages of intravenous drugs for anxiolysis and analgesia were documented in MAR. Follow up plans and appointments were discussed with the Shelby Hampton . Post procedure instruction was given as documented in nursing documentation and having met discharge criteria, Shelby was discharged from the [facility]. COMMENTS: No complications. Edwardo WJ1, Heather SJ, Stephon JG, Preethi JG, Prashant ROQUE, Park PH, Kvng JW. Radiofrequency treatment relieves chronic knee osteoarthritis pain: a double-blind randomized controlled trial. Pain. 2010;152(3):481-7. doi: 10.1016/j.pain.2010.09.029. Susannah S1, Shakir ON2, Bayron Y3, ?zl?surya P2, Denys U1, Ace ?m?rl? I. Which one is more effective for the clinical treatment of chronic pain in knee osteoarthritis: radiofrequency neurotomy of the genicular nerves or intra-articu lar injection? Int J Rheum Dis. 2016 Oct 09. F/U with our office as needed. Post-procedure pain VAS was 0/10. Yeison Marin DO, MPH [facility]
[2022-04-07] MEDS: Lidocaine 2% Pres-Free 5 ML VIAL IJ (15:00)
[2022-04-07] MEDS: Bupivacaine 0.5% Pres-Free 10 ML VIAL IJ (15:00)
[2022-04-07] MEDS: methylPREDNISolone ACETATE 40 MG/ML VIAL IJ (15:01)
== END 2022-04-07 12:45 | disposition home or self-care (01) ==
LOC: PC 12:45
PROVIDERS: PCP Family Medicine; Visit Provider Preventive Medicine Occupational Medicine
DX: M25.561 Pain in right knee (principal)
CPT/HCPCS: 64624; 77002; J1030; J2250; J3010

== ENCOUNTER 2022-04-27 02:03 | Outpatient (RCR) | payer MEDICARE, SELFPAY ==
[2022-03-31 00:04] VITALS: BP 152/81; PULSE 79; RESP 20; TEMP 36.1
[2022-04-06 10:10] VITALS: BP 114/76; PULSE 88; RESP 20; TEMP 36.5; O2SAT 95
[2022-04-06] MEDS: IMMUNE GLOBULIN 40 GM/400 ML BTL IVPB (10:10)
[2022-04-06] MEDS: Normal Saline Flush 10 ML SYR IVP (10:11)
[2022-04-06 10:25] VITALS: BP 129/80; PULSE 82; RESP 18; TEMP 36.3; O2SAT 93
[2022-04-06 10:40] VITALS: BP 129/74; PULSE 68; RESP 19; TEMP 36.5; O2SAT 95
[2022-04-06 11:10] VITALS: BP 133/78; PULSE 77; RESP 18; TEMP 36.2; O2SAT 93
[2022-04-06 11:40] VITALS: BP 137/81; PULSE 83; RESP 18; TEMP 36.4; O2SAT 92
[2022-04-13 10:10] VITALS: BP 132/84; PULSE 77; RESP 20; TEMP 36.1; O2SAT 94
[2022-04-13] MEDS: Normal Saline Flush 10 ML SYR IVP (10:13)
[2022-04-13] MEDS: IMMUNE GLOBULIN 40 GM/400 ML BTL IVPB (10:13)
[2022-04-13 10:25] VITALS: BP 136/80; PULSE 79; RESP 17; TEMP 36; O2SAT 95
[2022-04-13 10:40] VITALS: BP 127/83; PULSE 76; RESP 20; TEMP 36.2; O2SAT 94
[2022-04-13 11:10] VITALS: BP 145/87; PULSE 76; RESP 20; TEMP 36.3; O2SAT 94
[2022-04-13 11:40] VITALS: BP 142/98; PULSE 75; RESP 18; TEMP 36.2; O2SAT 96
[2022-04-13 12:15] VITALS: BP 138/82; PULSE 80; RESP 20; TEMP 36.2; O2SAT 95
[2022-04-20 10:10] VITALS: BP 135/74; PULSE 76; RESP 19; TEMP 35.7; O2SAT 96
[2022-04-20] MEDS: Normal Saline Flush 10 ML SYR IVP (10:12)
[2022-04-20] MEDS: IMMUNE GLOBULIN 40 GM/400 ML BTL IVPB (10:12)
[2022-04-20 10:25] VITALS: BP 125/73; PULSE 72; RESP 20; TEMP 35.7; O2SAT 94
[2022-04-20 10:43] VITALS: BP 120/76; PULSE 73; RESP 18; TEMP 35.9; O2SAT 94
[2022-04-20 11:10] VITALS: BP 137/76; PULSE 75; RESP 18; TEMP 36; O2SAT 93
[2022-04-20 11:44] VITALS: BP 137/80; PULSE 81; RESP 18; TEMP 35.8; O2SAT 95
[2022-04-20 12:10] VITALS: BP 136/84; PULSE 84; RESP 17; TEMP 36.5; O2SAT 94
[2022-04-27 10:30] VITALS: BP 126/80; PULSE 77; RESP 17; TEMP 36.2; O2SAT 95
[2022-04-27] MEDS: IMMUNE GLOBULIN 40 GM/400 ML BTL IVPB (10:31)
[2022-04-27 10:43] VITALS: BP 116/71; PULSE 75; RESP 18; TEMP 36.2; O2SAT 93
[2022-04-27] MEDS: Normal Saline Flush 10 ML SYR IVP (10:47)
[2022-04-27 11:01] VITALS: BP 125/74; PULSE 74; RESP 18; TEMP 36.1; O2SAT 93
[2022-04-27 11:30] VITALS: BP 127/83; PULSE 70; RESP 18; TEMP 36.1; O2SAT 95
[2022-04-27 12:00] VITALS: BP 151/93; PULSE 84; RESP 17; TEMP 36.1; O2SAT 93
[2022-04-27 12:30] VITALS: BP 143/82; PULSE 73; RESP 18; TEMP 35.9; O2SAT 95
== END 2022-04-27 23:59 | disposition home or self-care (01) ==
LOC: INF 02:03
PROVIDERS: PCP Family Medicine; Visit Provider Internal Medicine
DX: G70.00 Myasthenia gravis without (acute) exacerbation (principal)
CPT/HCPCS: 64624; 77002; 96365; 96366; J1030; J1459; J2250; J3010

== ENCOUNTER 2022-05-27 02:08 | Outpatient (RCR) | payer MEDICARE, SELFPAY ==
[2022-04-28 00:12] VITALS: BP 143/82; PULSE 73; RESP 18; TEMP 35.9
[2022-05-04 10:15] VITALS: BP 121/81; PULSE 96; RESP 18; TEMP 36.1; O2SAT 97
[2022-05-04] MEDS: IMMUNE GLOBULIN 10 GM/100 ML BTL IVPB (10:17)
[2022-05-04] MEDS: Normal Saline Flush 10 ML SYR IVP (10:18)
[2022-05-04 10:32] VITALS: BP 130/79; PULSE 80; RESP 17; TEMP 36.2; O2SAT 96
[2022-05-04 10:45] VITALS: BP 119/71; PULSE 78; RESP 18; TEMP 36.1; O2SAT 94
[2022-05-04] MEDS: IMMUNE GLOBULIN 40 GM/400 ML BTL IVPB (11:01)
[2022-05-04 11:15] VITALS: BP 144/84; PULSE 73; RESP 20; TEMP 36.3; O2SAT 92
[2022-05-04 11:45] VITALS: BP 148/84; PULSE 70; RESP 20; TEMP 36.2; O2SAT 92
[2022-05-04 12:40] VITALS: BP 153/83; PULSE 70; RESP 18; TEMP 36.5; O2SAT 95
[2022-05-06 10:05] VITALS: BP 151/81; PULSE 98; RESP 18; TEMP 36.1; O2SAT 95
[2022-05-06] MEDS: Normal Saline Flush 10 ML SYR IVP (10:57)
[2022-05-06 11:05] VITALS: BP 134/80; PULSE 82; RESP 18; TEMP 36.1; O2SAT 95
[2022-05-06 11:35] VITALS: BP 146/84; PULSE 82; RESP 18; TEMP 36.2; O2SAT 95
[2022-05-06 12:30] VITALS: BP 131/78; PULSE 84; RESP 18; TEMP 36.3; O2SAT 94
[2022-05-11] MEDS: IMMUNE GLOBULIN 10 GM/100 ML BTL IVPB (10:13)
[2022-05-11 10:15] VITALS: BP 120/79; PULSE 79; RESP 18; TEMP 36.4; O2SAT 94
[2022-05-11 10:40] VITALS: BP 137/81; PULSE 82; RESP 17; TEMP 36.5; O2SAT 93
[2022-05-11] MEDS: IMMUNE GLOBULIN 40 GM/400 ML BTL IVPB (11:07)
[2022-05-11 11:25] VITALS: BP 125/76; PULSE 77; RESP 17; TEMP 36.4; O2SAT 94
[2022-05-11 11:55] VITALS: BP 122/74; PULSE 84; TEMP 36.4; O2SAT 95
[2022-05-11 12:25] VITALS: BP 133/78; PULSE 84; RESP 17; TEMP 36.5; O2SAT 95
[2022-05-18] MEDS: IMMUNE GLOBULIN 10 GM/100 ML BTL IVPB (10:09)
[2022-05-18 10:15] VITALS: BP 132/84; PULSE 78; TEMP 36.3; O2SAT 93
[2022-05-18 10:30] VITALS: BP 129/81; PULSE 76; TEMP 36.3; O2SAT 93
[2022-05-18 10:45] VITALS: BP 128/80; PULSE 77; TEMP 36.3; O2SAT 95
[2022-05-18] MEDS: IMMUNE GLOBULIN 40 GM/400 ML BTL IVPB (11:02)
[2022-05-18] MEDS: Normal Saline Flush 10 ML SYR IVP (11:03)
[2022-05-18 11:08] VITALS: BP 142/81; PULSE 74; TEMP 36.3; O2SAT 93
[2022-05-18 11:45] VITALS: BP 146/74; PULSE 84; TEMP 36.1; O2SAT 94
[2022-05-18 12:00] VITALS: BP 157/73; PULSE 91; TEMP 36; O2SAT 93
[2022-05-20] MEDS: RAVULIZUMAB-CWVZ 3,300 MG, Normal Saline 33 ML in EMPTY EVACUATED CONTAINER 1 EACH 110 MG IVPB (10:34)
[2022-05-27 09:50] VITALS: BP 126/83; PULSE 58; RESP 18; TEMP 36.6; O2SAT 96
[2022-05-27] MEDS: IMMUNE GLOBULIN 10 GM/100 ML BTL IV (09:54)
[2022-05-27 10:05] VITALS: BP 133/82; PULSE 84; RESP 18; TEMP 36.6; O2SAT 93
[2022-05-27] MEDS: Normal Saline Flush 10 ML SYR IVP (10:15)
[2022-05-27 10:23] VITALS: BP 145/87; PULSE 82; RESP 16; TEMP 36.6; O2SAT 94
[2022-05-27] MEDS: IMMUNE GLOBULIN 40 GM/400 ML BTL IV (10:36)
[2022-05-27 10:53] VITALS: BP 144/75; PULSE 82; RESP 17; TEMP 36.2; O2SAT 93
[2022-05-27 11:30] VITALS: BP 129/76; PULSE 81; RESP 17; TEMP 36.3; O2SAT 93
[2022-05-27 12:10] VITALS: BP 136/80; PULSE 83; RESP 17; TEMP 36.6; O2SAT 94
== END 2022-05-28 23:59 | disposition home or self-care (01) ==
LOC: INF 02:08
PROVIDERS: PCP Family Medicine; Visit Provider Internal Medicine
DX: G70.00 Myasthenia gravis without (acute) exacerbation (principal)
CPT/HCPCS: 96365; 96366; J1303; J1459

== ENCOUNTER 2022-06-09 12:39 | Outpatient (CLI) | payer MEDICARE, SELFPAY ==
--- NOTE | 2022-06-09 | DI.CT_ITS ---
Exam(s) CT CHEST PE CTA EXAM: CT CHEST PE CTA CLINICAL HISTORY: PT ON IVIG, NEW ONSET SOB, EVAL FOR PE AND PULMONARY EDEMA. TECHNIQUE: Imaging Protocol: CT angiography of the chest was performed using pulmonary embolus felipe col. Multi planar reconstructions were performed. CONTRAST MATERIAL: Intravenous: Omnipaque 350 Contrast volume: 100 cc COMPARISON: CT CT RENAL COLIC WO from 11/19/2019 FINDINGS: CHEST: PULMONARY ARTERIES: There are no intraluminal filling defects to suggest acute pulmonary emboli. LUNGS: There are no infiltrates nor evidence of pulmonary infarction.. There are no pleural effusions . No significant focal findings in the trachea and mainstem bronchi. MEDIASTINUM: There is no hilar nor mediastinal adenopathy. Visualized thyroid unremarkable. CARDIAC: There is cardiomegaly. No pericardial effusion. Caliber of the ascending thoracic aorta is prominent measuring 3.9 cm. No evidence of aortic dissection. The diameter of the mid aortic arch is normal as is the diameter of the descending thoracic aorta.No evidence of aortic dissection. No p ericardial effusion. No shift of the interventricular septum. PARTIALLY VISUALIZED UPPERMOST ABDOMEN: Calcified granulomas in the liver and spleen. OSSEOUS: Advanced degenerative changes in both shoulder glenohumeral joints. No osseous lesions. No fractures.. IMPRESSION: 1. No evidence of acute pulmonary emboli. No evidence of pulmonary infarction.No pleural effusions. No infiltrates nor intrathoracic adenopathy. 2. Cardiomegaly. Prominent ascending thoracic aorta diameter 3.9 cm. No dissection. No pericardial effusion. RADIATION DOSE DELIVERED: Total DLP DATA REPOSITORY: All CT scans at this facility are submitted to the National Radiology Data Registry (NRDR) Dose Index Registry (DIR) with the [employer] (ACR). RADIATION OPTIMIZATION: All CT scans at this facility use at least one of these dose optimization te chniques: automated exposure control; mA and/or kV adjustment per patient size (includes targeted exa ms where dose is matched to clinical indication); or iterative reconstruction.
[2022-06-09 13:03] LABS: BUN 14 mg/dL (7-18); CREATININE 1.1 mg/dL (0.55-1.02)
[2022-06-09] MEDS: Omnipaque 350 MG/ML 500 ML BTL-Imaging package IJ (13:19)
[2022-06-09] MEDS: Normal Saline - Diluent 50 ML VIAL IJ (13:20)
== END 2022-06-09 12:59 ==
LOC: DI 12:39
PROVIDERS: PCP Family Medicine; Visit Provider Psychiatry & Neurology Neurology
DX: R06.02 Shortness of breath (principal); I51.7 Cardiomegaly; R53.1 Weakness
CPT/HCPCS: 71275; 84520; 82565

== ENCOUNTER 2022-06-17 02:46 | Outpatient (CLI) | payer MEDICARE, SELFPAY ==
--- NOTE | 2022-06-17 07:30 | DI.US_ITS ---
APPROVED REPORT EXAM: Comprehensive 2D, Doppler, and color-flow Echocardiogram Patient Location: Out-Patient Television Repairman: Nevin Sinclair RDCS (AE) Indications: Cardiomegaly, SOB, HTN Other Information Study Quality: Adequate. Technically limited study due to body habitus. Conclusion Normal left ventricular wall thickness and chamber size. Ejection fraction is 55 to 60%. Wall motio n is normal Normal right ventricular size and systolic function Both atria are normal in size Aortic valve is sclerotic and trileaflet without stenosis or regurgitation Mitral annular calcification, trace mitral regurgitation Mildly dilated aortic root Wall motion Left Ventricle The left ventricle is normal size. The left ventricular systolic function is normal. The left ventric ular ejection fraction is within the normal range. Sigmoid septum is present. There is normal LV segm ental wall motion. There is no ventricular septal defect visualized. LVEF is 55-60%. Right Ventricle The right ventricle is normal size. The right ventricular systolic function is normal. Atria The left atrium size is normal. The right atrium size is normal. The interatrial septum is intact wit h no evidence for an atrial septal defect. Aortic Valve The Aortic valve is sclerotic. Aortic valve is trileaflet. There is no aortic valvular stenosis. No a ortic regurgitation is present. Mitral Valve Mitral annular calcification. No evidence of mitral valve stenosis. Trace mitral regurgitation. Tricuspid Valve The tricuspid valve is normal in structure. There is no tricuspid valve stenosis. Trace tricuspid reg urgitation. Unable to assess PA pressure. Pulmonic Valve The pulmonary valve is normal in structure. There is no pulmonic valvular stenosis. Trace pulmonic re gurgitation. Great Vessels Aortic root is mildly dilated. Ascending aorta is not well visualized. Aortic arch is normal in calib er. IVC is normal in size and collapses >50% with inspiration. Pericardium There is no pericardial effusion. 2D Dimensions IVSD d PLAX 1.72 cm F: 0.6-1.0 LV Vol A2C d MOD 92.7 mL LVPW d PLAX 0.99 cm F: 0.6 - 1.0 LV Vol A4C d MOD 70.1 mL LVID d PLAX 3.74 cm F: 3.8 - 5.2 LA vol/ BSA A2C s A-L 26.7 mL/m2 LVDs 2.60 cm F: 2.2 - 3.5 LA Area A2C s MOD 18.37 cm2 Ao Root d 3.42 cm F: 2.7 - 3.3 LV EF A4C MOD 60.8 % RA Area A4C 12.29 cm2 LV EF A2C MOD 55.1 % RA Vol/ BSA A4C s A-L 14.4 mL/m2 LV EF Biplane MOD 57.8 % LV EF Teichholz 58.5 % SV 46.67 mL LVEF (Bravo's) 57.82 % F: 54 - 74 SV Index 22.36 mL/m2 LV Volume 59.69 mL F: 46 - 106 LV Volume Index 28.55 mL/m2 F: 29 - 61 LV Vol Biplane MOD 80.7 mL FS 30.30 % M-Mode TAPSE 1.38 cm (M/F) >1.7 LV Diastology MV E' medial 0.044 (>0.07 m/s) E/A Ratio 0.6 LV E/e MED 13.55 (<14) MV E Vmax 0.60 (0.4-1.3 m/s) MV E' lateral 0.076 (>0.1 m/s) MV A Vmax 1.05 (0.4-1.3 m/s) LV E/e LAT 7.80 (<14) MV E/A Ratio 0.54 MV E/E' medial 13.56 MV E/E' lateral 7.82 Aortic Valve LVOT Area 3.10 cm2 AoV Area Vmax 2.22 cm2 LVOT Vmax 1.20 m/s AoV Area/ BSA (Vmax) 1.06 cm2/m2 LVOT Mean Maciel. 0.87 m/s CHULA Mean Maciel. 2.13 cm2 LVOT Peak Grad 5.8 mmHg CHULA Mean Maciel. Index 1.02 cm2/m2 LVOT Mean Grad 3.3 mmHg LVOT VTI 0.197 m LVOT Diam s 1.95 cm AoV Vmax 1.68 m/s Velocity Ratio 0.71 AoV Mean Maciel. 1.26 m/s AoV Peak Grad 11.3 mmHg LVOT SV 61.21 mL AoV Mean Grad 7.1 mmHg AoV VTI 0.288 m AoV Area VTI 2.13 cm2 AoV Area/ BSA (VTI) 1.02 cm/m2 Mitral Valve MV DT 284 (160-240 msec) MV PHT 82 msec MV Area PHT 2.67 cm2 MV VTI 0.197 m MV Area VTI 3.11 (4.0-6.0 cm2) Pulmonary Valve PV Vmax 1.05 (0.5-1.5 m/s) RVOT Peak Gr. 1.10 mmHg PV Peak Grad 4.4 mmHg RVOT Mean Gr. 0.65 mmHg PV Mean Grad 2.2 mmHg RVOT VTI 0.087 m PV VTI 0.119 m RVOT Vmax 0.52 m/s
== END 2022-06-17 03:06 ==
LOC: DI 02:46
PROVIDERS: PCP Family Medicine; Visit Provider Family Medicine
DX: I10 Essential (primary) hypertension (principal); R06.02 Shortness of breath; G70.00 Myasthenia gravis without (acute) exacerbation
CPT/HCPCS: 64483; 72100; 93306; Q9967

== ENCOUNTER 2022-06-17 09:39 | Outpatient (CLI) | payer MEDICARE, SELFPAY ==
[2022-06-17 09:46] VITALS: BP 124/74; PULSE 73; RESP 20; TEMP 36.6; O2SAT 99
--- NOTE | 2022-06-17 10:20 | DI.RAD_ITS ---
Exam(s) XR PAIN CLINIC LUMBAR SP 2V EXAM: XR PAIN CLINIC LUMBAR SP 2V CLINICAL HISTORY: Dx: Lumbar Radiculopathy. TECHNIQUE: Fluoroscopy was provided for the referring physician for guidance with performing pain cl inic injection procedure. COMPARISON: No exams were available for comparison FINDINGS: Please see procedure note for details. Fluoro time: 32.9 seconds RADIATION DOSE DELIVERED: Ka,r=15.68 mGy
--- NOTE | 2022-06-17 10:22 | PDOC.PAIN_ITS ---
Date of service: 06/17/22 Time of Service: 10:25 Pain Clinic Procedure Note Procedure Note Procedure Note: LUMBAR / SACRAL TRANSFORAMINAL INJECTION Shelby Hampton has been referred to the [facility] for a transforaminal nerve root block and steroid injection. COMMENTS: She last had this procedure on 11/26/21 and had >4 months of >50% pain relief. Pre-procedure pain VAS was 6/10 Dx: Lumbar radiculopathy Patient was interviewed and the medical record reviewed. There were no medical, pharmacologic, radiographic or other structural contraindications to attempting fluoroscopically guided transforaminal nerve root block and epidural steroid injection. Risks and expected side effects as well as potential benefit of the procedure were reviewed and voiced concerns addressed. The printed consent form was signed and witnessed. Standard time-out procedure was performed. Patient was placed in the prone position on the fluoroscopy table and automated blood pressure cuff and pulse oximeter applied. Fluoroscopy was utilized to i dentify the right L3 neural foramen between L3 and L4. A skin jan was made for the needle insertion site. A Chlorhexadine prep was carried out, and sterile drapes were applied. Local anesthesia was achieved in the skin and subcutaneous tissues. A 22 gauge 5 spinal needle was then inserted, advanced with fluoroscopic guidance into the neural foramen, confirmed on the lateral view. After negative aspiration, 2 ml of Omnipaque 240 was injected confirming position in A/P and lateral views. This showed a good spread of dye transforaminally into the epidural space. There was no vascular update with contrast injection under continuous fluoroscopy and digital substraction. 15 mg of Dexamethasone was injected, followed by 0.5 ml of 1% Xylocaine flush for the nerve root block, as well. There was no unusual discomfort expressed.The needle was withdrawn. The patient tolerated the procedure well. A Band-Aid was applied. Vital signs were stable throughout the procedure and were as recorded in nursing records. If given, dosages of intravenous drugs for anxiolysis and analgesia were documented in nursing records. Follow up plans and appointments were discussed. Post procedure instruction was given as documented in nursing records and patient was discharged in the care of an identified ice delivery driver. COMMENTS:Post-procedure pain VAS was 0/10. If this procedure is again helpful for at least 3 months (at least 50% pain improvement and/or functional improvement), it can be repeated. Yeison Marin DO, MPH [facility]-Pain Management [facility] CC: Eze Zamora MD
[2022-06-17 10:26] VITALS: BP 139/80; PULSE 90; RESP 21; O2SAT 95
[2022-06-17] MEDS: Dexamethasone Sod. Phos./Pres-Free 10 MG/ML VIAL IJ (10:28)
[2022-06-17] MEDS: Omnipaque 240 MG/ML 50 ML BTL IJ (10:28)
== END 2022-06-17 09:40 | disposition home or self-care (01) ==
LOC: PC 09:39
PROVIDERS: PCP Family Medicine; Visit Provider Preventive Medicine Occupational Medicine
DX: M54.17 Radiculopathy, lumbosacral region (principal); M54.50 Low back pain, unspecified
CPT/HCPCS: 64483; 72100; Q9967

== ENCOUNTER 2022-06-22 02:17 | Outpatient (RCR) | payer MEDICARE, SELFPAY ==
[2022-05-29 00:19] VITALS: BP 136/80; PULSE 83; RESP 17; TEMP 36.6
[2022-06-02] MEDS: IMMUNE GLOBULIN 10 GM/100 ML BTL IVPB (10:12)
[2022-06-02] MEDS: Normal Saline Flush 10 ML SYR IVP (10:13)
[2022-06-02 10:20] VITALS: BP 136/83; PULSE 68; RESP 17; TEMP 36.3; O2SAT 93
[2022-06-02 10:35] VITALS: BP 133/82; PULSE 74; TEMP 36.4; O2SAT 93
[2022-06-02 10:51] VITALS: BP 143/81; PULSE 75; TEMP 36.4; O2SAT 95
[2022-06-02] MEDS: IMMUNE GLOBULIN 40 GM/400 ML BTL IVPB (11:04)
[2022-06-02 11:23] VITALS: BP 144/77; PULSE 73; RESP 17; TEMP 36.4; O2SAT 94
[2022-06-02 11:53] VITALS: BP 134/84; PULSE 73; RESP 17; TEMP 36.4; O2SAT 94
[2022-06-02 12:24] VITALS: BP 147/96; PULSE 73; RESP 17; TEMP 36.5; O2SAT 94
[2022-06-08] VITALS (7 sets, daily range): BP systolic 96–135; BP diastolic 61–84; PULSE 77–85; RESP 18–20; TEMP 36.3–36.7; O2SAT 92–95
[2022-06-08] MEDS: IMMUNE GLOBULIN 10 GM/100 ML BTL IVPB (10:12)
[2022-06-08] MEDS: Normal Saline Flush 10 ML SYR IVP (10:19)
[2022-06-08] MEDS: IMMUNE GLOBULIN 40 GM/400 ML BTL IVPB (10:56)
[2022-06-15] MEDS: IMMUNE GLOBULIN 40 GM/400 ML BTL IVPB (10:30)
[2022-06-15 10:37] VITALS: BP 131/90; PULSE 79; RESP 18; TEMP 37; O2SAT 95
[2022-06-15 10:54] VITALS: BP 131/76; PULSE 80; TEMP 36.9; O2SAT 94
[2022-06-15 11:10] VITALS: BP 132/77; PULSE 72; RESP 17; TEMP 36.2; O2SAT 95
[2022-06-15 11:42] VITALS: BP 133/75; PULSE 79; RESP 17; TEMP 36.5; O2SAT 96
[2022-06-15 12:12] VITALS: BP 151/85; PULSE 87; RESP 17; TEMP 36.9; O2SAT 93
[2022-06-22 10:00] VITALS: BP 112/78; PULSE 85; RESP 18; TEMP 36.2; O2SAT 94
[2022-06-22] MEDS: IMMUNE GLOBULIN 40 GM/400 ML BTL IVPB (10:06)
[2022-06-22] MEDS: Normal Saline Flush 10 ML SYR IVP (10:09)
[2022-06-22 10:20] VITALS: BP 117/76; PULSE 81; RESP 17; TEMP 36.6; O2SAT 94
[2022-06-22 10:35] VITALS: BP 109/73; PULSE 77; RESP 17; TEMP 36.5; O2SAT 97
[2022-06-22 11:05] VITALS: BP 125/77; PULSE 81; RESP 17; TEMP 36.5; O2SAT 95
[2022-06-22 11:35] VITALS: BP 146/87; PULSE 84; RESP 17; TEMP 36.5; O2SAT 94
[2022-06-22 12:14] VITALS: BP 131/78; PULSE 79; RESP 17; TEMP 36.4; O2SAT 95
== END 2022-06-27 23:59 | disposition home or self-care (01) ==
LOC: INF 02:17
PROVIDERS: PCP Family Medicine; Visit Provider Internal Medicine
DX: G70.00 Myasthenia gravis without (acute) exacerbation (principal)
CPT/HCPCS: 96365; 96366; J1459

== ENCOUNTER 2022-06-29 08:24 | Outpatient (CLI) | payer MEDICARE, SELFPAY ==
--- NOTE | 2022-06-29 08:15 | RT.EKG_ITS ---
APPROVED REPORT Exam: Resting ECG Reason for Exam: ascvd Patient Location: O HR:97 bpm ECG Measurements Heart Rate 97 AXIS UT 166 P 3 QRSd 116 QRS -41 QT 365 T 106 QTc 464 Conclusion Sinus rhythm...normal P axis, V-rate 50- 99 Probable left atrial enlargement...P >50mS, <-0.10mV V1 LVH with IVCD, LAD and secondary repol abnrm...multi-criteria, wQRSd, abnr ST-T
== END 2022-06-29 08:25 | disposition home or self-care (01) ==
LOC: DI.CARD 08:25
PROVIDERS: PCP Family Medicine; Visit Provider Internal Medicine Cardiovascular Disease
DX: I70.90 Unspecified atherosclerosis (principal)
CPT/HCPCS: 93005; 93010; 99214

== ENCOUNTER → 2022-06-29 12:39 | Outpatient (BNVA) | payer MEDICARE, SELFPAY | PROVIDERS: PCP Family Medicine; Referring Provider Family Medicine; Visit Provider Internal Medicine Cardiovascular Disease | DX: G70.00 Myasthenia gravis without (acute) exacerbation (principal); M35.00 Sjogren syndrome, unspecified; R06.09 Other forms of dyspnea; I70.90 Unspecified atherosclerosis | CPT/HCPCS: 93005; 99214 ==

== ENCOUNTER 2022-07-19 00:56 | Outpatient (CLI) | payer MEDICARE, SELFPAY ==
--- NOTE | 2022-07-19 07:20 | DI.NM_ITS ---
APPROVED REPORT Exam: Pharmacologic Patient Location: Out-Patient Room/Bed: Stress Nurse: Windy Hernández RN Ordering Provider:HANH CRUZ, Contact Number: [phone] BMI: 30.84 Baseline Rhythm: Sinus Rhythm Indications: CAD, RODGERS Medical History Medical History: Myasthenia Gravis, ILD, atehrosclerosis, GERD, HLD, chronic lung disease, RODGERS, heart murmur, increase BP without HTN diagnosis, Cardiac Medications: Predinisone, omeprazole, albuterol sulfate, breo ellipta Allergies: Penicillin, pregabalin, sulfa, topiramate, amitriptyline, celecoxib, difulcan, gabapentin, gabapentin, hydroxychloroquin, imipramine, methylphenidatre Cardiac Risk Factors: CVD, former smoker, HLD, obesity Previous Cardiac Procedures: None Pretest Chest Pain Characteristics: None Exercise History: Sedentary Physical Disabilities: Neuropathy, shoulder pain Lung Sounds: Clear to auscultation Heart Sounds: Regular Stress Test Details Test: Pharmacologic stress testing performed using 0.4 mg of regadenoson per 5 mL given IV over 10 s econds. Reason for pharmacologic stress test: physical limitation. Nuclear Acquisition: Rest Tc-99m/Stress Tc-99m 1 day Rest Isotope: Tc-99m Sestamibi. Dose: 10.0 Date: 07/19/2022 Injection Time: 0900 Stress Isotope: Tc-99m Sestamibi. Dose: 31.0 Date: 07/19/2022 Injection Time: 1020 HR Resting HR Supine: 80 bpm Max Heart Rate (APMHR): 145.347012 bpm Resting HR Standin bpm Target HR (85% APMHR): 123.359192 bpm Max HR Achieved: 107 bpm % of APMHR: 73.79 Recovery HR: 85 bpm BP Resting BP Supine: 145/92 mmHg Resting BP Standin/98 mmHg Max BP: 170/82 mmHg Recovery BP: 148/86 mmHg ECG Resting ECG: Sinus Rhythm, T wave inversion I, V2 Ectopy: None Stress ECG: Sinus Rhythm, lead I remains inverted ST Change: No significant ST segment changes noted Arrhythmia: None Recovery ECG: Sinus Rhythm Recovery ST Change: No significant ST segment changes noted, T wave inverions in and V2, Recovery Arrhythmia: None Clinical Stress Symptoms: Dyspnea Angina Score: None Rate Pressure Product: [id number] Stress ECG Conclusion 1. Resting electrocardiogram showed a left bundle branch block 2. Patient underwent testing using pharmacologic stress with regadenoson 3. Peak heart rate achieved was 74% of predicted for age 4. Echocardiographic portion of the test was nondiagnostic due to abnormal resting electrocardiogram and inadequate heart rate 5. See MPI report Stress Test Summary STAGE HR BP SpO2 Symptoms NOTES Supine 80 145/92 91 Standing 94 152/98 1 min post Lexiscan injection 96 170/82 90 Mild dyspnea 3 min post Lexiscan injection 89 146/92 96 Dyspnea resolved 6 min post Lexiscan injection 85 148/86 96 Attempted walking lynn but unable to complete due to artifact, ambulated patient to stretcher for lay ing lynn which was completed. MPI Conclusion Myocardial perfusion is normal. There is no ischemia or evidence of prior infarction EF is 67% with normal wall motion Radiologist Interpretation Radiologist Interpretation by: Girish Machado MD Interpretation Date/Time: 07/19/2022 17:15:48
[2022-07-19] MEDS: Regadenoson 0.4 MG/5 ML SYR IVP (10:32)
== END 2022-07-19 01:16 ==
LOC: DI 00:56
PROVIDERS: PCP Family Medicine; Visit Provider Internal Medicine Cardiovascular Disease
DX: I70.90 Unspecified atherosclerosis (principal); R06.09 Other forms of dyspnea
CPT/HCPCS: 78452; 93016; 93018; 93017; J2785

== ENCOUNTER 2022-07-20 02:18 | Outpatient (RCR) | payer MEDICARE, SELFPAY ==
[2022-06-28 00:19] VITALS: BP 131/78; PULSE 79; RESP 17; TEMP 36.4
[2022-06-29 09:50] VITALS: BP 128/84; PULSE 74; RESP 18; TEMP 36.4; O2SAT 95
[2022-06-29] MEDS: IMMUNE GLOBULIN 40 GM/400 ML BTL IVPB (09:50)
[2022-06-29] MEDS: Normal Saline Flush 10 ML SYR IVP (09:51)
[2022-06-29 10:05] VITALS: BP 110/80; PULSE 75; RESP 17; TEMP 36.7; O2SAT 94
[2022-06-29 10:20] VITALS: BP 110/80; PULSE 77; RESP 17; TEMP 36.1; O2SAT 94
[2022-06-29 10:50] VITALS: BP 133/81; PULSE 75; RESP 17; TEMP 36.4; O2SAT 94
[2022-06-29 11:24] VITALS: BP 138/81; PULSE 81; RESP 17; TEMP 36.2; O2SAT 95
[2022-07-06 10:20] VITALS: BP 126/78; PULSE 75; RESP 18; TEMP 36.3; O2SAT 94
[2022-07-06] MEDS: Normal Saline Flush 10 ML SYR IVP (10:25)
[2022-07-06] MEDS: IMMUNE GLOBULIN 40 GM/400 ML BTL IVPB (10:25)
[2022-07-06 10:47] VITALS: BP 129/83; PULSE 77; RESP 18; TEMP 36.3; O2SAT 93
[2022-07-06 11:02] VITALS: BP 129/78; PULSE 74; RESP 17; TEMP 36.2; O2SAT 94
[2022-07-06 11:32] VITALS: BP 131/79; PULSE 77; RESP 17; TEMP 36; O2SAT 95
[2022-07-06 12:02] VITALS: BP 152/84; PULSE 87; RESP 17; TEMP 36.2; O2SAT 94
[2022-07-06 12:30] VITALS: BP 129/77; PULSE 86; TEMP 36.5; O2SAT 96
[2022-07-20 10:14] VITALS: BP 127/84; PULSE 85; RESP 18; O2SAT 96
[2022-07-20] MEDS: Normal Saline Flush 10 ML SYR IVP (10:16)
[2022-07-20] MEDS: RAVULIZUMAB-CWVZ 3,300 MG, Normal Saline 33 ML in EMPTY EVACUATED CONTAINER 1 EACH 110 MG IVPB (10:16)
== END 2022-07-28 23:59 | disposition home or self-care (01) ==
LOC: INF 02:18
PROVIDERS: PCP Family Medicine; Visit Provider Internal Medicine
DX: G70.00 Myasthenia gravis without (acute) exacerbation (principal)
CPT/HCPCS: 93005; 96365; 96366; 99203; 99214; J1303; J1459

== ENCOUNTER → 2022-08-02 10:00 | Outpatient (BNVA) | payer MEDICARE, SELFPAY | PROVIDERS: PCP Family Medicine; Referring Provider Family Medicine; Visit Provider Internal Medicine Cardiovascular Disease | DX: I70.90 Unspecified atherosclerosis (principal) | CPT/HCPCS: 99213 ==

== ENCOUNTER 2022-08-13 01:31 | Outpatient (RCR) | payer MEDICARE, SELFPAY ==
[2022-07-29 00:17] VITALS: BP 127/84; PULSE 85; RESP 18; TEMP 36.5
[2022-08-12] VITALS (9 sets, daily range): BP systolic 124–147; BP diastolic 79–88; PULSE 79–107; RESP 16–18; TEMP 36.3–36.7; O2SAT 94–96
[2022-08-12] MEDS: IMMUNE GLOBULIN 5 GM/50 ML BTL IVPB (09:16)
[2022-08-12] MEDS: Normal Saline Flush 10 ML SYR IVP (09:17)
[2022-08-12] MEDS: IMMUNE GLOBULIN 10 GM/100 ML BTL IVPB (09:47)
[2022-08-12] MEDS: IMMUNE GLOBULIN 40 GM/400 ML BTL IVPB ×2 (10:20→11:53)
[2022-08-13] VITALS (9 sets, daily range): BP systolic 122–141; BP diastolic 66–88; PULSE 76–92; RESP 17–19; TEMP 36.3–36.5; O2SAT 92–96
[2022-08-13] MEDS: IMMUNE GLOBULIN 5 GM/50 ML BTL IVPB (09:09)
[2022-08-13] MEDS: Normal Saline Flush 10 ML SYR IVP (09:09)
[2022-08-13] MEDS: IMMUNE GLOBULIN 10 GM/100 ML BTL IVPB (09:38)
[2022-08-13] MEDS: IMMUNE GLOBULIN 40 GM/400 ML BTL IVPB ×2 (10:12→11:56)
== END 2022-08-27 23:59 | disposition home or self-care (01) ==
LOC: INF 01:31
PROVIDERS: PCP Family Medicine; Visit Provider Nurse Practitioner Acute Care
DX: G70.00 Myasthenia gravis without (acute) exacerbation (principal)
CPT/HCPCS: 96365; 96366; J1459

== ENCOUNTER → 2022-09-09 13:29 | Outpatient (BNVA) | payer MEDICARE, SELFPAY | PROVIDERS: PCP Family Medicine; Referring Provider Family Medicine; Visit Provider Student in an Organized Health Care Education/Training Program | DX: M19.011 Primary osteoarthritis, right shoulder (principal) | CPT/HCPCS: 20611; J1040 ==

== ENCOUNTER 2022-09-14 02:05 | Outpatient (RCR) | payer MEDICARE, SELFPAY ==
[2022-08-28 00:18] VITALS: BP 126/76; PULSE 82; RESP 17; TEMP 36.5
[2022-09-06] VITALS (8 sets, daily range): BP systolic 130–173; BP diastolic 74–97; PULSE 68–98; RESP 17–18; TEMP 35.6–36.9; O2SAT 93–95
[2022-09-06] MEDS: IMMUNE GLOBULIN 5 GM/50 ML BTL IVPB (09:27)
[2022-09-06] MEDS: Normal Saline Flush 10 ML SYR IVP (09:28)
[2022-09-06] MEDS: IMMUNE GLOBULIN 10 GM/100 ML BTL IVPB (09:57)
[2022-09-06] MEDS: IMMUNE GLOBULIN 40 GM/400 ML BTL IVPB (10:37)
[2022-09-06] MEDS: IMMUNE GLOBULIN 40 GM/400 ML BTL IV (12:10)
[2022-09-07] VITALS (7 sets, daily range): BP systolic 116–162; BP diastolic 72–98; PULSE 71–105; RESP 17–18; TEMP 35.8–36.2; O2SAT 93–94
[2022-09-07] MEDS: IMMUNE GLOBULIN 5 GM/50 ML BTL IVPB (09:01)
[2022-09-07] MEDS: Normal Saline Flush 10 ML SYR IVP (09:02)
[2022-09-07] MEDS: IMMUNE GLOBULIN 10 GM/100 ML BTL IVPB (09:29)
[2022-09-07] MEDS: IMMUNE GLOBULIN 40 GM/400 ML BTL IVPB (10:11)
[2022-09-07] MEDS: IMMUNE GLOBULIN 40 GM/400 ML BTL IV (11:37)
[2022-09-14] MEDS: Normal Saline Flush 10 ML SYR IVP (11:00)
[2022-09-14] MEDS: RAVULIZUMAB-CWVZ 3,300 MG, Normal Saline 33 ML in EMPTY EVACUATED CONTAINER 1 EACH 110 MG IVPB (11:00)
== END 2022-09-27 23:59 | disposition home or self-care (01) ==
LOC: INF 02:05
PROVIDERS: PCP Family Medicine; Visit Provider Nurse Practitioner Acute Care
DX: G70.00 Myasthenia gravis without (acute) exacerbation (principal)
CPT/HCPCS: 96365; 96366; J1303; J1459

== ENCOUNTER → 2022-09-16 10:29 | Outpatient (BNVA) | payer MEDICARE, SELFPAY | PROVIDERS: PCP Family Medicine; Referring Provider Family Medicine | DX: M17.11 Unilateral primary osteoarthritis, right knee (principal) | CPT/HCPCS: 20610; J1040 ==

== ENCOUNTER 2022-10-05 03:42 | Outpatient (RCR) | payer MEDICARE, SELFPAY ==
[2022-09-28 00:15] VITALS: BP 161/83; PULSE 105; RESP 18; TEMP 36
[2022-10-04] VITALS (8 sets, daily range): BP systolic 117–168; BP diastolic 77–84; PULSE 79–116; RESP 17; TEMP 36–36.3; O2SAT 93–96
[2022-10-04] MEDS: IMMUNE GLOBULIN 5 GM/50 ML BTL IVPB (09:45)
[2022-10-04] MEDS: IMMUNE GLOBULIN 10 GM/100 ML BTL IVPB (10:22)
[2022-10-04] MEDS: IMMUNE GLOBULIN 40 GM/400 ML BTL IV (10:58)
[2022-10-04] MEDS: IMMUNE GLOBULIN 40 GM/400 ML BTL IVPB (12:36)
[2022-10-04] MEDS: Normal Saline Flush 10 ML SYR IVP (12:37)
[2022-10-05] VITALS (7 sets, daily range): BP systolic 134–151; BP diastolic 80–92; PULSE 74–99; RESP 17–18; TEMP 35.6–36.2; O2SAT 92–95
[2022-10-05] MEDS: IMMUNE GLOBULIN 5 GM/50 ML BTL IVPB (09:05)
[2022-10-05] MEDS: Normal Saline Flush 10 ML SYR IVP (09:06)
[2022-10-05] MEDS: IMMUNE GLOBULIN 10 GM/100 ML BTL IVPB (09:31)
[2022-10-05] MEDS: IMMUNE GLOBULIN 40 GM/400 ML BTL IV (10:07)
[2022-10-05 10:56] LABS: Lyme Ab w Rflx to Lyme Confirm Negative (Negative)
[2022-10-05] MEDS: IMMUNE GLOBULIN 40 GM/400 ML BTL IVPB (11:49)
[2022-10-07 07:55] LABS: Anaplasma phagocytophilum Negative (Negative); B. miyamotoi PCR Negative (Negative); Babesia divergens/MO-1 Negative (Negative); Babesia duncani Negative (Negative); Babesia microti Negative (Negative); Ehrlichia chaffeensis Negative (Negative); Ehrlichia ewingii/canis Negative (Negative); Ehrlichia muris eauclairensis Negative (Negative)
== END 2022-10-28 23:59 | disposition home or self-care (01) ==
LOC: INF 03:42
PROVIDERS: Physician Assistant; PCP Family Medicine; Visit Provider Nurse Practitioner Acute Care
DX: G70.00 Myasthenia gravis without (acute) exacerbation (principal); R21 Rash and other nonspecific skin eruption
CPT/HCPCS: 87798; 96365; 96366; 86618; J1459

== ENCOUNTER 2022-10-11 15:17 | Outpatient (CLI) | payer MEDICARE, SELFPAY ==
[2022-10-11 15:28] VITALS: BP 130/79; PULSE 93; RESP 20; TEMP 36.2; O2SAT 94
--- NOTE | 2022-10-11 15:58 | PDOC.PAIN ---
Date of service: 10/11/22 Time of Service: 15:58 Pain Managment Procedure Note Procedure Note Procedure Note: LUMBAR / SACRAL TRANSFORAMINAL INJECTION Shelby Hampton has been referred to the [facility] Management Center for a transforaminal nerve root block and steroid injection. COMMENTS: She had >3 months of >50% pain relief with her last TFESI at right L5. Dx: Lumbosacral radiculopathy Pre-procedure pain VAS was 6/10 Patient was interviewed and the medical record reviewed. There were no medical, pharmacologic, radiographic or other structural contraindications to attempting fluoroscopically guided transforaminal nerve root block and epidural steroid injection. Risks and expected side effects as well as potential benefit of the procedure were reviewed and voiced concerns addressed. The printed consent form was signed and witnessed. Standard time-out procedure was performed. Patient was placed in the prone position on the fluoroscopy table and automated blood pressure cuff and pulse oximeter applied. Fluoroscopy was utilized to identify the Right L3 neural foramen between L3 and L4 . A skin jan was made for the needle insertion site. A Chlorhexadine prep was carried out, and sterile drapes were applied. Local anesthesia was achieved in the skin and subcutaneous tissues. A 22 gauge curved tip spinal needle was then inserted, advanced with fluoroscopic guidance into the neural foramen, confirmed on the lateral view. After negative aspiration, 2 ml of Omnipaque 240 was injected confirming position in A/P and lateral views. This showed a good spread of dye transforaminally into the epidural space. There was no vascular update with contrast injection under continuous fluoroscopy and digital substraction. 15 mg of Dexamethasone was injected, followed by 0.5 ml of 1% Xylocaine flush for the nerve root block, as well. There was no unusual discomfort expressed.The needle was withdrawn. The patient tolerated the procedure well. A Band-Aid was applied. Vital signs were stable throughout the procedure and were as recorded in nursing records. If given, dosages of intravenous drugs for anxiolysis and analgesia were documented in nursing records. Follow up plans and appointments were discussed. Post procedure instruction was given as documented in nursing records and patient was discharged in the care of an identified crew truck driver. COMMENTS:Post-procedure pain VAS was 0/10. Yeison Marin DO, MPH [facility]-Pain Management [facility] Pain CC: Eze Zamora MD
--- NOTE | 2022-10-11 16:00 | DI.RAD_ITS ---
Exam(s) XR PAIN CLINIC LUMBAR SP 2V EXAM: XR PAIN CLINIC LUMBAR SP 2V CLINICAL HISTORY: DX: Lumbar Radiculopathy. TECHNIQUE: Fluoroscopy was provided for the referring physician for guidance with performing pain cl inic injection procedure. COMPARISON: No exams were available for comparison FINDINGS: Please see procedure note for details. Fluoro time: 32.8 seconds RADIATION DOSE DELIVERED: Ka,r=18.62 mGy
[2022-10-11 16:03] VITALS: BP 157/82; PULSE 94; RESP 16; O2SAT 98
[2022-10-11] MEDS: Dexamethasone Sod. Phos./Pres-Free 10 MG/ML VIAL IJ (16:04)
[2022-10-11] MEDS: Omnipaque 240 MG/ML 50 ML BTL IJ (16:05)
== END 2022-10-11 15:18 | disposition home or self-care (01) ==
LOC: PC 15:17
PROVIDERS: PCP Family Medicine; Visit Provider Preventive Medicine Occupational Medicine
DX: M54.50 Low back pain, unspecified (principal); M54.17 Radiculopathy, lumbosacral region
CPT/HCPCS: 64483; 72100; Q9967

== ENCOUNTER 2022-10-15 03:10 | Outpatient (CLI) | payer MEDICARE, SELFPAY ==
[2022-10-15] MEDS: Albuterol HFA 18 GM 200 PUFF INH IH (11:17)
[2022-10-15] MEDS: Inhaler, Assist Device 1 EACH MC (11:18)
--- NOTE | 2022-10-15 12:47 | W.PFT ---
Date of service: 10/15/22 Time of Service: 10:23 Pulmonary Function Test Result Indications: ILD Interpretation Spirometry: There is no airflow limitation. There is restrictive spirometry and no bronchodilator response. For her age, the MIP is normal. Low MEP. Lung Volumes: Normal lung volumes Diffusion Capacity: Normal diffusion Airway Pressure: Normal airways resistance Impression Restrictive spirometry with a technically normal MIP for her age and a low MEP. Clinical Correlation therefore is recommended.
== END 2022-10-15 03:11 | disposition home or self-care (01) ==
LOC: RT 03:10
PROVIDERS: PCP Family Medicine; Visit Provider Student in an Organized Health Care Education/Training Program
DX: J84.9 Interstitial pulmonary disease, unspecified (principal)
CPT/HCPCS: 94060; 94726; 94729

== ENCOUNTER 2022-11-11 02:10 | Outpatient (RCR) | payer MEDICARE, SELFPAY ==
[2022-10-29 00:21] VITALS: BP 146/80; PULSE 82; RESP 18; TEMP 35.6
[2022-11-04] VITALS (9 sets, daily range): BP systolic 110–160; BP diastolic 68–93; PULSE 85–95; RESP 16–17; TEMP 35.4–36.7; O2SAT 92–95
[2022-11-04] MEDS: IMMUNE GLOBULIN 5 GM/50 ML BTL IVPB (09:35)
[2022-11-04] MEDS: Normal Saline Flush 10 ML SYR IVP (09:35)
[2022-11-04] MEDS: IMMUNE GLOBULIN 10 GM/100 ML BTL IVPB (09:56)
[2022-11-04] MEDS: IMMUNE GLOBULIN 40 GM/400 ML BTL IVPB (10:34)
[2022-11-04] MEDS: IMMUNE GLOBULIN 40 GM/400 ML BTL IV (12:10)
[2022-11-05] VITALS (9 sets, daily range): BP systolic 129–150; BP diastolic 77–98; PULSE 77–81; RESP 16–18; TEMP 36.3–36.8; O2SAT 93–95
[2022-11-05] MEDS: IMMUNE GLOBULIN 5 GM/50 ML BTL IVPB (08:54)
[2022-11-05] MEDS: Normal Saline Flush 10 ML SYR IVP (09:01)
[2022-11-05] MEDS: IMMUNE GLOBULIN 10 GM/100 ML BTL IVPB (09:21)
[2022-11-05] MEDS: IMMUNE GLOBULIN 40 GM/400 ML BTL IVPB (09:55)
[2022-11-05] MEDS: IMMUNE GLOBULIN 40 GM/400 ML BTL IV (11:35)
[2022-11-11 10:11] VITALS: BP 148/89; PULSE 68; RESP 18; TEMP 36.1; O2SAT 94
[2022-11-11] MEDS: RAVULIZUMAB-CWVZ 3,300 MG, Normal Saline 33 ML in EMPTY EVACUATED CONTAINER 1 EACH 110 MG IVPB (10:28)
[2022-11-11] MEDS: Normal Saline Flush 10 ML SYR IVP (10:41)
== END 2022-11-27 23:59 | disposition home or self-care (01) ==
LOC: INF 02:10
PROVIDERS: PCP Family Medicine; Visit Provider Nurse Practitioner Acute Care
DX: G70.00 Myasthenia gravis without (acute) exacerbation (principal)
CPT/HCPCS: 96365; 96366; J1303; J1459

== ENCOUNTER 2022-12-27 03:00 | Outpatient (RCR) | payer MEDICARE, SELFPAY ==
[2022-11-28 00:17] VITALS: BP 148/89; PULSE 68; RESP 18; TEMP 36.1
[2022-11-30] VITALS (8 sets, daily range): BP systolic 102–148; BP diastolic 66–86; PULSE 77–91; RESP 16–18; TEMP 36.1–36.7; O2SAT 93–98
[2022-11-30] MEDS: IMMUNE GLOBULIN 5 GM/50 ML BTL IVPB (10:00)
[2022-11-30] MEDS: Normal Saline Flush 10 ML SYR IVP (10:03)
[2022-11-30] MEDS: IMMUNE GLOBULIN 10 GM/100 ML BTL IVPB (10:28)
[2022-11-30] MEDS: IMMUNE GLOBULIN 40 GM/400 ML BTL IV ×2 (11:04→12:43)
[2022-12-14] VITALS (7 sets, daily range): BP systolic 138–167; BP diastolic 78–90; PULSE 78–86; RESP 17–18; TEMP 36.2–36.6; O2SAT 93–97
[2022-12-14] MEDS: IMMUNE GLOBULIN 5 GM/50 ML BTL IVPB (09:13)
[2022-12-14] MEDS: Normal Saline Flush 10 ML SYR IVP (09:14)
[2022-12-14] MEDS: IMMUNE GLOBULIN 10 GM/100 ML BTL IVPB (09:46)
[2022-12-14] MEDS: IMMUNE GLOBULIN 40 GM/400 ML BTL IV ×2 (10:21→11:58)
[2022-12-27] VITALS (8 sets, daily range): BP systolic 132–174; BP diastolic 71–88; PULSE 74–87; RESP 18; TEMP 35.8–36.3; O2SAT 93–95
[2022-12-27] MEDS: IMMUNE GLOBULIN 5 GM/50 ML BTL IVPB (09:12)
[2022-12-27] MEDS: IMMUNE GLOBULIN 10 GM/100 ML BTL IVPB (09:49)
[2022-12-27] MEDS: IMMUNE GLOBULIN 40 GM/400 ML BTL IVPB ×2 (10:23→11:52)
[2022-12-27] MEDS: Normal Saline Flush 10 ML SYR IVP (13:37)
== END 2022-12-28 23:59 | disposition home or self-care (01) ==
LOC: INF 03:00
PROVIDERS: PCP Family Medicine; Visit Provider Nurse Practitioner Acute Care
DX: G70.00 Myasthenia gravis without (acute) exacerbation (principal)
CPT/HCPCS: 96365; 96366; J1459

== ENCOUNTER → 2022-12-30 01:13 | Outpatient (CLI) | payer MEDICARE, SELFPAY ==
--- NOTE | 2022-12-30 | DI.DEXA_ITS ---
Exam(s) XR DEXA BONE DENSITY W/WO MERRICK EXAM: XR DEXA BONE DENSITY W/WO MERRICK CLINICAL HISTORY: OSTEOPOROSIS, M81.0 TECHNIQUE: COMPARISON: DX DEXA BONE DENSITY WITH MERRICK from 05/11/2016 CR LUMBAR SPINE COMPLETE from 10/27/2016 RF XR PAIN CLINIC LUMBAR SP 2V from 10/11/2022 FINDINGS: Lateral Spine Image: Unremarkable. No compression deformities identified. Left hip: Total T-Score: -0.2. This compares to -0.2 on the prior examination. Total Z-Score: 1.7 T- and Z-scores: Within normal limits. Left forearm: Total T-Score: -1.9. This compares to -2.5 on the prior examination. Total Z-Score: 0.7 T- and Z-scores: Findings are consistent with osteopenia. IMPRESSION: No evidence of osteoporosis.
== END ==
PROVIDERS: PCP Family Medicine; Visit Provider Internal Medicine
DX: M81.0 Age-related osteoporosis without current pathological fracture (principal); Z13.820 Encounter for screening for osteoporosis
CPT/HCPCS: 77080

== ENCOUNTER → 2023-01-06 09:23 | Outpatient (BNVA) | payer MEDICARE, SELFPAY | PROVIDERS: PCP Family Medicine; Referring Provider Family Medicine; Visit Provider Physician Assistant Surgical | DX: M35.06 Sjogren syndrome with peripheral nervous system involvement (principal); G70.00 Myasthenia gravis without (acute) exacerbation; J84.9 Interstitial pulmonary disease, unspecified; J43.9 Emphysema, unspecified; Z87.891 Personal history of nicotine dependence; G70.9 Myoneural disorder, unspecified; J99 Respiratory disorders in diseases classified elsewhere | CPT/HCPCS: 99214 ==

== ENCOUNTER 2023-01-06 10:10 | Outpatient (CLI) | payer MEDICARE, SELFPAY ==
[2023-01-06 10:32] VITALS: BP 157/87; PULSE 84; RESP 20; TEMP 36.4; O2SAT 94
[2023-01-06] MEDS: fentaNYL 100 MCG/2 ML VIAL IVP (11:15)
[2023-01-06] MEDS: Midazolam 2 MG/2 ML VIAL IVP (11:16)
[2023-01-06] MEDS: Lactated Ringers 500 ML 80 ML IV (11:16)
[2023-01-06 11:35] VITALS: BP 167/84; PULSE 81; RESP 16; O2SAT 93
--- NOTE | 2023-01-06 11:39 | DI.RAD_ITS ---
Exam(s) XR PAIN CLINIC FLUORO JOINT IN EXAM: XR PAIN CLINIC FLUORO JOINT IN CLINICAL HISTORY: Dx: Osteoarthritis of the knee. TECHNIQUE: Fluoroscopy was provided for the referring physician for guidance with performing pain cl inic injection procedure. COMPARISON: No exams were available for comparison FINDINGS: Please see procedure note for details. Fluoro time: 50.7 seconds RADIATION DOSE DELIVERED: negrita Hameed=2.62 mGy
[2023-01-06] MEDS: Bupivacaine 0.5% Pres-Free 10 ML VIAL IJ (11:47)
[2023-01-06] MEDS: methylPREDNISolone ACETATE 40 MG/ML VIAL IJ (11:48)
[2023-01-06] MEDS: Lidocaine 2% Pres-Free 5 ML VIAL IJ (11:48)
--- NOTE | 2023-01-06 12:31 | PDOC.PAIN_ITS ---
Date of service: 01/06/23 Time of Service: 12:00 Pain Managment Procedure Note Procedure Note Procedure Note: PROCEDURE NOTE RIGHT GENICULAR NERVE RADIOFREQUENCY ABLATION Date of Service: January 06, 2023 Patient: Shelby Hampton Provider: Scarlett Weiner DO, MPH Shelby Hampton has been referred to the [facility] for Right genicular nerve radiofrequency ablation with the [employer] machine. Pre-operative diagnosis: Pain in right knee M25.561 Post-operative diagnosis: Same Pre-Procedure Pain: VAS=8/10 Comments: Previous genicular nerve radiofrequency ablation to the Right knee on 04/07/22 with >6 months of >50% pain improvement as well as improved function. PROCEDURE: 1. Superolateral genicular branch from the vastus lateralis 2. Superomedial genicular branch from the vastus medialis 3. Inferomedial genicular branch from the saphenous nerve 4. (Optional) Terminal branch of the nerve vastus intermedius Shelby was interviewed and the medical record reviewed. There were no medical, pharmacologic, radiographic or other structural contraindications to attempting fluoroscopically guided Right genicular nerve radiofrequency ablation. Risks and potential side effects as well as potential benefit of the procedure were reviewed with Shelby Hampton , and the patient's voiced concerns were addressed. After I believed that the patient was completely informed, the printed consent form was signed. Standard time-out procedure was performed. Shelby Hampton was brought into brought to the procedure room and placed on the fluoroscopy table in a comfortable supine position and automated blood pressure cuff and pulse oximeter applied. A grounding pad was placed on the right ankle. The place for needle placement was obtained by manual palpation with radiographic confirmation. The skin entry points for approaching Right superolateral genicular nerve, the superomedial genicular nerve, nerve of the vastus intermedius and the inferomedial genicular was identified under the most advantageous fluoroscopic view and marked. Following thorough Chlorhexadine preparation of the skin and draping, 1% lidocaine infiltration of the skin entry point and subcutaneous tissues was accomplished using a 1.5 25G needle. Next, the 17G 50 mm radiofrequency cannula needle with a 4mm active tip was advanced to os at the location of the specific nerve roots (4) using fluoroscopic guidance. Next, motor testing was performed and no abnormal findings were found. Next, 1 cc of 2% Lidocaine was injected at each site after negative aspiration. The lesion was then created with 80 degrees Celsius for 2 minutes and 30 seconds each. 1/4 cc of Depo-Medrol (40 mg/cc) was then injected at each site followed by 1 cc of 0.5% Bupivacaine as the needle was withdrawn. There was no unusual discomfort expressed by Shelby. The needles were withdrawn without difficulty. Shelby was observed and was without hemodynamic, neurologic, or allergic reactions.? Fluoroscopic images were digitally archived. Shelby's vital signs were stable throughout the procedure and were as recorded in the docflowsheet by the nursing staff. If given, dosages of intravenous drugs for anxiolysis and analgesia were documented in MAR. POST PROCEDURE EVALUATION: IMPRESSION: 1. Medication given is documented in the MAR 2. Follow up plan: Shelby to contact [facility] as needed. This procedure may be repeated if the patient achieves at least 50% improvement in pain and/or function for at least 6 months. 3. Estimated Blood Loss: <5ml 4. Fluoroscopy time: Documented in the EMR Follow up plans and appointments were discussed with Shelby. Post procedure instruction was given as documented in nursing documentation and having met discharge criteria, Shelby was discharged from the [facility]. COMMENTS: No apparent complications. Post-procedure pain: VAS= 1/10. Brooke WJ1, Heather SJ, Stephon JG, Preethi JG, Prashant ROQUE, Park PH, Calderon JW. Radiofrequency treatment relieves chronic knee osteoarthritis pain: a double-blind randomized controlled trial. Pain. 2010;152(3):481-7. doi: 10.1016/j.pain.2010.09.029. Susannah S1, Shakir ON2, Bayron Y3, ?zl?surya P2, Denys U1, Ace ?m?rl? I. Which one is more effective for the clinical treatment of chronic pain in knee osteoarthritis: radiofrequency neurotomy of the genicular nerves or intra- articular injection? Int J Rheum Dis. 2016 Oct 09. I personally completed the entire procedure. SCARLETT WEINER DO, MPH [facility] - Subspecialty board certification in Pain Medicine [facility]
== END 2023-01-06 10:11 | disposition home or self-care (01) ==
LOC: PC 10:10
PROVIDERS: PCP Family Medicine; Visit Provider Preventive Medicine Occupational Medicine
DX: M25.561 Pain in right knee
CPT/HCPCS: 00123; 64624; 77002; 99214; J1030; J2250; J3010

== ENCOUNTER 2023-01-25 03:01 | Outpatient (RCR) | payer MEDICARE, SELFPAY ==
[2022-12-29 00:21] VITALS: BP 148/89; PULSE 68; RESP 18; TEMP 36.1
[2023-01-11] VITALS (9 sets, daily range): BP systolic 115–170; BP diastolic 75–99; PULSE 75–99; RESP 17–18; TEMP 35.6–36.5; O2SAT 93–95
[2023-01-11] MEDS: IMMUNE GLOBULIN 5 GM/50 ML BTL IVPB (08:40)
[2023-01-11] MEDS: Normal Saline Flush 10 ML SYR IVP (08:45)
[2023-01-11 08:54] LABS: Abs Immature Grans 0.13 10^3/uL (0.0-0.06); Absolute Eosinophil Count 0.02 10^3/uL (0.0-0.7); Absolute Lymphocyte Count 2.58 10^3/uL (1.2-3.4); Basophils % 0.4; Eosinophils % 0.1; HCT 39.5 % (36.0-46.0); HGB 12.8 g/dL (11.2-15.7); Immature Grans % 0.8; Lymphocytes % 16.3; MCH 29.8 pg (27.0-33.0); MCHC 32.4 % (32.0-36.0); MCV 92 fL (80-95); MPV 9.3 fL (8.0-11.0); Monocytes % 10.7; Neutrophils % 71.7; Platelet Count 370 10^3/uL (130-400); RBC 4.29 10^6/uL (3.93-5.22); RDW 13.8 % (11.7-14.6); RDW-SD 46.6 fL; WBC 15.84 10^3/uL (4.4-10.8)
[2023-01-11 08:57] LABS: ESR 30 mm/hr (0-30)
[2023-01-11 08:59] LABS: Absolute Basophil Count 0.06 10^3/uL (0.0-0.2); Absolute Monocyte Count 1.69 10^3/uL (0.1-0.8); Absolute Neutrophil Count 11.36 10^3/uL (1.2-6.7)
[2023-01-11] MEDS: IMMUNE GLOBULIN 10 GM/100 ML BTL IVPB (09:10)
[2023-01-11 09:11] LABS: ALT 17 U/L (14-59); AST 13 U/L (15-37); Albumin 3.1 g/dL (3.4-5.0); Alkaline Phosphatase 61 U/L (46-116); Anion Gap 8.7 mmol/L (3-11); BUN 12 mg/dL (7-18); Bilirubin, Total 0.3 mg/dL (0.2-1.0); CO2 26.3 mmol/L (21.0-32.0); Chloride 102 mmol/L (98-107); Estimated GFR 58.39 (mL/min/1.73m2); Glucose 184 mg/dL (74-106); Sodium 137 mmol/L (136-145); Total Protein 7.3 g/dL (6.4-8.2)
[2023-01-11 09:15] LABS: Diff Comment Diff Reviewed; RBC Morphology Normal
[2023-01-11] MEDS: IMMUNE GLOBULIN 40 GM/400 ML BTL IVPB ×2 (09:43→11:10)
[2023-01-11 10:28] LABS: Bilirubin Negative (Negative); Blood Negative (Negative); Clarity Sl Cloudy (Clear); Glucose Negative (Negative); Ketones Negative (Negative); Leukocyte Esterase Moderate (Negative); Nitrite Positive (Negative); Urobilinogen 0.2 mg/dL (Up to 0.2)
[2023-01-11 10:35] LABS: Bacteria Moderate HPF (Negative); C & S Indicated? Yes; Casts Negative LPF (Negative); Crystals Negative HPF (Negative); Epithelial Cells Few HPF (Negative); Mucus Negative (Negative); Other Cells Rare Renal (Negative); RBC Negative HPF (0-2); WBC 20-50 HPF (0-5)
[2023-01-11 18:24] LABS: Rheumatoid Factor <8.6 IU/mL (<12.0)
[2023-01-12 16:55] LABS: Immunoglobulin Subclass IgG4 30.2 mg/dL
[2023-01-18] MEDS: Normal Saline Flush 10 ML SYR IVP (11:08)
[2023-01-25] VITALS (10 sets, daily range): BP systolic 101–165; BP diastolic 64–90; PULSE 62–89; RESP 17–18; TEMP 35.6–36.4; O2SAT 92–96
[2023-01-25] MEDS: Normal Saline Flush 10 ML SYR IVP (09:37)
[2023-01-25] MEDS: IMMUNE GLOBULIN 5 GM/50 ML BTL IVPB (09:48)
[2023-01-25] MEDS: IMMUNE GLOBULIN 10 GM/100 ML BTL IVPB (10:19)
[2023-01-25] MEDS: IMMUNE GLOBULIN 40 GM/400 ML BTL IVPB ×2 (10:54→12:23)
== END 2023-01-27 23:59 | disposition home or self-care (01) ==
LOC: INF 03:01
PROVIDERS: Internal Medicine; PCP Family Medicine; Visit Provider Internal Medicine
DX: G70.00 Myasthenia gravis without (acute) exacerbation (principal)
CPT/HCPCS: 36415; 80053; 82787; 85652; 87077; 96365; 96366; 81003; 81015; 85025; 86431; 87086; 87186; J1300; J1459

== ENCOUNTER 2023-02-03 10:36 | Outpatient (CLI) | payer MEDICARE, SELFPAY ==
--- NOTE | 2023-02-03 10:30 | RT.EKG_ITS ---
APPROVED REPORT Exam: Resting ECG Reason for Exam: Fatigue Patient Location: O HR:91 bpm ECG Measurements Heart Rate 91 AXIS TN 163 P 47 QRSd 123 QRS 106 QT 386 T -48 QTc 475 Conclusion Sinus rhythm...normal P axis, V-rate 50- 99 Probable left atrial enlargement...P >50mS, <-0.10mV IVCD, probable left ventricular hypertrophy with repolarization abnormalities
== END 2023-02-03 10:37 | disposition home or self-care (01) ==
LOC: DI.CM 10:37
PROVIDERS: PCP Family Medicine; Visit Provider Family Medicine
DX: R00.2 Palpitations (principal); R06.02 Shortness of breath; R53.83 Other fatigue
CPT/HCPCS: 93010

== ENCOUNTER 2023-02-03 13:50 | Outpatient (REF) | payer MEDICARE, SELFPAY | END 2023-02-03 13:51 | disposition home or self-care (01) | LOC: LBN 13:50 | PROVIDERS: PCP Family Medicine; Visit Provider Family Medicine | DX: N39.0 Urinary tract infection, site not specified (principal) | CPT/HCPCS: 87077; 87086; 87186 ==

== ENCOUNTER 2023-02-11 09:25 | Outpatient (RCR) | payer MEDICARE, SELFPAY ==
--- NOTE | 2023-02-11 09:30 | HOLTER_ITS ---
APPROVED REPORT Exam Type: HOLTER MONITOR APPLICATION Reason for Test: palpitatioins, sob Patient Location: O Conclusion The underlying rhythm is sinus Few PAC's, no SVT Rare PVC, no VT Essentially a normal study.
== END 2023-02-27 23:59 | disposition home or self-care (01) ==
LOC: CARDOPNVT 09:25
PROVIDERS: PCP Family Medicine; Visit Provider Family Medicine
DX: R00.2 Palpitations (principal); R06.02 Shortness of breath
CPT/HCPCS: 93227; 93225; 93226

== ENCOUNTER 2023-02-22 01:48 | Outpatient (RCR) | payer MEDICARE, SELFPAY ==
[2023-01-28 00:25] VITALS: BP 148/89; PULSE 68; RESP 18; TEMP 36.1
[2023-02-01] MEDS: Normal Saline Flush 10 ML SYR IVP (10:21)
[2023-02-08] VITALS (8 sets, daily range): BP systolic 120–159; BP diastolic 74–89; PULSE 73–88; RESP 17–18; TEMP 36.2–36.5; O2SAT 92–95
[2023-02-08] MEDS: IMMUNE GLOBULIN 5 GM/50 ML BTL IVPB (08:19)
[2023-02-08] MEDS: Normal Saline Flush 10 ML SYR IVP (08:21)
[2023-02-08] MEDS: IMMUNE GLOBULIN 10 GM/100 ML BTL IVPB (08:47)
[2023-02-08] MEDS: IMMUNE GLOBULIN 40 GM/400 ML BTL IVPB ×2 (09:21→10:43)
[2023-02-22] VITALS (8 sets, daily range): BP systolic 121–153; BP diastolic 71–87; PULSE 69–91; RESP 16–17; TEMP 36.1–36.6; O2SAT 92–97
[2023-02-22] MEDS: Normal Saline Flush 10 ML SYR IVP (08:42)
[2023-02-22] MEDS: IMMUNE GLOBULIN 5 GM/50 ML BTL IVPB (08:55)
[2023-02-22] MEDS: IMMUNE GLOBULIN 10 GM/100 ML BTL IVPB (09:09)
[2023-02-22] MEDS: IMMUNE GLOBULIN 40 GM/400 ML BTL IVPB ×2 (09:47→11:13)
== END 2023-02-27 23:59 | disposition home or self-care (01) ==
LOC: INF 01:48
PROVIDERS: PCP Family Medicine; Visit Provider Internal Medicine
DX: G70.00 Myasthenia gravis without (acute) exacerbation (principal)
CPT/HCPCS: 93227; 96365; 96366; 93225; 93226; J1300; J1459

== ENCOUNTER 2023-03-25 01:05 | Outpatient (RCR) | payer MEDICARE, SELFPAY ==
[2023-02-28 00:23] VITALS: BP 148/89; PULSE 68; RESP 18; TEMP 36.1
[2023-03-08] VITALS (7 sets, daily range): BP systolic 117–150; BP diastolic 51–83; PULSE 47–94; RESP 17; TEMP 36.4–36.9; O2SAT 92–96
[2023-03-08] MEDS: IMMUNE GLOBULIN 5 GM/50 ML BTL IVPB (08:17)
[2023-03-08] MEDS: IMMUNE GLOBULIN 10 GM/100 ML BTL IVPB (08:51)
[2023-03-08] MEDS: IMMUNE GLOBULIN 40 GM/400 ML BTL IVPB ×2 (09:23→10:47)
[2023-03-25] VITALS (8 sets, daily range): BP systolic 117–162; BP diastolic 70–81; PULSE 72–85; RESP 16–17; TEMP 36.5–36.7; O2SAT 91–94
[2023-03-25] MEDS: IMMUNE GLOBULIN 5 GM/50 ML BTL IVPB (08:25)
[2023-03-25] MEDS: Normal Saline Flush 10 ML SYR IVP (08:33)
[2023-03-25] MEDS: IMMUNE GLOBULIN 10 GM/100 ML BTL IVPB (08:56)
[2023-03-25] MEDS: IMMUNE GLOBULIN 40 GM/400 ML BTL IVPB ×2 (09:40→11:09)
== END 2023-03-30 23:59 | disposition home or self-care (01) ==
LOC: INF 01:05
PROVIDERS: PCP Family Medicine; Visit Provider Internal Medicine
DX: G70.00 Myasthenia gravis without (acute) exacerbation (principal)
CPT/HCPCS: 96365; 96366; J1300; J1459

== ENCOUNTER 2023-04-19 04:54 | Outpatient (RCR) | payer MEDICARE, SELFPAY ==
[2023-03-31 00:26] VITALS: BP 148/89; PULSE 68; RESP 18; TEMP 36.1
[2023-04-05 08:40] VITALS: BP 112/74; PULSE 75; RESP 18; TEMP 36.8; O2SAT 97
[2023-04-05] MEDS: IMMUNE GLOBULIN 5 GM/50 ML BTL IVPB (08:44)
[2023-04-05 09:15] VITALS: BP 134/78; PULSE 79; RESP 18; TEMP 36.8; O2SAT 36
[2023-04-05] MEDS: IMMUNE GLOBULIN 10 GM/100 ML BTL IVPB (09:18)
[2023-04-05 09:45] VITALS: BP 127/76; PULSE 83; RESP 18; TEMP 36.7; O2SAT 95
[2023-04-05] MEDS: IMMUNE GLOBULIN 40 GM/400 ML BTL IVPB ×2 (09:52→11:18)
[2023-04-05 10:15] VITALS: BP 129/74; PULSE 80; RESP 18; TEMP 37; O2SAT 94
[2023-04-19 08:43] VITALS: BP 139/79; PULSE 72; RESP 15; TEMP 36.4; O2SAT 93
[2023-04-19] MEDS: IMMUNE GLOBULIN 5 GM/50 ML BTL IVPB (08:55)
[2023-04-19] MEDS: Normal Saline Flush 10 ML SYR IVP (09:01)
[2023-04-19] MEDS: IMMUNE GLOBULIN 10 GM/100 ML BTL IVPB (09:21)
[2023-04-19 09:39] VITALS: BP 131/81; PULSE 77; RESP 17; TEMP 36.8; O2SAT 92
[2023-04-19 09:58] VITALS: BP 122/76; PULSE 75; RESP 17; TEMP 36.9; O2SAT 93
[2023-04-19] MEDS: IMMUNE GLOBULIN 40 GM/400 ML BTL IVPB ×2 (10:05→11:28)
[2023-04-19 10:31] VITALS: BP 125/79; PULSE 77; RESP 16; TEMP 36.6; O2SAT 94
== END 2023-04-28 23:59 | disposition home or self-care (01) ==
LOC: INF 04:54
PROVIDERS: PCP Family Medicine; Visit Provider Internal Medicine
DX: G70.00 Myasthenia gravis without (acute) exacerbation (principal)
CPT/HCPCS: 36591; 96365; 96366; J1300; J1459

== ENCOUNTER → 2023-04-21 13:10 | Outpatient (BNVA) | payer MEDICARE, SELFPAY | PROVIDERS: PCP Family Medicine; Referring Provider Family Medicine; Visit Provider Student in an Organized Health Care Education/Training Program | DX: M35.06 Sjogren syndrome with peripheral nervous system involvement (principal); G70.9 Myoneural disorder, unspecified; J84.9 Interstitial pulmonary disease, unspecified; G70.00 Myasthenia gravis without (acute) exacerbation | CPT/HCPCS: 99214 ==

== ENCOUNTER 2023-05-17 04:22 | Outpatient (RCR) | payer MEDICARE, SELFPAY ==
[2023-04-29 00:24] VITALS: BP 148/89; PULSE 68; RESP 18; TEMP 36.1
[2023-05-03 08:22] VITALS: BP 116/75; PULSE 72; RESP 20; TEMP 36.4; O2SAT 94
[2023-05-03] MEDS: Normal Saline Flush 10 ML SYR IVP (08:25)
[2023-05-03] MEDS: IMMUNE GLOBULIN 5 GM/50 ML BTL IVPB (08:25)
[2023-05-03 08:41] VITALS: BP 116/73; PULSE 70; RESP 14; TEMP 36.6; O2SAT 93
[2023-05-03] MEDS: IMMUNE GLOBULIN 10 GM/100 ML BTL IVPB (08:54)
[2023-05-03 09:03] VITALS: BP 129/74; PULSE 69; RESP 16; TEMP 36.8; O2SAT 93
[2023-05-03 09:31] VITALS: BP 135/79; PULSE 68; RESP 18; TEMP 36.7; O2SAT 94
[2023-05-03] MEDS: IMMUNE GLOBULIN 40 GM/400 ML BTL IVPB ×2 (09:31→11:00)
[2023-05-03 10:00] VITALS: BP 122/74; PULSE 70; RESP 14; TEMP 36.9; O2SAT 95
[2023-05-03 10:45] VITALS: BP 146/77; PULSE 66; RESP 15; TEMP 36.6; O2SAT 96
[2023-05-17] VITALS (9 sets, daily range): BP systolic 118–153; BP diastolic 62–78; PULSE 68–80; RESP 16–18; TEMP 35.6–36.5; O2SAT 92–95
[2023-05-17] MEDS: IMMUNE GLOBULIN 5 GM/50 ML BTL IVPB (08:30)
[2023-05-17] MEDS: Normal Saline Flush 10 ML SYR IVP (08:30)
[2023-05-17] MEDS: IMMUNE GLOBULIN 10 GM/100 ML BTL IVPB (09:02)
[2023-05-17] MEDS: IMMUNE GLOBULIN 40 GM/400 ML BTL IVPB ×2 (09:45→11:21)
== END 2023-05-29 23:59 | disposition home or self-care (01) ==
LOC: INF 04:22
PROVIDERS: PCP Family Medicine; Visit Provider Internal Medicine
DX: G70.00 Myasthenia gravis without (acute) exacerbation (principal); M35.00 Sjogren syndrome, unspecified
CPT/HCPCS: 96365; 96366; J1300; J1459

== ENCOUNTER 2023-05-25 09:56 | Outpatient (REF) | payer MEDICARE, SELFPAY ==
[2023-05-25 16:27] LABS: C Diff PCR Negative (Negative)
[2023-05-26 11:50] LABS: Campylobacter PCR Negative (Negative); Salmonella PCR Negative (Negative); Shiga Toxin PCR Negative (Negative); Shigella/Enteroinvasive Ecoli Negative (Negative)
== END 2023-05-25 09:57 | disposition home or self-care (01) ==
LOC: LBN 09:56
PROVIDERS: PCP Family Medicine; Visit Provider Family Medicine
DX: R19.7 Diarrhea, unspecified (principal)
CPT/HCPCS: 87493; 87505; 87177

== ENCOUNTER 2023-06-28 05:29 | Outpatient (RCR) | payer MEDICARE, SELFPAY ==
[2023-05-30 00:20] VITALS: BP 148/89; PULSE 68; RESP 18; TEMP 36.1
[2023-05-31] VITALS (8 sets, daily range): BP systolic 126–170; BP diastolic 77–82; PULSE 74–91; RESP 16–20; TEMP 36.2–36.7; O2SAT 94–96
[2023-05-31] MEDS: Normal Saline Flush 10 ML SYR IVP (08:27)
[2023-05-31] MEDS: IMMUNE GLOBULIN 5 GM/50 ML BTL IVPB (08:27)
[2023-05-31] MEDS: IMMUNE GLOBULIN 10 GM/100 ML BTL IVPB (08:51)
[2023-05-31] MEDS: IMMUNE GLOBULIN 40 GM/400 ML BTL IVPB ×2 (09:31→10:58)
[2023-06-14] VITALS (9 sets, daily range): BP systolic 122–157; BP diastolic 68–93; PULSE 69–79; RESP 17; TEMP 35.9–36.4; O2SAT 92–98
[2023-06-14] MEDS: IMMUNE GLOBULIN 5 GM/50 ML BTL IVPB (08:13)
[2023-06-14] MEDS: Normal Saline Flush 10 ML SYR IVP (08:20)
[2023-06-14] MEDS: IMMUNE GLOBULIN 10 GM/100 ML BTL IVPB (08:46)
[2023-06-14] MEDS: IMMUNE GLOBULIN 40 GM/400 ML BTL IVPB ×2 (09:29→11:05)
[2023-06-28] VITALS (8 sets, daily range): BP systolic 121–144; BP diastolic 73–89; PULSE 71–79; RESP 17–20; TEMP 36.2–37.5; O2SAT 93–96
[2023-06-28] MEDS: IMMUNE GLOBULIN 5 GM/50 ML BTL IVPB (08:08)
[2023-06-28] MEDS: Normal Saline Flush 10 ML SYR IVP (08:08)
[2023-06-28] MEDS: IMMUNE GLOBULIN 10 GM/100 ML BTL IVPB (08:40)
[2023-06-28] MEDS: IMMUNE GLOBULIN 40 GM/400 ML BTL IVPB ×2 (09:11→10:39)
== END 2023-06-28 23:59 | disposition home or self-care (01) ==
LOC: INF 05:29
PROVIDERS: PCP Family Medicine; Visit Provider Internal Medicine
DX: G70.00 Myasthenia gravis without (acute) exacerbation (principal)
CPT/HCPCS: 96365; 96366; J1300; J1459

== ENCOUNTER 2023-07-27 04:52 | Outpatient (RCR) | payer MEDICARE, SELFPAY ==
[2023-06-29 00:26] VITALS: BP 148/89; PULSE 68; RESP 18; TEMP 36.1
[2023-07-12 08:20] VITALS: BP 127/81; PULSE 61; RESP 18; TEMP 36.5; O2SAT 99
[2023-07-12] MEDS: IMMUNE GLOBULIN 10 GM/100 ML BTL IVPB (08:40)
[2023-07-12 08:55] VITALS: BP 130/72; PULSE 61; RESP 18; TEMP 36.5; O2SAT 99
[2023-07-12] MEDS: Normal Saline Flush 10 ML SYR IVP (08:59)
[2023-07-12] MEDS: IMMUNE GLOBULIN 40 GM/400 ML BTL IVPB ×2 (09:22→10:57)
[2023-07-12 09:31] VITALS: BP 131/68; PULSE 61; RESP 18; TEMP 36.5; O2SAT 99
[2023-07-12 10:29] VITALS: BP 134/75; PULSE 84; RESP 18; TEMP 36.2; O2SAT 96
[2023-07-12 11:30] VITALS: BP 135/75; PULSE 77; RESP 17; TEMP 36.3; O2SAT 94
[2023-07-12] MEDS: IMMUNE GLOBULIN 5 GM/50 ML BTL IVPB (12:24)
[2023-07-12 12:30] VITALS: BP 134/75; PULSE 74; RESP 18; TEMP 36.4; O2SAT 94
[2023-07-27] VITALS (7 sets, daily range): BP systolic 100–147; BP diastolic 65–84; PULSE 72–89; RESP 17–18; TEMP 35.4–36.7; O2SAT 94–96
[2023-07-27] MEDS: IMMUNE GLOBULIN 5 GM/50 ML BTL IVPB (08:10)
[2023-07-27] MEDS: Normal Saline Flush 10 ML SYR IVP (08:12)
[2023-07-27] MEDS: IMMUNE GLOBULIN 10 GM/100 ML BTL IVPB (08:35)
[2023-07-27] MEDS: IMMUNE GLOBULIN 40 GM/400 ML BTL IVPB ×2 (09:13→10:37)
== END 2023-07-29 23:59 | disposition home or self-care (01) ==
LOC: INF 04:52
PROVIDERS: PCP Family Medicine; Visit Provider Internal Medicine
DX: G70.00 Myasthenia gravis without (acute) exacerbation (principal); M35.00 Sjogren syndrome, unspecified
CPT/HCPCS: 96365; 96366; J1459

== ENCOUNTER → 2023-08-01 09:42 | Outpatient (BNVA) | payer MEDICARE, SELFPAY | PROVIDERS: PCP Family Medicine; Referring Provider Family Medicine; Visit Provider Internal Medicine Cardiovascular Disease | DX: I70.90 Unspecified atherosclerosis (principal) | CPT/HCPCS: 99213 ==

== ENCOUNTER 2023-08-25 01:10 | Outpatient (RCR) | payer MEDICARE, SELFPAY ==
[2023-07-30 00:26] VITALS: BP 148/89; PULSE 68; RESP 18; TEMP 36.1
[2023-08-09] VITALS (7 sets, daily range): BP systolic 128–149; BP diastolic 72–83; PULSE 62–87; RESP 16–18; TEMP 35.6–36.5; O2SAT 92–96
[2023-08-09] MEDS: IMMUNE GLOBULIN 5 GM/50 ML BTL IVPB (08:36)
[2023-08-09] MEDS: Normal Saline Flush 10 ML SYR IVP (08:38)
[2023-08-09] MEDS: IMMUNE GLOBULIN 10 GM/100 ML BTL IVPB (08:57)
[2023-08-09] MEDS: IMMUNE GLOBULIN 40 GM/400 ML BTL IVPB ×2 (09:35→11:04)
[2023-08-24] VITALS (7 sets, daily range): BP systolic 123–142; BP diastolic 72–84; PULSE 70–79; RESP 17–20; TEMP 35.7–36.3; O2SAT 92–95
[2023-08-24] MEDS: IMMUNE GLOBULIN 5 GM/50 ML BTL IVPB (08:22)
[2023-08-24] MEDS: Normal Saline Flush 10 ML SYR IVP (08:22)
[2023-08-24] MEDS: IMMUNE GLOBULIN 10 GM/100 ML BTL IVPB (08:49)
[2023-08-24] MEDS: IMMUNE GLOBULIN 20 GM/200 ML BTL IVPB ×2 (09:26→10:13)
[2023-08-24] MEDS: IMMUNE GLOBULIN 40 GM/400 ML BTL IVPB (11:06)
[2023-08-25] MEDS: Normal Saline Flush 10 ML SYR IVP (09:30)
== END 2023-08-28 23:59 | disposition home or self-care (01) ==
LOC: INF 01:10
PROVIDERS: PCP Family Medicine; Visit Provider Family Medicine
DX: M35.00 Sjogren syndrome, unspecified (principal); G70.00 Myasthenia gravis without (acute) exacerbation
CPT/HCPCS: 96365; 96366; J1300; J1459

== ENCOUNTER 2023-09-20 01:13 | Outpatient (RCR) | payer MEDICARE, SELFPAY ==
[2023-08-29 00:08] VITALS: BP 148/89; PULSE 68; RESP 18; TEMP 36.1
[2023-09-01] MEDS: Normal Saline Flush 10 ML SYR IVP (10:05)
[2023-09-06] VITALS (7 sets, daily range): BP systolic 120–136; BP diastolic 72–92; PULSE 62–73; RESP 17; TEMP 36.1–36.4; O2SAT 93–96
[2023-09-06] MEDS: IMMUNE GLOBULIN 5 GM/50 ML BTL IVPB (08:25)
[2023-09-06] MEDS: Normal Saline Flush 10 ML SYR IVP (08:25)
[2023-09-06] MEDS: IMMUNE GLOBULIN 10 GM/100 ML BTL IVPB (08:50)
[2023-09-06] MEDS: IMMUNE GLOBULIN 40 GM/400 ML BTL IVPB ×2 (09:21→10:52)
[2023-09-20] VITALS (7 sets, daily range): BP systolic 127–148; BP diastolic 69–88; PULSE 67–84; RESP 17–18; TEMP 35.8–36.9; O2SAT 93–95
[2023-09-20] MEDS: Normal Saline Flush 10 ML SYR IVP (08:22)
[2023-09-20] MEDS: IMMUNE GLOBULIN 5 GM/50 ML BTL IVPB (08:22)
[2023-09-20] MEDS: IMMUNE GLOBULIN 10 GM/100 ML BTL IVPB (08:47)
[2023-09-20] MEDS: IMMUNE GLOBULIN 40 GM/400 ML BTL IVPB ×2 (09:23→10:54)
== END 2023-09-28 23:59 | disposition home or self-care (01) ==
LOC: INF 01:13
PROVIDERS: PCP Family Medicine; Visit Provider Family Medicine
DX: G70.00 Myasthenia gravis without (acute) exacerbation
CPT/HCPCS: 96365; 96366; J1300; J1459

== ENCOUNTER 2023-10-17 03:03 | Outpatient (RCR) | payer MEDICARE, SELFPAY ==
[2023-09-29 00:27] VITALS: BP 148/89; PULSE 68; RESP 18; TEMP 36.1
[2023-10-04] VITALS (9 sets, daily range): BP systolic 115–132; BP diastolic 72–77; PULSE 52–73; RESP 17; TEMP 36–36.6; O2SAT 91–100
[2023-10-04] MEDS: IMMUNE GLOBULIN 5 GM/50 ML BTL IVPB (08:17)
[2023-10-04] MEDS: Normal Saline Flush 10 ML SYR IVP (08:23)
[2023-10-04] MEDS: IMMUNE GLOBULIN 10 GM/100 ML BTL IVPB (08:48)
[2023-10-04] MEDS: IMMUNE GLOBULIN 40 GM/400 ML BTL IVPB ×2 (09:25→11:06)
[2023-10-17] VITALS (7 sets, daily range): BP systolic 108–143; BP diastolic 67–81; PULSE 75–89; RESP 18–20; TEMP 35.8–37; O2SAT 92–95
[2023-10-17] MEDS: IMMUNE GLOBULIN 5 GM/50 ML BTL IVPB (08:19)
[2023-10-17] MEDS: Normal Saline Flush 10 ML SYR IVP (08:19)
[2023-10-17] MEDS: IMMUNE GLOBULIN 10 GM/100 ML BTL IVPB (08:57)
[2023-10-17] MEDS: IMMUNE GLOBULIN 40 GM/400 ML BTL IVPB ×2 (09:22→10:54)
== END 2023-10-29 23:59 | disposition home or self-care (01) ==
LOC: INF 03:03
PROVIDERS: PCP Family Medicine; Visit Provider Family Medicine
DX: G70.00 Myasthenia gravis without (acute) exacerbation (principal)
CPT/HCPCS: 96365; 96366; J1459

== ENCOUNTER 2023-10-25 02:17 | Outpatient (CLI) | payer MEDICARE, SELFPAY ==
--- NOTE | 2023-10-25 | DI.CT_ITS ---
Exam(s) CT CHEST W EXAM: CT CHEST W CLINICAL HISTORY: WORSENING SOB, SJOGRENS, MYASTHENIA GRAVIS, EVAL FOR LUNG DISEASE THYMOMA. TECHNIQUE: Imaging Protocol: Axial computed tomography images with coronal and sagittal reformatted images were created and reviewed CONTRAST MATERIAL: Intravenous: Omnipaque 350 Contrast volume:70 ml. COMPARISON: CT CT CHEST PE CTA from 06/09/2022 CR XR DEXA BONE DENSITY W/WO MERRICK from 12/30/2022 FINDINGS: Pulmonary parenchyma: No consolidation. No dominant measurable mass. No significant interstitial ginna nges. Tracheobronchial tree: No bronchiectasis or mucous plugging. Mediastinum and Rivka: No dominant adenopathy or fluid collection. No evidence of thymoma. Pleura: No effusion. No pneumothorax. Heart: The heart is not dilated. Moderate coronary artery calcifications are seen. Mitral annular c alcification. Aorta: Ascending thoracic aorta measures 4.1 cm, unchanged from prior. Mild atherosclerotic changes. Pulmonary arteries: No gross evidence of emboli. Upper abdomen: No acute findings. Mild fatty infiltration of the liver. Bones: Moderate T7 compression fracture which is new compared with the prior exam.Degenerative tompkins ges in the spine. Mild scoliosis. Soft tissues: Unremarkable. IMPRESSION: No acute abnormality.No evidence of thymoma. RADIATION DOSE DELIVERED: Total DLP DATA REPOSITORY: All CT scans at this facility are submitted to the National Radiology Data Registry (NRDR) Dose Index Registry (DIR) with the [employer] (ACR). RADIATION OPTIMIZATION: All CT scans at this facility use at least one of these dose optimization te chniques: automated exposure control; mA and/or kV adjustment per patient size (includes targeted exa ms where dose is matched to clinical indication); or iterative reconstruction.
[2023-10-25 12:48] LABS: ESR 45 mm/hr (0-30)
[2023-10-25 13:05] LABS: ALT 21 U/L (14-59); AST 16 U/L (15-37); Albumin 3.1 g/dL (3.4-5.0); Alkaline Phosphatase 65 U/L (46-116); Anion Gap 14.7 mmol/L (3-11); BUN 12 mg/dL (7-18); Bilirubin, Total 0.18 mg/dL (0.2-1.0); C-Reactive Protein 0.96 mg/dL (<or=0.5); CO2 22.3 mmol/L (21.0-32.0); CREATININE 1.5 mg/dL (0.55-1.02); Calcium 9.4 mg/dL (8.5-10.1); Chloride 101 mmol/L (98-107); Estimated GFR 35.67 (mL/min/1.73m2); Glucose 316 mg/dL (74-106); Potassium 3.2 mmol/L (3.5-5.1); Sodium 138 mmol/L (136-145); Total Protein 8.1 g/dL (6.4-8.2)
[2023-10-25] MEDS: Omnipaque 350 MG/ML 500 ML BTL-Imaging package 70 ML IJ (13:47)
[2023-10-25 13:51] LABS: Bilirubin Negative (Negative); Blood Moderate (Negative); Clarity Sl Cloudy (Clear); Glucose >=1000 mg/dL (Negative); Ketones Trace mg/dL (Negative); Leukocyte Esterase Small (Negative); Nitrite Positive (Negative); Specific Gravity >= 1.030 (1.005-1.025); Urobilinogen 0.2 mg/dL (Up to 0.2); pH 5.5 (5-8)
[2023-10-25] MEDS: Normal Saline - Diluent 50 ML VIAL IJ (13:53)
[2023-10-25 13:59] LABS: Bacteria Many HPF (Negative); C & S Indicated? No; Casts Negative LPF (Negative); Crystals Negative HPF (Negative); Epithelial Cells Few HPF (Negative); Mucus Trace (Negative)
== END 2023-10-25 02:37 ==
LOC: DI 02:17
PROVIDERS: PCP Family Medicine; Visit Provider Psychiatry & Neurology Neurology
DX: G70.00 Myasthenia gravis without (acute) exacerbation; M35.02 Sjogren syndrome with lung involvement
CPT/HCPCS: 00123; 80053; 82805; 85652; 94060; 94726; 94729; 36600; 71260; 81003; 81015; 86140

== ENCOUNTER 2023-10-25 03:05 | Outpatient (CLI) | payer MEDICARE, SELFPAY ==
[2023-10-25] MEDS: Inhaler, Assist Device 1 EACH MC (09:33)
[2023-10-25] MEDS: Levalbuterol HFA 15 GM INH 4 PUFF IH (09:33)
--- NOTE | 2023-10-25 15:37 | W.PFT ---
Date of service: 10/25/23 Time of Service: 08:00 Pulmonary Function Test Result Requesting Provider Manuelito Ortega Indications: Myasthenia Gravis Impression Spirometry shows normal FEV1/FVC and 82%. A mild decrease in FEV1 at 74% and a moderate decrease in FVC at 68%. Mild decrease in lung volumes with mild air trapping. Normal diffusion. Flow volume curves suggest restriction. Impression Mild restrictive ventilatory defect Clinical Correlation therefore is recommended.
== END 2023-10-25 03:06 | disposition home or self-care (01) ==
LOC: RT 03:05
PROVIDERS: PCP Family Medicine; Visit Provider Student in an Organized Health Care Education/Training Program
DX: G70.00 Myasthenia gravis without (acute) exacerbation (principal)
CPT/HCPCS: 00123; 82805; 94060; 94726; 94729; 36600; 94010

== ENCOUNTER 2023-10-25 03:07 | Outpatient (CLI) | payer MEDICARE, SELFPAY ==
[2023-10-25 08:19] LABS: BE 1 mmol/L (-2-3); HCO3 26 mmol/L (22-26); pCO2 39 mmHg (35-45); pH 7.43 (7.35-7.45); pO2 66 mmHg (80-105); sO2 94 % (95-98); tCO2 23 mmol/L (23-27)
[2023-10-25 08:21] LABS: Site Left Radial
== END 2023-10-25 03:08 | disposition home or self-care (01) ==
LOC: RT 03:07
PROVIDERS: PCP Family Medicine; Visit Provider Student in an Organized Health Care Education/Training Program
DX: G70.9 Myoneural disorder, unspecified (principal); J99 Respiratory disorders in diseases classified elsewhere
CPT/HCPCS: 82805

== ENCOUNTER → 2023-10-28 10:49 | Outpatient (BNVA) | payer MEDICARE, SELFPAY | PROVIDERS: PCP Family Medicine; Referring Provider Family Medicine | DX: M17.11 Unilateral primary osteoarthritis, right knee (principal); M19.011 Primary osteoarthritis, right shoulder | CPT/HCPCS: 20611; J1010 ==

== ENCOUNTER → 2023-11-03 09:31 | Outpatient (BNVA) | payer MEDICARE, SELFPAY | PROVIDERS: PCP Family Medicine; Referring Provider Family Medicine; Visit Provider Physician Assistant Surgical | DX: M35.06 Sjogren syndrome with peripheral nervous system involvement (principal); J84.9 Interstitial pulmonary disease, unspecified; G70.00 Myasthenia gravis without (acute) exacerbation; G70.9 Myoneural disorder, unspecified; J99 Respiratory disorders in diseases classified elsewhere | CPT/HCPCS: 99214 ==

== ENCOUNTER 2023-11-15 01:31 | Outpatient (RCR) | payer MEDICARE, SELFPAY ==
[2023-10-30 00:11] VITALS: BP 148/89; PULSE 68; RESP 18; TEMP 36.1
[2023-11-01] VITALS (7 sets, daily range): BP systolic 131–167; BP diastolic 76–99; PULSE 60–86; RESP 18–20; TEMP 35.9–36.7; O2SAT 93–95
[2023-11-01] MEDS: Normal Saline Flush 10 ML SYR IVP (09:11)
[2023-11-01] MEDS: IMMUNE GLOBULIN 5 GM/50 ML BTL IVPB (09:11)
[2023-11-01] MEDS: IMMUNE GLOBULIN 10 GM/100 ML BTL IVPB (09:35)
[2023-11-01] MEDS: IMMUNE GLOBULIN 40 GM/400 ML BTL IVPB ×2 (10:12→11:42)
[2023-11-15 08:25] VITALS: BP 129/83; PULSE 79; RESP 20; TEMP 36.5; O2SAT 95
[2023-11-15] MEDS: IMMUNE GLOBULIN 10 GM/100 ML BTL IVPB (08:28)
[2023-11-15 08:45] VITALS: BP 123/77; PULSE 78; RESP 20; TEMP 36.5; O2SAT 95
[2023-11-15] MEDS: Normal Saline Flush 10 ML SYR IVP (08:58)
[2023-11-15 09:00] VITALS: BP 114/68; PULSE 83; RESP 20; TEMP 36.3; O2SAT 94
[2023-11-15] MEDS: IMMUNE GLOBULIN 5 GM/50 ML BTL IVPB (09:19)
[2023-11-15 09:20] VITALS: BP 114/68; PULSE 60; RESP 20; TEMP 37.3; O2SAT 95
[2023-11-15] MEDS: IMMUNE GLOBULIN 40 GM/400 ML BTL IVPB ×2 (09:33→11:09)
[2023-11-15 09:55] VITALS: BP 124/75; PULSE 83; RESP 20; TEMP 36.6; O2SAT 94
== END 2023-11-28 23:59 | disposition home or self-care (01) ==
LOC: INF 01:31
PROVIDERS: PCP Family Medicine; Visit Provider Family Medicine
DX: G70.00 Myasthenia gravis without (acute) exacerbation (principal)
CPT/HCPCS: 96365; 96366; J1459

== ENCOUNTER 2023-12-02 14:11 | Outpatient (REF) | payer MEDICARE, SELFPAY ==
[2023-12-02 21:38] LABS: BUN 19 mg/dL (7-18); CREATININE 1.5 mg/dL (0.55-1.02); Calcium 9.5 mg/dL (8.5-10.1); Chloride 99 mmol/L (98-107); Estimated GFR 35.67 (mL/min/1.73m2); Glucose 270 mg/dL (74-106); Potassium 4.1 mmol/L (3.5-5.1); Sodium 135 mmol/L (136-145)
== END 2023-12-02 14:12 | disposition home or self-care (01) ==
LOC: LBN 14:11
PROVIDERS: PCP Family Medicine; Visit Provider Physician Assistant
DX: N28.9 Disorder of kidney and ureter, unspecified (principal)
CPT/HCPCS: 80048

== ENCOUNTER 2023-12-19 19:04 | Inpatient (IN) | payer MEDICARE, SELFPAY ==
[2023-12-19] VITALS (51 sets, daily range): BP systolic 71–118; BP diastolic 46–71; PULSE 78–116; RESP 13–29; TEMP 36.4; O2SAT 88–99
--- NOTE | 2023-12-19 19:14 | W.ED.GENAD ---
Discharge Plan Disposition Patient Disposition: Admit to [facility] Condition: Stable Discharge Details Chief Complaint: GenMedical Clinical Impression: Acute hypoxic respiratory failure, Urinary tract infection, Pneumonia, Sepsis Primary Care Provider: Eze Zamora ED Provider: Dinesh Jacob Home Meds and New Rx's Prescriptions: No Action prednisone 5 mg tablet,delayed release (DR/EC) 17.5 mg PO DAILY Zilbrysq 32.4 mg/0.81 mL syringe 32.4 mg subcut DAILY gentamicin 0.3 % drops 1 drp ophthalmic (eye) Q4H Qty: 5 1RF Rx Instructions: each eye meclizine 12.5 mg tablet 12.5 mg PO Q6H PRN Qty: 50 3RF imm glob G (IgG)-sorb-IgA 0-50 5 % solution IV folic acid 1 mg tablet 1 mg PO DAILY Qty: 30 6RF quinine sulfate 324 mg capsule 324 - 648 mg PO HS Qty: 180 3RF triamcinolone acetonide 0.1 % cream 1 applic Topical BID PRN (Reason: atopy) Qty: 80 3RF Rx Instructions: Apply to legs albuterol sulfate 90 mcg/actuation HFA aerosol inhaler 2 puff inhalation Q6H PRN (Reason: shortness of breath or wheezing) Qty: 8.5 12RF diltiazem HCl 120 mg capsule,extended release 24hr 120 mg PO DAILY Qty: 90 3RF modafinil 100 mg tablet 100 mg PO DAILY Qty: 30 5RF acetaminophen [Tylenol Extra Strength] 500 mg Tablet 500 mg PO Q6H PRN Patient Comments: 05/09/10 pt reports over the counter loperamide 2 mg capsule 2 mg PO BID HPI General Date/Time Provider Initiated Documentation: 12/19/23 19:14. HPI Narrative: 78 year-old female presents to ED today by EMS with a chief complaint of presented to [facility] with complaint of UTI, lower abdominal discomfort- was noted to be tachycardic, diaphoretic, and had SpO2 in the 80s, arriving on 4L by [place] by EMS with onset of UTI symptoms about a week ago, denies high fevers. Quality described as generalized fatigue, burning with urination without flank pain, no radiation to chest pain, dizziness, near syncope, nausea/vomiting, upper abdominal pain, cough, endorses shortness of breath- but states this is with exertion, and has chronic myasthenia gravis. Severity is described as moderate. Palliating factors include nothing specific attempted. Provoking factors include nothing specific. Events leading up to the incident/Associated Symptoms: Patient denies any cardiac history, does take clinical trial drugs infusions for myasthenia gravis. Patient not anticoagulated. Related Data Home Medications ?Medication ?Instructions ?Recorded ?Confirmed acetaminophen 500 mg tablet 500 mg PO Q6H PRN 05/09/20 12/19/23 (Tylenol Extra Strength) folic acid 1 mg tablet 1 mg PO DAILY #30 tabs 08/19/21 12/19/23 immune glob,gamm(IgG) 5 %-sorb-IgA IV 09/09/22 12/13/23 0 to 50 mcg/mL intravenous solution quinine sulfate 324 mg capsule 324 - 648 mg (1 - 2 x 324 mg) PO 04/02/23 12/19/23 HS #180 caps triamcinolone acetonide 0.1 % 1 applic topical BID PRN atopy #80 04/23/23 12/19/23 topical cream grams albuterol sulfate 90 mcg/actuation 2 puff inhalation Q6H PRN 04/25/23 12/19/23 aerosol inhaler shortness of breath or wheezing #8.5 grams diltiazem HCl 120 mg 120 mg PO DAILY #90 caps 04/27/23 12/19/23 capsule,extended release 24 hr prednisone 5 mg tablet,delayed 17.5 mg PO DAILY 05/24/23 12/19/23 release gentamicin 0.3 % eye drops 1 drp ophthalmic (eye) Q4H #5 mL 09/22/23 12/19/23 zilucoplan 32.4 mg/0.81 mL 32.4 mg subcut DAILY 09/22/23 12/19/23 subcutaneous syringe (Zilbrysq) modafinil 100 mg tablet 100 mg PO DAILY #30 tabs 10/06/23 12/19/23 meclizine 12.5 mg tablet 12.5 mg PO Q6H PRN #50 tabs 12/06/23 12/19/23 loperamide 2 mg capsule 2 mg PO BID 12/19/23 12/19/23 Previous Rx's ?Medication ?Instructions ?Recorded folic acid 1 mg tablet 1 mg PO DAILY #30 tabs 08/19/21 quinine sulfate 324 mg capsule 324 - 648 mg (1 - 2 x 324 mg) PO 04/02/23 HS #180 caps triamcinolone acetonide 0.1 % 1 applic topical BID PRN atopy #80 04/23/23 topical cream grams albuterol sulfate 90 mcg/actuation 2 puff inhalation Q6H PRN 04/25/23 aerosol inhaler shortness of breath or wheezing #8.5 grams diltiazem HCl 120 mg 120 mg PO DAILY #90 caps 04/27/23 capsule,extended release 24 hr gentamicin 0.3 % eye drops 1 drp ophthalmic (eye) Q4H #5 mL 09/22/23 modafinil 100 mg tablet 100 mg PO DAILY #30 tabs 10/06/23 meclizine 12.5 mg tablet 12.5 mg PO Q6H PRN #50 tabs 12/06/23 Allergies Allergy/AdvReac Type Severity Reaction Status Date / Time Penicillins Allergy ? Verified 12/19/23 19:13 breathing problems pregabalin Allergy unknown Verified 12/19/23 19:13 Sulfa (Sulfonamide Allergy unknown Verified 12/19/23 19:13 Antibiotics) topiramate AdvReac Severe dizziness, Verified 12/19/23 19:13 dysphoria amitriptyline AdvReac Intermediate sleepy Verified 12/19/23 19:13 celecoxib AdvReac Intermediate unknown Verified 12/19/23 19:13 gabapentin AdvReac Intermediate eye pain Verified 12/19/23 19:13 hydroxychloroquine AdvReac Intermediate eye pain Verified 12/19/23 19:13 imipramine AdvReac Intermediate URINARY Verified 12/19/23 19:13 RETENTION tramadol AdvReac Intermediate Headache Verified 12/19/23 19:13 methylphenidate AdvReac Causes Verified 12/19/23 19:13 tardive dyskinesia ravulizumab AdvReac Intermediate Diarrhea Uncoded 12/19/23 19:13 General Stated Complaint: GenMedical BETH: 3 Review of Systems All systems reviewed & are unremarkable except as noted in HPI and below Exam Narrative Exam Narrative: GENERAL APPEARANCE: Well-nourished, toxic, awake and alert, atraumatic, no acute distress. SKIN: Warm, pale, diaphoretic, intact, without rashes/lesions/ulcerations. HEAD: Normocephalic, atraumatic, normal hair distribution for gender/age. EYES: Normal conjunctiva, no exudates on lids/lashes. ENT: Nares patent, no circumoral cyanosis, no facial swelling NECK: Supple, trachea midline, painless cervical ROM. LUNGS/CHEST: Lungs- rhonchorous with poor air movement, labored respirations, normal A/P diameter, symmetrical expansion, no chest wall deformity HEART (CV/PV): Regular rate and rhythm without murmur, no peripheral edema, no JVD. ABDOMEN: Soft, non-distended, no guarding, nontender abdomen. MSK: Normal ROM, no swelling/deformity to bilateral UEs or LEs, moving all extremities without weakness, no cyanosis, spine midline without tenderness, normal curvature. NEURO: Mental Status AAOx4 - alert to person, place, time, events No facial droop, no forehead involvement. Motor: No focal weakness - strength 5/5 in bilateral UEs and LEs, proximal and distal, symmetric. Sensory: sensation intact to light touch globally. Gait NT PSYCH: euthymic, cooperative, pleasant, appropriate speech Course Vital Signs Vital signs: Vital Signs Pulse 114 H 12/19/23 19:04 Respiratory Rate 20 12/19/23 19:04 Blood Pressure 108/71 12/19/23 19:04 Pulse Oximetry 94 12/19/23 19:04 Temperature 36.4 C 12/19/23 19:11 Temperature Source Temporal Artery Scan 12/19/23 19:11 Pulse 116 H 12/19/23 19:11 Respiratory Rate 22 12/19/23 19:11 Respiratory Effort Short of Breath 12/19/23 19:10 Blood Pressure 103/69 12/19/23 19:11 Blood Pressure Position Sitting 12/19/23 19:04 Pulse Oximetry 93 12/19/23 19:11 Oxygen Delivery Method Nasal Cannula 12/19/23 19:11 Oxygen Flow Rate 4 12/19/23 19:11 Pain Level 0 12/19/23 19:04 Medical Decision Making This dictation utilizes [id number] dictation software and may contain unedited grammatical errors. 78 year-old female presents to ED today by EMS with a chief complaint of presented to [facility] with complaint of UTI, lower abdominal discomfort- was noted to be tachycardic, diaphoretic, and had SpO2 in the 80s, arriving on 4L by [place] by EMS with onset of UTI symptoms about a week ago, denies high fevers. Quality described as generalized fatigue, burning with urination without flank pain, no radiation to chest pain, dizziness, near syncope, nausea/vomiting, upper abdominal pain, cough, endorses shortness of breath- but states this is with exertion, and has chronic myasthenia gravis. Severity is described as moderate. Palliating factors include nothing specific attempted. Provoking factors include nothing specific. Events leading up to the incident/Associated Symptoms: Patient denies any cardiac history, does take clinical trial drugs infusions for myasthenia gravis. Patients' medical history: Myasthenia gravis, Sjogren's syndrome, diabetes mellitus, neuromuscular respiratory weakness, chronic fatigue syndrome, interstitial lung disease, recurrent pyelonephritis, pituitary macroadenoma, GERD, chronic vertigo, hyperlipidemia, immunosuppressed. Family and social history: Denies smoking, no recent travel or sick contacts. Pertinent exam findings / vital signs include diaphoretic, tachycardic, mildly hypotensive, lungs CTA without rales or rhonchi auscultated at bases, suprapubic tenderness without peritoneal signs, neuro intact. Differential / pathologies of concern include ACS, PE, PNA, Sepsis, Hypoxic Respiratory Failure. Diagnostic studies of: -CBC, CMP, magnesium, serial troponins, BNP, D-dimer, lipase, VBG, lactate, procalcitonin, COVID/flu/RSV PCR, urinalysis, blood cultures, EKG, CTA chest PE study. -CBC shows a leukocytosis of 16.2, patient is immune suppressed, there is a left shift with elevated absolute neutrophil -CMP shows baseline creatinine 1.4, mild hyponatremia, mild hypokalemia of 3.4 -Magnesium 1.1, repleted IV -Lipase negative -Procalcitonin 31.4, highly indicative of sepsis -Initial troponin 154, BNP elevated at 1400, consider PE versus ACS - 1hr trop shows 164- 3 hr trop is 148 -UA is positive for nitrites taken at [facility], negative nitrites here, covering with empiric cefepime -Covid/Flu/RSV negative -EKG is abnormal but similar to priors with no dynamic changes, shows sinus rhythm at 97 bpm with LVH, T wave inversions in aVL, J-point elevation in many leads, mildly widened QRS complex at otherwise normal intervals, left axis deviation -NIF study by RT shows -28 -CTA PE Study pending at time of sign-out Interventions of: -1g Tylenol, 1gm Magnesium, Cefepime & Vancomycin for empiric sepsis treatment. ED Course/Assessment/Plan: 78-year-old female presents after 1 week of dysuria to [facility] and was noted to be hypoxic into the 80s, she has chronic myasthenia gravis and is immune suppressed on immune modulators, she has a white count of 16.2 with a left shift and a procalcitonin of 31.4, she has elevated but stable troponins and no EKG changes. Likely has demand ischemia with her elevated troponins from her SpO2 being in the 80s and she is currently on oxygen. Mild pneumonia seen on CT by my read, UTI is present severely on UA, has not needed any pressors or other critical care interventions, I did discuss with hospitalist Dr. Ferguson who accepts for admission, patient will follow with Dr. Leal for results of CTA. Admit at 2340. Disposition of Acute Hypoxic Respiratory Failure, Sepsis, Pneumonia, Urinary Tract Infection. Patient verbalized understanding of the plan and return to ED criteria and engaged in shared decision making. Medical Records Medical records reviewed: Yes I reviewed the patient's medical records. Imaging Data Radiologic Study: Attestation: I personally reviewed and interpreted this imaging study as follows: Imaging: CT Scan My impression: Mild PNA, no filling defect seen, vRAD to follow with Dr. Leal Lab Data Lab results reviewed: Yes I reviewed the patient's lab results. Labs: 12/19/23 20:30 Blood Blood Culture - Pending 12/19/23 20:15 Blood Blood Culture - Pending Laboratory Tests Range/Units 12/19/23 12/19/23 12/19/23 19:19 20:19 20:53 WBC (4.4-10.8) 10^3/uL 16.28 H RBC (3.93-5.22) 10^6/uL 4.17 Hgb (11.2-15.7) g/dL 12.6 Hct (36.0-46.0) % 39.1 MCV (80-95) fL 94 MCH (27.0-33.0) pg 30.2 MCHC (32.0-36.0) % 32.2 RDW (11.7-14.6) % 15.1 H Plt Count (130-400) 10^3/uL 314 MPV (8.0-11.0) fL 9.9 Immature Gran % % 1.4 Neutrophils % % 74.2 Lymphocytes % % 7.1 Monocytes % % 15.6 Eosinophils % % 1.3 Basophils % % 0.4 Nucleated RBC % (0.0-0.3) % 0.0 Absolute Neutrophils (1.2-6.7) 10^3/uL 12.08 H Absolute Lymphocytes (1.2-3.4) 10^3/uL 1.16 L Absolute Monocytes (0.1-0.8) 10^3/uL 2.54 H Absolute Eosinophils (0.0-0.7) 10^3/uL 0.21 Absolute Basophils (0.0-0.2) 10^3/uL 0.07 RBC Morphology Normal D-Dimer (<500) ng/mlFEU 839 H VBG pH (7.31-7.41) 7.39 VBG pCO2 (41-51) mmHg 41 VBG pO2 mmHg 63 VBG HCO3 (23-28) mmol/L 24 VBG Total CO2 (24-29) mmol/L 25 VBG O2 Saturation % 91 VBG Base Excess (-2-3) mmol/L -1 VBG Lactate (0.9-1.7) mmol/L 1.55 Sodium (136-145) mmol/L 134 L Potassium (3.5-5.1) mmol/L 3.4 L Chloride (98-107) mmol/L 99 Carbon Dioxide (21.0-32.0) mmol/L 25.9 Anion Gap (3-11) mmol/L 9.1 BUN (7-18) mg/dL 19 H Creatinine (0.55-1.02) mg/dL 1.4 H Est GFR (CKD-EPI 2020) (mL/min/1.73m2) 38.75 Glucose (74-106) mg/dL 159 H Calcium (8.5-10.1) mg/dL 9.2 Magnesium (1.8-2.4) mg/dL 1.1 L Total Bilirubin (0.2-1.0) mg/dL 0.52 AST (15-37) U/L 18 ALT (14-59) U/L 18 Alkaline Phosphatase (46-116) U/L 70 Troponin I (<or=51) ng/L 154 H* 164 H* NT-Pro-B Natriuret Pep (<300) pg/mL 1454 H Total Protein (6.4-8.2) g/dL 8.6 H Albumin (3.4-5.0) g/dL 3.0 L Lipase (16-77) U/L 12 L Procalcitonin ng/mL 31.4 Urine Color (Yellow) Yellow Urine Clarity (Clear) Cloudy Urine pH (5-8) 5.5 Ur Specific [place] (1.005-1.025) >= 1.030 H Urine Protein (Neg-Trace) mg/dL 100 H Urine Ketones (Negative) mg/dL Trace H Urine Blood (Negative) Moderate H Urine Nitrite (Negative) Negative Urine Bilirubin (Negative) Small H Urine Urobilinogen (Up to 0.2) mg/dL 0.2 Ur Leukocyte Esterase (Negative) Moderate H Urine RBC (0-2) HPF 5-10 H Urine WBC (0-5) HPF >50 H Ur Epithelial Cells (Negative) HPF Many Urine Crystals (Negative) HPF Negative Urine Bacteria (Negative) HPF Many Urine Mucus (Negative) Negative Ur Culture Indicated? No/Sq. Contamination Urine Glucose (Negative) mg/dL Negative COVID-19 Source Nasopharynx SARS-CoV-2 (PCR) (Negative) Negative Influenza Type A (PCR) (Negative) Negative Influenza Type B (PCR) (Negative) Negative RSV (PCR) (Negative) Negative Range/Units 12/19/23 22:18 WBC (4.4-10.8) 10^3/uL RBC (3.93-5.22) 10^6/uL Hgb (11.2-15.7) g/dL Hct (36.0-46.0) % MCV (80-95) fL MCH (27.0-33.0) pg MCHC (32.0-36.0) % RDW (11.7-14.6) % Plt Count (130-400) 10^3/uL MPV (8.0-11.0) fL Immature Gran % % Neutrophils % % Lymphocytes % % Monocytes % % Eosinophils % % Basophils % % Nucleated RBC % (0.0-0.3) % Absolute Neutrophils (1.2-6.7) 10^3/uL Absolute Lymphocytes (1.2-3.4) 10^3/uL Absolute Monocytes (0.1-0.8) 10^3/uL Absolute Eosinophils (0.0-0.7) 10^3/uL Absolute Basophils (0.0-0.2) 10^3/uL RBC Morphology D-Dimer (<500) ng/mlFEU VBG pH (7.31-7.41) VBG pCO2 (41-51) mmHg VBG pO2 mmHg VBG HCO3 (23-28) mmol/L VBG Total CO2 (24-29) mmol/L VBG O2 Saturation % VBG Base Excess (-2-3) mmol/L VBG Lactate (0.9-1.7) mmol/L Sodium (136-145) mmol/L Potassium (3.5-5.1) mmol/L Chloride (98-107) mmol/L Carbon Dioxide (21.0-32.0) mmol/L Anion Gap (3-11) mmol/L BUN (7-18) mg/dL Creatinine (0.55-1.02) mg/dL Est GFR (CKD-EPI 2020) (mL/min/1.73m2) Glucose (74-106) mg/dL Calcium (8.5-10.1) mg/dL Magnesium (1.8-2.4) mg/dL Total Bilirubin (0.2-1.0) mg/dL AST (15-37) U/L ALT (14-59) U/L Alkaline Phosphatase (46-116) U/L Troponin I (<or=51) ng/L 148 H* NT-Pro-B Natriuret Pep (<300) pg/mL Total Protein (6.4-8.2) g/dL Albumin (3.4-5.0) g/dL Lipase (16-77) U/L Procalcitonin ng/mL Urine Color (Yellow) Urine Clarity (Clear) Urine pH (5-8) Ur Specific [place] (1.005-1.025) Urine Protein (Neg-Trace) mg/dL Urine Ketones (Negative) mg/dL Urine Blood (Negative) Urine Nitrite (Negative) Urine Bilirubin (Negative) Urine Urobilinogen (Up to 0.2) mg/dL Ur Leukocyte Esterase (Negative) Urine RBC (0-2) HPF Urine WBC (0-5) HPF Ur Epithelial Cells (Negative) HPF Urine Crystals (Negative) HPF Urine Bacteria (Negative) HPF Urine Mucus (Negative) Ur Culture Indicated? Urine Glucose (Negative) mg/dL COVID-19 Source SARS-CoV-2 (PCR) (Negative) Influenza Type A (PCR) (Negative) Influenza Type B (PCR) (Negative) RSV (PCR) (Negative) Quality:SDOH Health Related Social Needs: No Data to Display PFSH All Active Problems (Updated 12/19/23 @ 23:43 by SHAGGY Rondon) Sepsis (Acute) Pneumonia (Acute) Urinary tract infection (Acute) Acute hypoxic respiratory failure (Acute) Diabetes mellitus (Chronic) Hyperglycemia (Acute) Stye (Acute) Dysuria (Acute) Neuromuscular respiratory weakness (Acute) Chronic fatigue syndrome (Acute) Blepharitis (Acute) Skin lesion (Acute) Vertigo (Acute) UTI (urinary tract infection) (Acute) ILD (interstitial lung disease) (Acute) Recurrent kidney stones (Chronic 12/21/13) 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 pulmonary and neurologic findings Pituitary macroadenoma (Chronic) a. stable with last MRI done 06/2013 Atherosclerosis (Chronic) a. seen on chest CT in the thoracic aorta and in calcified coronary arteries b. seen on brain MRI with small vessel disease of the white matter Chronic lung disease (Chronic) a. secondary to Sjogren's syndrome b. mild parenchymal fibrosis c. mild restrictive disease on PFTs DJD (degenerative joint disease), lumbar (Chronic) a. disc extrusion L2, L3 b. Spondylolysis in L4 and spondylolisthesis in L4, L5 History of tobacco use (Chronic) a. quit age 34 after ten years Neuropathy (Chronic) a. secondary to Sjogren's syndrome Restless leg syndrome (Chronic) a. nightly cramping, treated with quinine GERD (gastroesophageal reflux disease) (Chronic) H/O surgical procedure (Chronic) a. 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/11) Due to Sjogren's disease Intention tremor (Chronic 05/02/12) Low back pain (Chronic 05/02/12) Myasthenia gravis (Chronic 08/01/14) Palpitations (Chronic 05/02/12) Sjogren's syndrome (Chronic 05/29/13) Spondylolisthesis (Chronic 05/02/12) Fatigue (Acute) Myalgia (Acute) Dyspnea on exertion (Acute) Heart murmur (Acute) Elevated BP without diagnosis of hypertension (Acute) Primary osteoarthritis, right shoulder (Acute) POCUS 09/09/22; 10/28/23 Rotator cuff tear, right (Acute) Osteoarthritis of right knee (Acute) DEPO MEDROL 05/07/21, 09/16/22; 10/28/23 Low blood pressure (Acute) Skin lesion (Acute) Mouth sores (Acute) Squamous cell cancer of skin of forearm (Acute) Personal history of immunosupression therapy (Acute) Chronic pain disorder (Chronic) Acquired genu valgum of right knee (Acute) Medical History Concussion (05/02/12) Injury of head (05/02/12) Premature menopause (12/07/10) Myasthenia Pain Sjoegren syndrome Surgical History H/O carpal tunnel repair Hx of cataract surgery Hx of colonoscopy Arthroplasty of knee Recurrent major depression in partial remission Social History Smoking/Tobacco Use Status: Former Tobacco Use Quit Date: 02/28/79 Tobacco: How many years used: 8 Quit status: quit date established Smoking risk assessment performed?: Yes Alcohol Intake: never Drug use: Never Substance use type: does not use Household members: spouse Housing: house current occupation: Retired Current gender identity: female What type of physical activity do you participate in: independent ambulation Do you feel safe at home: Yes Do you feel safe in your relationship?: Yes
[2023-12-19] MEDS: ACETAMINOPHEN 1,000 MG/100 ML BTL 400 MG IVPB (19:24)
[2023-12-19 19:30] LABS: Abs Immature Grans 0.23 10^3/uL (0.0-0.06); Absolute Eosinophil Count 0.21 10^3/uL (0.0-0.7); Absolute Lymphocyte Count 1.16 10^3/uL (1.2-3.4); Absolute Monocyte Count 2.54 10^3/uL (0.1-0.8); Absolute Neutrophil Count 12.08 10^3/uL (1.2-6.7); Basophils % 0.4 %; Eosinophils % 1.3 %; HCT 39.1 % (36.0-46.0); HGB 12.6 g/dL (11.2-15.7); Immature Grans % 1.4 %; Lymphocytes % 7.1 %; MCH 30.2 pg (27.0-33.0); MCHC 32.2 % (32.0-36.0); MCV 94 fL (80-95); MPV 9.9 fL (8.0-11.0); Monocytes % 15.6 %; Neutrophils % 74.2 %; Platelet Count 314 10^3/uL (130-400); RBC 4.17 10^6/uL (3.93-5.22); RDW 15.1 % (11.7-14.6); RDW-SD 51.8 fL; WBC 16.28 10^3/uL (4.4-10.8)
[2023-12-19 19:34] LABS: Absolute Basophil Count 0.07 10^3/uL (0.0-0.2)
[2023-12-19 19:42] LABS: TCO2 (Venous) 25 mmol/L (24-29); pCO2 (Venous) 41 mmHg (41-51); pH (Venous) 7.39 (7.31-7.41); pO2 (Venous) 63 mmHg
[2023-12-19 19:43] LABS: BE (Venous) -1 mmol/L (-2-3); HCO3 (Venous) 24 mmol/L (23-28); Lactate 1.55 mmol/L (0.9-1.7); O2 Sat (Venous) 91 %
[2023-12-19 19:44] LABS: Diff Comment Diff Reviewed; RBC Morphology Normal
[2023-12-19 20:00] LABS: ALT 18 U/L (14-59); AST 18 U/L (15-37); Alkaline Phosphatase 70 U/L (46-116); Anion Gap 9.1 mmol/L (3-11); BUN 19 mg/dL (7-18); Bilirubin, Total 0.52 mg/dL (0.2-1.0); CO2 25.9 mmol/L (21.0-32.0); CREATININE 1.4 mg/dL (0.55-1.02); Calcium 9.2 mg/dL (8.5-10.1); Chloride 99 mmol/L (98-107); Estimated GFR 38.75 (mL/min/1.73m2); Glucose 159 mg/dL (74-106); Lipase 12 U/L (16-77); Magnesium 1.1 mg/dL (1.8-2.4); NT-proBNP 1454 pg/mL (<300); Potassium 3.4 mmol/L (3.5-5.1); Sodium 134 mmol/L (136-145); Total Protein 8.6 g/dL (6.4-8.2)
--- NOTE | 2023-12-19 20:00 | RT.EKG_ITS ---
APPROVED REPORT Exam: Resting ECG Reason for Exam: shortness of breath Patient Location: E HR:97 bpm ECG Measurements Heart Rate 97 AXIS DC 159 P 14 QRSd 130 QRS -44 QT 387 T 117 QTc 496 Conclusion Sinus rhythm 97 LBBB no change from prio r
[2023-12-19 20:01] LABS: Troponin I 154 ng/L (<or=51)
[2023-12-19 20:06] LABS: D-Dimer 839 ng/mlFEU (<500)
[2023-12-19 20:09] LABS: COVID-19 PCR Negative (Negative); Influenza A PCR Negative (Negative); Influenza B PCR Negative (Negative); RSV PCR Negative (Negative)
[2023-12-19 20:10] LABS: Source Nasopharynx
[2023-12-19 20:20] LABS: Procalcitonin 31.4 ng/mL
[2023-12-19] MEDS: MAGNESIUM SULFATE 1 GM/100 ML BAG IV_INF (20:56)
[2023-12-19 21:00] LABS: Troponin I 164 ng/L (<or=51)
[2023-12-19] MEDS: CEFEPIME 2 GM in Normal Saline 100 ML IVPB (21:00)
[2023-12-19 21:01] LABS: Bilirubin Small (Negative); Blood Moderate (Negative); Clarity Cloudy (Clear); Glucose Negative (Negative); Ketones Trace mg/dL (Negative); Leukocyte Esterase Moderate (Negative); Nitrite Negative (Negative); Specific Gravity >= 1.030 (1.005-1.025); Urobilinogen 0.2 mg/dL (Up to 0.2); pH 5.5 (5-8)
[2023-12-19 21:14] LABS: Bacteria Many HPF (Negative); Crystals Negative HPF (Negative); Epithelial Cells Many HPF (Negative); Mucus Negative (Negative); WBC >50 HPF (0-5)
[2023-12-19 21:15] LABS: C & S Indicated? No/Sq. Contamination
--- NOTE | 2023-12-19 21:58 | DI.CT_ITS ---
Exam(s) CT CHEST PE CTA EXAM: CT CHEST PE CTA CLINICAL HISTORY: elev trop, elev d-dimer, SOB hypoxia. TECHNIQUE: Imaging Protocol: CT angiography of the chest was performed using pulmonary embolus felipe col. Multi planar reconstructions were performed. CONTRAST MATERIAL: Intravenous: Omnipaque 350 Contrast volume: 100 cc COMPARISON: CT CT CHEST W from 10/25/2023 FINDINGS: CHEST: PULMONARY ARTERIES: There are no intraluminal filling defects to suggest acute pulmonary emboli. LUNGS: Dependent increased markings in the lung bases. There is mild subpleural infiltrate in the po sterior basal segment of the left lower lobe. There are no pleural effusions. MEDIASTINUM: There is no hilar nor mediastinal adenopathy. Visualized thyroid unremarkable. CARDIAC: Mild cardiomegaly. No pericardial effusion.Caliber of the thoracic aorta is within upper no rmal limits. No evidence of dissection. There is no significant shift of the interventricular septum . PARTIALLY VISUALIZED UPPERMOST ABDOMEN: Calcified granulomas noted in the liver and spleen. OSSEOUS: T7 compression fracture appears unchanged from 10/25/2023.. IMPRESSION: 1. No evidence of acute pulmonary emboli. No evidence of pulmonary infarction.No evidence of aortic dissection nor pericardial effusion. 2. Mild infiltrate is noted in the left lower lobe posterior basal segment. There are no pleural eff usions. RADIATION DOSE DELIVERED: 143.32mGy.cm Total DLP DATA REPOSITORY: All CT scans at this facility are submitted to the National Radiology Data Registry (NRDR) Dose Index Registry (DIR) with the [employer] (ACR). RADIATION OPTIMIZATION: All CT scans at this facility use at least one of these dose optimization te chniques: automated exposure control; mA and/or kV adjustment per patient size (includes targeted exa ms where dose is matched to clinical indication); or iterative reconstruction.
[2023-12-19] MEDS: Normal Saline - Diluent 50 ML VIAL IJ (22:03)
[2023-12-19] MEDS: Omnipaque 350 MG/ML 100 ML BTL IJ (22:04)
[2023-12-19 22:51] LABS: Troponin I 148 ng/L (<or=51)
[2023-12-20] VITALS (44 sets, daily range): BP systolic 83–151; BP diastolic 56–103; PULSE 79–115; RESP 14–35; TEMP 36.8–38.4; O2SAT 84–96
--- NOTE | 2023-12-20 00:04 | DI.VRAD_ITS ---
PROCEDURE INFORMATION: Exam: CTA Chest With Contrast Exam date and time: 12/19/2023 9:46 PM Age: 78 years old Clinical indication: Other: Elev d-dimer, elev trop, SOB hypoxia TECHNIQUE: Imaging protocol: Computed tomographic angiography of the chest with contrast. Exam focused on the arteries. 3D rendering (Not supervised by radiologist): MIP and/or 3D reconstructed images were created by the technologist. Total images: 1191 Contrast material: OMNIPAQUE 350; Contrast volume: 100 ml; Contrast route: INTRAVENOUS (IV); COMPARISON: Chest CT October 25, 2023. FINDINGS: Pulmonary arteries: No filling defect in the pulmonary arterial tree. Aorta: No aortic aneurysm. No aortic dissection. Lungs: Basilar dependent atelectasis. No consolidation. Pleural spaces: No pneumothorax. No pleural effusion. Heart: No pericardial effusion. Coronary arteries: Moderate coronary calcification. Lymph nodes: No mediastinal, hilar or axillary adenopathy. Liver: Hepatic steatosis and granulomata. Spleen: Splenic granuloma. Bones/joints: Old T7 compression fracture. Soft tissues: Extrathoracic soft tissues are unremarkable. IMPRESSION: No acute findings. Dictated and Authenticated by: Jemal Domingo MD. Ordering:KRISTOPHER Montiel MD
--- NOTE | 2023-12-20 00:11 | HPE_ITS ---
Date of service: 12/20/23 Time of Service: 00:11 Assessment and Plan Assessment and plan (1) UTI (urinary tract infection): Status: Acute Assessment and plan: UTI. The transient hypotension and markedly elevated procal suggests a septic picture, though at the same time the patient appears remarkably non-toxic. Will continue empiric antibiotic coverage as is pending culture results, and given the potential instability will admit to ICU. The slight elevation in troponins, with no CP or EKG changes would be entirely consistent with type 2 ischemia -- due to either the transient hypotension or perhaps an element of hypoxemia as well. Will monitor. The hypoxemia in turn may well reflect a restrictive (chest wall) defect secondary to MG; suffice to say I see no active instrinsic pulmonary disease at present. May be worth formal PFTs while here to consider possible need for home O2. Reviewed ADs in detail and requests DNR status. History of Present Illness History of Present Illness Chief Complaint: urinary frequency, dysuria N arrative: 78 female with h/o Myasthenia, Sjoegren's with neuropathy -- here with several days of urinary frequency and dysuria. No abdominal pain or back pain. Some degree of anorexia but no vomiting. Seen by PCP, O2 sat high 80s noted and sent to ER for evasluation (of note patient states that her baseline sat is 90+/-, that she has been told this is secondary to myasthenia; viz, restrictive defect). Here in ER findings of note for transient hypotension to 70/systolic, absence of fever and RA sats high 80s (mid-high 90s on 4L); white count 16.2; trop 154, 164, 148, with EKG showing baseline LVH with strain (notably patient has had no CP or SOB); procal 31; urinalysis>50WBC/hpf; chest CT no acute findings. Blood and urine cultures obtained and patient given Vanco and Cefepime. I was asked to evaluate for admission. 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 pulmonary and neurologic findings Pituitary macroadenoma (Chronic) a. stable with last MRI done 06/2013 Atherosclerosis (Chronic) a. seen on chest CT in the thoracic aorta and in calcified coronary arteries b. seen on brain MRI with small vessel disease of the white matter Chronic lung disease (Chronic) a. secondary to Sjogren's syndrome b. mild parenchymal fibrosis c. mild restrictive disease on PFTs DJD (degenerative joint disease), lumbar (Chronic) a. disc extrusion L2, L3 b. Spondylolysis in L4 and spondylolisthesis in L4, L5 History of tobacco use (Chronic) a. quit age 34 after ten years Neuropathy (Chronic) a. secondary to Sjogren's syndrome Restless leg syndrome (Chronic) a. nightly cramping, treated with quinine GERD (gastroesophageal reflux disease) (Chronic) H/O surgical procedure (Chronic) a. 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/11) Due to Sjogren's disease Intention tremor (Chronic 05/02/12) Low back pain (Chronic 05/02/12) Myasthenia gravis (Chronic 08/01/14) Palpitations (Chronic 05/02/12) Sjogren's syndrome (Chronic 05/29/13) Spondylolisthesis (Chronic 05/02/12) Fatigue (Acute) Myalgia (Acute) Dyspnea on exertion (Acute) Heart murmur (Acute) Elevated BP without diagnosis of hypertension (Acute) Primary osteoarthritis, right shoulder (Acute) POCUS 09/09/22; 10/28/23 Rotator cuff tear, right (Acute) Osteoarthritis of right knee (Acute) DEPO MEDROL 05/07/21, 09/16/22; 10/28/23 Low blood pressure (Acute) Skin lesion (Acute) Mouth sores (Acute) Squamous cell cancer of skin of forearm (Acute) Personal history of immunosupression therapy (Acute) Chronic pain disorder (Chronic) Acquired genu valgum of right knee (Acute) Medical History Concussion (05/02/12) Injury of head (05/02/12) Premature menopause (12/07/10) Myasthenia Pain Sjoegren syndrome Surgical History H/O carpal tunnel repair Hx of cataract surgery Hx of colonoscopy Arthroplasty of knee Recurrent major depression in partial remission Social History Smoking/Tobacco Use Status: Former Tobacco Use Quit Date: 02/28/79 Tobacco: How many years used: 8 Quit status: quit date established Smoking risk assessment performed?: Yes Alcohol Intake: never Drug use: Never Substance use type: does not use Household members: spouse Housing: house current occupation: Retired Current gender identity: female What type of physical activity do you participate in: independent ambulation Do you feel safe at home: Yes Do you feel safe in your relationship?: Yes Meds Allergies and Home Medications Allergies Allergy/AdvReac Type Severity Reaction Status Date / Time Penicillins Allergy ? Verified 12/19/23 19:13 breathing problems pregabalin Allergy unknown Verified 12/19/23 19:13 Sulfa (Sulfonamide Allergy unknown Verified 12/19/23 19:13 Antibiotics) topiramate AdvReac Severe dizziness, Verified 12/19/23 19:13 dysphoria amitriptyline AdvReac Intermediate sleepy Verified 12/19/23 19:13 celecoxib AdvReac Intermediate unknown Verified 12/19/23 19:13 gabapentin AdvReac Intermediate eye pain Verified 12/19/23 19:13 hydroxychloroquine AdvReac Intermediate eye pain Verified 12/19/23 19:13 imipramine AdvReac Intermediate URINARY Verified 12/19/23 19:13 RETENTION tramadol AdvReac Intermediate Headache Verified 12/19/23 19:13 methylphenidate AdvReac Causes Verified 12/19/23 19:13 tardive dyskinesia ravulizumab AdvReac Intermediate Diarrhea Uncoded 12/19/23 19:13 Home Medications ?Medication ?Instructions ?Recorded ?Confirmed ?Type acetaminophen 500 mg tablet 500 mg PO Q6H PRN 05/09/20 12/19/23 History (Tylenol Extra Strength) folic acid 1 mg tablet 1 mg PO DAILY #30 tabs 08/19/21 12/19/23 Rx immune glob,gamm(IgG) 5 %-sorb-IgA IV 09/09/22 12/13/23 History 0 to 50 mcg/mL intravenous solution quinine sulfate 324 mg capsule 324 - 648 mg (1 - 2 x 324 mg) PO 04/02/23 12/19/23 Rx HS #180 caps triamcinolone acetonide 0.1 % 1 applic topical BID PRN atopy #80 04/23/23 12/19/23 Rx topical cream grams albuterol sulfate 90 mcg/actuation 2 puff inhalation Q6H PRN 04/25/23 12/19/23 Rx aerosol inhaler shortness of breath or wheezing #8.5 grams diltiazem HCl 120 mg 120 mg PO DAILY #90 caps 04/27/23 12/19/23 Rx capsule,extended release 24 hr prednisone 5 mg tablet,delayed 17.5 mg PO DAILY 05/24/23 12/19/23 History release gentamicin 0.3 % eye drops 1 drp ophthalmic (eye) Q4H #5 mL 09/22/23 12/19/23 Rx zilucoplan 32.4 mg/0.81 mL 32.4 mg subcut DAILY 09/22/23 12/19/23 History subcutaneous syringe (Zilbrysq) modafinil 100 mg tablet 100 mg PO DAILY #30 tabs 10/06/23 12/19/23 Rx meclizine 12.5 mg tablet 12.5 mg PO Q6H PRN #50 tabs 12/06/23 12/19/23 Rx loperamide 2 mg capsule 2 mg PO BID 12/19/23 12/19/23 History Exam Narrative Exam Narrative: 131/75, 87, 36.4, 14, 84% RA (mid-high 90s 2L); HEENT atraumatic; neck supple, carotids brisk; lungs clear; heart RRR 2/6 sys murmur LUSB to jug notch; back no CVAT; abdomen soft and NT; extremities w/o edema; neuro Ox3, lucid, moves all 4s Results Labs 12/19/23 19:19 12/19/23 19:19 Labs: Laboratory Results - last 24 hr 12/19/23 12/19/23 12/19/23 19:19 20:19 20:53 WBC 16.28 H RBC 4.17 Hgb 12.6 Hct 39.1 MCV 94 MCH 30.2 MCHC 32.2 RDW 15.1 H Plt Count 314 MPV 9.9 Immature Gran % 1.4 Neutrophils % 74.2 Lymphocytes % 7.1 Monocytes % 15.6 Eosinophils % 1.3 Basophils % 0.4 Nucleated RBC % 0.0 Absolute Neutrophils 12.08 H Absolute Lymphocytes 1.16 L Absolute Monocytes 2.54 H Absolute Eosinophils 0.21 Absolute Basophils 0.07 RBC Morphology Normal D-Dimer 839 H VBG pH 7.39 VBG pCO2 41 VBG pO2 63 VBG HCO3 24 VBG Total CO2 25 VBG O2 Saturation 91 VBG Base Excess -1 VBG Lactate 1.55 Sodium 134 L Potassium 3.4 L Chloride 99 Carbon Dioxide 25.9 Anion Gap 9.1 BUN 19 H Creatinine 1.4 H Est GFR (CKD-EPI 2020) 38.75 Glucose 159 H Calcium 9.2 Magnesium 1.1 L Total Bilirubin 0.52 AST 18 ALT 18 Alkaline Phosphatase 70 Troponin I 154 H* 164 H* NT-Pro-B Natriuret Pep 1454 H Total Protein 8.6 H Albumin 3.0 L Lipase 12 L Procalcitonin 31.4 Urine Color Yellow Urine Clarity Cloudy Urine pH 5.5 Ur Specific [place] >= 1.030 H Urine Protein 100 H Urine Ketones Trace H Urine Blood Moderate H Urine Nitrite Negative Urine Bilirubin Small H Urine Urobilinogen 0.2 Ur Leukocyte Esterase Moderate H Urine RBC 5-10 H Urine WBC >50 H Ur Epithelial Cells Many Urine Crystals Negative Urine Bacteria Many Urine Mucus Negative Ur Culture Indicated? No/Sq. Contamination Urine Glucose Negative COVID-19 Source Nasopharynx SARS-CoV-2 (PCR) Negative Influenza Type A (PCR) Negative Influenza Type B (PCR) Negative RSV (PCR) Negative 12/19/23 22:18 WBC RBC Hgb Hct MCV MCH MCHC RDW Plt Count MPV Immature Gran % Neutrophils % Lymphocytes % Monocytes % Eosinophils % Basophils % Nucleated RBC % Absolute Neutrophils Absolute Lymphocytes Absolute Monocytes Absolute Eosinophils Absolute Basophils RBC Morphology D-Dimer VBG pH VBG pCO2 VBG pO2 VBG HCO3 VBG Total CO2 VBG O2 Saturation VBG Base Excess VBG Lactate Sodium Potassium Chloride Carbon Dioxide Anion Gap BUN Creatinine Est GFR (CKD-EPI 2020) Glucose Calcium Magnesium Total Bilirubin AST ALT Alkaline Phosphatase Troponin I 148 H* NT-Pro-B Natriuret Pep Total Protein Albumin Lipase Procalcitonin Urine Color Urine Clarity Urine pH Ur Specific [place] Urine Protein Urine Ketones Urine Blood Urine Nitrite Urine Bilirubin Urine Urobilinogen Ur Leukocyte Esterase Urine RBC Urine WBC Ur Epithelial Cells Urine Crystals Urine Bacteria Urine Mucus Ur Culture Indicated? Urine Glucose COVID-19 Source SARS-CoV-2 (PCR) Influenza Type A (PCR) Influenza Type B (PCR) RSV (PCR) Last Vital Signs Temp 36.4 C 12/19/23 19:11 Pulse 87 12/20/23 00:00 Resp 14 12/20/23 00:01 BP 131/75 12/20/23 00:00 Pulse Ox 84 L 12/20/23 00:01 Time Spent Time spent with Patient: 55-74 minutes Time was spent: preparing to see the patient(eg.review tests), ordering medications,tests, procedures, referring, communicating with other health child day care provider and indepentently interpreting results
--- NOTE | 2023-12-20 01:39 | W.PCEDHO ---
Registration Status: Primary Language: Preferred Language: ED Information & Data Chief Complaint GenMedical 12/19/23 19:15 Other Complaint Urinary 12/19/23 19:04 Triage Note seen at [facility] [place], 12/19/23 19:04 increasing weakness, tachycardiac, new oxygen requirement (orig sats in 80s, on 4L NC), fever. 20g L AC. 1g IV Tylenol. Had UTI 1 week ago, still burning and pain when urinating. Completed abx. Medical / Surgical History (Last Reviewed 12/20/23 @ 00:20 by Yeison Ferguson MD) Concussion (05/02/12) Injury of head (05/02/12) Premature menopause (12/07/10) Myasthenia Pain Sjoegren syndrome (Last Reviewed 12/20/23 @ 00:20 by Yeison Ferguson MD) H/O carpal tunnel repair Hx of cataract surgery Hx of colonoscopy Arthroplasty of knee Recurrent major depression in partial remission Most Recent Vital Signs Temperature 36.4 C 12/19/23 19:11 Temperature Source Temporal Artery Scan 12/19/23 19:11 Pulse 90 12/20/23 00:31 Pulse 96 H 12/20/23 00:50 Respiratory Rate 27 H 12/20/23 00:50 Respiratory Effort Short of Breath 12/19/23 19:13 Respiratory Depth Normal 12/19/23 19:13 Respiratory Pattern Normal 12/19/23 19:13 Blood Pressure 135/57 L 12/20/23 00:31 Blood Pressure Mean 80 12/20/23 00:31 Blood Pressure Position Sitting 12/19/23 19:04 Pulse Oximetry 90 L 12/20/23 00:50 Oxygen Delivery Method Nasal Cannula 12/19/23 23:21 Oxygen Flow Rate 3 12/19/23 23:21 Pain Level 0 12/19/23 20:24 Comment 3lpm NC 12/20/23 00:50 Allergies Penicillins Allergy (Verified 12/19/23 19:13) ? breathing problems pregabalin Allergy (Verified 12/19/23 19:13) unknown Sulfa (Sulfonamide Antibiotics) Allergy (Verified 12/19/23 19:13) unknown topiramate Adverse Reaction (Severe, Verified 12/19/23 19:13) dizziness, dysphoria amitriptyline Adverse Reaction (Intermediate, Verified 12/19/23 19:13) sleepy celecoxib Adverse Reaction (Intermediate, Verified 12/19/23 19:13) unknown gabapentin Adverse Reaction (Intermediate, Verified 12/19/23 19:13) eye pain hydroxychloroquine Adverse Reaction (Intermediate, Verified 12/19/23 19:13) eye pain imipramine Adverse Reaction (Intermediate, Verified 12/19/23 19:13) URINARY RETENTION tramadol Adverse Reaction (Intermediate, Verified 12/19/23 19:13) Headache Headache Difficulty sleeping Did not help w/ pain methylphenidate Adverse Reaction (Verified 12/19/23 19:13) Causes tardive dyskinesia ravulizumab Adverse Reaction (Intermediate, Uncoded 12/19/23 19:13) Diarrhea per pt Precautions Isolation PUI 12/19/23 19:10 Active Medications Generic Name Dose Route Start Last Admin Trade Name Nick PRN Reason Stop Dose Admin Iohexol 100 ml 12/19/23 22:15 12/19/23 22:04 Omnipaque 350 Mg/Ml 100 Ml Btl IJ 01/18/24 23:59 100 ml DIRECTED NARCISA Administration Sodium Chloride 50 ml 12/19/23 22:15 12/19/23 22:03 Normal Saline - Diluent 50 Ml Vial IJ 50 ml .FOR DI USE NARCISA Administration IV IV Catheter Type [Right Peripheral IV Antecubital] IV Catheter Type [Left Peripheral IV Antecubital] IV Catheter Gauge [Right 20 Antecubital] IV Catheter Gauge [Left 20 Antecubital] Diet Orders Category Date Time Status Regular/Normal [DIET] Nutrition 12/20/23 Breakfast Active Diagnostics 12/20/23 12/19/23 12/19/23 Range/Units 05:35 22:18 20:53 WBC Pending (4.4-10.8) 10^3/uL RBC Pending (3.93-5.22) 10^6/uL Hgb Pending (11.2-15.7) g/dL Hct Pending (36.0-46.0) % MCV Pending (80-95) fL MCH Pending (27.0-33.0) pg MCHC Pending (32.0-36.0) % RDW Pending (11.7-14.6) % Plt Count Pending (130-400) 10^3/uL MPV Pending (8.0-11.0) fL Immature Gran % % Neutrophils % % Lymphocytes % % Monocytes % % Eosinophils % % Basophils % % Nucleated RBC % (0.0-0.3) % Absolute Neutrophils (1.2-6.7) 10^3/uL Absolute Lymphocytes (1.2-3.4) 10^3/uL Absolute Monocytes (0.1-0.8) 10^3/uL Absolute Eosinophils (0.0-0.7) 10^3/uL Absolute Basophils (0.0-0.2) 10^3/uL RBC Morphology D-Dimer (<500) ng/mlFEU VBG pH (7.31-7.41) VBG pCO2 (41-51) mmHg VBG pO2 mmHg VBG HCO3 (23-28) mmol/L VBG Total CO2 (24-29) mmol/L VBG O2 Saturation % VBG Base Excess (-2-3) mmol/L VBG Lactate (0.9-1.7) mmol/L Sodium (136-145) mmol/L Potassium (3.5-5.1) mmol/L Chloride (98-107) mmol/L Carbon Dioxide (21.0-32.0) mmol/L Anion Gap (3-11) mmol/L BUN (7-18) mg/dL Creatinine (0.55-1.02) mg/dL Est GFR (CKD-EPI 2020) (mL/min/1.73m2) Glucose (74-106) mg/dL Calcium (8.5-10.1) mg/dL Magnesium (1.8-2.4) mg/dL Total Bilirubin (0.2-1.0) mg/dL AST (15-37) U/L ALT (14-59) U/L Alkaline Phosphatase (46-116) U/L Troponin I 148 H* (<or=51) ng/L NT-Pro-B Natriuret Pep (<300) pg/mL Total Protein (6.4-8.2) g/dL Albumin (3.4-5.0) g/dL Lipase (16-77) U/L Procalcitonin ng/mL Urine Color Yellow (Yellow) Urine Clarity Cloudy (Clear) Urine pH 5.5 (5-8) Ur Specific [place] >= 1.030 H (1.005-1.025) Urine Protein 100 H (Neg-Trace) mg/dL Urine Ketones Trace H (Negative) mg/dL Urine Blood Moderate H (Negative) Urine Nitrite Negative (Negative) Urine Bilirubin Small H (Negative) Urine Urobilinogen 0.2 (Up to 0.2) mg/dL Ur Leukocyte Esterase Moderate H (Negative) Urine RBC 5-10 H (0-2) HPF Urine WBC >50 H (0-5) HPF Ur Epithelial Cells Many (Negative) HPF Urine Crystals Negative (Negative) HPF Urine Bacteria Many (Negative) HPF Urine Mucus Negative (Negative) Ur Culture Indicated? No/Sq. Contamination Urine Glucose Negative (Negative) mg/dL COVID-19 Source SARS-CoV-2 (PCR) (Negative) Influenza Type A (PCR) (Negative) Influenza Type B (PCR) (Negative) RSV (PCR) (Negative) 12/19/23 12/19/23 Range/Units 20:19 19:19 WBC 16.28 H (4.4-10.8) 10^3/uL RBC 4.17 (3.93-5.22) 10^6/uL Hgb 12.6 (11.2-15.7) g/dL Hct 39.1 (36.0-46.0) % MCV 94 (80-95) fL MCH 30.2 (27.0-33.0) pg MCHC 32.2 (32.0-36.0) % RDW 15.1 H (11.7-14.6) % Plt Count 314 (130-400) 10^3/uL MPV 9.9 (8.0-11.0) fL Immature Gran % 1.4 % Neutrophils % 74.2 % Lymphocytes % 7.1 % Monocytes % 15.6 % Eosinophils % 1.3 % Basophils % 0.4 % Nucleated RBC % 0.0 (0.0-0.3) % Absolute Neutrophils 12.08 H (1.2-6.7) 10^3/uL Absolute Lymphocytes 1.16 L (1.2-3.4) 10^3/uL Absolute Monocytes 2.54 H (0.1-0.8) 10^3/uL Absolute Eosinophils 0.21 (0.0-0.7) 10^3/uL Absolute Basophils 0.07 (0.0-0.2) 10^3/uL RBC Morphology Normal D-Dimer 839 H (<500) ng/mlFEU VBG pH 7.39 (7.31-7.41) VBG pCO2 41 (41-51) mmHg VBG pO2 63 mmHg VBG HCO3 24 (23-28) mmol/L VBG Total CO2 25 (24-29) mmol/L VBG O2 Saturation 91 % VBG Base Excess -1 (-2-3) mmol/L VBG Lactate 1.55 (0.9-1.7) mmol/L Sodium 134 L (136-145) mmol/L Potassium 3.4 L (3.5-5.1) mmol/L Chloride 99 (98-107) mmol/L Carbon Dioxide 25.9 (21.0-32.0) mmol/L Anion Gap 9.1 (3-11) mmol/L BUN 19 H (7-18) mg/dL Creatinine 1.4 H (0.55-1.02) mg/dL Est GFR (CKD-EPI 2020) 38.75 (mL/min/1.73m2) Glucose 159 H (74-106) mg/dL Calcium 9.2 (8.5-10.1) mg/dL Magnesium 1.1 L (1.8-2.4) mg/dL Total Bilirubin 0.52 (0.2-1.0) mg/dL AST 18 (15-37) U/L ALT 18 (14-59) U/L Alkaline Phosphatase 70 (46-116) U/L Troponin I 164 H* 154 H* (<or=51) ng/L NT-Pro-B Natriuret Pep 1454 H (<300) pg/mL Total Protein 8.6 H (6.4-8.2) g/dL Albumin 3.0 L (3.4-5.0) g/dL Lipase 12 L (16-77) U/L Procalcitonin 31.4 ng/mL Urine Color (Yellow) Urine Clarity (Clear) Urine pH (5-8) Ur Specific [place] (1.005-1.025) Urine Protein (Neg-Trace) mg/dL Urine Ketones (Negative) mg/dL Urine Blood (Negative) Urine Nitrite (Negative) Urine Bilirubin (Negative) Urine Urobilinogen (Up to 0.2) mg/dL Ur Leukocyte Esterase (Negative) Urine RBC (0-2) HPF Urine WBC (0-5) HPF Ur Epithelial Cells (Negative) HPF Urine Crystals (Negative) HPF Urine Bacteria (Negative) HPF Urine Mucus (Negative) Ur Culture Indicated? Urine Glucose (Negative) mg/dL COVID-19 Source Nasopharynx SARS-CoV-2 (PCR) Negative (Negative) Influenza Type A (PCR) Negative (Negative) Influenza Type B (PCR) Negative (Negative) RSV (PCR) Negative (Negative) 12/19/23 20:30 Blood Culture - Pending Blood 12/19/23 20:15 Blood Culture - Pending Blood Intake and Output - 24 Hour Total 12/19/23 18:57 thru 12/19/23 23:23 Intake Total 820 Balance 820 Weight 92.7 kg Intake: IV 820 Falls Risk Assessment History of Falls Previous History 12/19/23 19:13 Contributing Factors Impairments,Incontinence, 12/19/23 19:13 Medications Ambulatory Aids Uses ambulatory device 12/19/23 19:13 Tubes/Lines With any additional score 12/19/23 19:13 Gait Evaluation W/any additional score 12/19/23 19:13 Cognition No cognitive impairment 12/19/23 19:13 Fall Total Score 79 12/19/23 19:13 Level of Risk Maximum Risk 12/19/23 19:13 Problems (Last Reviewed 12/20/23 @ 00:20 by Yeison Ferguson MD) UTI (urinary tract infection) (Acute) v v v v v v v v v Sending and/or Receiving Nurses: Please use comment section below to note any information pertinent to the patient hand-off not included above. Information / Comments: questions answered. Report received from: Manny Alcazar RN
[2023-12-20 05:58] LABS: HCT 37.7 % (36.0-46.0); MCH 30.3 pg (27.0-33.0); MCHC 31.8 % (32.0-36.0); MCV 95 fL (80-95); Platelet Count 270 10^3/uL (130-400); RBC 3.96 10^6/uL (3.93-5.22); RDW 15.1 % (11.7-14.6); WBC 11.76 10^3/uL (4.4-10.8)
[2023-12-20] MEDS: Acetaminophen 325 MG TAB 650 MG PO ×2 (08:45→20:15)
[2023-12-20] MEDS: predniSONE 10 MG TAB 20 MG PO (08:45)
[2023-12-20] MEDS: Folic Acid 1 MG TAB PO (08:45)
[2023-12-20] MEDS: Loperamide 2 MG CAP PO ×2 (08:46→20:15)
--- NOTE | 2023-12-20 09:19 | INITIAL_ITS ---
Date of service: 12/20/23 Time of Service: 09:19 Care Management Initial Assmt Initial Assessment Reason for Hospitalization: UTI, hypotension, demand ischemia Functional Status/Living Situation Patient Presentation: Shelby was lying in bed when CM met with her. she stated that she is feeling better today than when she arrived. Her was visiting earlier, but she stated that he had some teeth pulled today, so she sent him home. She reported that she is independent at home. She stated that they don't have children, but they have friends/family support in the community. She stated that per MD, she will go to [facility] [place] for a down and back procedure tomorrow; RN stated that she is having a nephrostomy tube placed. She stated that she doesn't anticipate the need for any services. CM will continue to follow. Town of Residence: [facility] Resides with: Spouse (Paddy) Employment Status: Retired Instrumental Activities of Daily Living (ADLs): Independent Medications Medication Management: No Issues/Barriers identified Physical Functioning/Mobility Assistive Device: cane Advance Directives Advance Directives: Do you have an Advance Directive: N 01/19/21 13:29 AD On File at [facility]: N 01/19/21 13:29 Date Asked 12/19/23 12/19/23 19:16 AD Date Reviewed COLST On File at [facility] COLST Date Scanned Code Status Resuscitation Status DNR/DNI Insurance Coverage/Financial Issues Insurance: [facility]. [facility] supp. Care Team Visit Care Team Role Provider Type Eze Zamora MD Primary Care Provider [facility] STAFF PHYSICIAN SHAGGY Rondon Emergency Provider [employer] Yeison Ferguson MD Admit Provider [facility] STAFF PHYSICIAN Attending Provider Discharge Potential Discharge Needs: PCP F/U Appt Anticipated Barriers to Discharge: None Identified Patient/Family Education Needs: Review discharge instructions, discuss Ask Me Three Transportation: Private vehicle Plan: Anticipate Shelby will return home once medically cleared. She is going to [facility] [place] [facility] for a down and back procedure tomorrow. She will transport via private vehicle by her . She will follow up with her PCP and discharge plan of care. CM will continue to follow. 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 pulmonary and neurologic findings Pituitary macroadenoma (Chronic) a. stable with last MRI done 06/2013 Atherosclerosis (Chronic) a. seen on chest CT in the thoracic aorta and in calcified coronary arteries b. seen on brain MRI with small vessel disease of the white matter Chronic lung disease (Chronic) a. secondary to Sjogren's syndrome b. mild parenchymal fibrosis c. mild restrictive disease on PFTs DJD (degenerative joint disease), lumbar (Chronic) a. disc extrusion L2, L3 b. Spondylolysis in L4 and spondylolisthesis in L4, L5 History of tobacco use (Chronic) a. quit age 34 after ten years Neuropathy (Chronic) a. secondary to Sjogren's syndrome Restless leg syndrome (Chronic) a. nightly cramping, treated with quinine GERD (gastroesophageal reflux disease) (Chronic) H/O surgical procedure (Chronic) a. 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/11) Due to Sjogren's disease Intention tremor (Chronic 05/02/12) Low back pain (Chronic 05/02/12) Myasthenia gravis (Chronic 08/01/14) Palpitations (Chronic 05/02/12) Sjogren's syndrome (Chronic 05/29/13) Spondylolisthesis (Chronic 05/02/12) Fatigue (Acute) Myalgia (Acute) Dyspnea on exertion (Acute) Heart murmur (Acute) Elevated BP without diagnosis of hypertension (Acute) Primary osteoarthritis, right shoulder (Acute) POCUS 09/09/22; 10/28/23 Rotator cuff tear, right (Acute) Osteoarthritis of right knee (Acute) DEPO MEDROL 05/07/21, 09/16/22; 10/28/23 Low blood pressure (Acute) Skin lesion (Acute) Mouth sores (Acute) Squamous cell cancer of skin of forearm (Acute) Personal history of immunosupression therapy (Acute) Chronic pain disorder (Chronic) Acquired genu valgum of right knee (Acute) Medical History Concussion (05/02/12) Injury of head (05/02/12) Premature menopause (12/07/10) Myasthenia Pain Sjoegren syndrome Surgical History H/O carpal tunnel repair Hx of cataract surgery Hx of colonoscopy Arthroplasty of knee Recurrent major depression in partial remission Social History Smoking/Tobacco Use Status: Former Tobacco Use Quit Date: 02/28/79 Tobacco: How many years used: 8 Quit status: quit date established Smoking risk assessment performed?: Yes Alcohol Intake: never Drug use: Never Substance use type: does not use Household members: spouse Housing: house current occupation: Retired Current gender identity: female What type of physical activity do you participate in: independent ambulation Do you feel safe at home: Yes Do you feel safe in your relationship?: Yes SDOH(Care Management) Screening Will the Patient Participate in the Screening?: Unable to obtain
[2023-12-20] MEDS: CEFEPIME 1 GM in Normal Saline 50 ML IVPB (10:44)
--- NOTE | 2023-12-20 11:30 | DI.CT_ITS ---
Exam(s) CT ABDOMEN PELVIS WO EXAM: CT ABDOMEN PELVIS WO CLINICAL HISTORY: sepsis, hx renal lithiasis, +MG. TECHNIQUE: Imaging Protocol: Axial computed tomography images with coronal and sagittal reformatted images were created and reviewed CONTRAST MATERIAL: Intravenous: none Oral: None COMPARISON: CT CT CHEST PE CTA from 06/09/2022 CT,NM,TMT NM MPI REST STRESS GRP from 07/19/[address] CHEST PE CTA from 12/19/2023 FINDINGS: VISUALIZED LUNG BASES: There is mild subpleural infiltrate again noted in the posterior basal segment of the left lower lobe. There is also some subpleural infiltrate now evident in the anterior basal segment of the left lower lobe, not evident on yesterday's scan. There are no pleural effusions. No new right lung base infiltrates.. There is no significant pericardial effusion. ABDOMEN: There is no ascites. LIVER: Multiple benign calcified granulomas are noted in the liver. GALLBLADDER/BILIARY: Some contrast is seen in the gallbladder lumen from yesterday's contrast infused study. No gallbladder wall edema nor pericholecystic fluid. CBD is not dilated. PANCREAS: No evidence of pancreatic mass nor dilatation of the pancreatic duct. SPLEEN: Spleen size is normal. Single calcified granuloma in the spleen noted. ADRENALS: There are no significant adrenal masses. KIDNEYS:There is an obstructing calculus in the upper left ureter which measures 12 x 5 mm. This is lodged at the left UPJ. The renal pelvis above this as well as infundibular are dilated. No other filling defects nor clots evident. There is a tiny calculus in the upper pole calyx of the left kidn ey measuring 2 mm. The left ureter below the level of the large calculus is collapsed. There is yas e left-sided perinephric streaking and there is an large exophytic cyst off the lateral cortex of the left kidney which measures 6 by 5 by 6 cm. No solid renal masses evident.. There is some air seen in the urinary bladder which may be related to recent instrumentation. No mas ses nor clots within the bladder lumen evident ABDOMINAL AORTA: Abdominal aorta is not enlarged. LYMPH NODES: There is no retroperitoneal nor paraaortic adenopathy. ABDOMINAL WALL: There is an anterior abdominal wall para umbilical fat only containing hernia small s ize. GI: There is no evidence of bowel obstruction, free air, nor abscess. PELVIS: LYMPH NODES: There is no intrapelvic nor inguinal adenopathy. GI: Cecum is mobile. No evidence of appendicitis.There is sigmoid diverticuli but no evidence of acu te diverticulitis.However at the junction of the descending-left colon and sigmoid there is an oval s haped fat density lesion associated with the colon wall which measures an 1 point 5 by 1.0 and probab ly consistent with an element of epiploic appendagitis. URINARY BLADDER: No calculi nor obvious masses evident REPRODUCTIVE: Uterus and adnexal regions are age-appropriate. There is no free fluid in the pelvis. OSSEOUS: No significant osseous lesions. Scoliosis. No fractures. Anterolisthesis L4 upon L5 noted. IMPRESSION: 1. There is an obstructing 12 x 5 mm calculus in the upper left ureter at the UPJ level with dilatati on of the left collecting system above this level. Some ipsilateral perinephric streaking is noted. Opposite-right kidney appears unremarkable. 2. There is a finding at the junction of the descending-left colon and upper sigmoid consistent with probable epiploic appendagitis. There are no diverticuli at this level. There are multiple divertic moses more distally in the sigmoid but no evidence of acute diverticulitis. 3. Other findings as above. Report called by myself to the ordering hospitalist position 12/20/2023 at 12 noon RADIATION DOSE DELIVERED: 658.42mGy.cm Total DLP DATA REPOSITORY: All CT scans at this facility are submitted to the National Radiology Data Registry (NRDR) Dose Index Registry (DIR) with the [employer] (ACR). RADIATION OPTIMIZATION: All CT scans at this facility use at least one of these dose optimization te chniques: automated exposure control; mA and/or kV adjustment per patient size (includes targeted exa ms where dose is matched to clinical indication); or iterative reconstruction.
--- NOTE | 2023-12-20 12:55 | PHA.REVIEW2 ---
Pharmacy Admission Review Admission Clinical Review Admission Pharmacy Review: UTI (urinary tract infection) (Acute) Penicillins Allergy (Verified 12/19/23 19:13) ? breathing problems pregabalin Allergy (Verified 12/19/23 19:13) unknown Sulfa (Sulfonamide Antibiotics) Allergy (Verified 12/19/23 19:13) unknown topiramate Adverse Reaction (Severe, Verified 12/19/23 19:13) dizziness, dysphoria amitriptyline Adverse Reaction (Intermediate, Verified 12/19/23 19:13) sleepy celecoxib Adverse Reaction (Intermediate, Verified 12/19/23 19:13) unknown gabapentin Adverse Reaction (Intermediate, Verified 12/19/23 19:13) eye pain hydroxychloroquine Adverse Reaction (Intermediate, Verified 12/19/23 19:13) eye pain imipramine Adverse Reaction (Intermediate, Verified 12/19/23 19:13) URINARY RETENTION tramadol Adverse Reaction (Intermediate, Verified 12/19/23 19:13) Headache methylphenidate Adverse Reaction (Verified 12/19/23 19:13) Causes tardive dyskinesia ravulizumab Adverse Reaction (Intermediate, Uncoded 12/19/23 19:13) Diarrhea Resuscitation Status DNR/DNI Height 5 ft 10 in Weight 94.9 kg Pharmacy Admission Review Renal Dosing Renal Dosing: BUN 19 mg/dL (7-18) H 12/19/23 19:19 Creatinine 1.4 mg/dL (0.55-1.02) H 12/19/23 19:19 Medications needing adjustments: Intervened (CrCl 41.99 mL/min) List of meds needing interventions: Changed cefepime to 1g q12h Anticoagulation Anticoagulation: Hgb 12.0 g/dL (11.2-15.7) 12/20/23 05:10 Hct 37.7 % (36.0-46.0) 12/20/23 05:10 Plt Count 270 10^3/uL (130-400) 12/20/23 05:10 Creatinine 1.4 mg/dL (0.55-1.02) H 12/19/23 19:19 DVT Prophylaxis: Intervened (None at this time- reached out to provider, waiting to hear back) Relevant Labs Relevant Labs: Sodium 134 mmol/L (136-145) L 12/19/23 19:19 Potassium 3.4 mmol/L (3.5-5.1) L 12/19/23 19:19 Chloride 99 mmol/L (98-107) 12/19/23 19:19 Magnesium 1.1 mg/dL (1.8-2.4) L 12/19/23 19:19 Electrolytes, C-Reactive P, ESR: Intervened (No new electrolytes for today - reached out to provider to see if these could be done today due to low levels yesterday with replacement given) DM Control DM Control: Glucose 159 mg/dL (74-106) H 12/19/23 19:19 DM Control: Reviewed Insulin Dosing, Diabetic Medication: No orders but has diabetes listed under problems. Does take 20mg of prednisone daily which could contribute to elevated glucose levels. Cardiac Review Cardiac Review: Troponin I 148 ng/L (<or=51) H* 12/19/23 22:18 NT-Pro-B Natriuret Pep 1454 pg/mL (<300) H 12/19/23 19:19 Blood Pressure : Heart rate 83/56 : 90 1001 Blood Pressure : Heart rate 111/70 : 104 0804 Blood Pressure : Heart rate 139/58 : 101 0602 Blood Pressure : Heart rate 143/66 : 105 0402 Blood Pressure : Heart rate 130/64 : 100 0301 Blood Pressure : Heart rate 142/71 : 106 0201 BP, HR, EF%: Reviewed (Ox 91 - oxygen flow rate 1) QTc Review QTc: Reviewed (EKG report pending) IV to PO Switch IV Medications: Reviewed (cefepime and vancomycin) Home Meds Home Med List reviewed: Intervened Relevent Home Meds Not ordered & why?: Diltiazem, Privigen (monthly via infusion room), modafinil (reported as not taking on home med list) Reached out to provider regarding diltiazem, waiting to hear back Changed quinine and Zilbrysq to patients own orders. Zilbrysq injection brought in from home, 2 syringes, that were sent back up to floor. Updated prednisone on home med list. Based on fill history, takes prednisone IR not ER - changed on home med list and updated order to prednisone IR 20mg daily. Current Meds Current Medication Order Review: Intervened Comments: Added IV admission order set Pharmacy Antibiotic Review Relevant Labs: Relevant Labs 12/19/23 19:19 Procalcitonin 31.4 WBC 11.76 10^3/uL (4.4-10.8) H 12/20/23 05:10 Procalcitonin 31.4 ng/mL 12/19/23 19:19 Temperature 38.4 C 0805 Temperature 37.5 C Microbiology 12/19/23 20:15 Blood Culture - Preliminary Blood Gram Negative Mil Pharmacy Antibiotic Activity: C/S review and Reviewed, no change Comments: Patient is on vancomycin and cefepime, day 1, for UTI. Current vancomycin dose is 1250mg q24h with predicted AUC of 556 and trough of 17.9. Level was ordered by overnight pharmacy for tonight at 2000. Dose will be adjusted if needed. WBC decreased from 16.28 and 2nd blood culture still pending.
[2023-12-20 13:36] LABS: INR 1.1 (0.9-1.1); Magnesium 1.8 mg/dL (1.8-2.4); Prothrombin Time 10.7 sec (9.1-11.1)
[2023-12-20 13:42] LABS: ALT 20 U/L (14-59); AST 24 U/L (15-37); Albumin 2.6 g/dL (3.4-5.0); Alkaline Phosphatase 64 U/L (46-116); Anion Gap 7.2 mmol/L (3-11); BUN 22 mg/dL (7-18); Bilirubin, Total 0.56 mg/dL (0.2-1.0); CO2 27.8 mmol/L (21.0-32.0); CREATININE 1.6 mg/dL (0.55-1.02); Chloride 99 mmol/L (98-107); Estimated GFR 33.01 (mL/min/1.73m2); Glucose 307 mg/dL (74-106); Potassium 3.8 mmol/L (3.5-5.1); Sodium 134 mmol/L (136-145); Total Protein 8.1 g/dL (6.4-8.2)
--- NOTE | 2023-12-20 13:45 | W.EVENT ---
Date of service: 12/20/23 Time of Service: 13:45 Event Note: Patient continues on intravenous cefepime and vancomycin. She continued to have low blood pressure and spiked a fever earlier in the morning. Troponin was noted to be 148. Troponins were sent. Crea 1.6, serum sodium [address] scan of the abdomen and pelvis was performed without contrast which showed a left ureteric UPJ obstruction secondary to ureteral lithiasis. She has proximal hydronephrosis. Blood cultures are sensitive with positive for gram-negative rods. The case was discussed with Dr. Chance who explained the patient appears to be more complicated due to history of myasthenia gravis, troponin spill and sepsis and recommended us contacting a tertiary center. [facility] was contacted for either transfer or down and back for percutaneous nephrostomy tube placement. Time Spent with Patient Time spent in critical care(minutes): 35 Time Spent Included: Performing procedures not included in c.c time, Coordination of care, Chart review, Documenting critically ill care and Discussing critically ill care with other medical staff
[2023-12-20 13:47] LABS: Troponin I 121 ng/L (<or=51)
--- NOTE | 2023-12-20 14:11 | CE_ITS ---
Date of service: 12/20/23 Time of Service: 14:12 Event Note: Discussed case with [facility] [place] of interventional radiology. They are accepting the patient for a down and back L sided percutaneous nephrostomy tube placement tomorrow morning. They require H&P to be faxed to [phone] requesting H&P and an order for the PCN tube placement. Patient will be made n.p.o. past midnight on 12/20/2023. Transportation will need to be arranged for 8:50 AM arrival for a 9:50 AM Case at [facility]. Discussed status with patient. Time Spent with Patient Time spent in critical care(minutes): 35 Time Spent Included: Coordination of care and Discussing critically ill care with other medical staff
[2023-12-20] MEDS: Normal Saline Flush 10 ML SYR IVP (20:16)
[2023-12-21] VITALS (27 sets, daily range): BP systolic 107–152; BP diastolic 64–87; PULSE 73–96; RESP 11–28; TEMP 36.6–37.5; O2SAT 91–98
[2023-12-21] MEDS: CEFEPIME 1 GM in Normal Saline 50 ML IVPB ×2 (00:29→16:26)
[2023-12-21] MEDS: Acetaminophen 325 MG TAB 650 MG PO ×2 (03:50→17:16)
[2023-12-21 05:43] LABS: HCT 33.5 % (36.0-46.0); HGB 10.7 g/dL (11.2-15.7); MCH 30.2 pg (27.0-33.0); MCHC 31.9 % (32.0-36.0); MCV 95 fL (80-95); MPV 9.8 fL (8.0-11.0); Platelet Count 235 10^3/uL (130-400); RBC 3.54 10^6/uL (3.93-5.22); RDW 14.8 % (11.7-14.6); RDW-SD 51.9 fL; WBC 7.03 10^3/uL (4.4-10.8)
[2023-12-21 06:02] LABS: ALT 20 U/L (14-59); AST 25 U/L (15-37); Albumin 2.3 g/dL (3.4-5.0); Alkaline Phosphatase 54 U/L (46-116); Anion Gap 7.9 mmol/L (3-11); BUN 19 mg/dL (7-18); Bilirubin, Total 0.36 mg/dL (0.2-1.0); CO2 29.1 mmol/L (21.0-32.0); CREATININE 0.9 mg/dL (0.55-1.02); Calcium 8.8 mg/dL (8.5-10.1); Chloride 103 mmol/L (98-107); Estimated GFR 65.84 (mL/min/1.73m2); Glucose 110 mg/dL (74-106); Magnesium 1.7 mg/dL (1.8-2.4); Potassium 3.1 mmol/L (3.5-5.1); Sodium 140 mmol/L (136-145); Total Protein 7.3 g/dL (6.4-8.2)
[2023-12-21] MEDS: Loperamide 2 MG CAP PO ×2 (07:24→19:40)
--- NOTE | 2023-12-21 07:25 | W.PM.PROGNOT ---
Date of Service Date of service: 12/21/23 Time of Service: 07:25 Assessment and Plan Assessment and plan (1) Hydronephrosis concurrent with and due to calculi of kidney and ureter: Status: Acute Assessment and plan: patient underwent percutaneous nephrostomy tube placement today at [facility] (2) UPJ (ureteropelvic junction) obstruction: Status: Acute Assessment and plan: percutaneous nephrostomy tube placement performed today at [facility] (3) Gram-negative bacteremia: Status: Acute Assessment and plan: Continues on intravenous cefepime, renal dose adjusted Await ID and sensitivity, identification still pending. (4) Neuromuscular respiratory weakness: Status: Acute Assessment and plan: Myasthenia gravis No acute episode at this time. Patient is at her neuromuscular baseline (5) Diabetes mellitus: Status: Chronic Assessment and plan: Continue to monitor blood sugars Continue blood sugar coverage as necessary (6) UTI (urinary tract infection): Status: Acute Assessment and plan: Patient has history of repeated isolations of pansensitive Klebsiella in the past. Urine cultures pending, blood cultures 3 of 4 bottles positive for gram-negative rods (7) Recurrent kidney stones: Status: Chronic Assessment and plan: Left-sided. Patient follows with a urologist outpatient Patient is past urinary stones not infrequently (8) Recurrent pyelonephritis: Status: Chronic Assessment and plan: Gram-negative rods, await identification (9) Sepsis: Status: Inactive Assessment and plan: Blood pressure stable at this time. No need for pressors Subjective Subjective Interval history since last seen: Clinical course reviewed including notes, orders, labs, vitals, meds, imaging, and cultures. Care is discussed with primary nurse. 3-4 bottles of 2 sets of blood cultures positive for gram-negative rods. Patient is repeatedly had Klebsiella isolated S which was pansensitive. ID and sensitivities pending Patient is planned for a down and back to [facility] for placement of percutaneous nephrostomy tube to alleviate the left ureteric UPJ obstruction and proximal hydronephrosis. Patient continues on cefepime renal dose adjusted. White count today 7.0 down from 12. Hemoglobin 10.7 hematocrit 33.5. Platelet count 235. PT yesterday 10.7 and 1.1 INR Sodium 140 potassium 3.1 BUN 19 creatinine 0.9 magnesium 1.7 Potassium was apparently given some magnesium was not given until the patient returned from her procedure. The patient states that she hurts from the rough road ride to [place]. She denies any chills or fever. She has some back discomfort. She has for extra pain Exam Narrative Exam Narrative: Patient is alert and oriented x 3 and in no acute distress. She is examined in the ICU and her is present as well. HEENT: Neck supple, MM pink and moist, conjunctiva non-injected, sclera non-icteric, Pupils equal and reactive to light symmetrically, no JVD, no A waves. No thyromegaly. No carotid bruit CHEST: Bilaterally symmetrical with inspiration and expiration. No use of accessory muscles of respiration. No nasal flaring. RESP: Clear to auscultation bilaterally, no rales, rhonchi or wheeze, no pleural friction rub, no post-tussive crackles or apical rales. COR: RRR without murmur, normal S1, S2, no rub or gallop ABDOMEN: Soft, non tender diffusely, normally active bowel sounds diffusely, No hepatosplenomegaly, No abdominal bruit, no masses, no tenderness on deep abdominal palpation. G/U: deferred Rectal: deferred MUSCULOSKELETAL: Bilaterally symmetrical, no muscle belly tenderness or mass DERMIS: Skin warm and dry, no ulcers or rashes, EXTREMITIES: No cyanosis, clubbing or edema, no gross deformities of the large or small joints of the upper or lower extremities. NEUROLOGICAL: Cranial nerves intact II-XII without notable deficit, No peripheral neurosensory or motor deficits noted. LYMPH: No anterior or posterior cervical, no supraclavicular, No axillary, no epitrochlear or femoral lymphadenopathy. Objective Last Vital Signs Temp 37.5 C 12/21/23 02:01 Pulse 76 12/21/23 02:01 Resp 22 12/21/23 02:01 BP 124/65 12/21/23 02:01 Pulse Ox 95 12/21/23 02:01 Laboratory Results - last 24 hr 12/20/23 12/20/23 12/21/23 13:12 20:00 05:35 WBC 7.03 RBC 3.54 L Hgb 10.7 L Hct 33.5 L MCV 95 MCH 30.2 MCHC 31.9 L RDW 14.8 H Plt Count 235 MPV 9.8 PT 10.7 INR 1.1 Sodium 134 L 140 Potassium 3.8 3.1 L Chloride 99 103 Carbon Dioxide 27.8 29.1 Anion Gap 7.2 7.9 BUN 22 H 19 H Creatinine 1.6 H 0.9 Est GFR (CKD-EPI 2020) 33.01 65.84 Glucose 307 H 110 H Calcium 9.0 8.8 Magnesium 1.8 1.7 L Total Bilirubin 0.56 0.36 AST 24 25 ALT 20 20 Alkaline Phosphatase 64 54 Troponin I 121 H* Total Protein 8.1 7.3 Albumin 2.6 L 2.3 L Vancomycin Trough Cancelled Time Spent with Patient Time Spent with Patient: >50 minutes Time was spent: preparing to see the patient(eg.review tests), obtaining and/or reviewing separately otained hiistory, ordering medications,tests, procedures, referring, communicating with other health cardiac care nurse, indepentently interpreting results, counseling the patient and care coordination
--- NOTE | 2023-12-21 09:47 | PDOC.CMPRO ---
Date of service: 12/21/23 Time of Service: 09:47 Care Management Progress Note Progress Note Text Progress Note Text: Shelby [place] [facility] [place] today for nephrostomy tube placement. She returned around 3pm and was not feeling great. She stated that the ride down and back was awful, and that her shoulder hurt due to the positioning she had to be in for the procedure. She was not interested in talking with CM, but was pleasant Discharge Potential Discharge Needs: PCP F/U Appt and Other (urology f/u) Anticipated Barriers to Discharge: None Identified Patient/Family Education Needs: Review discharge instructions, discuss Ask Me Three Transportation: Private vehicle Plan: Anticipate Shelby will return home, with no new services, once medically cleared. She will transport via private vehicle by her . She will follow up with her PCP and urology and discharge plan of care. CM will continue to follow. SDOH(Care Management) Screening Will the Patient Participate in the Screening?: Unable to obtain Do you worry about having a steady place to live?: choose not to answer In the past 12 months, have you had to go without electric, gas, oil or water in your home?: choose not to answer Have you or anyone in your house had to go without enough food to eat?: choose not to answer Has lack of transportation kept you from medical appointments or from doing things needed for daily living?: choose not to answer Has anyone in your support network made you feel unsafe for any reason?: choose not to answer
[2023-12-21] MEDS: Normal Saline Flush 10 ML SYR IVP ×2 (16:12→19:46)
[2023-12-21] MEDS: Folic Acid 1 MG TAB PO (16:14)
[2023-12-21] MEDS: predniSONE 10 MG TAB 20 MG PO (16:14)
[2023-12-21] MEDS: MAGNESIUM SULFATE 2 GM/50 ML BAG IV_INF (17:17)
[2023-12-22] VITALS (20 sets, daily range): BP systolic 95–122; BP diastolic 53–103; PULSE 66–103; RESP 14–22; TEMP 36.5–36.8; O2SAT 89–97
[2023-12-22] MEDS: Acetaminophen 325 MG TAB 650 MG PO ×4 (00:07→19:40)
[2023-12-22] MEDS: CEFEPIME 1 GM in Normal Saline 50 ML IVPB ×2 (04:12→15:29)
[2023-12-22] MEDS: Loperamide 2 MG CAP PO ×2 (08:02→20:21)
[2023-12-22] MEDS: dilTIAZem CD 120 MG CAPCR PO (09:15)
--- NOTE | 2023-12-22 13:13 | PGE_ITS ---
Date of Service Date of service: 12/22/23 Time of Service: 13:13 Assessment and Plan Assessment and plan (1) Severe sepsis: Status: Acute Assessment and plan: - Patient met criteria for severe sepsis on admission with heart rate 114, respiratory rate of 26, source of infection being obstructing UPJ stone and gram-negative bacteremia -Patient has history of recurrent kidney stones and frequent UTIs -on IV cefepime, 3 out of 4 blood cultures positive for gram-negative, await final blood culture results -Follow-up a.m. CBC (2) Hydronephrosis concurrent with and due to calculi of kidney and ureter: Status: Acute Assessment and plan: patient [place] [facility] [place]3) UPJ (ureteropelvic junction) obstruction: Status: Acute Assessment and plan: -as noted above (4) Gram-negative bacteremia: Status: Acute Assessment and plan: -as noted above (5) Neuromuscular respiratory weakness: Status: Acute Assessment and plan: -Myasthenia gravis -No acute episode at this time. -Patient is at her neuromuscular baseline (6) Diabetes mellitus: Status: Chronic Assessment and plan: Continue to monitor blood sugars Continue blood sugar coverage as necessary (7) UTI (urinary tract infection): Status: Acute Assessment and plan: Patient has history of repeated isolations of pansensitive Klebsiella in the past. Urine cultures pending, blood cultures 3 of 4 bottles positive for gram- negative rods Subjective Subjective Interval history since last seen: Patient states that she is doing well today. She understands that we are waiting for final culture results in order to transition her to an appropriate p.o. antibiotic regimen. Exam Narrative Exam Narrative: Well-appearing older female in bed in no acute distress, ANO x 4, heart regular rhythm, lungs clear to auscultation bilaterally, abdomen soft, nontender, nondistended Objective Last Vital Signs Temp 97.7 F 12/22/23 00:05 Pulse 77 12/22/23 08:01 Resp 17 12/22/23 08:01 BP 110/87 12/22/23 08:01 Pulse Ox 96 12/22/23 08:21 Time Spent with Patient Time Spent with Patient: >50 minutes Time was spent: preparing to see the patient(eg.review tests), obtaining and/or reviewing separately otained hiistory, ordering medications,tests, procedures, referring, communicating with other health hospice care transitions coordinator, indepentently in terpreting results, counseling the patient and care coordination
[2023-12-22] MEDS: MORPHine 2 MG/ML SYR IVP (14:21)
--- NOTE | 2023-12-22 17:23 | PDOC.CMPRO ---
Date of service: 12/22/23 Time of Service: 17:23 Care Management Progress Note Progress Note Text Progress Note Text: Shelby was lying in bed when CM met with her. She stated that she had a difficult day yesterday, going down and back to [facility] [place] for a procedure to place the nephrostomy tube. She stated that she is happy to be back at [facility]. She reported that she has been having some pain today, but that she was able to sit up in her chair for a few hours. She stated that she is looking forward to returning home once she is medically ready. CM will continue to follow. Discharge Potential Discharge Needs: PCP F/U Appt Anticipated Barriers to Discharge: None Identified Patient/Family Education Needs: Review discharge instructions, discuss Ask Me Three Transportation: Private vehicle Plan: Anticipate Shelby will return home, with no new services, once medically cleared. She will transport via private vehicle by her . She will follow up with her PCP and urology and her discharge plan of care. CM will continue to follow. SDOH(Care Management) Screening Will the Patient Participate in the Screening?: Unable to obtain Do you worry about having a steady place to live?: choose not to answer In the past 12 months, have you had to go without electric, gas, oil or water in your home?: choose not to answer Have you or anyone in your house had to go without enough food to eat?: choose not to answer Has lack of transportation kept you from medical appointments or from doing things needed for daily living?: choose not to answer Has anyone in your support network made you feel unsafe for any reason?: choose not to answer
[2023-12-22] MEDS: Normal Saline Flush 10 ML SYR IVP (19:43)
[2023-12-23] MEDS: Acetaminophen 325 MG TAB 650 MG PO ×2 (02:00→07:15)
[2023-12-23 03:09] VITALS: BP 106/76; PULSE 94; RESP 14; TEMP 37.1; O2SAT 94
[2023-12-23] MEDS: CEFEPIME 1 GM in Normal Saline 50 ML IVPB (03:44)
[2023-12-23] MEDS: MORPHine 2 MG/ML SYR IVP (05:36)
[2023-12-23 06:58] LABS: HCT 36.1 % (36.0-46.0); HGB 11.7 g/dL (11.2-15.7); MCH 30.1 pg (27.0-33.0); MCHC 32.4 % (32.0-36.0); MCV 93 fL (80-95); Platelet Count 291 10^3/uL (130-400); RBC 3.89 10^6/uL (3.93-5.22); RDW 14.5 % (11.7-14.6); RDW-SD 49.4 fL; WBC 5.42 10^3/uL (4.4-10.8)
[2023-12-23 07:13] LABS: Anion Gap 6.1 mmol/L (3-11); BUN 14 mg/dL (7-18); CO2 30.9 mmol/L (21.0-32.0); CREATININE 0.8 mg/dL (0.55-1.02); Calcium 9.2 mg/dL (8.5-10.1); Chloride 102 mmol/L (98-107); Estimated GFR 75.84 (mL/min/1.73m2); Glucose 125 mg/dL (74-106); Potassium 3.3 mmol/L (3.5-5.1); Sodium 139 mmol/L (136-145)
[2023-12-23] MEDS: Normal Saline Flush 10 ML SYR IVP (07:14)
[2023-12-23] MEDS: predniSONE 10 MG TAB 20 MG PO (07:15)
[2023-12-23] MEDS: Loperamide 2 MG CAP PO (07:15)
[2023-12-23] MEDS: Folic Acid 1 MG TAB PO (07:15)
[2023-12-23] MEDS: dilTIAZem CD 120 MG CAPCR PO (07:15)
[2023-12-23 07:20] VITALS: BP 112/75; PULSE 86; RESP 14; TEMP 36.8; O2SAT 92
[2023-12-23 08:00] VITALS: O2SAT 93
--- NOTE | 2023-12-23 08:28 | PDOC.CMPRO ---
Date of service: 12/23/23 Time of Service: 08:28 SDOH(Care Management) Screening Will the Patient Participate in the Screening?: Unable to obtain Do you worry about having a steady place to live?: choose not to answer In the past 12 months, have you had to go without electric, gas, oil or water in your home?: choose not to answer Have you or anyone in your house had to go without enough food to eat?: choose not to answer Has lack of transportation kept you from medical appointments or from doing things needed for daily living?: choose not to answer Has anyone in your support network made you feel unsafe for any reason?: choose not to answer
--- NOTE | 2023-12-23 09:24 | PDOC.HHF2F ---
Home Health Referral Home Health Orders Clinical synopsis of why skilled professionals are needed: Severe sepsis, UTI, Obstructing left UPJ stone with perc nephrostomy tube placement Registered Nurse: Check all that apply Instruct on new or changed medication(s)/assess compliance: Ordered Instruct on, and maintenance of, urinary device: Ordered Encounter Date and Reason: I certify that a FTF encounter for this patient was performed on December 23, 2023 and that such encounter was related to the primary reason the patient requires home health services. The encounter was conducted in the following manner: By me as the certifying physician, FACILITIES MAINTENANCE MANAGER, PA or By an inpatient physician, FACILITIES MAINTENANCE MANAGER or PA during an inpatient stay who communicated findings to me, Certification And Authentication I certify that I composed the above information based on my clinical judgment relating to this patient's medical condition and, if applicable, clinical findings communicated to me by the NPP or inpatient physician who performed the FTF encounter. Name of Provider that will be monitoring home health services: Eze Zamora
--- NOTE | 2023-12-23 09:25 | W.PM.DS.N ---
Date of service: 12/23/23 Time of Service: 09:25 DS: Diagnosis Discharge Diagnosis (1) Severe sepsis: Status: Acute (2) Hydronephrosis concurrent with and due to calculi of kidney and ureter: Status: Acute (3) UPJ (ureteropelvic junction) obstruction: Status: Acute (4) Gram-negative bacteremia: Status: Acute (5) Neuromuscular respiratory weakness: Status: Acute (6) Diabetes mellitus: Status: Chronic (7) UTI (urinary tract infection): Status: Acute Discharge Plan Disposition Patient Disposition: Home W/Home Health Services Condition: Good Discharge Details Reason For Visit: UTI, hypotension, demand ischemia Admit Date/Time: 12/20/23 00:32 Admit Provider: Yeison Ferguson Attending Provider: Yeison Ferguson Primary Care Provider: Eze Zamora Hospital Course Hospital Course: Patient initially presented to the hospital with signs and symptoms that was initially thought to be due to a UTI but was subsequently discovered to be due to an obstructing left UPJ stone. Patient also met criteria for severe sepsis on admission with a heart rate of 114, respiratory rate 26, source of infection being UTI/infected obstructing UPJ stone, mildly elevated troponin without EKG changes or chest pain indicative of type II NSTEMI, and gram-negative bacteremia which subsequently grew pansensitive Klebsiella. Patient had there and back procedure done at [facility] with PERC nephrostomy tube on 12/21/2023 and tolerated the procedure well. Upon final blood culture results was determined patient will be transitioned to p.o. cefpodoxime, she would not be able to tolerate p.o. for quinolones given her myasthenia gravis. Given significant improvement in patient's condition was determined that she was stable for discharge home. Home Meds and New Rx's Prescriptions: New cefpodoxime 200 mg tablet 200 mg PO BID Qty: 20 0RF Rx Instructions: must administer with a meal/food Continued Zilbrysq 32.4 mg/0.81 mL syringe 32.4 mg subcut DAILY meclizine 12.5 mg tablet 12.5 mg PO Q6H PRN Qty: 50 3RF imm glob G (IgG)-sorb-IgA 0-50 5 % solution See Rx Instructions IV .COMPLEX Rx Instructions: intravenously every 2 weeks; folic acid 1 mg tablet 1 mg PO DAILY Qty: 30 6RF quinine sulfate 324 mg capsule 324 - 648 mg PO HS Qty: 180 3RF triamcinolone acetonide 0.1 % cream 1 applic Topical BID PRN (Reason: atopy) Qty: 80 3RF Rx Instructions: Apply to legs albuterol sulfate 90 mcg/actuation HFA aerosol inhaler 2 puff inhalation Q6H PRN (Reason: shortness of breath or wheezing) Qty: 8.5 12RF diltiazem HCl 120 mg capsule,extended release 24hr 120 mg PO DAILY Qty: 90 3RF modafinil 100 mg tablet 100 mg PO DAILY Qty: 30 5RF acetaminophen [Tylenol Extra Strength] 500 mg Tablet 500 mg PO Q6H PRN Patient Comments: 05/09/10 pt reports over the counter prednisone 5 mg tablet 20 mg PO DAILY Patient Comments: TAKE FOUR TABLETS BY MOUTH EVERY DAY loperamide 2 mg capsule 2 mg PO BID cyclosporine [Restasis] 0.05 % dropperette 1 drp ophthalmic (eye) BID Patient Comments: INSTILL ONE DROP IN EACH EYE TWO TIMES A DAY Discontinued prednisone 5 mg tablet,delayed release (DR/EC) 17.5 mg PO DAILY Discharge Instructions Referrals: Loi Chance MD [ [facility] STAFF PHYSICIAN] - (Freq stones, obstructing left UPJ stone with neph tube placed at [facility] [place] on 12/11/2023) Activity:: Activity as Tolerated Equipment/Supplies:: No Equipment Needed Diet:: As Tolerated Discharge Orders Discharge Orders: Discharge Order (Routine); Ordered 12/23/23 Ordered By: Gregory Beasley DS: Summary Time Spent with Patient providing and/or coordinating discharge services: Greater than 30 minutes Status at Discharge Functional status at discharge: independent ambulation Overall status at discharge: patient is back to baseline Mental Status: mental status grossly normal Speech and Movement: speech and movement normal Mood: congruent mood Affect: normal affect Quality:SDOH Health Related Social Needs: No Data to Display Exam Narrative Exam Narrative: Well-appearing older female in bed in no acute distress, ANO x 4, heart regular rhythm, lungs clear to auscultation bilaterally, abdomen soft, nontender, nondistended Psych Mental Status: mental status grossly normal Speech and Movement: speech and movement normal Mood: congruent mood Affect: normal affect DS: Data Vitals/I&O Vitals and I&O: Vital Signs Temperature 98.2 F 12/23/23 07:20 Temperature Source Temporal Artery Scan 12/23/23 07:20 Pulse 86 12/23/23 07:20 Pulse 84 12/22/23 20:21 Respiratory Rate 14 12/23/23 07:20 Respiratory Effort Normal 12/20/23 02:10 Respiratory Depth Normal 12/20/23 02:10 Respiratory Pattern Tachypnea 12/20/23 02:10 Blood Pressure 112/75 12/23/23 07:20 Blood Pressure Mean 85 12/22/23 20:21 Blood Pressure Position Sitting 12/19/23 19:04 Pulse Oximetry 92 12/23/23 07:20 Oxygen Delivery Method Room Air 12/23/23 07:20 Oxygen Flow Rate 0 12/23/23 07:20 Pain Level 8 12/23/23 07:20 Comment 3lpm NC 12/20/23 00:50 Intake & Output 12/22/23 12/23/23 12/23/23 17:59 05:59 17:59 Intake Total 1130 / 1130 245 / 1375 Output Total 1050 / 1050 250 / 1300 150 / 150 Balance 80 / 80 -5 / 75 -150 / -150 Intake: IV 50 / 50 70 / 120 Oral 1080 / 1080 Injectate 175 / 175 Left flank 175 / 175 Output: Drainage 450 / 450 150 / 150 Left flank 450 / 450 150 / 150 Urine 600 / 600 250 / 850 Other: Urine Color Yellow Pale Urine Appearance Clear Clear Urine Odor Normal Data Completed and Pending Labs on day of discharge: Labs from last 24 hours 12/23/23 06:25 WBC 5.42 RBC 3.89 L Hgb 11.7 Hct 36.1 MCV 93 MCH 30.1 MCHC 32.4 RDW 14.5 Plt Count 291 MPV 10.0 Sodium 139 Potassium 3.3 L Chloride 102 Carbon Dioxide 30.9 Anion Gap 6.1 BUN 14 Creatinine 0.8 Est GFR (CKD-EPI 2020) 75.84 Glucose 125 H Calcium 9.2 Preliminary micro results at discharge 12/19/23 20:30 Blood Culture - Preliminary Blood Klebsiella pneumoniae PFSH All Active Problems (Updated 12/22/23 @ 13:15 by Gregory Beasley MD) Severe sepsis (Acute) Hydronephrosis concurrent with and due to calculi of kidney and ureter (Acute) UPJ (ureteropelvic junction) obstruction (Acute) Gram-negative bacteremia (Acute) Diabetes mellitus (Chronic) Hyperglycemia (Acute) Stye (Acute) Dysuria (Acute) Neuromuscular respiratory weakness (Acute) Chronic fatigue syndrome (Acute) Blepharitis (Acute) Skin lesion (Acute) Vertigo (Acute) UTI (urinary tract infection) (Acute) ILD (interstitial lung disease) (Acute) Recurrent kidney stones (Chronic 12/21/13) 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 pulmonary and neurologic findings Pituitary macroadenoma (Chronic) a. stable with last MRI done 06/2013 Atherosclerosis (Chronic) a. seen on chest CT in the thoracic aorta and in calcified coronary arteries b. seen on brain MRI with small vessel disease of the white matter Chronic lung disease (Chronic) a. secondary to Sjogren's syndrome b. mild parenchymal fibrosis c. mild restrictive disease on PFTs DJD (degenerative joint disease), lumbar (Chronic) a. disc extrusion L2, L3 b. Spondylolysis in L4 and spondylolisthesis in L4, L5 History of tobacco use (Chronic) a. quit age 34 after ten years Neuropathy (Chronic) a. secondary to Sjogren's syndrome Restless leg syndrome (Chronic) a. nightly cramping, treated with quinine GERD (gastroesophageal reflux disease) (Chronic) H/O surgical procedure (Chronic) a. 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/11) Due to Sjogren's disease Intention tremor (Chronic 05/02/12) Low back pain (Chronic 05/02/12) Myasthenia gravis (Chronic 08/01/14) Palpitations (Chronic 05/02/12) Sjogren's syndrome (Chronic 05/29/13) Spondylolisthesis (Chronic 05/02/12) Fatigue (Acute) Myalgia (Acute) Dyspnea on exertion (Acute) Heart murmur (Acute) Elevated BP without diagnosis of hypertension (Acute) Primary osteoarthritis, right shoulder (Acute) POCUS 09/09/22; 10/28/23 Rotator cuff tear, right (Acute) Osteoarthritis of right knee (Acute) DEPO MEDROL 05/07/21, 09/16/22; 10/28/23 Low blood pressure (Acute) Skin lesion (Acute) Mouth sores (Acute) Squamous cell cancer of skin of forearm (Acute) Personal history of immunosupression therapy (Acute) Chronic pain disorder (Chronic) Acquired genu valgum of right knee (Acute) Medical History Concussion (05/02/12) Injury of head (05/02/12) Premature menopause (12/07/10) Myasthenia Pain Sjoegren syndrome Surgical History H/O carpal tunnel repair Hx of cataract surgery Hx of colonoscopy Arthroplasty of knee Recurrent major depression in partial remission Social History Smoking/Tobacco Use Status: Former Tobacco Use Quit Date: 02/28/79 Tobacco: How many years used: 8 Quit status: quit date established Smoking risk assessment performed?: Yes Alcohol Intake: never Drug use: Never Substance use type: does not use Household members: spouse Housing: house current occupation: Retired Current gender identity: female What type of physical activity do you participate in: independent ambulation Do you feel safe at home: Yes Do you feel safe in your relationship?: Yes Time Spent with Patient Time Spent with Patient: <45 minutes Time was spent: preparing to see the patient(eg.review tests), obtaining and/or reviewing separately otained hiistory, ordering medications,tests, procedures, referring, communicating with other health patient care provider, indepentently interpreting results, counseling the patient and care coordination
--- NOTE | 2023-12-23 11:12 | PDOC.CMDIS ---
Date of service: 12/23/23 Time of Service: 11:13 LACE Index Scoring Tool Questions: Length of Stay (in days): 3 Was the patient admitted via the E.D.?: Yes Comorbidities: Chronic Pulmonary Disease E.D. Visits: 0 Answers: Total Score: 8 Risk of Readmission: Low Risk Care Management Discharge Plan Reason for Hospitalization: UTI, hypotension Discharge Plan: Shelby will return home with new orders for HH RN. Her will drive her home via private vehicle. She will follow up with her PCP and discharge plan of care. She is happy to be going home. Patient/Family Education Needs: Review discharge instructions and limitations, discussion of self care needs including ask me three. Services Needed at Discharge: Home Health Care Services (new HH RN) SDOH Health Related Social Needs: No Data to Display
== END 2023-12-23 11:00 | disposition home health service (06) | DRG 871 ==
LOC: ER 12-20 00:50 → ICU 12-20 02:13 → MS 12-22 21:43
PROVIDERS: Family Medicine; Internal Medicine; Admitting Provider General Practice; Emergency Provider Physician Assistant; PCP Family Medicine; Visit Provider General Practice
DX: A41.59 Other Gram-negative sepsis; I21.A1 Myocardial infarction type 2; N13.6 Pyonephrosis; R65.20 Severe sepsis without septic shock; E11.9 Type 2 diabetes mellitus without complications; G70.9 Myoneural disorder, unspecified; R09.02 Hypoxemia; Z66 Do not resuscitate; M35.06 Sjogren syndrome with peripheral nervous system involvement; G63 Polyneuropathy in diseases classified elsewhere; G93.32 Myalgic encephalomyelitis/chronic fatigue syndrome; M35.02 Sjogren syndrome with lung involvement; J84.178 Other interstitial pulmonary diseases with fibrosis in diseases classified elsewhere; M43.06 Spondylolysis, lumbar region; G25.81 Restless legs syndrome; G70.00 Myasthenia gravis without (acute) exacerbation; G89.4 Chronic pain syndrome; B96.1 Klebsiella pneumoniae [K. pneumoniae] as the cause of diseases classified elsewhere
CPT/HCPCS: 00123; 36415; 50432; 71275; 80048; 80053; 82805; 83690; 84145; 85027; 87040; 87077; 87637; 93005; 96365; 96366; 96367; 96375; 99285; 74176; 80202; 81003; 81015; 83605; 83735; 83880; 84484; 85025; 85379; 85610; 87186; 93010; 94760; 99222; 99233; 99239; 99291; A0425; A0426; J0131; J0692; J2270; J3370; J3475; J3490; J7512

== ENCOUNTER → 2023-12-27 12:46 | Outpatient (BNVA) | payer MEDICARE, SELFPAY | PROVIDERS: PCP Family Medicine; Referring Provider Family Medicine; Visit Provider Nurse Practitioner Gerontology | DX: N20.0 Calculus of kidney (principal); N13.5 Crossing vessel and stricture of ureter without hydronephrosis; G70.00 Myasthenia gravis without (acute) exacerbation | CPT/HCPCS: 99215 ==

== ENCOUNTER 2023-12-29 02:34 | Outpatient (RCR) | payer MEDICARE, SELFPAY ==
[2023-11-29 00:08] VITALS: BP 148/89; PULSE 68; RESP 18; TEMP 36.1
[2023-12-01] VITALS (8 sets, daily range): BP systolic 116–145; BP diastolic 77–95; PULSE 75–88; RESP 17–18; TEMP 35.8–36.5; O2SAT 93–97
[2023-12-01] MEDS: IMMUNE GLOBULIN 5 GM/50 ML BTL IVPB (08:17)
[2023-12-01] MEDS: Normal Saline Flush 10 ML SYR IVP (08:27)
[2023-12-01] MEDS: IMMUNE GLOBULIN 10 GM/100 ML BTL IVPB (08:54)
[2023-12-01] MEDS: IMMUNE GLOBULIN 40 GM/400 ML BTL IVPB ×2 (09:30→10:59)
[2023-12-14] VITALS (8 sets, daily range): BP systolic 122–150; BP diastolic 72–90; PULSE 78–88; RESP 16; TEMP 36–36.6; O2SAT 92–93
[2023-12-14] MEDS: IMMUNE GLOBULIN 5 GM/50 ML BTL IVPB (08:25)
[2023-12-14] MEDS: IMMUNE GLOBULIN 10 GM/100 ML BTL IVPB (08:49)
[2023-12-14] MEDS: IMMUNE GLOBULIN 40 GM/400 ML BTL IVPB ×2 (09:33→10:57)
[2023-12-14] MEDS: Normal Saline Flush 10 ML SYR IVP (10:09)
[2023-12-29] VITALS (7 sets, daily range): BP systolic 108–157; BP diastolic 56–80; PULSE 62–87; RESP 17–18; TEMP 35.8–36.4; O2SAT 92–96
[2023-12-29] MEDS: IMMUNE GLOBULIN 10 GM/100 ML BTL IVPB (09:54)
[2023-12-29] MEDS: Normal Saline Flush 10 ML SYR IVP (09:57)
[2023-12-29] MEDS: IMMUNE GLOBULIN 40 GM/400 ML BTL IVPB ×2 (10:50→12:13)
== END 2023-12-29 23:59 | disposition home or self-care (01) ==
LOC: INF 02:34
PROVIDERS: PCP Family Medicine; Visit Provider Family Medicine
DX: G70.00 Myasthenia gravis without (acute) exacerbation (principal); M35.00 Sjogren syndrome, unspecified
CPT/HCPCS: 96365; 96366; J1459

== ENCOUNTER 2024-01-23 01:51 | Outpatient (RCR) | payer MEDICARE, SELFPAY ==
[2023-12-30 00:05] VITALS: BP 148/89; PULSE 68; RESP 18; TEMP 36.1
[2024-01-10 08:11] VITALS: BP 130/65; PULSE 62; RESP 18; TEMP 36.3; O2SAT 97
[2024-01-10] MEDS: IMMUNE GLOBULIN 10 GM/100 ML BTL IVPB (08:13)
[2024-01-10] MEDS: Normal Saline Flush 10 ML SYR IVP (08:14)
[2024-01-10 08:30] VITALS: BP 121/69; PULSE 80; RESP 18; TEMP 35.8; O2SAT 99
[2024-01-10 08:45] VITALS: BP 116/74; PULSE 72; RESP 18; TEMP 36.6; O2SAT 94
[2024-01-10] MEDS: IMMUNE GLOBULIN 40 GM/400 ML BTL IVPB ×2 (09:04→10:29)
[2024-01-10 09:38] VITALS: BP 118/65; PULSE 81; RESP 18; TEMP 36.4; O2SAT 96
[2024-01-10 10:13] VITALS: BP 128/78; PULSE 81; RESP 18; TEMP 36.5; O2SAT 94
[2024-01-23 08:56] VITALS: BP 122/70; PULSE 75; RESP 16; TEMP 36; O2SAT 93
[2024-01-23] MEDS: IMMUNE GLOBULIN 10 GM/100 ML BTL IVPB (08:59)
[2024-01-23] MEDS: Normal Saline Flush 10 ML SYR IVP (08:59)
[2024-01-23 09:15] VITALS: BP 133/82; PULSE 84; RESP 17; TEMP 36.1; O2SAT 94
[2024-01-23 09:30] VITALS: BP 137/78; PULSE 82; RESP 18; TEMP 37; O2SAT 96
[2024-01-23] MEDS: IMMUNE GLOBULIN 40 GM/400 ML BTL IVPB ×2 (09:50→11:14)
[2024-01-23 10:00] VITALS: BP 128/73; PULSE 74; RESP 18; TEMP 36.5; O2SAT 100
[2024-01-23 10:30] VITALS: BP 152/80; PULSE 80; RESP 17; TEMP 36.7; O2SAT 96
== END 2024-01-28 23:59 | disposition home or self-care (01) ==
LOC: INF 01:51
PROVIDERS: PCP Family Medicine; Visit Provider Family Medicine
DX: G70.00 Myasthenia gravis without (acute) exacerbation (principal)
CPT/HCPCS: 96365; 96366; J1459

== ENCOUNTER 2024-02-20 02:10 | Outpatient (RCR) | payer MEDICARE, SELFPAY ==
[2024-01-29 00:04] VITALS: BP 148/89; PULSE 68; RESP 18; TEMP 36.1
[2024-02-07] MEDS: IMMUNE GLOBULIN 10 GM/100 ML BTL IVPB (07:59)
[2024-02-07] MEDS: Normal Saline Flush 10 ML SYR IVP (07:59)
[2024-02-07 08:00] VITALS: BP 118/85; PULSE 87; RESP 18; TEMP 36.2; O2SAT 93
[2024-02-07 08:15] VITALS: BP 133/80; PULSE 88; RESP 17; TEMP 35.9; O2SAT 93
[2024-02-07 08:30] VITALS: BP 127/75; PULSE 82; RESP 16; TEMP 35.1; O2SAT 95
[2024-02-07 08:45] VITALS: BP 129/85; PULSE 89; RESP 17; TEMP 35.7; O2SAT 96
[2024-02-07] MEDS: IMMUNE GLOBULIN 40 GM/400 ML BTL IVPB ×2 (08:51→10:21)
[2024-02-07 09:15] VITALS: BP 123/70; PULSE 86; RESP 17; TEMP 35.7; O2SAT 94
[2024-02-07 09:54] VITALS: BP 129/77; PULSE 81; RESP 81; TEMP 35.9; O2SAT 93
[2024-02-20 08:45] VITALS: BP 118/72; PULSE 68; RESP 18; TEMP 36.3
[2024-02-20] MEDS: IMMUNE GLOBULIN 10 GM/100 ML BTL IVPB (08:56)
[2024-02-20] MEDS: Normal Saline Flush 10 ML SYR IVP (08:57)
[2024-02-20 09:15] VITALS: BP 157/87; PULSE 71; RESP 18; TEMP 36.1; O2SAT 95
[2024-02-20 09:45] VITALS: BP 132/77; PULSE 73; RESP 18; TEMP 36.1; O2SAT 98
[2024-02-20] MEDS: IMMUNE GLOBULIN 40 GM/400 ML BTL IVPB ×2 (09:47→11:27)
[2024-02-20 11:15] VITALS: BP 132/77; PULSE 82; RESP 18; TEMP 36.3; O2SAT 97
== END 2024-02-28 23:59 | disposition home or self-care (01) ==
LOC: INF 02:10
PROVIDERS: PCP Family Medicine; Visit Provider Family Medicine
DX: G70.00 Myasthenia gravis without (acute) exacerbation (principal)
CPT/HCPCS: 96365; 96366; J1459

== ENCOUNTER 2024-02-27 15:43 | Outpatient (REF) | payer MEDICARE, SELFPAY | END 2024-02-27 15:44 | disposition home or self-care (01) | LOC: LBN 15:43 | PROVIDERS: PCP Family Medicine; Visit Provider Nurse Practitioner Family | DX: N20.0 Calculus of kidney (principal) | CPT/HCPCS: 87077; 87086; 87186 ==

== ENCOUNTER 2024-03-20 02:04 | Outpatient (RCR) | payer MEDICARE, SELFPAY ==
[2024-03-06] MEDS: IMMUNE GLOBULIN 10 GM/100 ML BTL IVPB (08:27)
[2024-03-06] MEDS: Normal Saline Flush 10 ML SYR IVP (08:27)
[2024-03-06 08:35] VITALS: BP 137/84; PULSE 90; RESP 17; TEMP 36.7; O2SAT 94
[2024-03-06 08:50] VITALS: BP 135/72; PULSE 83; RESP 17; TEMP 36.2; O2SAT 95
[2024-03-06 09:05] VITALS: BP 138/66; PULSE 83; RESP 17; TEMP 36.2; O2SAT 95
[2024-03-06] MEDS: IMMUNE GLOBULIN 40 GM/400 ML BTL IVPB ×2 (09:23→11:01)
[2024-03-06 09:35] VITALS: BP 136/79; PULSE 91; RESP 17; TEMP 36; O2SAT 93
[2024-03-06 10:05] VITALS: BP 151/92; PULSE 105; RESP 17; TEMP 36.1; O2SAT 95
[2024-03-06 10:35] VITALS: BP 146/81; PULSE 85; RESP 17; TEMP 35.9; O2SAT 95
[2024-03-20 08:30] VITALS: BP 145/82; RESP 16; TEMP 36.7; O2SAT 92
[2024-03-20] MEDS: IMMUNE GLOBULIN 10 GM/100 ML BTL IVPB (08:59)
[2024-03-20] MEDS: Normal Saline Flush 10 ML SYR IVP (09:00)
[2024-03-20 09:24] VITALS: BP 136/84; PULSE 84; RESP 16; TEMP 37.1; O2SAT 91
[2024-03-20 09:45] VITALS: BP 127/77; PULSE 84; RESP 16; TEMP 36.7; O2SAT 93
[2024-03-20] MEDS: IMMUNE GLOBULIN 40 GM/400 ML BTL IVPB ×2 (09:55→11:31)
[2024-03-20 10:15] VITALS: BP 130/81; PULSE 80; RESP 16; TEMP 36.7; O2SAT 94
== END 2024-03-30 23:59 | disposition home or self-care (01) ==
LOC: INF 02:04
PROVIDERS: PCP Family Medicine; Visit Provider Nurse Practitioner Family
DX: G70.00 Myasthenia gravis without (acute) exacerbation (principal)
CPT/HCPCS: 96365; 96366; J1459

== ENCOUNTER 2024-03-29 17:32 | Outpatient (REF) | payer MEDICARE, SELFPAY | END 2024-03-29 17:33 | disposition home or self-care (01) | LOC: LBN 17:32 | PROVIDERS: PCP Family Medicine; Visit Provider Student in an Organized Health Care Education/Training Program | DX: R30.0 Dysuria (principal); R82.89 Other abnormal findings on cytological and histological examination of urine | CPT/HCPCS: 87086 ==

== ENCOUNTER 2024-04-17 04:11 | Outpatient (RCR) | payer MEDICARE, SELFPAY ==
[2024-04-02 08:21] VITALS: BP 127/77; PULSE 87; RESP 18; TEMP 36.2; O2SAT 92
[2024-04-02] MEDS: IMMUNE GLOBULIN 10 GM/100 ML BTL IVPB (08:23)
[2024-04-02] MEDS: Normal Saline Flush 10 ML SYR IVP (08:23)
[2024-04-02 08:45] VITALS: BP 136/78; PULSE 80; TEMP 36.4; O2SAT 93
[2024-04-02 09:00] VITALS: BP 145/80; PULSE 85; TEMP 36.6; O2SAT 94
[2024-04-02] MEDS: IMMUNE GLOBULIN 40 GM/400 ML BTL IVPB ×2 (09:17→11:36)
[2024-04-02 09:30] VITALS: BP 134/82; PULSE 78; TEMP 36.5; O2SAT 95
[2024-04-02 10:00] VITALS: BP 149/81; PULSE 78; TEMP 36.5; O2SAT 93
[2024-04-17 08:08] VITALS: BP 135/80; PULSE 97; RESP 18; TEMP 36.4; O2SAT 96
[2024-04-17] MEDS: IMMUNE GLOBULIN 10 GM/100 ML BTL IVPB (08:11)
[2024-04-17] MEDS: Normal Saline Flush 10 ML SYR IVP (08:12)
[2024-04-17 08:30] VITALS: BP 122/73; PULSE 83; RESP 19; TEMP 36.6; O2SAT 93
[2024-04-17 08:46] VITALS: BP 115/76; PULSE 82; RESP 18; TEMP 36.6; O2SAT 91
[2024-04-17] MEDS: IMMUNE GLOBULIN 40 GM/400 ML BTL IVPB ×2 (09:18→10:53)
[2024-04-17 09:20] VITALS: BP 126/78; PULSE 86; RESP 18; TEMP 36.7; O2SAT 92
[2024-04-17 09:53] VITALS: BP 127/78; PULSE 82; RESP 19; TEMP 36.6; O2SAT 95
[2024-04-17 10:28] VITALS: BP 127/80; PULSE 86; RESP 19; TEMP 36.5; O2SAT 96
== END 2024-04-27 23:59 | disposition home or self-care (01) ==
LOC: INF 04:11
PROVIDERS: PCP Family Medicine; Visit Provider Nurse Practitioner Family
DX: G70.00 Myasthenia gravis without (acute) exacerbation (principal)
CPT/HCPCS: 96365; 96366; J1459

== ENCOUNTER → 2024-04-30 15:06 | Outpatient (BNVA) | payer MEDICARE, SELFPAY | PROVIDERS: PCP Family Medicine; Referring Provider Family Medicine; Visit Provider Physician Assistant Surgical | DX: M35.06 Sjogren syndrome with peripheral nervous system involvement (principal); J99 Respiratory disorders in diseases classified elsewhere; J84.9 Interstitial pulmonary disease, unspecified; G70.00 Myasthenia gravis without (acute) exacerbation | CPT/HCPCS: 99214 ==

== ENCOUNTER 2024-05-15 01:05 | Outpatient (RCR) | payer MEDICARE, SELFPAY ==
[2024-05-01 08:10] VITALS: BP 126/74; PULSE 80; RESP 16; TEMP 37.6; O2SAT 94
[2024-05-01] MEDS: IMMUNE GLOBULIN 10 GM/100 ML BTL IVPB (08:15)
[2024-05-01] MEDS: Normal Saline Flush 5 ML SYR IVP (08:31)
[2024-05-01 08:45] VITALS: BP 118/76; PULSE 85; RESP 18; TEMP 36.5; O2SAT 95
[2024-05-01 09:05] VITALS: BP 111/71; PULSE 81; RESP 16; TEMP 36.6; O2SAT 93
[2024-05-01] MEDS: IMMUNE GLOBULIN 40 GM/400 ML BTL IVPB ×2 (09:14→10:52)
[2024-05-01 09:35] VITALS: BP 131/75; PULSE 78; RESP 14; TEMP 36.6; O2SAT 94
[2024-05-01 10:05] VITALS: BP 125/76; PULSE 80; RESP 16; TEMP 36.4; O2SAT 93
[2024-05-01 11:05] VITALS: BP 132/74; PULSE 81; RESP 16; TEMP 36.2; O2SAT 95
[2024-05-15 08:25] VITALS: BP 122/75; PULSE 77; RESP 16; TEMP 36.3; O2SAT 95
[2024-05-15] MEDS: IMMUNE GLOBULIN 10 GM/100 ML BTL IVPB (08:28)
[2024-05-15] MEDS: Normal Saline Flush 5 ML SYR IVP (08:28)
[2024-05-15 08:54] VITALS: BP 115/66; PULSE 72; RESP 17; TEMP 36.3; O2SAT 94
[2024-05-15] MEDS: IMMUNE GLOBULIN 40 GM/400 ML BTL IVPB ×2 (09:17→10:50)
[2024-05-15 09:20] VITALS: BP 125/76; PULSE 75; RESP 18; TEMP 36.3; O2SAT 94
[2024-05-15 09:35] VITALS: BP 122/72; PULSE 77; RESP 18; TEMP 36.3; O2SAT 96
== END 2024-05-28 23:59 | disposition home or self-care (01) ==
LOC: INF 01:05
PROVIDERS: PCP Family Medicine; Visit Provider Nurse Practitioner Family
DX: G70.00 Myasthenia gravis without (acute) exacerbation (principal); M35.00 Sjogren syndrome, unspecified
CPT/HCPCS: 96365; 96366; J1459

== ENCOUNTER 2024-06-26 00:20 | Outpatient (RCR) | payer MEDICARE, SELFPAY ==
[2024-05-29 08:14] VITALS: BP 121/77; PULSE 78; RESP 18; TEMP 36.3; O2SAT 100
[2024-05-29] MEDS: IMMUNE GLOBULIN 10 GM/100 ML BTL IVPB (08:17)
[2024-05-29] MEDS: Normal Saline Flush 5 ML SYR IVP (08:18)
[2024-05-29 08:40] VITALS: BP 135/83; PULSE 83; RESP 17; TEMP 36.5; O2SAT 95
[2024-05-29 08:58] VITALS: BP 135/79; PULSE 83; RESP 19; TEMP 36.5; O2SAT 100
[2024-05-29] MEDS: IMMUNE GLOBULIN 40 GM/400 ML BTL IVPB ×2 (09:12→10:49)
[2024-05-29 09:32] VITALS: BP 145/68; PULSE 83; RESP 18; TEMP 36.3; O2SAT 97
[2024-05-29 10:06] VITALS: BP 129/78; PULSE 79; RESP 17; TEMP 36.6; O2SAT 95
[2024-06-11] VITALS (10 sets, daily range): BP systolic 112–149; BP diastolic 69–80; PULSE 78–92; RESP 17–18; TEMP 36.3–37; O2SAT 93–95
[2024-06-11] MEDS: IMMUNE GLOBULIN 10 GM/100 ML BTL IVPB (08:18)
[2024-06-11] MEDS: Normal Saline Flush 10 ML SYR IVP (08:18)
[2024-06-11] MEDS: IMMUNE GLOBULIN 40 GM/400 ML BTL IVPB ×2 (09:12→10:54)
[2024-06-26] MEDS: IMMUNE GLOBULIN 10 GM/100 ML BTL IVPB (08:29)
[2024-06-26 08:35] VITALS: BP 112/69; PULSE 82; RESP 19; TEMP 35.5; O2SAT 95
[2024-06-26] MEDS: Normal Saline Flush 5 ML SYR IVP (08:35)
[2024-06-26 08:50] VITALS: BP 108/69; PULSE 81; RESP 18; TEMP 36.2; O2SAT 94
[2024-06-26 09:16] VITALS: BP 109/72; PULSE 85; RESP 18; TEMP 36.4; O2SAT 95
[2024-06-26] MEDS: IMMUNE GLOBULIN 40 GM/400 ML BTL IVPB ×2 (09:20→10:59)
[2024-06-26 09:35] VITALS: BP 114/72; PULSE 77; RESP 18; TEMP 35.9; O2SAT 92
[2024-06-26 10:05] VITALS: BP 127/75; PULSE 79; RESP 18; TEMP 36.2; O2SAT 94
== END 2024-06-27 23:59 | disposition home or self-care (01) ==
LOC: INF 00:20
PROVIDERS: PCP Family Medicine; Visit Provider Nurse Practitioner Family
DX: G70.00 Myasthenia gravis without (acute) exacerbation (principal); M35.00 Sjogren syndrome, unspecified
CPT/HCPCS: 96365; 96366; J1459

== ENCOUNTER 2024-07-24 01:49 | Outpatient (RCR) | payer MEDICARE, SELFPAY ==
[2024-07-10 08:25] VITALS: BP 123/70; PULSE 60; RESP 22; TEMP 36.2; O2SAT 92
[2024-07-10] MEDS: IMMUNE GLOBULIN 10 GM/100 ML BTL IVPB (08:39)
[2024-07-10] MEDS: Normal Saline Flush 10 ML SYR IVP (08:40)
[2024-07-10 09:05] VITALS: BP 111/71; PULSE 76; RESP 20; TEMP 36.5; O2SAT 92
[2024-07-10 09:17] VITALS: BP 121/77; PULSE 70; RESP 18; TEMP 36.5; O2SAT 97
[2024-07-10] MEDS: IMMUNE GLOBULIN 40 GM/400 ML BTL IVPB ×2 (09:32→11:22)
[2024-07-10 09:45] VITALS: BP 129/80; PULSE 78; RESP 18; TEMP 35.1; O2SAT 93
[2024-07-10 10:15] VITALS: BP 143/77; PULSE 71; RESP 20; TEMP 36.1; O2SAT 93
[2024-07-24 08:10] VITALS: BP 125/81; PULSE 80; RESP 20; TEMP 36.3; O2SAT 93
[2024-07-24] MEDS: IMMUNE GLOBULIN 10 GM/100 ML BTL IVPB (08:13)
[2024-07-24] MEDS: Normal Saline Flush 10 ML SYR IVP (08:13)
[2024-07-24 08:35] VITALS: BP 131/78; PULSE 80; RESP 19; TEMP 36.3; O2SAT 95
[2024-07-24 08:53] VITALS: BP 128/75; PULSE 83; RESP 20; TEMP 36.4; O2SAT 93
[2024-07-24] MEDS: IMMUNE GLOBULIN 40 GM/400 ML BTL IVPB ×2 (09:04→10:45)
[2024-07-24 09:27] VITALS: BP 135/79; PULSE 86; RESP 19; TEMP 36.3; O2SAT 95
[2024-07-24 09:58] VITALS: BP 121/70; PULSE 82; RESP 20; TEMP 36.4; O2SAT 94
[2024-07-24 10:31] VITALS: BP 132/78; PULSE 82; RESP 20; TEMP 36.3; O2SAT 96
== END 2024-07-28 23:59 | disposition home or self-care (01) ==
LOC: INF 01:49
PROVIDERS: PCP Family Medicine; Visit Provider Nurse Practitioner Family
DX: G70.00 Myasthenia gravis without (acute) exacerbation (principal)
CPT/HCPCS: 96365; 96366; J1459

== ENCOUNTER 2024-08-21 02:40 | Outpatient (RCR) | payer MEDICARE, SELFPAY ==
[2024-08-07] MEDS: IMMUNE GLOBULIN 10 GM/100 ML BTL IVPB (08:51)
[2024-08-07 08:55] VITALS: BP 122/72; PULSE 84; RESP 18; TEMP 36.2; O2SAT 92
[2024-08-07 09:05] VITALS: BP 143/73; PULSE 85; RESP 20; TEMP 35.7; O2SAT 93
[2024-08-07 09:20] VITALS: BP 141/64; PULSE 82; RESP 18; TEMP 36.2; O2SAT 94
[2024-08-07] MEDS: IMMUNE GLOBULIN 40 GM/400 ML BTL IVPB ×2 (09:40→11:21)
[2024-08-07 09:50] VITALS: BP 123/75; PULSE 79; RESP 19; TEMP 36.2; O2SAT 93
[2024-08-07] MEDS: Normal Saline Flush 10 ML SYR IVP (13:06)
[2024-08-21] VITALS (9 sets, daily range): BP systolic 100–135; BP diastolic 68–85; PULSE 77–89; RESP 20–22; TEMP 35.5–36.4; O2SAT 91–95
[2024-08-21] MEDS: IMMUNE GLOBULIN 10 GM/100 ML BTL IVPB (08:00)
[2024-08-21] MEDS: IMMUNE GLOBULIN 40 GM/400 ML BTL IVPB ×2 (08:52→10:35)
== END 2024-08-27 23:59 | disposition home or self-care (01) ==
LOC: INF 02:40
PROVIDERS: PCP Family Medicine; Visit Provider Nurse Practitioner Family
DX: G70.00 Myasthenia gravis without (acute) exacerbation (principal)
CPT/HCPCS: 96365; 96366; J1459

== ENCOUNTER 2024-08-21 16:29 | Outpatient (REF) | payer MEDICARE, SELFPAY ==
[2024-08-21 12:25] LABS: Bilirubin Negative (Negative); Blood Trace-intact (Negative); Clarity Clear (Clear); Glucose 100 mg/dL (Negative); Ketones Negative (Negative); Leukocyte Esterase Negative (Negative); Nitrite Negative (Negative); Specific Gravity 1.025 (1.005-1.025); Urobilinogen 0.2 mg/dL (Up to 0.2)
[2024-08-21 12:36] LABS: Bacteria Negative HPF (Negative); C & S Indicated? No; Casts Negative LPF (Negative); Crystals Negative HPF (Negative); Epithelial Cells Rare HPF (Negative); Mucus Trace (Negative); RBC 0-2 HPF (0-2); WBC 0-2 HPF (0-5)
== END 2024-08-21 16:30 | disposition home or self-care (01) ==
LOC: LBN 16:29
PROVIDERS: PCP Family Medicine; Visit Provider Family Medicine
DX: N13.5 Crossing vessel and stricture of ureter without hydronephrosis (principal); N20.0 Calculus of kidney; N12 Tubulo-interstitial nephritis, not specified as acute or chronic
CPT/HCPCS: 81003; 81015

== ENCOUNTER → 2024-09-17 12:46 | Outpatient (BNVA) | payer MEDICARE, SELFPAY | PROVIDERS: PCP Family Medicine; Visit Provider Registered Nurse | DX: I70.90 Unspecified atherosclerosis (principal); I35.8 Other nonrheumatic aortic valve disorders; G70.00 Myasthenia gravis without (acute) exacerbation | CPT/HCPCS: 99214 ==

== ENCOUNTER 2024-09-18 02:44 | Outpatient (RCR) | payer MEDICARE, SELFPAY ==
[2024-09-04] VITALS (10 sets, daily range): BP systolic 118–162; BP diastolic 65–84; PULSE 77–92; RESP 18–22; TEMP 36–36.6; O2SAT 92–95
[2024-09-04] MEDS: IMMUNE GLOBULIN 10 GM/100 ML BTL IVPB (08:20)
[2024-09-04] MEDS: IMMUNE GLOBULIN 40 GM/400 ML BTL IVPB ×2 (09:14→10:56)
[2024-09-18 08:10] VITALS: BP 125/76; PULSE 77; RESP 18; TEMP 36.2; O2SAT 93
[2024-09-18] MEDS: IMMUNE GLOBULIN 10 GM/100 ML BTL IVPB (08:14)
[2024-09-18] MEDS: Normal Saline Flush 10 ML SYR IVP (08:15)
[2024-09-18 08:35] VITALS: BP 130/75; PULSE 80; RESP 19; TEMP 36.3; O2SAT 94
[2024-09-18 08:55] VITALS: BP 106/71; PULSE 85; RESP 20; TEMP 36.3; O2SAT 97
[2024-09-18] MEDS: IMMUNE GLOBULIN 40 GM/400 ML BTL IVPB ×2 (09:04→10:41)
[2024-09-18 09:26] VITALS: BP 117/74; PULSE 80; RESP 19; TEMP 36.3; O2SAT 94
[2024-09-18 09:56] VITALS: BP 116/71; PULSE 73; RESP 18; TEMP 36.2; O2SAT 93
== END 2024-09-27 23:59 | disposition home or self-care (01) ==
LOC: INF 02:44
PROVIDERS: PCP Family Medicine; Visit Provider Nurse Practitioner Family
DX: G70.00 Myasthenia gravis without (acute) exacerbation (principal)
CPT/HCPCS: 96365; 96366; J1459

== ENCOUNTER 2024-10-17 02:37 | Outpatient (RCR) | payer MEDICARE, SELFPAY ==
[2024-10-02 08:15] VITALS: BP 133/81; PULSE 75; RESP 19; TEMP 36.3; O2SAT 94
[2024-10-02] MEDS: IMMUNE GLOBULIN 10 GM/100 ML BTL IVPB (08:19)
[2024-10-02] MEDS: Normal Saline Flush 10 ML SYR IVP (08:19)
[2024-10-02 08:45] VITALS: BP 133/76; PULSE 79; RESP 20; TEMP 36.3; O2SAT 94
[2024-10-02 08:59] VITALS: BP 132/76; PULSE 75; RESP 20; TEMP 36.4; O2SAT 93
[2024-10-02] MEDS: IMMUNE GLOBULIN 40 GM/400 ML BTL IVPB ×2 (09:08→10:49)
[2024-10-02 09:30] VITALS: BP 137/79; PULSE 79; RESP 19; TEMP 35.8; O2SAT 95
[2024-10-02 09:56] VITALS: BP 124/82; PULSE 72; RESP 20; TEMP 35.9; O2SAT 96
[2024-10-17 08:42] VITALS: BP 109/67; PULSE 78; RESP 18; TEMP 36.4; O2SAT 94
[2024-10-17] MEDS: IMMUNE GLOBULIN 10 GM/100 ML BTL IVPB (08:45)
[2024-10-17] MEDS: Normal Saline Flush 10 ML SYR IVP (08:45)
[2024-10-17 09:05] VITALS: BP 133/88; PULSE 81; RESP 19; TEMP 36; O2SAT 95
[2024-10-17 09:21] VITALS: BP 112/74; PULSE 76; RESP 18; TEMP 36.4; O2SAT 94
[2024-10-17] MEDS: IMMUNE GLOBULIN 40 GM/400 ML BTL IVPB ×2 (09:28→10:59)
[2024-10-17 09:52] VITALS: BP 111/72; PULSE 81; RESP 18; TEMP 36; O2SAT 93
[2024-10-17 10:24] VITALS: BP 118/75; PULSE 85; RESP 18; TEMP 36.5; O2SAT 96
== END 2024-10-28 23:59 | disposition home or self-care (01) ==
LOC: INF 02:37
PROVIDERS: PCP Family Medicine; Visit Provider Nurse Practitioner Family
DX: G70.00 Myasthenia gravis without (acute) exacerbation (principal)
CPT/HCPCS: 96365; 96366; J1459

== ENCOUNTER 2024-10-18 18:17 | Outpatient (REF) | payer MEDICARE, SELFPAY | END 2024-10-18 18:18 | disposition home or self-care (01) | LOC: LBN 18:17 | PROVIDERS: PCP Family Medicine; Visit Provider Family Medicine | DX: N39.0 Urinary tract infection, site not specified (principal); B96.29 Other Escherichia coli [E. coli] as the cause of diseases classified elsewhere | CPT/HCPCS: 87077; 87086; 87186 ==

== ENCOUNTER 2024-10-25 04:37 | Outpatient (CLI) | payer MEDICARE, SELFPAY ==
[2024-10-25] MEDS: Inhaler, Assist Device 1 EACH MC (11:36)
[2024-10-25] MEDS: Levalbuterol HFA 15 GM INH 4 PUFF IH (11:37)
--- NOTE | 2024-10-25 13:50 | W.PFT ---
Date of service: 10/25/24 Time of Service: 09:54 Pulmonary Function Test Result Indications: Myasthenia Gravis Impression 1. Good patient effort was noted. ATS standards for reproducibility were met. 2. Normal spirometry. 3. Following the administration of a bronchodilator there was not a significant response 4. TLC was normal. No evidence of restrictive lung disease 5. DLCO was 77%, indicating a mild reduction in alveolar gas exchange
== END 2024-10-25 04:38 | disposition home or self-care (01) ==
LOC: RT 04:37
PROVIDERS: PCP Internal Medicine Pulmonary Disease; Visit Provider Physician Assistant Surgical
DX: G70.9 Myoneural disorder, unspecified (principal); J99 Respiratory disorders in diseases classified elsewhere
CPT/HCPCS: 94060; 94726; 94729

== ENCOUNTER → 2024-11-05 10:58 | Outpatient (BNVA) | payer MEDICARE, SELFPAY | PROVIDERS: PCP Family Medicine; Referring Provider Family Medicine; Visit Provider Physician Assistant Surgical | DX: M35.06 Sjogren syndrome with peripheral nervous system involvement (principal); J84.9 Interstitial pulmonary disease, unspecified; G70.00 Myasthenia gravis without (acute) exacerbation; J99 Respiratory disorders in diseases classified elsewhere | CPT/HCPCS: 99214 ==

== ENCOUNTER 2024-11-23 13:58 | Outpatient (REF) | payer MEDICARE, SELFPAY ==
[2024-11-23 18:05] LABS: Glucose 100 mg/dL (Negative)
[2024-11-23 18:11] LABS: C & S Indicated? Yes; RBC Negative HPF (0-2); WBC >50 HPF (0-5)
== END 2024-11-23 13:59 | disposition home or self-care (01) ==
LOC: LBN 13:58
PROVIDERS: PCP Family Medicine; Visit Provider Physician Assistant
DX: R30.0 Dysuria (principal); B96.20 Unspecified Escherichia coli [E. coli] as the cause of diseases classified elsewhere
CPT/HCPCS: 87077; 81003; 81015; 87086; 87186

== ENCOUNTER 2024-11-27 02:30 | Outpatient (RCR) | payer MEDICARE, SELFPAY ==
[2024-11-01] VITALS (7 sets, daily range): BP systolic 107–132; BP diastolic 72–85; PULSE 80–86; RESP 18; TEMP 36.1–36.8; O2SAT 94–97
[2024-11-01] MEDS: IMMUNE GLOBULIN 10 GM/100 ML BTL IVPB (08:36)
[2024-11-01] MEDS: IMMUNE GLOBULIN 40 GM/400 ML BTL IVPB ×2 (09:23→10:59)
[2024-11-13 08:37] VITALS: BP 109/71; PULSE 82; RESP 17; TEMP 36.1; O2SAT 95
[2024-11-13] MEDS: Normal Saline Flush 10 ML SYR IVP (08:40)
[2024-11-13] MEDS: IMMUNE GLOBULIN 10 GM/100 ML BTL IVPB (08:40)
[2024-11-13 09:00] VITALS: BP 116/67; PULSE 79; RESP 18; TEMP 36.3; O2SAT 95
[2024-11-13 09:15] VITALS: BP 114/66; PULSE 69; RESP 18; TEMP 36.3; O2SAT 97
[2024-11-13] MEDS: IMMUNE GLOBULIN 40 GM/400 ML BTL IVPB ×2 (09:30→11:12)
[2024-11-13 09:45] VITALS: BP 128/75; PULSE 80; RESP 17; TEMP 36.2; O2SAT 94
[2024-11-13 10:15] VITALS: BP 135/75; PULSE 89; RESP 18; TEMP 36.3; O2SAT 94
[2024-11-27 08:10] VITALS: BP 139/74; PULSE 85; RESP 18; TEMP 36; O2SAT 96
[2024-11-27] MEDS: IMMUNE GLOBULIN 10 GM/100 ML BTL IVPB (08:13)
[2024-11-27] MEDS: Normal Saline Flush 10 ML SYR IVP (08:14)
[2024-11-27 08:35] VITALS: BP 121/75; PULSE 80; RESP 18; TEMP 36; O2SAT 94
[2024-11-27 08:50] VITALS: BP 118/73; PULSE 80; RESP 18; TEMP 36; O2SAT 93
[2024-11-27] MEDS: IMMUNE GLOBULIN 40 GM/400 ML BTL IVPB ×2 (09:03→10:36)
[2024-11-27 09:23] VITALS: BP 113/81; PULSE 78; RESP 18; TEMP 36.3; O2SAT 93
[2024-11-27 09:50] VITALS: BP 146/69; PULSE 96; RESP 18; TEMP 36.3; O2SAT 93
== END 2024-11-27 23:59 | disposition home or self-care (01) ==
LOC: INF 02:30
PROVIDERS: PCP Family Medicine; Visit Provider Nurse Practitioner Family
DX: G70.00 Myasthenia gravis without (acute) exacerbation (principal)
CPT/HCPCS: 96365; 96366; J1459

== ENCOUNTER 2024-12-06 14:18 | Outpatient (REF) | payer MEDICARE, SELFPAY | END 2024-12-06 14:19 | disposition home or self-care (01) | LOC: LBN 14:18 | PROVIDERS: PCP Family Medicine; Visit Provider Physician Assistant | DX: N39.0 Urinary tract infection, site not specified (principal) | CPT/HCPCS: 87077; 87086; 87186 ==

== ENCOUNTER 2024-12-25 02:03 | Outpatient (RCR) | payer MEDICARE, SELFPAY ==
[2024-12-11 08:20] VITALS: BP 117/69; PULSE 75; RESP 19; TEMP 36.2; O2SAT 94
[2024-12-11] MEDS: IMMUNE GLOBULIN 10 GM/100 ML BTL IVPB (08:22)
[2024-12-11] MEDS: Normal Saline Flush 10 ML SYR IVP (08:23)
[2024-12-11 08:45] VITALS: BP 117/72; PULSE 74; RESP 18; TEMP 36.3; O2SAT 94
[2024-12-11 09:00] VITALS: BP 115/75; PULSE 72; RESP 18; TEMP 36.3; O2SAT 95
[2024-12-11] MEDS: IMMUNE GLOBULIN 40 GM/400 ML BTL IVPB ×2 (09:09→10:38)
[2024-12-11 09:31] VITALS: BP 113/72; PULSE 76; RESP 18; TEMP 36.5; O2SAT 94
[2024-12-11 10:13] VITALS: BP 123/75; PULSE 86; RESP 19; TEMP 36.4; O2SAT 93
[2024-12-25 08:07] VITALS: BP 113/79; PULSE 77; RESP 18; TEMP 35.9; O2SAT 95
[2024-12-25] MEDS: Normal Saline Flush 10 ML SYR IVP (08:09)
[2024-12-25] MEDS: IMMUNE GLOBULIN 10 GM/100 ML BTL IVPB (08:09)
[2024-12-25 08:34] VITALS: BP 110/55; PULSE 85; RESP 18; TEMP 35.7; O2SAT 93
[2024-12-25 08:51] VITALS: BP 123/86; PULSE 85; RESP 17; TEMP 36.3; O2SAT 94
[2024-12-25] MEDS: IMMUNE GLOBULIN 40 GM/400 ML BTL IVPB ×2 (08:53→10:32)
[2024-12-25 09:08] VITALS: BP 131/76; PULSE 83; RESP 18; TEMP 35.4; O2SAT 94
[2024-12-25 09:45] VITALS: BP 122/66; PULSE 83; RESP 18; TEMP 36.4; O2SAT 94
== END 2024-12-28 23:59 | disposition home or self-care (01) ==
LOC: INF 02:03
PROVIDERS: PCP Family Medicine; Visit Provider Nurse Practitioner Family
DX: G70.00 Myasthenia gravis without (acute) exacerbation (principal)
CPT/HCPCS: 96365; 96366; J1459

== ENCOUNTER 2025-01-07 11:08 | Outpatient (CLI) | payer MEDICARE, SELFPAY ==
--- NOTE | 2025-01-07 11:00 | RT.EKG_ITS ---
APPROVED REPORT Exam: Resting ECG Reason for Exam: heart paplpitations Patient Location: O HR:91 bpm ECG Measurements Heart Rate 91 AXIS MN 183 P -37 QRSd 127 QRS -42 QT 394 T 109 QTc 485 Conclusion Sinus rhythm...normal P axis, V-rate 50- 99 Atrial premature complex...SV complex w/ short R-R interval Probable left atrial enlargement...P >50mS, <-0.10mV V1 LVH with IVCD, LAD and secondary repol abnrm...multi-criteria, wQRSd, abnr ST-T Baseline wander in lead(s) V2
== END 2025-01-07 11:09 | disposition home or self-care (01) ==
LOC: DI.CM 11:09
PROVIDERS: PCP Family Medicine; Visit Provider Nurse Practitioner Family
DX: R00.2 Palpitations (principal); I51.7 Cardiomegaly
CPT/HCPCS: 93010

== ENCOUNTER 2025-01-22 01:53 | Outpatient (RCR) | payer MEDICARE, SELFPAY ==
[2025-01-08 08:48] VITALS: BP 126/78; PULSE 78; RESP 17; TEMP 36.3; O2SAT 94
[2025-01-08] MEDS: Immune Globulin-Privigen 10 GM/100 ML BTL IVPB (08:50)
[2025-01-08] MEDS: Normal Saline Flush 10 ML SYR IVP (08:50)
[2025-01-08 09:17] VITALS: BP 130/82; PULSE 78; RESP 18; TEMP 36.8; O2SAT 94
[2025-01-08 09:30] VITALS: BP 120/71; PULSE 86; RESP 17; TEMP 36.4; O2SAT 97
[2025-01-08] MEDS: Immune Globulin-Privigen 40 GM/400 ML BTL IVPB ×2 (09:39→11:39)
[2025-01-08 10:02] VITALS: BP 128/73; PULSE 78; RESP 18; TEMP 36.2; O2SAT 93
[2025-01-08 10:32] VITALS: BP 132/68; PULSE 87; RESP 17; TEMP 36.4; O2SAT 95
[2025-01-22 08:35] VITALS: BP 123/79; PULSE 87; RESP 20; TEMP 35.9; O2SAT 93
[2025-01-22] MEDS: Immune Globulin-Privigen 5 GM/50 ML BTL IV (08:35)
[2025-01-22] MEDS: Normal Saline Flush 10 ML SYR IVP (08:49)
[2025-01-22 08:50] VITALS: BP 126/82; PULSE 89; RESP 19; TEMP 36.2; O2SAT 93
[2025-01-22] MEDS: Immune Globulin-Privigen 10 GM/100 ML BTL IVPB (09:08)
[2025-01-22 09:10] VITALS: BP 130/91; PULSE 90; RESP 18; TEMP 36.2; O2SAT 96
[2025-01-22 09:40] VITALS: BP 127/87; PULSE 85; RESP 18; TEMP 35.5; O2SAT 94
[2025-01-22] MEDS: Immune Globulin-Privigen 40 GM/400 ML BTL IVPB ×2 (09:51→11:15)
[2025-01-22 10:10] VITALS: BP 123/75; PULSE 85; RESP 18; TEMP 36.1; O2SAT 95
[2025-01-22 10:40] VITALS: BP 137/80; PULSE 83; RESP 18; TEMP 36.1; O2SAT 95
[2025-01-22 13:41] LABS: ESR 58 mm/hr (0-30)
[2025-01-22 13:48] LABS: C-Reactive Protein 0.54 mg/dL (<=0.50)
[2025-01-22 13:53] LABS: Glucose >=1000 mg/dL (Negative)
[2025-01-22 14:01] LABS: C & S Indicated? No; RBC 0-2 HPF (0-2); WBC 0-2 HPF (0-5)
[2025-01-23 15:11] LABS: Albumin 39.3 % (55.8-66.1); Albumin g/dL 3.6 g/dL (3.6-5.2); Alpha 1 g/dL 0.30 g/dL (0.15-0.40); Alpha 2 g/dL 0.80 g/dL (0.50-1.00); Beta g/dL 0.70 g/dL (0.60-1.20); Gamma g/dL 3.80 g/dL (0.60-1.60); Total Protein 9.1 g/dL (6.3-8.2)
[2025-01-23 20:12] LABS: Immunoglobulin Subclass IgG4 47.7 mg/dL
== END 2025-01-27 23:59 | disposition home or self-care (01) ==
LOC: INF 01:53
PROVIDERS: Internal Medicine; PCP Family Medicine; Visit Provider Nurse Practitioner Family
DX: G70.00 Myasthenia gravis without (acute) exacerbation (principal)
CPT/HCPCS: 36415; 82787; 85652; 96365; 96366; 81003; 81015; 84165; 86140; 86160; 86320; 86431; J1459

== ENCOUNTER 2025-01-22 13:29 | Outpatient (CLI) | payer MEDICARE, SELFPAY ==
[2025-01-28 20:23] LABS: Cryoglobulin, S Negative %ppt (Negative)
== END 2025-01-22 13:30 | disposition home or self-care (01) ==
LOC: LBO 13:30
PROVIDERS: PCP Family Medicine; Visit Provider Internal Medicine
DX: M35.00 Sjogren syndrome, unspecified (principal)
CPT/HCPCS: 36415; 82595

== ENCOUNTER → 2025-02-01 00:27 | Outpatient (CLI) | payer MEDICARE, SELFPAY ==
--- NOTE | 2025-02-01 | DI.US_ITS ---
APPROVED REPORT EXAM: Comprehensive 2D, Doppler, and color-flow Echocardiogram Patient Location: Out-Patient Indications: Orthopnea, Exercise intolerance Other Information Study Quality: Adequate Conclusion Normal left ventricular chamber size. There is prominent asymmetric septal hypertrophy. EF is 55 to 60%. There are no segmental wall motion abnormalities Normal right ventricular size and function Both atria are normal in size The aortic valve is trileaflet and sclerotic without stenosis or regurgitation Mitral annular calcification Dilated aortic root (3.6 cm) and ascending aorta (4.15 cm) Wall motion Left Ventricle The left ventricle is normal size. The overall left ventricular systolic function appears normal. Asymmetric septal thickening is noted. Severe basal septal hypertrophy is present. There is normal LV segmental wall motion. There is no ventricular septal defect visualized. LVEF is 55%. Right Ventricle The right ventricle is normal size. The right ventricular systolic function is normal. Atria The left atrium size is normal. The right atrium size is normal. The interatrial septum is intact with no evidence for an atrial septal defect. Aortic Valve The Aortic valve is sclerotic. Aortic valve is trileaflet. There is no aortic valvular stenosis. No aortic regurgitation is present. Mitral Valve Mild mitral annular calcification. No evidence of mitral valve stenosis. Trace mitral regurgitation. Tricuspid Valve The tricuspid valve is normal in structure. There is no tricuspid valve stenosis. Trace tricuspid regurgitation. Unable to assess PA pressure. Pulmonic Valve Pulmonic valve is not well visualized. There is no pulmonic valvular stenosis. Great Vessels Aortic root is mildly dilated. The ascending aorta is moderately dilated. Aortic arch is not well visualized. IVC is normal in size and collapses >50% with inspiration. Pericardium There is no pericardial effusion. 2D Dimensions IVSD d PLAX 2.40 cm F: 0.6-1.0 Ao Root d 3.60 cm F: 2.7 - 3.3 LVPW d PLAX 1.12 cm F: 0.6 - 1.0 Ao Asc Diam d 4.15 cm F: 2.3 - 3.1 LVID d PLAX 4.22 cm F: 3.8 - 5.2 LVDs 3.00 cm F: 2.2 - 3.5 LV EF Teichholz 57.6 % FS 29.98 % LV EDV (Teich) 79.5 mL LV ESV (Teich) 33.7 mL Auto EF LV EDV A4C 112.2 mL LV EDV A2C 124.7 mL LV EDV BP 118.6 mL LV ESV A4C 50.9 mL LV ESV A2C 56.4 mL LV ESV BP 54.7 mL LVEF(%) A4C 54.6 % LVEF(%) A2C 54.7 % LVEF(%) BP 53.9 % LV SV A4C 61.3 ml LV SV A2C 68.2 ml LV SV BP 63.9 ml LV CO A4C 5.4 L/min LV CO A2C 5.9 L/min LV CO BP 5.6 L/min HR A4C HR A2C 86.13 BPM LV EDV Index (BP) LA Volume LA Length A4C 5.9 cm LA Length A2C 5.9 cm LA Area A4C s 20.99 cm2 LA Area A2C s 20.07 cm2 LA Vol A4C A-L 63.02 mL LA Vol A2C A-L 57.61 mL LA Vol Biplane A-L 60.3 mL LA Vol/BSA A4C A-L LA Vol/BSA A2C A-L LA Vol/BSA BP A-L 28.7 mL/m2 LA Vol A4C MOD 59.2 mL LA Vol A2C MOD 54.8 mL LA Vol BP MOD 56.9 mL RA Volume RA Area A4C 11.7 cm2 RA ESV A4C (A-L) 27.0mL RA Vol/BSA A4C A-L RA Length A4C 4.3 cm RA ESV A4C (MOD) 25.0mL LV Diastology MV E' medial 0.045 (>0.07 m/s) MV E Vmax 0.62 (0.4-1.3 m/s) MV E/E' MED 13.92 (<14) MV A Vmax 1.30 (0.4-1.3 m/s) MV E' lateral 0.068 (>0.1 m/s) E/A Ratio 0.5 MV E/E' LAT 9.15 (<14) MV E' Average 0.056 m/s MV E/E'(average) 11.04 Aortic Valve AoV Vmax 1.82 m/s LVOT Vmax 1.32 m/s AoV Peak Grad 13.2 mmHg LVOT Peak Grad 7.0 mmHg AoV Area (Vmax) 2.30 cm2 LVOT VTI 0.234 m AoV VTI 0.348 m LVOT Mean Grad 4.3 mmHg AoV Mean Maciel. 1.43 m/s LVOT SV 74.03 mL AoV Mean Grad 8.8 mmHg LVOT Diam s 2.00 cm AoV Area (VTI) 2.13 cm2 AV Regurg Peak Gr. 13.21 mmHg Velocity Ratio 0.73 Mitral Valve MV DT 403 (160-240 msec) MV Vmax TIPS 1.40 m/s MV Mean Grad 2.8 (<2mmHg) MV VTI 0.295 m Pulmonary Valve PV Vmax 1.47 (0.5-1.5 m/s) RVOT Vmax 0.76 m/s PV Peak Grad 8.6 mmHg RVOT Peak Gr. 2.3 mmHg PV Mean Maciel 0.81 m/s RVOT VTI 0.140 m PV Mean Grad 3.3 mmHg RVOT Mean Gr. 1.7 mmHg Tricuspid Valve TV S' 0.11 m/s
== END ==
LOC: DI 00:27
PROVIDERS: PCP Family Medicine; Visit Provider Psychiatry & Neurology Neurology
DX: R68.89 Other general symptoms and signs (principal); R06.01 Orthopnea; I35.0 Nonrheumatic aortic (valve) stenosis
CPT/HCPCS: 93306

== ENCOUNTER → 2025-02-08 08:22 | Outpatient (BNVA) | payer MEDICARE, SELFPAY | PROVIDERS: PCP Family Medicine; Referring Provider Family Medicine; Visit Provider Physician Assistant | DX: M17.11 Unilateral primary osteoarthritis, right knee (principal); M19.011 Primary osteoarthritis, right shoulder; E11.9 Type 2 diabetes mellitus without complications | CPT/HCPCS: 20610; 36416; 83036; J1010 ==

== ENCOUNTER 2025-02-20 00:24 | Outpatient (RCR) | payer MEDICARE, SELFPAY ==
[2025-02-04] VITALS (8 sets, daily range): BP systolic 115–134; BP diastolic 65–89; PULSE 79–87; RESP 18; TEMP 36.2–36.7; O2SAT 93–95
[2025-02-04] MEDS: Immune Globulin-Privigen 10 GM/100 ML BTL IVPB (08:12)
[2025-02-04] MEDS: Normal Saline Flush 10 ML SYR IVP (08:13)
[2025-02-04] MEDS: Immune Globulin-Privigen 40 GM/400 ML BTL IVPB ×2 (09:00→10:35)
[2025-02-06 10:24] VITALS: BP 112/70; PULSE 71; RESP 18; TEMP 36.3; O2SAT 97
[2025-02-06] MEDS: Normal Saline Flush 10 ML SYR IVP (10:27)
[2025-02-06 11:04] VITALS: BP 119/66; PULSE 74; RESP 18; TEMP 36.2; O2SAT 93
[2025-02-06 11:29] VITALS: BP 130/76; PULSE 73; RESP 19; TEMP 36.3; O2SAT 96
[2025-02-18] VITALS (7 sets, daily range): BP systolic 105–148; BP diastolic 67–89; PULSE 71–87; RESP 18; TEMP 35.4–36.5; O2SAT 94–96
[2025-02-18] MEDS: Immune Globulin-Privigen 10 GM/100 ML BTL IVPB (08:38)
[2025-02-18] MEDS: Immune Globulin-Privigen 40 GM/400 ML BTL IVPB ×2 (09:38→10:58)
[2025-02-18] MEDS: Normal Saline Flush 10 ML SYR IVP (09:49)
[2025-02-20 08:55] VITALS: BP 137/79; PULSE 89; RESP 16; TEMP 36.3; O2SAT 95
[2025-02-20] MEDS: Normal Saline Flush 10 ML SYR IVP (08:59)
[2025-02-20 09:30] VITALS: BP 120/76; PULSE 80; RESP 16; TEMP 36.4; O2SAT 96
[2025-02-20 10:00] VITALS: BP 119/76; PULSE 84; RESP 16; TEMP 36.4; O2SAT 96
== END 2025-02-27 23:59 | disposition home or self-care (01) ==
LOC: INF 00:24
PROVIDERS: PCP Family Medicine; Visit Provider Nurse Practitioner Family
DX: G70.00 Myasthenia gravis without (acute) exacerbation (principal)
CPT/HCPCS: 96365; 96366; J0490; J1459